=== PATIENT | female | born 1930 | race Caucasian/White ===

== ENCOUNTER 2017-09-30 21:12 | Inpatient (IN) | payer MEDICARE, MEDICAID ==
[2017-09-30 22:11] LABS: % BASOPHILS 0.6 % (0.0-2.0); % EOSINOPHILS 11.2 % (0.0-5.0); % LYMPHOCYTES 26.8 % (20.0-50.0); % MONOCYTES 14.4 % (2.0-10.0); EOSINOPHILE ABSOLUTE 0.7 Th/cmm (0.1-0.4); HEMATOCRIT 23.2 % (41.0-60); LYMPHOCYTE ABSOLUTE 1.6 Th/cmm (1.5-3.0); MEAN CELL VOLUME 82.4 fl (81-100); MEAN CORPUSCULAR HEMOGLOBIN 27.9 pg (27.0-31.0); MEAN CORPUSCULAR HGB CONC 33.9 pg (28.0-36.0); MEAN PLATELET VOLUME 7.7 fl; MONOCYTE ABSOLUTE 0.8 Th/cmm (0.3-1.0); NEUTROPHILE ABSOLUTE 2.8 Th/cmm (1.8-8.0); PLATELET COUNT 335 Th/cmm (150-400); RED BLOOD COUNT 2.81 Mil/cmm (3.80-5.20); RED CELL DISTRIBUTION WIDTH 16.3 % (11.5-20.0); WHITE BLOOD COUNT 5.9 Th/cmm (4.8-10.8)
[2017-09-30 22:25] LABS: ALBUMIN 3.4 gm/dL (3.7-5.3); ALKALINE PHOSPHATASE 71 U/L (34-104); ANION GAP 12.4 (7.0-16.0); BILIRUBIN,TOTAL 0.2 mg/dL (0.3-1.0); BUN - UREA NITROGEN 35 mg/dL (7-25); CALCIUM SERUM 9.3 mg/dL (8.6-10.3); CARBON DIOXIDE 25.6 mEq/L (21.0-31.0); CHLORIDE 100 mEq/L (98-107); CREATININE - SERUM 1.1 mg/dL (0.6-1.2); GLUCOSE 109 mg/dL (70-105); SGOT 16 U/L (13-39); SGPT/ALT 13 U/L (7-52); SODIUM SERUM 134 mEq/L (136-145); TOTAL PROTEIN,SERUM 6.8 gm/dL (6.0-8.3)
--- NOTE | 2017-09-30 23:05 | ER Physician Documentation ---
DATE OF SERVICE: 09/30/2017 HISTORY OF PRESENT ILLNESS: An 86-year-old female patient. She is DNR. She is sent by Dr. Wells to this institution because the patient's hematocrit was low and hence for diagnosis and treatment as necessary. The patient was referred to the Emergency Room evaluation. HISTORY OF PRESENT ILLNESS: The patient states that she has nothing wrong and they picked wrong patient and she is brought over here. She is going to awa the doctor, and other than that, she is not complaining of any complaints. I was told that her hematocrit was 8.1 and then rechecking the hematocrit was around 7.1 that means the patient may be either bleeding or has chronic bleeding or chronic ulcer or what will check it out, we will get serum iron, ferritin level and other things. PAST MEDICAL HISTORY: Otherwise benign and negative. The patient herself does not give any history or things, but the things that came from her shelter states that she came from the shelter and the patient has the following diagnoses. 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 PAST MEDICAL HISTORY: Other than this one, is not available to me. REVIEW OF SYSTEMS: Cannot be obtained. She is not cooperative. She does not answer. ALLERGIES: The patient is allergic to ibuprofen. There is Motrin as well as iodine, so anytime IVP is done or any other contrast media test is done, please watch out and in the front of the chart please put down she is allergic to ibuprofen and iodine dye that means anything that contains like fish or things probably iodine, she might be allergic to that. PAST MEDICAL HISTORY: Also includes hypertension, hyperlipidemia, depression, hypothyroidism, etc. PHYSICAL EXAMINATION: VITAL SIGNS: The triage nurse took the vital signs showing temperature 96.8, pulse of 58, respirations 20, blood pressure 144/57, oxygen saturation 94%. GENERAL: The patient appears to be awake, alert, oriented, not in any acute cardiorespiratory distress. She is not cooperative. She has low hemoglobin. HEENT: Her conjunctivae are pink. Sclerae white. Pupils are narrow. There is no eye infection. NECK: Supple, no meningeal signs. EXTREMITIES: No edema, no cyanosis, no petechia, no ecchymosis. Conjunctivae appears to be pale. Iris appears to be white. There is no jaundice. At 10:00 at nighttime, cannot appreciate the jaundice. No evidence of any [employer] difficulty. Overall, general exam is benign and negative except for anemia and depression, probably some psychosis, etc. CHEST: Reveals trachea to be central. Fairly good air entry in both lung without any rales, rhonchi, or bronchial breathing. ABDOMEN: Soft, benign and negative. Liver, spleen not enlarged. No free fluid in the abdominal cavity. CENTRAL NERVOUS SYSTEM: Otherwise, moves all the extremities. Do not see that the patient has any old or new stroke. HEART: Reveals normal heart sounds. PMI is located in the fifth intercostal space midclavicular line. S1, S2 are normal. third heart sound is absent. Fourth heart sound is present. ENDOCRINE: The patient does not have any diabetes or hyper or hypothyroidism, but hypothyroidism history is obtained, so we will get some free T4 level as well as a TSH level. No evidence of any [place]'s disease or pheochromocytoma, etc. GENITOURINARY: No burning, frequency, dysuria. No history of previous illnesses. BONES AND JOINTS: No gross evidence of any fracture. CANCER: No evidence of any cancer, etc. At least these are the history that she is giving. LABORATORY DATA: She has some prerenal azotemia. The BUN was 37 and 32. Afterwards with creatinine 1.06, so prerenal azotemia is present. Electrolytes appear to be normal. Albumin is 3.4, which is mild protein calorie malnutrition is noted. Alkaline phosphatase is 64. SGOT, SGPT, essentially is within normal limits. The patient came to [facility] where I am seeing her in the Emergency Room. The patient was sent by the [facility] [address] [address], phone [phone]. FINAL IMPRESSION: The patient has anemia, etiology of the anemia is uncertain, whether the patient has chronic blood loss coming. Other diagnosis includes that the patient has hypertension, mild prerenal azotemia. The patient has hypertension, hyperlipidemia and depression. She is a DNR status. Allergic to iodine and ibuprofen. She has unspecified lack of coordination, difficulty in walking. She has previous history of pressure ulcer of sacral region, stage I and she has atherosclerotic heart disease of [place] coronary artery without angina pectoris, heart failure, history unspecified dysphagia, oropharyngeal phase, patient may be having GERD. The medications the patient is on from the shelter, [facility] is that she is taking simvastatin 10 mg 1 tablet a day, buspirone 5 mg tablet, Tylenol p.r.n. as and when needed, valsartan 160 mg for blood pressure once a day. She is getting potassium chloride. She is on gabapentin 300 mg for peripheral neuropathy. Tramadol 50 mg. There is a nonsteroidal anti-inflammatory drug ordered by Dr. Anahy Osorio. The patient over there in the shelter is taken care by Dr. Tracey and Dr. Anahy Osorio and I believe Dr. Wells might be also taking care as he was the one to refer the patient. The patient is also taking fluoxetine, there is antidepressant medication 40 mg once a day, monitoring of the patient, Risperdal 0.25 mg 1 tablet at bedtime, RNA to ambulate the patient. JOB# [id number]
[2017-09-30 23:39] LABS: HEMOGLOBIN 7.9 gm/dL (12-16)
[2017-10-01 00:35] VITALS: BP 138/51
[2017-10-01] MEDS: Sodium Chloride 0.9% 1,000 ML IV SCH ×2 (02:20→20:49)
[2017-10-01 06:16] LABS: EOSINOPHILE ABSOLUTE 0.6 Th/cmm (0.1-0.4); LYMPHOCYTE ABSOLUTE 1.5 Th/cmm (1.5-3.0); MEAN PLATELET VOLUME 7.8 fl; MONOCYTE ABSOLUTE 0.6 Th/cmm (0.3-1.0)
[2017-10-01 06:31] LABS: % BASOPHILS 0.7 % (0.0-2.0); % EOSINOPHILS 13.7 % (0.0-5.0); % LYMPHOCYTES 32.5 % (20.0-50.0); % MONOCYTES 13.7 % (2.0-10.0); % NEUTROPHILS 39.4 % (40.0-80.0); HEMATOCRIT 23.2 % (41.0-60); MEAN CELL VOLUME 82.5 fl (81-100); MEAN CORPUSCULAR HEMOGLOBIN 27.8 pg (27.0-31.0); MEAN CORPUSCULAR HGB CONC 33.7 pg (28.0-36.0); NEUTROPHILE ABSOLUTE 1.9 Th/cmm (1.8-8.0); PLATELET COUNT 326 Th/cmm (150-400); RED BLOOD COUNT 2.81 Mil/cmm (3.80-5.20); RED CELL DISTRIBUTION WIDTH 16.2 % (11.5-20.0)
[2017-10-01 06:36] LABS: HEMOGLOBIN 7.8 gm/dL (12-16); WHITE BLOOD COUNT 4.6 Th/cmm (4.8-10.8)
[2017-10-01 07:05] LABS: BUN - UREA NITROGEN 32 mg/dL (7-25); CALCIUM SERUM 9.3 mg/dL (8.6-10.3); CARBON DIOXIDE 27.2 mEq/L (21.0-31.0); CHLORIDE 103 mEq/L (98-107); GLUCOSE 95 mg/dL (70-105); POTASSIUM SERUM 4.2 mEq/L (3.5-5.1); SODIUM SERUM 136 mEq/L (136-145)
[2017-10-01 07:07] LABS: ALB/GLOB RATIO 0.9 (1.0-1.8); ALBUMIN 3.2 gm/dL (3.7-5.3); BILIRUBIN,TOTAL 0.3 mg/dL (0.3-1.0); TOTAL PROTEIN,SERUM 6.6 gm/dL (6.0-8.3)
[2017-10-01 07:12] LABS: BILIRUBIN,DIRECT 0.04 mg/dL (0.0-0.2)
--- NOTE | 2017-10-01 08:10 | Diagnostic Imaging Report ---
Portable chest x-ray HISTORY: Cough, pneumonia The heart appears somewhat enlarged. Atherosclerotic calcification seen in the aorta. No acute focal bony processes. Extensive surgical changes with orthopedic hardware traverses the right humerus. IMPRESSION: 1. No acute focal pulmonary processes 2. Cardiomegaly with atherosclerotic vascular changes
[2017-10-01] MEDS ORDERED: cloNIDine 0.2 mg/24 hr Tdm TD SCH (08:45)
[2017-10-01] MEDS: Levothyroxine 0.075 Mg Tab PO SCH (10:00)
[2017-10-01] MEDS: Potassium Chloride Elixir 20 mEq /15 mL UDC PO SCH (10:54)
[2017-10-01] MEDS ORDERED: VTE Chemical Prophylaxis Screen/Admission MC PRN (15:30)
[2017-10-01] MEDS ORDERED: Magnesium Citrate 1.75 GM/300 mL Bottle PO ONE (15:58)
--- NOTE | 2017-10-02 01:15 | Consultation ---
DATE OF CONSULTATION: 10/01/2017 GASTROENTEROLOGY CONSULTATION REQUESTING PHYSICIAN: iNcole Wells M.D. REASON FOR CONSULTATION: Anemia. HISTORY OF PRESENT ILLNESS: An 86-year-old female admitted for symptomatic anemia with some fatigue and shortness of breath. Hemoglobin on admission was in the 7 range. There is no overt GI bleeding. The patient is a poor historian. She denies abdominal pain, nausea, vomiting, diarrhea, or constipation. She last had a colonoscopy per her son about 5 years ago that was unremarkable. An upper endoscopy was offered, but the patient refused. PAST MEDICAL HISTORY: As above, also notable for hypertension, hyperlipidemia, depression, and obesity. ALLERGIES: IBUPROFEN and IODINE. MEDICATIONS: Here are Tylenol, BuSpar, Catapres, Colace, Prozac, Lasix, Neurontin, hydralazine, Synthroid, Ativan, potassium, Risperdal, Zocor, Ultram, and Diovan. SOCIAL HISTORY: No known tobacco, alcohol, or drugs. FAMILY HISTORY: Noncontributory. REVIEW OF SYSTEMS: Negative. REVIEW OF SYSTEMS: A comprehensive 12-point review of system was conducted and is only positive for those signs and symptoms present in history of present illness. PHYSICAL EXAMINATION: VITAL SIGNS: Temperature 97.6, blood pressure 125/49, pulse of 60, respirations 17, and O2 sat 97%. GENERAL: The patient is well-developed, well-nourished, obese female, in no acute distress. HEENT: Sclerae are anicteric. Oropharynx is clear. CARDIOVASCULAR: Regular rate and rhythm. LUNGS: Clear to auscultation bilaterally. ABDOMEN: Soft, nontender, nondistended. Obese habitus. EXTREMITIES: No clubbing, cyanosis, or edema. RECTAL: Deferred. LABORATORY DATA AND IMAGING: WBC 4.6, hemoglobin 7.8, MCV 82, and platelet count 326. Sodium 136, creatinine 1.0. BUN of 32. Liver enzymes normal. Albumin 3.2. IMPRESSION: 1. Anemia, multifactorial, could be from GI blood loss from upper or lower GI source, could also be from anemia of chronic disease, bone marrow disorder, etc. 2. History of hypertension, hyperlipidemia, depression, and obesity. RECOMMENDATIONS: 1. Upper endoscopy and colonoscopy either tomorrow or the day after depending on bowel preparation tolerance. 2. Monitor hemoglobin, transfuse as necessary. Thank you, Dr. Nicole Wells for involving us in the care of your patient. If you have any further questions, please call us. JOB# [id number]
[2017-10-02 05:35] LABS: % BASOPHILS 0.7 % (0.0-2.0); % EOSINOPHILS 16.9 % (0.0-5.0); % LYMPHOCYTES 28.2 % (20.0-50.0); % MONOCYTES 14.2 % (2.0-10.0); EOSINOPHILE ABSOLUTE 0.8 Th/cmm (0.1-0.4); HEMATOCRIT 22.1 % (41.0-60); LYMPHOCYTE ABSOLUTE 1.3 Th/cmm (1.5-3.0); MEAN CORPUSCULAR HEMOGLOBIN 27.3 pg (27.0-31.0); MEAN CORPUSCULAR HGB CONC 32.9 pg (28.0-36.0); MEAN PLATELET VOLUME 8.1 fl; MONOCYTE ABSOLUTE 0.7 Th/cmm (0.3-1.0); NEUTROPHILE ABSOLUTE 1.8 Th/cmm (1.8-8.0); PLATELET COUNT 313 Th/cmm (150-400); RED BLOOD COUNT 2.66 Mil/cmm (3.80-5.20); RED CELL DISTRIBUTION WIDTH 16.2 % (11.5-20.0); WHITE BLOOD COUNT 4.6 Th/cmm (4.8-10.8)
[2017-10-02 05:44] LABS: INR 0.95 (0.5-1.4); PROTHROMBIN TIME (TEST) 9.9 SECONDS (9.5-11.5)
[2017-10-02 05:53] LABS: ANION GAP 9.5 (7.0-16.0); BUN - UREA NITROGEN 29 mg/dL (7-25); CHLORIDE 104 mEq/L (98-107); CREATININE - SERUM 0.8 mg/dL (0.6-1.2); GLUCOSE 95 mg/dL (70-105); POTASSIUM SERUM 4.5 mEq/L (3.5-5.1); SODIUM SERUM 138 mEq/L (136-145)
[2017-10-02 06:29] LABS: HEMOGLOBIN 7.3 gm/dL (12-16)
[2017-10-02 08:09] LABS: IRON LC 19 ug/dL (27-139); TIBC (LC) 332 (250-450); UIBC 313 ug/dL (118-369)
[2017-10-02] MEDS ORDERED: Magnesium Citrate 1.75 GM/300 mL Bottle PO ONE (09:00)
[2017-10-02] MEDS: Potassium Chloride Elixir 20 mEq /15 mL UDC PO SCH (09:10)
[2017-10-02] MEDS: Levothyroxine 0.075 Mg Tab PO SCH (09:12)
[2017-10-02] MEDS: Lactulose 10 Gm/15 mL 30mL UDC PO SCH ×4 (14:47→18:28)
--- NOTE | 2017-10-02 14:47 | Cardiology ---
10/01/[address] Wells. PROCEDURE: Echocardiogram. M-MODE ECHOCARDIOGRAM: Mitral valve, anterior leaflet of mitral valve shows normal excursion, EF velocity. Posterior leaflet of the mitral valve shows normal excursion. Left ventricular posterior wall shows increased thickness, normal excursion. Interventricular septum shows increased thickness, normal excursion. There is hypertrophy of the left ventricle. Left atrium normal. Aortic root shows normal dimension, normal excursion of aortic leaflets. CONCLUSION: Hypertrophy of the left ventricle, ejection fraction 50%. 2D ECHO: Long axis technically poor, only structure visualized in apical 4 chamber view, which showed normal sized left ventricle with hypertrophy of the left ventricle. Left atrium normal. Right ventricular cavity, right atrium normal, no pericardial effusion. CONCLUSION: Hypertrophy of the left ventricle, ejection fraction 50%. Doppler study shows prominent area consistent with poor compliance of left ventricle, mild tricuspid regurgitation. [facility]# [id number]
[2017-10-02] MEDS: Sodium Chloride 0.9% 1,000 ML IV SCH (17:43)
--- NOTE | 2017-10-02 22:15 | GI Progress Note ---
Subjective - Review of Systems Service Date: 10/02/17 Subjective: UNABLE TO FABY BOWEL PREP OVERNIGHT. EGD AND COLONOSCOPY POSTPONED. Objective - Results Result Diagrams: 10/02/17 04:30 10/02/17 04:30 Recent Labs: Laboratory Last Values WBC 4.6 Th/cmm (4.8-10.8) L 10/02/17 04:30 RBC 2.66 Mil/cmm (3.80-5.20) L 10/02/17 04:30 Hgb 7.3 gm/dL (12-16) L* 10/02/17 04:30 Hct 22.1 % (41.0-60) L 10/02/17 04:30 MCV 83.0 fl (81-100) 10/02/17 04:30 MCH 27.3 pg (27.0-31.0) 10/02/17 04:30 MCHC Differential 32.9 pg (28.0-36.0) 10/02/17 04:30 RDW 16.2 % (11.5-20.0) 10/02/17 04:30 Plt Count 313 Th/cmm (150-400) 10/02/17 04:30 MPV 8.1 fl 10/02/17 04:30 Neutrophils % 40.0 % (40.0-80.0) 10/02/17 04:30 Lymphocytes % 28.2 % (20.0-50.0) 10/02/17 04:30 Monocytes % 14.2 % (2.0-10.0) H 10/02/17 04:30 Eosinophils % 16.9 % (0.0-5.0) H 10/02/17 04:30 Basophils % 0.7 % (0.0-2.0) 10/02/17 04:30 PT 9.9 SECONDS (9.5-11.5) 10/02/17 04:30 INR 0.95 (0.5-1.4) 10/02/17 04:30 Sodium 138 mEq/L (136-145) 10/02/17 04:30 Potassium 4.5 mEq/L (3.5-5.1) 10/02/17 04:30 Chloride 104 mEq/L (98-107) 10/02/17 04:30 Carbon Dioxide 29.0 mEq/L (21.0-31.0) 10/02/17 04:30 Anion Gap 9.5 (7.0-16.0) 10/02/17 04:30 BUN 29 mg/dL (7-25) H 10/02/17 04:30 Creatinine 0.8 mg/dL (0.6-1.2) 10/02/17 04:30 Est GFR ( Amer) TNP 10/02/17 04:30 Est GFR (Non-Af Amer) TNP 10/02/17 04:30 BUN/Creatinine Ratio 36.3 10/02/17 04:30 Glucose 95 mg/dL (70-105) 10/02/17 04:30 Calcium 9.0 mg/dL (8.6-10.3) 10/02/17 04:30 Magnesium 2.5 mg/dL (1.9-2.7) 09/30/17 21:55 Iron 19 ug/dL (27-139) L 09/30/17 22:15 TIBC 332 (250-450) 09/30/17 22:15 Iron Saturation 6 (15-55) L 09/30/17 22:15 Unsaturated IBC 313 ug/dL (118-369) 09/30/17 22:15 Ferritin 12 ng/mL (15-150) L 09/30/17 22:15 Total Bilirubin 0.3 mg/dL (0.3-1.0) 10/01/17 05:20 Direct Bilirubin 0.04 mg/dL (0.0-0.2) 10/01/17 05:20 AST 13 U/L (13-39) 10/01/17 05:20 ALT 12 U/L (7-52) 10/01/17 05:20 Alkaline Phosphatase 68 U/L (34-104) 10/01/17 05:20 C-Reactive Protein < 0.2 mg/dL (0.0-0.9) 09/30/17 21:55 B-Natriuretic Peptide 98.4 pg/mL (5.0-100.0) 10/01/17 05:20 Total Protein 6.6 gm/dL (6.0-8.3) 10/01/17 05:20 Albumin 3.2 gm/dL (3.7-5.3) L 10/01/17 05:20 Globulin 3.4 gm/dL 10/01/17 05:20 Albumin/Globulin Ratio 0.9 (1.0-1.8) L 10/01/17 05:20 Stool Occult Blood NEGATIVE (NEGATIVE) 10/02/17 18:06 Blood Type O POSITIVE 09/30/17 21:55 Antibody Screen NEGATIVE 09/30/17 21:55 Crossmatch See Detail 09/30/17 21:55 - Physical Exam Vitals and I&O: Vital Signs Temp 98.2 F 10/02/17 17:00 Pulse 66 10/02/17 21:28 Resp 20 10/02/17 17:00 BP 150/77 10/02/17 21:28 Pulse Ox 99 10/02/17 17:00 Intake & Output 10/02/17 10/02/17 10/03/17 06:59 18:59 06:59 Intake Total 333.295 2025 Balance 597.483 1804 Intake: Intake, IV Amount 226.764 3720 Sodium Chloride 0.9% 1, 933.776 2683 000 ml @ 50 mls/hr IV . Q20H [facility] Rx#:[id number] Other: Stool Characteristics Formed Liquid Active Medications: Current Medications Acetaminophen (Tylenol) 325 mg PO Q6H PRN PRN Reason: PAIN Stop: 11/30/17 10:45 Last Admin: 10/01/17 19:49 Dose: 325 mg Buspirone HCl (Buspar) 5 mg PO BID [facility] PRN Reason: Protocol Stop: 11/30/17 08:59 Last Admin: 10/02/17 16:30 Dose: 5 mg Clonidine HCl (Lornmxne-Siv-4) 1 patch TD [facility] Stop: 11/30/17 08:44 Docusate Sodium (Colace) 250 mg PO QID [facility] Stop: 10/03/17 23:59 Last Admin: 10/02/17 21:28 Dose: 250 mg Fluoxetine HCl (Prozac) 40 mg PO DAILY [facility] Stop: 11/30/17 08:59 Last Admin: 10/02/17 09:12 Dose: 40 mg Furosemide (Lasix) 40 mg PO DAILY [facility] Stop: 11/30/17 08:59 Last Admin: 10/02/17 08:58 Dose: 40 mg Gabapentin (Neurontin) 300 mg PO TID [facility] Stop: 11/30/17 08:59 Last Admin: 10/02/17 21:28 Dose: 300 mg Hydralazine HCl (Apresoline) 50 mg PO TID [facility] Stop: 11/30/17 08:59 Last Admin: 10/02/17 21:28 Dose: 50 mg Sodium Chloride (Nacl 0.9%) 1,000 mls @ 50 mls/hr IV .Q20H [facility] Stop: 11/30/17 01:15 Last Admin: 10/02/17 17:43 Dose: 50 mls/hr Levothyroxine Sodium (Synthroid) 0.075 mg PO QDAC [facility] Stop: 11/30/17 08:59 Last Admin: 10/02/17 09:12 Dose: 0.075 mg Lorazepam (Ativan) 1 mg IVP Q4HR PRN; Protocol PRN Reason: Agitation Stop: 11/30/17 01:15 Last Admin: 10/02/17 05:18 Dose: 1 mg Miscellaneous (Vte Chemical Prophylaxis Screen/ Admission) 1 ea [facility] PRN PRN PRN Reason: PROTOCOL Stop: 11/30/17 15:29 Potassium Chloride (Potassium Chloride Elixir) 8 meq PO DAILY [facility] Stop: 11/30/17 08:59 Last Admin: 10/02/17 09:10 Dose: Not Given Risperidone (Risperdal) 0.25 mg PO HS [facility] Stop: 11/30/17 20:59 Last Admin: 10/02/17 21:29 Dose: 0.25 mg Simvastatin (Zocor) 10 mg PO HS [facility] PRN Reason: Protocol Stop: 11/30/17 20:59 Last Admin: 10/02/17 21:28 Dose: 10 mg Tramadol HCl (Ultram) 50 mg PO Q4HR PRN PRN Reason: Pain (Moderate) Stop: 11/30/17 08:39 Valsartan (Diovan) 160 mg PO BID [facility] Stop: 11/30/17 08:59 Last Admin: 10/02/17 16:29 Dose: 160 mg General: Alert, No acute distress Neck: Supple Cardiovascular: Regular rate Lungs: Clear to auscultation Abdomen: Bowel sounds, Soft, no Tender - Procedures Procedures: Procedures Procedure Code Date [facility] GROUP PSYTX 44654 01/24/01 OTHER GROUP THERAPY 94.44 01/24/01 Assessment/Plan - Assessment Assessment: IMPRESSION: 1. ANEMIA - R/O GI BLOOD LOSS VS. OTHER. 2. HTN. 3. HL. 4. OBESITY. RECS: 1. EGD AND COLONOSCOPY POSTPONED TILL TOMORROW. 2. CONTINUE BOWEL PREP. 3. MONITOR HGB; TRANSFUSE PRN.
--- NOTE | 2017-10-02 22:56 | Consultation ---
DATE OF CONSULTATION: 10/01/[address] Wells. HISTORY OF PRESENT ILLNESS: This is an 86-year-old female patient who was brought in because of symptomatic anemia. The patient is a poor historian. During the hospital stay, the patient was found to have uncontrolled hypertension with bradycardia and hence Cardiology consult is requested. The patient's hemoglobin is 7. PAST MEDICAL HISTORY: Anemia, hypertension, bradycardia, uncontrolled hypertension, psychosis, decubitus ulcer in the sacral area, hypothyroid, CKD stage II, peripheral neuropathy, and hyperlipidemia. FAMILY HISTORY: Unremarkable. SOCIAL HISTORY: No history of smoking or alcohol abuse. ALLERGIES: No known allergies. PHYSICAL EXAMINATION: VITAL SIGNS: Blood pressure 170/90, pulse 58, and respirations 28. HEAD: Normocephalic. No lumps or bumps. EYES: Pupils equal, reactive to light. Fundi show AV nicking, sclerae white, conjunctivae pink. NECK: Carotid 2+. Normal upstroke. JVD flat. Thyroid not palpable. Lymph nodes not palpable. CHEST: Shows increased AP diameter. No kyphosis, scoliosis. LUNGS: Bilateral bronchovesicular breath sounds. HEART: PMI fifth intercostal space with lateral to midclavicular line. S1, S2. No S3, S4, soft systolic murmur, sinus bradycardia. ABDOMEN: Soft. Mild epigastric tenderness. No rebound tenderness. Bowel sounds active. NEUROLOGIC: Peripheral neuropathy. EXTREMITIES: Peripheral pulses 2+. No pedal edema. CLINICAL IMPRESSION: Iron-deficiency anemia, symptomatic hypertension, bradycardia, uncontrolled blood pressures, psychosis, decubitus ulcer in the sacrum, hypothyroid, chronic kidney disease stage II, peripheral neuropathy, and hyperlipidemia. PLAN: Admit the patient. We will monitor the blood pressure. We will get TSH level and have a GI workup with colonoscopy and EGD. JOB# [id number]
[2017-10-03 06:46] LABS: HEMATOCRIT 23.6 % (41.0-60); MEAN CELL VOLUME 83.3 fl (81-100); MEAN CORPUSCULAR HEMOGLOBIN 27.1 pg (27.0-31.0); MEAN CORPUSCULAR HGB CONC 32.5 pg (28.0-36.0); MEAN PLATELET VOLUME 7.6 fl; PLATELET COUNT 369 Th/cmm (150-400); RED BLOOD COUNT 2.84 Mil/cmm (3.80-5.20); RED CELL DISTRIBUTION WIDTH 16.5 % (11.5-20.0); WHITE BLOOD COUNT 6.8 Th/cmm (4.8-10.8)
[2017-10-03 06:54] LABS: HEMOGLOBIN 7.7 gm/dL (12-16)
[2017-10-03 06:55] LABS: MANUAL DIFF REQUIRED? YES
[2017-10-03 07:08] LABS: ALB/GLOB RATIO 0.9 (1.0-1.8); ALBUMIN 3.3 gm/dL (3.7-5.3); ALKALINE PHOSPHATASE 73 U/L (34-104); ANION GAP 9.2 (7.0-16.0); BILIRUBIN,TOTAL 0.2 mg/dL (0.3-1.0); BUN - UREA NITROGEN 20 mg/dL (7-25); CALCIUM SERUM 9.5 mg/dL (8.6-10.3); CHLORIDE 110 mEq/L (98-107); CREATININE - SERUM 0.9 mg/dL (0.6-1.2); GLUCOSE 126 mg/dL (70-105); POTASSIUM SERUM 3.2 mEq/L (3.5-5.1); SGOT 15 U/L (13-39); SGPT/ALT 15 U/L (7-52); SODIUM SERUM 147 mEq/L (136-145); TOTAL PROTEIN,SERUM 6.8 gm/dL (6.0-8.3)
[2017-10-03 07:32] LABS: LYMPHOCYTE 8 % (20-50); NEUTROPHILS 85 % (40-80); TOTAL CELLS COUNTED 100
[2017-10-03 07:35] LABS: MONOCYTE 7 % (2-10); PLATELET ESTIMATE INCREASED PLATELETS (NORMAL)
[2017-10-03] MEDS ORDERED: KCL 20mEq/100mL Premix 20 MEQ/100 ML PIGGYBACK IV ONE (08:28)
[2017-10-03] MEDS: Levothyroxine 0.075 Mg Tab PO SCH (08:46)
[2017-10-03] MEDS: Potassium Chloride Elixir 20 mEq /15 mL UDC PO SCH (08:47)
[2017-10-03] MEDS ORDERED: fentaNYL Citrate 100 mcg/2mL Vial IVP PRN (09:02)
[2017-10-03] MEDS ORDERED: Sodium Chloride 0.9% 1,000 ML IV SCH (09:15)
[2017-10-03] MEDS ORDERED: Lidocaine 2% Gel 5 mL TP ONE (10:00)
[2017-10-03] MEDS ORDERED: Propofol 10 mg/mL 20mL Vial **SURGERY USE ONLY IV ONE (10:00)
--- NOTE | 2017-10-03 11:30 | General Progress Note ---
Subjective - Review of Systems Events since last encounter: patient awake in no distress Objective - Results Result Diagrams: 10/03/17 06:05 10/03/17 06:05 Recent Labs: Laboratory Last Values WBC 6.8 Th/cmm (4.8-10.8) D 10/03/17 06:05 RBC 2.84 Mil/cmm (3.80-5.20) L 10/03/17 06:05 Hgb 7.7 gm/dL (12-16) L* 10/03/17 06:05 Hct 23.6 % (41.0-60) L 10/03/17 06:05 MCV 83.3 fl (81-100) 10/03/17 06:05 MCH 27.1 pg (27.0-31.0) 10/03/17 06:05 MCHC Differential 32.5 pg (28.0-36.0) 10/03/17 06:05 RDW 16.5 % (11.5-20.0) 10/03/17 06:05 Plt Count 369 Th/cmm (150-400) 10/03/17 06:05 MPV 7.6 fl 10/03/17 06:05 Neutrophils % 40.0 % (40.0-80.0) 10/02/17 04:30 Lymphocytes % 28.2 % (20.0-50.0) 10/02/17 04:30 Monocytes % 14.2 % (2.0-10.0) H 10/02/17 04:30 Eosinophils % 16.9 % (0.0-5.0) H 10/02/17 04:30 Basophils % 0.7 % (0.0-2.0) 10/02/17 04:30 Neutrophils (Manual) 85 % (40-80) H 10/03/17 06:05 Lymphocytes 8 % (20-50) L 10/03/17 06:05 Monocytes 7 % (2-10) 10/03/17 06:05 Platelet Estimate INCREASED PLATELETS (NORMAL) 10/03/17 06:05 PT 9.9 SECONDS (9.5-11.5) 10/02/17 04:30 INR 0.95 (0.5-1.4) 10/02/17 04:30 Sodium 147 mEq/L (136-145) H 10/03/17 06:05 Potassium 3.2 mEq/L (3.5-5.1) L 10/03/17 06:05 Chloride 110 mEq/L (98-107) H 10/03/17 06:05 Carbon Dioxide 31.0 mEq/L (21.0-31.0) 10/03/17 06:05 Anion Gap 9.2 (7.0-16.0) 10/03/17 06:05 BUN 20 mg/dL (7-25) 10/03/17 06:05 Creatinine 0.9 mg/dL (0.6-1.2) 10/03/17 06:05 Est GFR ( Amer) TNP 10/03/17 06:05 Est GFR (Non-Af Amer) TNP 10/03/17 06:05 BUN/Creatinine Ratio 22.2 10/03/17 06:05 Glucose 126 mg/dL (70-105) H 10/03/17 06:05 POC Glucose 106 MG/DL (70 - 105) H 10/03/17 08:24 Calcium 9.5 mg/dL (8.6-10.3) 10/03/17 06:05 Magnesium 2.5 mg/dL (1.9-2.7) 09/30/17 21:55 Iron 19 ug/dL (27-139) L 09/30/17 22:15 TIBC 332 (250-450) 09/30/17 22:15 Iron Saturation 6 (15-55) L 09/30/17 22:15 Unsaturated IBC 313 ug/dL (118-369) 09/30/17 22:15 Ferritin 12 ng/mL (15-150) L 09/30/17 22:15 Total Bilirubin 0.2 mg/dL (0.3-1.0) L 10/03/17 06:05 Direct Bilirubin 0.04 mg/dL (0.0-0.2) 10/01/17 05:20 AST 15 U/L (13-39) 10/03/17 06:05 ALT 15 U/L (7-52) 10/03/17 06:05 Alkaline Phosphatase 73 U/L (34-104) 10/03/17 06:05 C-Reactive Protein < 0.2 mg/dL (0.0-0.9) 09/30/17 21:55 B-Natriuretic Peptide 98.4 pg/mL (5.0-100.0) 10/01/17 05:20 Total Protein 6.8 gm/dL (6.0-8.3) 10/03/17 06:05 Albumin 3.3 gm/dL (3.7-5.3) L 10/03/17 06:05 Globulin 3.5 gm/dL 10/03/17 06:05 Albumin/Globulin Ratio 0.9 (1.0-1.8) L 10/03/17 06:05 Stool Occult Blood NEGATIVE (NEGATIVE) 10/02/17 18:06 Blood Type O POSITIVE 09/30/17 21:55 Antibody Screen NEGATIVE 09/30/17 21:55 Crossmatch See Detail 09/30/17 21:55 - Physical Exam Vitals and I&O: Vital Signs Temp 98.2 F 10/03/17 06:43 Pulse 75 10/03/17 08:47 Resp 18 10/03/17 06:43 BP 198/96 10/03/17 08:47 Pulse Ox 97 10/03/17 06:43 Intake & Output 10/02/17 10/03/17 10/03/17 18:59 06:59 18:59 Intake Total 1000 2400 Balance 1000 2400 Weight (lbs) 65.045 kg Intake: Intake, IV Amount 1000 Sodium Chloride 0.9% 1, 1000 000 ml @ 50 mls/hr IV . Q20H [facility] Rx#:[id number] Oral 2400 Other: # Voids 2 # Bowel Movements 4 Active Medications: Current Medications Acetaminophen (Tylenol) 325 mg PO Q6H PRN PRN Reason: PAIN Stop: 11/30/17 10:45 Last Admin: 10/01/17 19:49 Dose: 325 mg Buspirone HCl (Buspar) 5 mg PO BID [facility] PRN Reason: Protocol Stop: 11/30/17 08:59 Last Admin: 10/03/17 08:46 Dose: Not Given Clonidine HCl (Mtjvwdev-Kxh-1) 1 patch TD [facility] Stop: 11/30/17 08:44 Docusate Sodium (Colace) 250 mg PO QID [facility] Stop: 10/03/17 23:59 Last Admin: 10/03/17 08:46 Dose: Not Given Fentanyl Citrate (Sublimaze) 25 mcg IVP UD PRN PRN Reason: Pain (Moderate) Stop: 10/04/17 09:01 Fluoxetine HCl (Prozac) 40 mg PO DAILY [facility] Stop: 11/30/17 08:59 Last Admin: 10/03/17 08:46 Dose: Not Given Furosemide (Lasix) 40 mg PO DAILY [facility] Stop: 11/30/17 08:59 Last Admin: 10/03/17 08:46 Dose: Not Given Gabapentin (Neurontin) 300 mg PO TID [facility] Stop: 11/30/17 08:59 Last Admin: 10/03/17 08:47 Dose: Not Given Hydralazine HCl (Apresoline) 50 mg PO TID [facility] Stop: 11/30/17 08:59 Last Admin: 10/03/17 08:47 Dose: Not Given Sodium Chloride (Nacl 0.9%) 1,000 mls @ 50 mls/hr IV .Q20H [facility] Stop: 11/30/17 01:15 Last Admin: 10/02/17 17:43 Dose: 50 mls/hr Potassium Chloride 20 meq/ (Sodium Chloride) 260 mls @ 68 mls/hr IV X1 ONE Stop: 10/03/17 12:49 Last Admin: 10/03/17 08:57 Dose: 68 mls/hr Sodium Chloride (Nacl 0.9%) 1,000 mls @ 100 mls/hr IV .Q10H [facility] Stop: 10/04/17 09:14 Levothyroxine Sodium (Synthroid) 0.075 mg PO QDAC [facility] Stop: 11/30/17 08:59 Last Admin: 10/03/17 08:46 Dose: Not Given Lorazepam (Ativan) 1 mg IVP Q4HR PRN; Protocol PRN Reason: Agitation Stop: 11/30/17 01:15 Last Admin: 10/03/17 02:18 Dose: 1 mg Miscellaneous (Vte Chemical Prophylaxis Screen/ Admission) 1 ea [facility] PRN PRN PRN Reason: PROTOCOL Stop: 11/30/17 15:29 Ondansetron HCl (Zofran) 4 mg IV UD PRN PRN Reason: Nausea / Vomiting Stop: 10/04/17 09:04 Potassium Chloride (Potassium Chloride Elixir) 8 meq PO DAILY [facility] Stop: 11/30/17 08:59 Last Admin: 10/03/17 08:47 Dose: Not Given Risperidone (Risperdal) 0.25 mg PO HS [facility] Stop: 11/30/17 20:59 Last Admin: 10/02/17 21:29 Dose: 0.25 mg Simvastatin (Zocor) 10 mg PO HS [facility] PRN Reason: Protocol Stop: 11/30/17 20:59 Last Admin: 10/02/17 21:28 Dose: 10 mg Tramadol HCl (Ultram) 50 mg PO Q4HR PRN PRN Reason: Pain (Moderate) Stop: 11/30/17 08:39 Valsartan (Diovan) 160 mg PO BID [facility] Stop: 11/30/17 08:59 Last Admin: 10/03/17 08:47 Dose: Not Given General: Alert, No acute distress Neck: Supple Cardiovascular: Regular rate Lungs: Clear to auscultation Abdomen: Bowel sounds, Soft, no Tender - Procedures Procedures: Procedures Procedure Code Date [facility] GROUP PSYTX 39782 01/24/01 OTHER GROUP THERAPY 94.44 01/24/01
--- NOTE | 2017-10-03 13:36 | Operative Report ---
DATE OF SURGERY: 10/03/2017 PROCEDURE: 1. Esophagogastroduodenoscopy with biopsy. 2. Colonoscopy with biopsy and snare cautery polypectomy at different sites. PREPROCEDURE DIAGNOSIS: Anemia. POSTPROCEDURE DIAGNOSES: 1. Upper endoscopy showing mild presbyesophagus with mild Schatzki's ring; moderate hiatal hernia with erosions; mild atrophic appearing gastritis, status post biopsy and CLOtest; small submucosal lipomatous appearing polyp and duodenum sampled for biopsy forceps. 2. Colonoscopy showing multiple colon polyps excised as described below; unable to reach the cecum due to redundant colon; diverticulosis; hemorrhoids. INDICATIONS: An 86-year-old female admitted for anemia. CONSENT: Informed consent was obtained from the patient's durable power of ip attorney prior to procedure after detailed explanation of risks, benefits, and alternatives including but not limited to infection, perforation and . SEDATION: Monitored anesthesia care per Dr. Hernandez. DESCRIPTION OF PROCEDURE AND FINDINGSS: The procedure took place as an inpatient in the GI suite of [facility]. The patient was kept in a left lateral decubitus position. Adequate sedation was achieved with above medications. Initially; upper endoscopy was performed followed by colonoscopy. An Olympus diagnostic upper endoscope was advanced through the patient's mouth and into the esophagus. Here, there was mild tortuosity of the esophagus suggestive of presbyesophagus, and age-related change. There was a subtle Schatzki's ring identified. The Z line was at 34 cm from the gums. Retroflexion of the stomach revealed a 3 cm hiatal hernia. The diaphragmatic pinch was at 37 cm from the gums. There were some scattered erosions at the diaphragmatic hiatus. No ulcers or mass lesions were identified here. Mild atrophic appearing gastritis was identified in the antrum. Biopsies were obtained, submitted for CLOtest as well as pathology. The pyloric channel and duodenum up to this portion appeared normal except for a small 1 cm submucosal appearing lipomatous polyp in the second portion. Biopsies were obtained from here. The polyp was not removed. It was only sampled. The scope was withdrawn from the patient. The patient was then repositioned and colonoscopy performed. Rectal examination revealed normal sphincter tone with no rectal masses. An Olympus colonoscope was advanced through the patient's anus and into the rectum with ease. It was advanced up to the proximal to mid ascending colon visualized by perhaps and ileocecal valve at a distance, but this was not certain. Despite multiple attempts, due to colon redundancy, the scope was unable to reach the cecum. The scope was then slowly withdrawn and underlying colonic mucosa examined in detail. Three pedunculated polyps identified in the ascending colon measuring 1-2 cm in diameter. All were excised by snare cautery polypectomy and successfully retrieved. A 6 mm hepatic flexure polyp was removed with biopsy forceps. A 1 cm descending colon polyp was removed by snare cautery polypectomy. A 2 cm sigmoid polyp was removed by snare cautery polypectomy. All polypectomy sites appeared satisfactory. There was mild left-sided diverticulosis without obvious diverticulitis. Retroflexion of rectum revealed small internal hemorrhoids. No colitis or mass lesions were identified. The patient tolerated the procedure well. No complications were anticipated. RECOMMENDATIONS: 1. Follow up biopsy results. 2. No aspirin or blood thinners for a week. 3. We will obtain barium enema to clear the right colon. 4. Repeat colonoscopy advised likely in 1-2 years' time if barium enema is negative. If there are potential lesions in the right colon on barium enema, then would consider repeat colonoscopy at a sooner time. 5. High fiber diet as tolerated. Thank you, Dr. Nicole Wells, for involving us in the care of your patient. If you have any further questions, please call us. JOB# [id number] [id number]
--- NOTE | 2017-10-03 13:48 | Diagnostic Imaging Report ---
KUB abdominal film (portable) HISTORY: Pain, incomplete colonoscopy There is a nonspecific gas pattern of nondilated large and small bowel. No free intraperitoneal air. Calcific densities project over the periphery of the right and left abdomen. These may be within the subcutaneous tissues. Severe degenerative changes noted throughout the spine. Left hip arthroplasty noted. Severe joint space narrowing and associated degenerative change noted about the right hip. IMPRESSION: 1. Nonspecific gas pattern with no acute radiographic abnormalities.
--- NOTE | 2017-10-03 13:57 | History & Physical ---
ADMIT DATE: This patient came from [facility]. HISTORY OF PRESENT ILLNESS: The patient has been falling and very unsteady gait ____ and also was complaining of dysuria. I had the labs done, which showed high BUN and hemoglobin of 7.2 and crit was 21. The patient has underlying dementia and the patient is somewhat agitated, was sent to [facility] Emergency Room. The patient was seen in the ER. The patient had little bit labs done, which again showed the patient had a low hemoglobin and some evidence of urinary infection and dehydration and failure to thrive, and unsteady gait. The patient CAT scan done showed dementia, some atrophy . No history of stroke. Otherwise, patient's examination was normal, was admitted. PHYSICAL EXAMINATION: GENERAL: The patient when I saw her, she was very agitated, refusing all the things, and patient is somewhat dehydrated, emaciated, malnourished, cachectic female. VITAL SIGNS: Blood pressure was 110/70, heart rate was 90, respirations 18. HEENT: Normocephalic. Pupils equal, reactive to light. LUNGS: Bilaterally decreased breath sounds. CARDIOVASCULAR SYSTEM: S1, S2 heard. ABDOMEN: Soft. No tenderness. EXTREMITIES: Revealed no edema. Peripheral pulses are felt. LABORATORY DATA: She had the labs reviewed. DIAGNOSES: 1. Severe anemia, rule out gastrointestinal bleeding. 2. History of possible urinary tract infection. 3. History of dementia. 4. History of unsteady gait. 5. Underlying psychosis. PLAN: The patient is being admitted and the patient will have blood transfusion if needed, GI consultation and we will put on antibiotics and have Dr. Arvin Davis also see the patient from ID point of view and we will have Dr. Guzman see the patient from neurosurgical point of view and neuro medical point of view and I will follow the patient. The patient is stable to go through the procedure for EGD if needed. JOB# [id number]
--- NOTE | 2017-10-04 15:39 | Pathology Report ---
[id number] Collection Date: 10/03/2017 Surgeon: Dr. Roxie Mitchell Specimen Description: 1. Duodenal biopsy 2. Antrum biopsy 3. Descending colon polyp 4. Sigmoid polyp 5. Hepatic flexure polyp 6. Ascending colon polyp Gross Description: Part I: Received in formalin are two dorman soft tissue fragments, each measuring 0.1 cm in greatest dimension. Totally submitted in one cassette labeled A. Gross Description: Part II: Received in formalin are two dorman soft tissue fragments, each measuring 0.1 cm in greatest dimension. Totally submitted in one cassette labeled B. Gross Description: Part III: Received in formalin are three dorman soft tissue fragments, ranging from 0.2 to 0.6 cm in greatest dimension. Totally submitted in one cassette labeled C. Gross Description: Part IV: Received in formalin is a single pedunculated polyp measuring 1.1 x 0.7 x 0.6 cm. This polyp has a well-organized structure and smooth surface. Bisected and totally submitted in one cassette labeled D. Gross Description: Part V: Received in formalin are two dorman soft tissue fragments, ranging from 0.1 to 0.2 cm in greatest dimension. Totally submitted in one cassette labeled E. Gross Description: Part : Received in formalin are multiple dorman soft tissue fragments, ranging from 0.2 to 0.5 cm in greatest dimension. Totally submitted in one cassette labeled F. Microscopic Description: Part I: The histologic sections show benign duodenal mucosa with intact intestinal villi showing no evidence for villous abnormality. Areas of mild chronic inflammation are identified consisting of slightly increased number of lymphocytes and plasma cells. Diagnosis: Part I: 1. Mild nonspecific chronic inflammation, duodenal biopsy. 2. There is no evidence for celiac disease/sprue. Microscopic Description: Part II: The histologic sections show gastric mucosa with mild chronic inflammation present consisting of slightly increased numbers of lymphocytes and plasma cells. The Giemsa stain shows no evidence for Helicobacter pylori. Diagnosis: Part II: 1. Mild chronic gastritis, antrum biopsy. 2. The Giemsa stain is negative for Helicobacter pylori. Microscopic Description: Part III: The histologic sections show polypoid fragments of colon mucosa with adenomatous glandular changes present, consisting of nuclear enlargement and stratification with tubules and villous projections appreciated, consistent with tubulovillous adenoma. Diagnosis: Part III: Benign adenomatous polyp consistent with tubulovillous adenoma (descending colon). Microscopic Description: Part IV: The histologic sections show a well-defined, pedunculated polyp with adenomatous glandular changes present, consisting of nuclear enlargement and stratification. The adenomatous glands form both tubules and villous projections with focal areas of mild to moderate dysplasia identified. These dysplastic changes do not involve the cauterized base of this polyp. 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 Microscopic Description: Part V: The histologic sections show benign colon mucosa with focal adenomatous glandular changes present, forming mostly tubules consistent with tubular adenoma. Diagnosis: Part V: Benign adenomatous polyp consistent with tubular adenoma (hepatic flexure polyp). Microscopic Description: Part : The histologic sections show multiple polypoid tissue fragments with adenomatous glandular changes present, consisting of nuclear enlargement and stratification with areas of tubular as well as villous structure, consistent with tubulovillous adenoma. There are focal areas of mild to moderate dysplasia identified. Diagnosis: Part : Multiple fragments of adenomatous polyp consistent with tubulovillous adenoma with areas of mild to moderate dysplasia identified (ascending colon). Comment: There is no evidence for malignancy. [facility]# [id number]
--- NOTE | 2017-10-04 18:23 | Discharge Summary ---
DATE OF DISCHARGE: 10/03/2017 SUMMARY: The patient was admitted on 09/30/2017. Apparently this patient is known to have history of hypertension, hyperlipidemia, hypothyroidism and also depression. The patient was psychotic and was admitted to the Emergency Room. The patient also was complaining of abdominal pain, had anemia and it was thought that the patient may have GI bleeding and ulceration. The patient had an EGD done and eventually the EGD showed gastritis. No other problem and with the final diagnosis of anemia, gastritis, history of hypothyroidism, CKD, peripheral neuropathy was made. The patient was sent to [facility] where I will follow the patient. MEDICATIONS: See the reconciliation sheet. JOB# [id number]
--- NOTE | 2017-10-05 17:34 | History & Physical ---
ADMIT DATE: 10/01/2017 HISTORY OF PRESENT ILLNESS: Apparently an 86-year-old female patient. The patient was admitted because of the low hemoglobin with severe anemia, for a GI workup. The patient's hemoglobin was 7.1. PAST MEDICAL HISTORY: History of psychosis, history of problem with gait disorder and history of sacral decubiti and history of dysphagia. The patient has history of hypertension, hyperlipidemia, depression, and hypothyroidism. PAST MEDICAL HISTORY: As noted above. PAST SURGICAL HISTORY: As noted above. PHYSICAL EXAMINATION: VITAL SIGNS: Stable. HEAD: Normal. ENT: Normal. LUNGS: Bilateral clear. CARDIOVASCULAR SYSTEM: S1, S2 heard. ABDOMEN: Soft. Bowel sounds are heard. DIAGNOSES: Acute anemia, rule out gastrointestinal bleeding, history of hypertension, history of hyperlipidemia, history of depression, history of hypothyroidism, history of psychosis was made. PLAN: The patient is being admitted. I will have a GI consult. I will follow the patient. JOB# [id number]
== END 2017-10-03 18:20 | disposition home or self-care (01) | DRG 391 ==
LOC: ER 21:12 → TELE 23:50 → MSI 10-02 16:15
PROVIDERS: ADMIT Internal Medicine; ATTEND Internal Medicine
PROC: 0DB98ZX Excision of Duodenum, Via Natural or Artificial Opening Endoscopic, Diagnostic (ICD-10-PCS; principal; 2017-10-03)
PROC: 0DB68ZX Excision of Stomach, Via Natural or Artificial Opening Endoscopic, Diagnostic (ICD-10-PCS; 2017-10-03)
PROC: 0DBK8ZZ Excision of Ascending Colon, Via Natural or Artificial Opening Endoscopic (ICD-10-PCS; 2017-10-03)
PROC: 0DBN8ZZ Excision of Sigmoid Colon, Via Natural or Artificial Opening Endoscopic (ICD-10-PCS; 2017-10-03)
PROC: 0DBM8ZZ Excision of Descending Colon, Via Natural or Artificial Opening Endoscopic (ICD-10-PCS; 2017-10-03)
DX: K29.70 Gastritis, unspecified, without bleeding (principal); E41 Nutritional marasmus; L89.159 Pressure ulcer of sacral region, unspecified stage; I13.0 Hypertensive heart and chronic kidney disease with heart failure and stage 1 through stage 4 chronic kidney disease, or unspecified chronic kidney disease; E11.22 Type 2 diabetes mellitus with diabetic chronic kidney disease; E11.42 Type 2 diabetes mellitus with diabetic polyneuropathy; I50.9 Heart failure, unspecified; E44.1 Mild protein-calorie malnutrition; K22.2 Esophageal obstruction; D64.9 Anemia, unspecified; K57.30 Diverticulosis of large intestine without perforation or abscess without bleeding; E78.5 Hyperlipidemia, unspecified; E66.9 Obesity, unspecified; Z66 Do not resuscitate; F32.9 Major depressive disorder, single episode, unspecified; I25.10 Atherosclerotic heart disease of native coronary artery without angina pectoris; D50.9 Iron deficiency anemia, unspecified; E03.9 Hypothyroidism, unspecified; R00.1 Bradycardia, unspecified; N18.2 Chronic kidney disease, stage 2 (mild); F03.90 Unspecified dementia, unspecified severity, without behavioral disturbance, psychotic disturbance, mood disturbance, and anxiety; F29 Unspecified psychosis not due to a substance or known physiological condition; K22.8 Other specified diseases of esophagus; K44.9 Diaphragmatic hernia without obstruction or gangrene; K31.7 Polyp of stomach and duodenum; K64.8 Other hemorrhoids; Z88.6 Allergy status to analgesic agent; Z68.23 Body mass index [BMI] 23.0-23.9, adult
CPT/HCPCS: 36415-UA; 71045-TC; 74000-TC; 80048-TC; 80053-TC; 80076-TC; 82270-TC; 82728-90; 82948-90; 83540-90; 83550-90; 83735-TC; 83880-TC; 85007-TC; 85025-TC; 85027-TC; 85610-TC; 86141-TC; 86850-TC; 86900-TC; 86901-TC; 86922-TC; 87086-90; 87338-TC; 88305-90; 88312-90; 93005; 96374; C9113; J2060; J2704; J3480; J7030; X3401; Z7610

== ENCOUNTER 2017-10-10 17:52 | Inpatient (IN) | payer MEDICARE, MEDICAID ==
--- NOTE | 2017-10-10 18:24 | ED Physician Chart ---
ED Chief Complaint/HPI - Patient Information Date Seen:: 10/10/17 Time Seen:: 18:05 Chief Complaint:: left-sided neck pain History of Present Illness:: Patient has pain in the left side of her neck and left supraclavicular area of unspecified length of time. There is apparently no trauma. Patient was admitted here on 09/30/2017 for hemoglobin of about 7. Allergies:: Allergies Allergy/AdvReac Type Severity Reaction Status Date / Time ibuprofen Allergy Verified 09/30/17 21:50 iodine Allergy Verified 09/30/17 21:50 Historian:: Patient Review:: Nurse's Note Reviewed, Transfer documents Reviewed ED Review of Systems - Review of Systems General/Constitutional: No fever, No chills Skin: No skin lesions Head: No headache Eyes: No loss of vision ENT: No earache Neck: Neck pain Cardio Vascular: No chest pain, No palpitations Pulmonary: No SOB GI: No nausea, No vomiting, No diarrhea Musculoskeletal: No bone or joint pain, No back pain, No muscle pain Endocrine: No polyuria, No polydipsia Psychiatric: Depression Hematopoietic: No bruising Allergic/Immuno: No urticaria Neurological: No syncope, No focal symptoms ED Past Medical History - Past Medical History Past Medical History: HTN, Dyslipidemia, Other (hyperlipidemia; depression; obesity) Family History: None Social History: Non Smoker Surgical History: None Psychiatricy History: Depression Medication: Reviewed Family Medical History - Family Member Mother History Unknown: Yes Ethnicity: Non- ED Physical Exam - Physical Examination Other Gen/Cons comments:: Patient is chronically ill-appearing; she is confused; she does not know the correct year. Head: Atraumatic Eyes: Lids, conjuctiva normal, PERRL Other Skin comments:: Pale ENMT: External ears, nose nl Other ENMT comments:: Edentulous Neck: No nuchal rigidity Respiratory: Nl effort/Exclusion, Clear to Auscultation, No Wheeze/Rhonchi/Rales Cardio Vascular: RRR, NL S1 S2 Other Cardio Vascular comments:: 1.5 out of 4 systolic murmur GI: No tenderness/rebounding/guarding, No organomegaly, No hernia, Normal BS's : No CVA tenderness Extremities: Normal digits & nails Neuro/Psych: No focal deficits ED Labs/Radiology/EKG Results - Lab Results Results: Laboratory Results - last 24 hr 10/10/17 19:09 WBC 6.3 RBC 2.67 L Hgb 7.2 L* Hct 22.0 L MCV 82.6 MCH 26.9 L MCHC Differential 32.5 RDW 15.6 Plt Count 410 H MPV 7.6 Neutrophils % 60.2 Lymphocytes % 18.2 L Monocytes % 11.8 H Eosinophils % 8.6 H Basophils % 1.2 Laboratory Results - last 24 hr 10/10/17 10/10/17 19:09 19:09 WBC 6.3 RBC 2.67 L Hgb 7.2 L* Hct 22.0 L MCV 82.6 MCH 26.9 L MCHC Differential 32.5 RDW 15.6 Plt Count 410 H MPV 7.6 Neutrophils % 60.2 Lymphocytes % 18.2 L Monocytes % 11.8 H Eosinophils % 8.6 H Basophils % 1.2 Sodium 131 L D Potassium 4.3 Chloride 101 Carbon Dioxide 26.4 Anion Gap 7.9 BUN 33 H Creatinine 1.2 Est GFR ( Amer) TNP Est GFR (Non-Af Amer) TNP BUN/Creatinine Ratio 27.5 Glucose 102 Calcium 9.5 Comments:: Chest x-ray showed metallic foreign body over the first rib; chest x-ray was otherwise negative ED Assessment - Assessment General Assessment: I spoke to Dr. Stanley and patient be admitted to [facility]. Patient to be transfused 2 units of packed cells for her anemia. I also notified Dr. Witt of a possible foreign body seen on the x-ray over the first rib. The patient was complaining of pain at left base of neck and I palpated there where the metallic foreign body appeared to be and the patient was very tender at that spot. ED Septic Shock - . Is Septic Shock (SBP<90, OR Lactate>4 mmol\L) present?: No ED Reassessment (Disposition) - Reassessment Reassessment Condition:: Unchanged - Diagnosis Diagnosis:: Anemia; metallic foreign body at base of neck; hyponatremia; elevated BUN - Patient Disposition Admitted to:: Med/Surg Condition at Disposition:: Stable, Unchanged ED Discharge Plan - Patient Disposition Instructions: Psychosis
[2017-10-10 19:14] LABS: % BASOPHILS 1.2 % (0.0-2.0); % EOSINOPHILS 8.6 % (0.0-5.0); % LYMPHOCYTES 18.2 % (20.0-50.0); % MONOCYTES 11.8 % (2.0-10.0); % NEUTROPHILS 60.2 % (40.0-80.0); BASOPHILE ABSOLUTE 0.1 Th/cumm (0-0.2); EOSINOPHILE ABSOLUTE 0.5 Th/cmm (0.1-0.4); LYMPHOCYTE ABSOLUTE 1.1 Th/cmm (1.5-3.0); MEAN CELL VOLUME 82.6 fl (81-100); MEAN CORPUSCULAR HEMOGLOBIN 26.9 pg (27.0-31.0); MEAN CORPUSCULAR HGB CONC 32.5 pg (28.0-36.0); MEAN PLATELET VOLUME 7.6 fl; MONOCYTE ABSOLUTE 0.7 Th/cmm (0.3-1.0); NEUTROPHILE ABSOLUTE 3.9 Th/cmm (1.8-8.0); PLATELET COUNT 410 Th/cmm (150-400); RED BLOOD COUNT 2.67 Mil/cmm (3.80-5.20); RED CELL DISTRIBUTION WIDTH 15.6 % (11.5-20.0); WHITE BLOOD COUNT 6.3 Th/cmm (4.8-10.8)
[2017-10-10 19:19] LABS: HEMOGLOBIN 7.2 gm/dL (12-16)
[2017-10-10 19:30] LABS: ANION GAP 7.9 (7.0-16.0); BUN - UREA NITROGEN 33 mg/dL (7-25); CALCIUM SERUM 9.5 mg/dL (8.6-10.3); CARBON DIOXIDE 26.4 mEq/L (21.0-31.0); CHLORIDE 101 mEq/L (98-107); CREATININE - SERUM 1.2 mg/dL (0.6-1.2); GLUCOSE 102 mg/dL (70-105); POTASSIUM SERUM 4.3 mEq/L (3.5-5.1); SODIUM SERUM 131 mEq/L (136-145)
[2017-10-11 05:43] LABS: EOSINOPHILE ABSOLUTE 0.7 Th/cmm (0.1-0.4); HEMATOCRIT 23.3 % (41.0-60); HEMOGLOBIN 7.6 gm/dL (12-16); LYMPHOCYTE ABSOLUTE 1.3 Th/cmm (1.5-3.0); MEAN CELL VOLUME 83.3 fl (81-100); MEAN CORPUSCULAR HEMOGLOBIN 27.4 pg (27.0-31.0); MEAN CORPUSCULAR HGB CONC 32.8 pg (28.0-36.0); MONOCYTE ABSOLUTE 0.8 Th/cmm (0.3-1.0); NEUTROPHILE ABSOLUTE 2.6 Th/cmm (1.8-8.0); PLATELET COUNT 369 Th/cmm (150-400); RED BLOOD COUNT 2.79 Mil/cmm (3.80-5.20); RED CELL DISTRIBUTION WIDTH 15.3 % (11.5-20.0); WHITE BLOOD COUNT 5.4 Th/cmm (4.8-10.8)
[2017-10-11 05:48] LABS: % BASOPHILS 0.9 % (0.0-2.0); % EOSINOPHILS 13.7 % (0.0-5.0); % LYMPHOCYTES 23.3 % (20.0-50.0); % NEUTROPHILS 47.1 % (40.0-80.0)
[2017-10-11 05:54] LABS: ALB/GLOB RATIO 1.1 (1.0-1.8); ALBUMIN 3.2 gm/dL (3.7-5.3); ALKALINE PHOSPHATASE 58 U/L (34-104); ANION GAP 6.9 (7.0-16.0); BILIRUBIN,TOTAL 0.4 mg/dL (0.3-1.0); BUN - UREA NITROGEN 30 mg/dL (7-25); CALCIUM SERUM 9.2 mg/dL (8.6-10.3); CARBON DIOXIDE 27.3 mEq/L (21.0-31.0); CHLORIDE 105 mEq/L (98-107); CREATININE - SERUM 1.1 mg/dL (0.6-1.2); GLUCOSE 98 mg/dL (70-105); POTASSIUM SERUM 4.2 mEq/L (3.5-5.1); SGOT 11 U/L (13-39); SGPT/ALT 9 U/L (7-52); SODIUM SERUM 135 mEq/L (136-145); TOTAL PROTEIN,SERUM 6.1 gm/dL (6.0-8.3)
[2017-10-11] MEDS: Levothyroxine 0.075 Mg Tab PO SCH (06:33)
--- NOTE | 2017-10-11 07:37 | Diagnostic Imaging Report ---
Portable chest x-ray HISTORY: Cough Compared to prior exam of September 30, 2017, no focal pulmonary processes are seen. The heart size appears generous. Extensive surgical changes noted about the right humerus. A metallic density noted in the left supraclavicular region that was not seen on the prior study. This may be on the skin surface and should be correlated with physical examination. IMPRESSION: 1. No acute focal pulmonary processes 2. Metallic density projecting over the left lower neck area. This is not seen on the prior exam of September 30, 2017 and may be on the skin surface. The findings should be correlated with physical examination.
[2017-10-11] MEDS ORDERED: BUSPIRONE HCL 7.5 MG PO SCH (09:00)
[2017-10-11] MEDS ORDERED: Non-Formulary Item 1 EA (Fluoxetine Hcl [Prozac] 40 MG) PO SCH (09:00)
[2017-10-11] MEDS ORDERED: VTE Chemical Prophylaxis Screen/Admission MC PRN (15:51)
--- NOTE | 2017-10-11 16:33 | General Progress Note ---
Objective - Results Result Diagrams: 10/11/17 05:30 10/11/17 05:30 Recent Labs: Laboratory Last Values WBC 5.4 Th/cmm (4.8-10.8) 10/11/17 05:30 RBC 2.79 Mil/cmm (3.80-5.20) L 10/11/17 05:30 Hgb 7.6 gm/dL (12-16) L* 10/11/17 05:30 Hct 23.3 % (41.0-60) L 10/11/17 05:30 MCV 83.3 fl (81-100) 10/11/17 05:30 MCH 27.4 pg (27.0-31.0) 10/11/17 05:30 MCHC Differential 32.8 pg (28.0-36.0) 10/11/17 05:30 RDW 15.3 % (11.5-20.0) 10/11/17 05:30 Plt Count 369 Th/cmm (150-400) 10/11/17 05:30 MPV 8.0 fl 10/11/17 05:30 Neutrophils % 47.1 % (40.0-80.0) 10/11/17 05:30 Lymphocytes % 23.3 % (20.0-50.0) 10/11/17 05:30 Monocytes % 15.0 % (2.0-10.0) H 10/11/17 05:30 Eosinophils % 13.7 % (0.0-5.0) H 10/11/17 05:30 Basophils % 0.9 % (0.0-2.0) 10/11/17 05:30 Sodium 135 mEq/L (136-145) L 10/11/17 05:30 Potassium 4.2 mEq/L (3.5-5.1) 10/11/17 05:30 Chloride 105 mEq/L (98-107) 10/11/17 05:30 Carbon Dioxide 27.3 mEq/L (21.0-31.0) 10/11/17 05:30 Anion Gap 6.9 (7.0-16.0) L 10/11/17 05:30 BUN 30 mg/dL (7-25) H 10/11/17 05:30 Creatinine 1.1 mg/dL (0.6-1.2) 10/11/17 05:30 Est GFR ( Amer) TNP 10/11/17 05:30 Est GFR (Non-Af Amer) TNP 10/11/17 05:30 BUN/Creatinine Ratio 27.3 10/11/17 05:30 Glucose 98 mg/dL (70-105) 10/11/17 05:30 Calcium 9.2 mg/dL (8.6-10.3) 10/11/17 05:30 Total Bilirubin 0.4 mg/dL (0.3-1.0) 10/11/17 05:30 AST 11 U/L (13-39) L 10/11/17 05:30 ALT 9 U/L (7-52) 10/11/17 05:30 Alkaline Phosphatase 58 U/L (34-104) 10/11/17 05:30 Total Protein 6.1 gm/dL (6.0-8.3) 10/11/17 05:30 Albumin 3.2 gm/dL (3.7-5.3) L 10/11/17 05:30 Globulin 2.9 gm/dL 10/11/17 05:30 Albumin/Globulin Ratio 1.1 (1.0-1.8) 10/11/17 05:30 TSH 4.96 uIU/ml (0.34-5.60) 10/11/17 05:30 Blood Type O POSITIVE 10/10/17 22:15 Antibody Screen NEGATIVE 10/10/17 22:15 Crossmatch See Detail 10/10/17 22:15 - Physical Exam Vitals and I&O: Vital Signs Temp 97.4 F 10/11/17 00:00 Pulse 60 10/11/17 13:29 Resp 18 10/11/17 00:00 BP 140/56 10/11/17 13:29 Pulse Ox 94 10/11/17 00:00 Intake & Output 10/10/17 10/11/17 10/11/17 18:59 06:59 18:59 Weight (lbs) 61.235 kg Other: # Voids 1 # Bowel Movements 0 Active Medications: Current Medications Buspirone HCl (Buspar) 7.5 mg PO BID [facility] PRN Reason: Protocol Stop: 12/10/17 08:59 Last Admin: 10/11/17 10:09 Dose: 7.5 mg Docusate Sodium (Colace) 250 mg PO DAILY [facility] Stop: 12/10/17 08:59 Last Admin: 10/11/17 10:10 Dose: 250 mg Fluoxetine HCl (Prozac) 40 mg PO DAILY [facility] PRN Reason: Protocol Stop: 12/10/17 08:59 Last Admin: 10/11/17 10:14 Dose: 40 mg Folic Acid (Folate) 1 mg PO DAILY [facility] Stop: 12/10/17 08:59 Last Admin: 10/11/17 10:10 Dose: 1 mg Gabapentin (Neurontin) 300 mg PO TID [facility] Stop: 12/10/17 08:59 Last Admin: 10/11/17 13:29 Dose: 300 mg Hydralazine HCl (Apresoline) 50 mg PO TID [facility] Stop: 12/10/17 08:59 Last Admin: 10/11/17 13:29 Dose: 50 mg Dextrose/Sodium Chloride (D5-0.45ns) 1,000 mls @ 50 mls/hr IV .Q20H [facility] Stop: 12/10/17 13:29 Levothyroxine Sodium (Synthroid) 0.075 mg PO QDAC [facility] Stop: 12/10/17 07:29 Last Admin: 10/11/17 06:33 Dose: 0.075 mg Lorazepam (Ativan) 1 mg IVP Q6HR PRN; Protocol PRN Reason: Agitation Stop: 12/09/17 21:37 Last Admin: 10/10/17 21:49 Dose: 1 mg Miscellaneous (Vte Chemical Prophylaxis Screen/ Admission) 1 ea [facility] PRN PRN PRN Reason: PROTOCOL Stop: 12/10/17 15:50 Risperidone (Risperdal) 0.25 mg PO HS [facility] PRN Reason: Protocol Stop: 12/10/17 20:59 Valsartan (Diovan) 160 mg PO BID [facility] Stop: 12/10/17 08:59 Last Admin: 10/11/17 10:12 Dose: 160 mg - Procedures Procedures: Procedures Procedure Code Date EXCISION OF ASCENDING COLON, ENDO [id number] 09/30/17 EXCISION OF DESCENDING COLON, ENDO [id number] 09/30/17 EXCISION OF DUODENUM, ENDO, DIAGN [id number] 09/30/17 EXCISION OF SIGMOID COLON, ENDO [id number] 09/30/17 EXCISION OF STOMACH, ENDO, DIAGN [id number] 09/30/17 [facility] GROUP PSYTX 66134 01/24/01 OTHER GROUP THERAPY 94.44 01/24/01 Assessment/Plan - Problem List Patient Problems: All Active Problems INCREASED AGITATION AND AGGESSION (Acute)
--- NOTE | 2017-10-11 17:30 | Consultation ---
DATE OF CONSULTATION: 10/11/2017 HISTORY OF PRESENT ILLNESS: An 86-year-old female complaining of left-sided pain in the neck, left supraclavicular area. AO to name. She does not where she is. She believes the year is 1999 and she does not know the day of the week or the date. She is yelling and she is pretty unruly, not really allowing staff to care for her and not a very good historian. PAST PSYCHIATRIC HISTORY: Unclear. It is unclear if she has a dementia diagnosis. There are concerns given her age and her presentation. FAMILY HISTORY: Unknown. Not a good historian. SOCIAL HISTORY: The patient states she was born in [place]. She states she is . She states she has 4 children and 4 grandchildren living at a assisted in the [facility]. MEDICATIONS: Were reviewed. She is taking low dose Risperdal as well as Prozac as well as BuSpar. MENTAL STATUS EXAMINATION: Stated age, loud voice, nonsensical statements, difficult to get a word in, and pressured speech. Mood ____. Affect is flat. Thought processes were disoriented. Confusion is noted. Poor insight. PROVISIONAL DIAGNOSES: 1. Major depression, unspecified. 2. Anxiety, unspecified. 3. Concerns for delirium. 4. Also concerns for dementia. MEDICAL: Please see full H and P. RECOMMENDATIONS AND PLAN: The patient may benefit from Geropsych Unit placement given her behaviors and agitation and unruly behaviors. We will continue to monitor and follow up. Recommend increasing ____. [facility]# [id number]
[2017-10-11] MEDS: D5-0.45NS 1,000 ML IV SCH (20:02)
[2017-10-11] MEDS ORDERED: RISPERIDONE 0.25 MG PO SCH (21:00)
[2017-10-12] MEDS: Levothyroxine 0.075 Mg Tab PO SCH (06:40)
--- NOTE | 2017-10-12 09:06 | Consultation ---
DATE OF CONSULTATION: 10/12/2017 INPATIENT GASTROINTESTINAL CONSULTATION REFERRING PHYSICIAN: Dr. Wells. REASON FOR CONSULTATION: Anemia. HISTORY OF PRESENT ILLNESS: This is an 86-year-old female complaining of left-sided neck pain, came to the hospital, was found to be anemic, therefore they asked for GI consult. When discussing the matter with the patient, she describes indigestion in the upper part of her abdomen. She denies having any nausea or vomiting, diarrhea, constipation, melena or hematochezia. PAST MEDICAL HISTORY: Hypertension, hyperlipidemia, depression, obesity. PAST SURGICAL HISTORY: None to add recently. FAMILY HISTORY: Noncontributory. SOCIAL HISTORY: No tobacco, alcohol, or IV drug usage. ALLERGIES: IBUPROFEN AND IODINE. CURRENT MEDICATIONS: BuSpar, Colace, Prozac, folic acid, Neurontin, , Synthroid, Ativan, Risperdal, Diovan. REVIEW OF SYSTEMS: Ten point review of system was performed and pertinent positive was the neck pain and indigestion. All systems were otherwise negative. PHYSICAL EXAMINATION: VITAL SIGNS: Temperature is 98.6, breathing 18, pulse of 68, blood pressure 159/73, satting 98%. GENERAL: In no apparent distress. EYES: Anicteric. Normal conjunctivae. HEENT: Normocephalic, atraumatic. Moist mucous membranes. NECK: Soft, supple. CHEST: Clear. No effort. CARDIOVASCULAR: Regular rate and rhythm. ABDOMEN: Soft, nondistended, nontender, normal bowel sounds. SKIN: Warm, dry. EXTREMITIES: Reveal no cyanosis. PSYCHOLOGICAL: Awake. LABS: Show white count 5.4, hemoglobin 7.6, MCV of 83, platelets of 369. BUN is 30, creatinine 1.1. LFTs within normal limits. IMPRESSION: This is an 86-year-old female with normocytic anemia, has an elevated BUN to creatinine ratio, which could indicate an upper gastrointestinal source of bleeding; however, clinically patient is having no signs of overt gastrointestinal bleeding. She does have some upper abdominal indigestion. She may have underlying gastritis, peptic ulcer disease, neoplasm, etc. Endoscopy and colonoscopy were offered to the patient for further workup of her anemia; however, she refused. She was made aware that failure to have proper workup could result in a missed diagnosis such as cancer, missed cure and treatment opportunity resulting in early or unforeseeable disability. She was also offered alternative such as imaging studies and she also refused. PLAN: 1. Provide patient Protonix. 2. The patient refused EGD, colonoscopy and alternative imaging studies. 3. Follow H and H and transfuse as needed. Thank you for allowing me to participate. Please call me if any questions. JOB# [id number]
[2017-10-12 09:07] LABS: URINE MICROSCOPIC INDICATED? YES; URINE SOURCE CLEAN C
[2017-10-12 09:36] LABS: URINE BILIRUBIN NEGATIVE (NEGATIVE); URINE BLOOD NEGATIVE (NEGATIVE); URINE GLUCOSE (UA) NEGATIVE (NEGATIVE); URINE KETONE NEGATIVE (NEGATIVE); URINE LEUKOCYTE ESTERASE LARGE (NEGATIVE); URINE NITRATE POSITIVE (NEGATIVE); URINE PH 7.5 (4.6 - 8.0); URINE PROTEIN TRACE mg/dL (NEGATIVE); URINE UROBILINOGEN 0.2 E.U./dL (0.2 - 1.0)
[2017-10-12 09:49] LABS: URINE CLARITY CLOUDY (CLEAR); URINE COLOR LIGHT YELLOW
[2017-10-12 09:54] LABS: URINE RBC 0-2 /hpf (0-5)
[2017-10-12 09:56] LABS: URINE BACTERIA MANY /hpf (NONE SEEN); URINE EPITHELIAL CELLS MODERATE /lpf (FEW); URINE WBC >100 /hpf (0-5)
[2017-10-12] MEDS: Pantoprazole 40 mg EC Tab PO SCH (11:05)
--- NOTE | 2017-10-12 12:37 | General Progress Note ---
Subjective - Review of Systems Events since last encounter: patient is being treated for anemia in no distress Objective - Results Result Diagrams: 10/11/17 05:30 10/11/17 05:30 Recent Labs: Laboratory Last Values WBC 5.4 Th/cmm (4.8-10.8) 10/11/17 05:30 RBC 2.79 Mil/cmm (3.80-5.20) L 10/11/17 05:30 Hgb 7.6 gm/dL (12-16) L* 10/11/17 05:30 Hct 23.3 % (41.0-60) L 10/11/17 05:30 MCV 83.3 fl (81-100) 10/11/17 05:30 MCH 27.4 pg (27.0-31.0) 10/11/17 05:30 MCHC Differential 32.8 pg (28.0-36.0) 10/11/17 05:30 RDW 15.3 % (11.5-20.0) 10/11/17 05:30 Plt Count 369 Th/cmm (150-400) 10/11/17 05:30 MPV 8.0 fl 10/11/17 05:30 Neutrophils % 47.1 % (40.0-80.0) 10/11/17 05:30 Lymphocytes % 23.3 % (20.0-50.0) 10/11/17 05:30 Monocytes % 15.0 % (2.0-10.0) H 10/11/17 05:30 Eosinophils % 13.7 % (0.0-5.0) H 10/11/17 05:30 Basophils % 0.9 % (0.0-2.0) 10/11/17 05:30 Sodium 135 mEq/L (136-145) L 10/11/17 05:30 Potassium 4.2 mEq/L (3.5-5.1) 10/11/17 05:30 Chloride 105 mEq/L (98-107) 10/11/17 05:30 Carbon Dioxide 27.3 mEq/L (21.0-31.0) 10/11/17 05:30 Anion Gap 6.9 (7.0-16.0) L 10/11/17 05:30 BUN 30 mg/dL (7-25) H 10/11/17 05:30 Creatinine 1.1 mg/dL (0.6-1.2) 10/11/17 05:30 Est GFR ( Amer) TNP 10/11/17 05:30 Est GFR (Non-Af Amer) TNP 10/11/17 05:30 BUN/Creatinine Ratio 27.3 10/11/17 05:30 Glucose 98 mg/dL (70-105) 10/11/17 05:30 Calcium 9.2 mg/dL (8.6-10.3) 10/11/17 05:30 Total Bilirubin 0.4 mg/dL (0.3-1.0) 10/11/17 05:30 AST 11 U/L (13-39) L 10/11/17 05:30 ALT 9 U/L (7-52) 10/11/17 05:30 Alkaline Phosphatase 58 U/L (34-104) 10/11/17 05:30 Total Protein 6.1 gm/dL (6.0-8.3) 10/11/17 05:30 Albumin 3.2 gm/dL (3.7-5.3) L 10/11/17 05:30 Globulin 2.9 gm/dL 10/11/17 05:30 Albumin/Globulin Ratio 1.1 (1.0-1.8) 10/11/17 05:30 TSH 4.96 uIU/ml (0.34-5.60) 10/11/17 05:30 Urine Source CLEAN C 10/12/17 07:30 Urine Color LIGHT YELLOW 10/12/17 07:30 Urine Clarity CLOUDY (CLEAR) H 10/12/17 07:30 Urine pH 7.5 (4.6 - 8.0) 10/12/17 07:30 Ur Specific [place] 1.010 (1.005-1.030) 10/12/17 07:30 Urine Protein TRACE mg/dL (NEGATIVE) 10/12/17 07:30 Urine Glucose (UA) NEGATIVE mg/dL (NEGATIVE) 10/12/17 07:30 Urine Ketones NEGATIVE mg/dL (NEGATIVE) 10/12/17 07:30 Urine Blood NEGATIVE (NEGATIVE) 10/12/17 07:30 Urine Nitrate POSITIVE (NEGATIVE) H 10/12/17 07:30 Urine Bilirubin NEGATIVE (NEGATIVE) 10/12/17 07:30 Urine Urobilinogen 0.2 E.U./dL (0.2 - 1.0) 10/12/17 07:30 Ur Leukocyte Esterase LARGE (NEGATIVE) H 10/12/17 07:30 Urine RBC 0-2 /hpf (0-5) 10/12/17 07:30 Urine WBC >100 /hpf (0-5) H 10/12/17 07:30 Ur Epithelial Cells MODERATE /lpf (FEW) 10/12/17 07:30 Urine Bacteria MANY /hpf (NONE SEEN) H 10/12/17 07:30 Blood Type O POSITIVE 10/10/17 22:15 Antibody Screen NEGATIVE 10/10/17 22:15 Crossmatch See Detail 10/10/17 22:15 - Physical Exam Vitals and I&O: Vital Signs Temp 98.3 F 10/12/17 04:00 Pulse 60 10/12/17 04:00 Resp 18 10/12/17 07:56 BP 148/59 10/12/17 04:00 Pulse Ox 98 10/11/17 20:00 Intake & Output 10/11/17 10/12/17 10/12/17 18:59 06:59 18:59 Intake Total 200 500 Output Total 0 Balance 200 500 Weight (lbs) 61.235 kg 58.967 kg Intake: Oral 500 Blood Product 200 Output: Stool 0 Other: # Voids 3 3 # Bowel Movements 0 Active Medications: Current Medications Buspirone HCl (Buspar) 7.5 mg PO BID [facility] PRN Reason: Protocol Stop: 12/10/17 08:59 Last Admin: 10/12/17 11:05 Dose: Not Given Docusate Sodium (Colace) 250 mg PO DAILY [facility] Stop: 12/10/17 08:59 Last Admin: 10/12/17 11:05 Dose: Not Given Fluoxetine HCl (Prozac) 40 mg PO DAILY [facility] PRN Reason: Protocol Stop: 12/10/17 08:59 Last Admin: 10/12/17 11:05 Dose: Not Given Folic Acid (Folate) 1 mg PO DAILY [facility] Stop: 12/10/17 08:59 Last Admin: 10/12/17 11:05 Dose: Not Given Gabapentin (Neurontin) 300 mg PO TID [facility] Stop: 12/10/17 08:59 Last Admin: 10/12/17 11:05 Dose: Not Given Hydralazine HCl (Apresoline) 50 mg PO TID [facility] Stop: 12/10/17 08:59 Last Admin: 10/12/17 11:05 Dose: Not Given Dextrose/Sodium Chloride (D5-0.45ns) 1,000 mls @ 50 mls/hr IV .Q20H [facility] Stop: 12/10/17 13:29 Last Admin: 10/11/17 20:02 Dose: 50 mls/hr Levothyroxine Sodium (Synthroid) 0.075 mg PO QDAC [facility] Stop: 12/10/17 07:29 Last Admin: 10/12/17 06:40 Dose: 0.075 mg Lorazepam (Ativan) 1 mg IVP Q6HR PRN; Protocol PRN Reason: Agitation Stop: 12/09/17 21:37 Last Admin: 10/10/17 21:49 Dose: 1 mg Miscellaneous (Vte Chemical Prophylaxis Screen/ Admission) 1 ea MC PRN PRN PRN Reason: PROTOCOL Stop: 12/10/17 15:50 Pantoprazole Sodium (Protonix) 40 mg PO DAILY [facility] Stop: 12/11/17 08:59 Last Admin: 10/12/17 11:05 Dose: Not Given Risperidone (Risperdal) 0.25 mg PO HS [facility] PRN Reason: Protocol Stop: 12/10/17 20:59 Last Admin: 10/11/17 20:34 Dose: 0.25 mg Valsartan (Diovan) 160 mg PO BID [facility] Stop: 12/10/17 08:59 Last Admin: 10/12/17 11:06 Dose: Not Given - Procedures Procedures: Procedures Procedure Code Date EXCISION OF ASCENDING COLON, ENDO [id number] 09/30/17 EXCISION OF DESCENDING COLON, ENDO [id number] 09/30/17 EXCISION OF DUODENUM, ENDO, DIAGN 2XL44VO 09/30/17 EXCISION OF SIGMOID COLON, ENDO 6RKQ1KD 09/30/17 EXCISION OF STOMACH, ENDO, DIAGN 0ES80SQ 09/30/17 [facility] GROUP PSYTX 17268 01/24/01 OTHER GROUP THERAPY 94.44 01/24/01 Assessment/Plan - Problem List Patient Problems: All Active Problems INCREASED AGITATION AND AGGESSION (Acute)
[2017-10-12] MEDS: D5-0.45NS 1,000 ML IV SCH (14:41)
[2017-10-12] MEDS ORDERED: cefTRIAXone 1 GM in Sodium Chloride 0.9% 50 ML IV SCH (17:00)
--- NOTE | 2017-10-12 17:38 | Progress Notes ---
DATE: 10/12/[address] Hoover. Case was discussed with staff of the patient, reviewed records. An 86-year-old female who was admitted on 10/10/2017, oriented to her name only. She does not know where she is. She believes this is 1999, does not know the day of the week, not clear if she has dementia, diagnosed with an unspecified depression and anxiety and maybe delirium. I recommended the patient to go to [facility] when medically cleared. The patient continues to be confused and unable to make safe plan for self-care. So, the patient need to go to [facility] when medically cleared. Thank you very much for allowing me to participate in the care of this most interesting lady. JOB# [id number]
[2017-10-13 06:41] LABS: ANION GAP 7.5 (7.0-16.0); BUN - UREA NITROGEN 24 mg/dL (7-25); CALCIUM SERUM 9.6 mg/dL (8.6-10.3); CARBON DIOXIDE 26.3 mEq/L (21.0-31.0); CHLORIDE 106 mEq/L (98-107); CREATININE - SERUM 0.9 mg/dL (0.6-1.2); GLUCOSE 100 mg/dL (70-105); POTASSIUM SERUM 3.8 mEq/L (3.5-5.1); SODIUM SERUM 136 mEq/L (136-145)
[2017-10-13 06:50] LABS: EOSINOPHILE ABSOLUTE 0.6 Th/cmm (0.1-0.4); HEMOGLOBIN 9.8 gm/dL (12-16); LYMPHOCYTE ABSOLUTE 0.9 Th/cmm (1.5-3.0); MANUAL DIFF REQUIRED? YES; MEAN CELL VOLUME 83.2 fl (81-100); MEAN CORPUSCULAR HEMOGLOBIN 27.8 pg (27.0-31.0); MEAN CORPUSCULAR HGB CONC 33.4 pg (28.0-36.0); MEAN PLATELET VOLUME 8.5 fl; MONOCYTE ABSOLUTE 0.9 Th/cmm (0.3-1.0); NEUTROPHILE ABSOLUTE 3.1 Th/cmm (1.8-8.0); PLATELET COUNT 385 Th/cmm (150-400); RED BLOOD COUNT 3.51 Mil/cmm (3.80-5.20); RED CELL DISTRIBUTION WIDTH 15.1 % (11.5-20.0); WHITE BLOOD COUNT 5.5 Th/cmm (4.8-10.8)
[2017-10-13] MEDS: Levothyroxine 0.075 Mg Tab PO SCH (07:06)
[2017-10-13 07:09] LABS: HEMATOCRIT 29.2 % (41.0-60)
[2017-10-13 07:47] LABS: ALBUMIN 3.4 gm/dL (3.7-5.3); ALKALINE PHOSPHATASE 56 U/L (34-104); ANION GAP 8.5 (7.0-16.0); BILIRUBIN,TOTAL 0.3 mg/dL (0.3-1.0); BUN - UREA NITROGEN 24 mg/dL (7-25); CALCIUM SERUM 9.7 mg/dL (8.6-10.3); CARBON DIOXIDE 25.3 mEq/L (21.0-31.0); CHLORIDE 107 mEq/L (98-107); CREATININE - SERUM 0.9 mg/dL (0.6-1.2); GLUCOSE 101 mg/dL (70-105); POTASSIUM SERUM 3.8 mEq/L (3.5-5.1); SGOT 12 U/L (13-39); SGPT/ALT 8 U/L (7-52); SODIUM SERUM 137 mEq/L (136-145); TOTAL PROTEIN,SERUM 6.8 gm/dL (6.0-8.3)
--- NOTE | 2017-10-13 08:32 | GI Progress Note ---
Subjective - Review of Systems Subjective: FEELS BETTER DENIES GI BLEEDING OR ABD PAIN Objective - Results Result Diagrams: 10/13/17 05:25 10/13/17 05:25 Recent Labs: Laboratory Last Values WBC 5.5 Th/cmm (4.8-10.8) 10/13/17 05:25 RBC 3.51 Mil/cmm (3.80-5.20) L 10/13/17 05:25 Hgb 9.8 gm/dL (12-16) L 10/13/17 05:25 Hct 29.2 % (41.0-60) L D 10/13/17 05:25 MCV 83.2 fl (81-100) 10/13/17 05:25 MCH 27.8 pg (27.0-31.0) 10/13/17 05:25 MCHC Differential 33.4 pg (28.0-36.0) 10/13/17 05:25 RDW 15.1 % (11.5-20.0) 10/13/17 05:25 Plt Count 385 Th/cmm (150-400) 10/13/17 05:25 MPV 8.5 fl 10/13/17 05:25 Neutrophils % 47.1 % (40.0-80.0) 10/11/17 05:30 Lymphocytes % 23.3 % (20.0-50.0) 10/11/17 05:30 Monocytes % 15.0 % (2.0-10.0) H 10/11/17 05:30 Eosinophils % 13.7 % (0.0-5.0) H 10/11/17 05:30 Basophils % 0.9 % (0.0-2.0) 10/11/17 05:30 Sodium 136 mEq/L (136-145) 10/13/17 05:25 Potassium 3.8 mEq/L (3.5-5.1) 10/13/17 05:25 Chloride 106 mEq/L (98-107) 10/13/17 05:25 Carbon Dioxide 26.3 mEq/L (21.0-31.0) 10/13/17 05:25 Anion Gap 7.5 (7.0-16.0) 10/13/17 05:25 BUN 24 mg/dL (7-25) 10/13/17 05:25 Creatinine 0.9 mg/dL (0.6-1.2) 10/13/17 05:25 Est GFR ( Amer) TNP 10/13/17 05:25 Est GFR (Non-Af Amer) TNP 10/13/17 05:25 BUN/Creatinine Ratio 26.7 10/13/17 05:25 Glucose 100 mg/dL (70-105) 10/13/17 05:25 Calcium 9.6 mg/dL (8.6-10.3) 10/13/17 05:25 Total Bilirubin 0.3 mg/dL (0.3-1.0) 10/13/17 05:25 AST 12 U/L (13-39) L 10/13/17 05:25 ALT 8 U/L (7-52) 10/13/17 05:25 Alkaline Phosphatase 56 U/L (34-104) 10/13/17 05:25 Total Protein 6.8 gm/dL (6.0-8.3) 10/13/17 05:25 Albumin 3.4 gm/dL (3.7-5.3) L 10/13/17 05:25 Globulin 3.4 gm/dL 10/13/17 05:25 Albumin/Globulin Ratio 1.0 (1.0-1.8) 10/13/17 05:25 TSH 4.96 uIU/ml (0.34-5.60) 10/11/17 05:30 Urine Source CLEAN C 10/12/17 07:30 Urine Color LIGHT YELLOW 10/12/17 07:30 Urine Clarity CLOUDY (CLEAR) H 10/12/17 07:30 Urine pH 7.5 (4.6 - 8.0) 10/12/17 07:30 Ur Specific [place] 1.010 (1.005-1.030) 10/12/17 07:30 Urine Protein TRACE mg/dL (NEGATIVE) 10/12/17 07:30 Urine Glucose (UA) NEGATIVE mg/dL (NEGATIVE) 10/12/17 07:30 Urine Ketones NEGATIVE mg/dL (NEGATIVE) 10/12/17 07:30 Urine Blood NEGATIVE (NEGATIVE) 10/12/17 07:30 Urine Nitrate POSITIVE (NEGATIVE) H 10/12/17 07:30 Urine Bilirubin NEGATIVE (NEGATIVE) 10/12/17 07:30 Urine Urobilinogen 0.2 E.U./dL (0.2 - 1.0) 10/12/17 07:30 Ur Leukocyte Esterase LARGE (NEGATIVE) H 10/12/17 07:30 Urine RBC 0-2 /hpf (0-5) 10/12/17 07:30 Urine WBC >100 /hpf (0-5) H 10/12/17 07:30 Ur Epithelial Cells MODERATE /lpf (FEW) 10/12/17 07:30 Urine Bacteria MANY /hpf (NONE SEEN) H 10/12/17 07:30 Blood Type O POSITIVE 10/10/17 22:15 Antibody Screen NEGATIVE 10/10/17 22:15 Crossmatch See Detail 10/10/17 22:15 - Physical Exam Vitals and I&O: Vital Signs Temp 97.8 F 10/13/17 04:00 Pulse 69 10/13/17 04:00 Resp 18 10/13/17 04:00 BP 165/74 10/13/17 04:00 Pulse Ox 98 10/13/17 04:00 Intake & Output 10/12/17 10/13/17 10/13/17 18:59 06:59 18:59 Intake Total 932.5 400 Output Total 0 Balance 932.5 400 Weight (lbs) 59.829 kg Intake: Intake, IV Amount 932.5 D5-0.45NS 1,000 ml @ 50 932.5 mls/hr IV .Q20H [facility] Rx#: [id number] Oral 400 Output: Stool 0 Other: # Voids 4 # Bowel Movements 0 Active Medications: Current Medications Buspirone HCl (Buspar) 7.5 mg PO BID [facility] PRN Reason: Protocol Stop: 12/10/17 08:59 Last Admin: 10/12/17 18:27 Dose: 7.5 mg Docusate Sodium (Colace) 250 mg PO DAILY [facility] Stop: 12/10/17 08:59 Last Admin: 10/12/17 11:05 Dose: Not Given Fluoxetine HCl (Prozac) 40 mg PO DAILY [facility] PRN Reason: Protocol Stop: 12/10/17 08:59 Last Admin: 10/12/17 11:05 Dose: Not Given Folic Acid (Folate) 1 mg PO DAILY [facility] Stop: 12/10/17 08:59 Last Admin: 10/12/17 11:05 Dose: Not Given Gabapentin (Neurontin) 300 mg PO TID [facility] Stop: 12/10/17 08:59 Last Admin: 10/12/17 20:45 Dose: 300 mg Hydralazine HCl (Apresoline) 50 mg PO TID [facility] Stop: 12/10/17 08:59 Last Admin: 10/13/17 00:30 Dose: 50 mg Dextrose/Sodium Chloride (D5-0.45ns) 1,000 mls @ 50 mls/hr IV .Q20H [facility] Stop: 12/10/17 13:29 Last Admin: 10/12/17 14:41 Dose: 50 mls/hr Ceftriaxone Sodium 1 gm/ (Sodium Chloride) 50 mls @ 100 mls/hr IV Q24H [facility] Stop: 12/11/17 16:59 Last Admin: 10/12/17 18:26 Dose: 100 mls/hr Levothyroxine Sodium (Synthroid) 0.075 mg PO QDAC [facility] Stop: 12/10/17 07:29 Last Admin: 10/13/17 07:06 Dose: 0.075 mg Lorazepam (Ativan) 1 mg IVP Q6HR PRN; Protocol PRN Reason: Agitation Stop: 12/09/17 21:37 Last Admin: 10/12/17 20:44 Dose: 1 mg Miscellaneous (Vte Chemical Prophylaxis Screen/ Admission) 1 ea MC PRN PRN PRN Reason: PROTOCOL Stop: 12/10/17 15:50 Pantoprazole Sodium (Protonix) 40 mg PO DAILY [facility] Stop: 12/11/17 08:59 Last Admin: 10/12/17 11:05 Dose: Not Given Risperidone (Risperdal) 0.25 mg PO HS [facility] PRN Reason: Protocol Stop: 12/10/17 20:59 Last Admin: 10/12/17 20:44 Dose: 0.25 mg Valsartan (Diovan) 160 mg PO BID [facility] Stop: 12/10/17 08:59 Last Admin: 10/12/17 18:29 Dose: 160 mg - Procedures Procedures: Procedures Procedure Code Date EXCISION OF ASCENDING COLON, ENDO [id number] 09/30/17 EXCISION OF DESCENDING COLON, ENDO [id number] 09/30/17 EXCISION OF DUODENUM, ENDO, DIAGN [id number] 09/30/17 EXCISION OF SIGMOID COLON, ENDO 2NOT3OH 09/30/17 EXCISION OF STOMACH, ENDO, DIAGN [id number] 09/30/17 [facility] GROUP PSYTX 18771 01/24/01 OTHER GROUP THERAPY 94.44 01/24/01 Assessment/Plan - Problem List Patient Problems: All Active Problems INCREASED AGITATION AND AGGESSION (Acute) - Assessment Assessment: 86 YO FEMALE WITH ANEMIA STILL REFUSING EGD/COLO AND GI WORK UP FOR ANEMIA DESPITE ME EXPLAINING AND ASKING HER AGAIN TODAY SHE UNDERSTANDS THE RAMIFICATIONS OF NOT HAVING WORK UP DONE 1.CONT PROTONIX 2.FOLLOW H/H 3.CONSIDER GI WORK UP IF PT CHANGES HER MIND 4.WILL SIGN OFF; CALL IF QUESTIONS
[2017-10-13] MEDS: Pantoprazole 40 mg EC Tab PO SCH (09:19)
[2017-10-13 09:50] LABS: BASOPHIL 1 % (0-3); EOSINOPHIL 5 % (0-5); LYMPHOCYTE 12 % (20-50); MONOCYTE 13 % (2-10); NEUTROPHILS 69 % (40-80); TOTAL CELLS COUNTED 100
[2017-10-13 09:51] LABS: PLATELET ESTIMATE ADEQUATE (NORMAL)
== END 2017-10-13 10:56 | DRG 604 ==
LOC: ER 17:52 → MSI 19:35
PROVIDERS: ADMIT Internal Medicine; ATTEND Internal Medicine
PROC: 30233N1 Transfusion of Nonautologous Red Blood Cells into Peripheral Vein, Percutaneous Approach (ICD-10-PCS; principal; 2017-10-10)
DX: S10.85XA Superficial foreign body of other specified part of neck, initial encounter (principal); G93.41 Metabolic encephalopathy; E87.1 Hypo-osmolality and hyponatremia; D64.9 Anemia, unspecified; E66.9 Obesity, unspecified; E78.5 Hyperlipidemia, unspecified; I10 Essential (primary) hypertension; Z53.29 Procedure and treatment not carried out because of patient's decision for other reasons; F32.9 Major depressive disorder, single episode, unspecified; F41.9 Anxiety disorder, unspecified; Z88.6 Allergy status to analgesic agent; Z68.23 Body mass index [BMI] 23.0-23.9, adult
CPT/HCPCS: 36415-UA; 71045-TC; 80048-TC; 80053-TC; 81001-TC; 84443-TC; 85007-TC; 85025-TC; 85027-TC; 86850-TC; 86900-TC; 86901-TC; 86922-TC; 87086-90; 93005; J0696; J1200; J2060; J7030; P9016; Z7610

== ENCOUNTER 2017-10-13 11:17 | Inpatient (IN) | payer MEDICARE, MEDICAID ==
[2017-10-13 12:56] VITALS: BP 131/60
--- NOTE | 2017-10-13 14:04 | General Progress Note ---
Subjective - Review of Systems Events since last encounter: confused in no distress Objective - Physical Exam Vitals and I&O: Vital Signs Temp 98.0 F 10/13/17 12:27 Pulse 59 10/13/17 13:29 Resp 18 10/13/17 12:27 BP 131/62 10/13/17 13:29 Pulse Ox 97 10/13/17 12:27 Intake & Output 10/12/17 10/13/17 10/13/17 18:59 06:59 18:59 Weight (lbs) 59.829 kg Active Medications: Current Medications Acetaminophen (Tylenol) 325 mg PO Q6HR PRN PRN Reason: TEMP >100 Stop: 12/12/17 12:14 Buspirone HCl (Buspar) 7.5 mg PO BID [facility] PRN Reason: Protocol Stop: 12/12/17 16:59 Docusate Sodium (Colace) 250 mg PO DAILY [facility] Stop: 12/13/17 08:59 Fluoxetine HCl (Prozac) 40 mg PO DAILY [facility] PRN Reason: Protocol Stop: 12/13/17 08:59 Folic Acid (Folate) 1 mg PO DAILY [facility] Stop: 12/13/17 08:59 Furosemide (Lasix) 40 mg PO DAILY [facility] Stop: 12/13/17 08:59 Gabapentin (Neurontin) 300 mg PO TID [facility] Stop: 12/12/17 13:59 Last Admin: 10/13/17 13:29 Dose: 300 mg Hydralazine HCl (Apresoline) 50 mg PO TID [facility] Stop: 12/12/17 13:59 Last Admin: 10/13/17 13:29 Dose: 50 mg Levofloxacin (Levaquin) 500 mg PO DAILY [facility] Stop: 10/18/17 08:59 Levothyroxine Sodium (Synthroid) 0.075 mg PO QDAC [facility] Stop: 12/13/17 07:29 Lorazepam (Ativan) 0.5 mg PO Q4HR PRN; Protocol PRN Reason: Anxiety Stop: 11/12/17 12:16 Pantoprazole Sodium (Protonix) 40 mg PO DAILY [facility] Stop: 12/13/17 08:59 Potassium Chloride (Klor-Con) 10 meq PO DAILY [facility] Stop: 12/13/17 08:59 Risperidone (Risperdal) 0.25 mg PO HS [facility] PRN Reason: Protocol Stop: 12/12/17 20:59 Tramadol HCl (Ultram) 50 mg PO Q4HR PRN PRN Reason: Pain (Moderate) Stop: 12/12/17 12:14 Valsartan (Diovan) 160 mg PO BID [facility] Stop: 12/12/17 16:59 Zolpidem Tartrate (Ambien) 5 mg PO HS PRN PRN Reason: Insomnia Stop: 12/12/17 12:16 - Procedures Procedures: Procedures Procedure Code Date EXCISION OF ASCENDING COLON, ENDO 4SWM3HI 09/30/17 EXCISION OF DESCENDING COLON, ENDO 4AKH1DA 09/30/17 EXCISION OF DUODENUM, ENDO, DIAGN 1GK91CT 09/30/17 EXCISION OF SIGMOID COLON, ENDO 5BTV7EX 09/30/17 EXCISION OF STOMACH, ENDO, DIAGN [id number] 09/30/17 [facility] GROUP PSYTX [id number] 01/24/01 OTHER GROUP THERAPY 94.44 01/24/01
--- NOTE | 2017-10-13 14:15 | History & Physical ---
ADMIT DATE: 10/13/2017 IDENTIFYING INFORMATION: The patient is an 86-year-old female. HISTORY OF PRESENT ILLNESS: The patient was transferred from the medical floor. The patient is demented, confused, unable to participate in a meaningful conversation, unable to remember the date, where she is, why she is here, who has been irritable, confused, was transferred here. The patient was seen by Dr. Hoover while she was on the medical floor. Recommended transferring her to [facility] when medically cleared. The patient was originally admitted to the medical floor because she has psychosis. She has problem with her gait with a history of sacral decubitus and dysphagia with history of hypertension, hyperlipidemia, depression, and hypothyroidism. PAST PSYCHIATRIC HISTORY: Dementia. The patient unable to give more information. MEDICAL HISTORY: As mentioned before by Dr. Wells. ALLERGIES: THE PATIENT IS ALLERGIC TO IBUPROFEN AND IODINE. MEDICATIONS: The patient's medication was continued. She is on Risperdal 0.5 mg at bedtime as well as Prozac 40 mg daily. FAMILY AND SOCIAL HISTORY: Unobtainable. MENTAL STATUS EXAMINATION: The patient is appropriately dressed, not very well groomed. She was alert, unable to tell the date, where she is, why she is here, rambling speech, unpredictable, and very poor historian. Unable to make safe plan for self-care and her long and short term are poor. She denies any hallucination or paranoia; however, she is a poor historian. Her insight and judgment is impaired. IMPRESSION: AXIS I: Psychosis, not otherwise specified, dementia. INITIAL TREATMENT PLAN: Continue her medication. We will adjust medication as needed. Do group therapy, milieu therapy, and individual therapy. Dr. Hoover will follow up with the patient as of tomorrow. [facility]# [id number]
--- NOTE | 2017-10-13 19:05 | History & Physical ---
ADMIT DATE: 10/13/2017 HISTORY OF PRESENT ILLNESS: This patient from [facility], who essentially was admitted ER because of the patient's agitation, found to have severe anemia and GI bleeding. The patient was given blood transfusion. The patient was stabilized. The patient also was known to have history of sacral decubiti, history of hypertension, history of hyperlipidemia, hypothyroidism, and depression. PAST PSYCHIATRIC HISTORY: History of dementia and history of psychosis. MEDICATIONS: See the reconciliation sheet. PHYSICAL EXAMINATION: GENERAL: Alert, oriented, and elderly female. VITAL SIGNS: As noted in chart. HEAD: Normal. ENT: Normal. NECK: Supple, nontender. LUNGS: Clear. CARDIOVASCULAR SYSTEM: S1 and S2 heard. ABDOMEN: Soft. Bowel sounds are heard. CENTRAL NERVOUS SYSTEM: Grossly normal except for agitation and confusion. DIAGNOSES: Psychosis, agitation, ____ history of anemia status post blood transfusion, history of peptic ulcer disease, history of hypertension, history of hyperlipidemia, hypothyroidism, history of depression, and history of dementia. I will follow her medically and Dr. Hoover will follow the patient psychiatric [place]. JOB# [id number]
--- NOTE | 2017-10-13 22:43 | Progress Notes ---
DATE: 10/13/2017 Case was discussed with staff of patient, reviewed records. The patient continues to be demented, confused, irritable, easily agitated. She continues to have poor insight. Continues to redirection, unpredictable, impulsive, needing redirection. The patient will be transferred to [facility] and Dr. Hoover will be taking care for her. Thank you very much for allowing me to participate in the care of this most interesting lady. JOB# [id number]
[2017-10-14] MEDS: Levothyroxine 0.075 Mg Tab PO SCH (06:34)
[2017-10-14] MEDS ORDERED: POTASSIUM CHLORIDE 8 MEQ PO SCH (09:00)
--- NOTE | 2017-10-14 09:44 | General Progress Note ---
Subjective - Review of Systems Events since last encounter: gi bleed s/p blood transfusion in no distress Objective - Physical Exam Vitals and I&O: Vital Signs Temp 97.8 F 10/14/17 05:23 Pulse 58 10/14/17 05:23 Resp 20 10/14/17 05:23 BP 154/68 10/14/17 05:23 Pulse Ox 95 10/14/17 05:23 Active Medications: Current Medications Acetaminophen (Tylenol) 325 mg PO Q6HR PRN PRN Reason: TEMP >100 Stop: 12/12/17 12:14 Buspirone HCl (Buspar) 7.5 mg PO BID [facility] PRN Reason: Protocol Stop: 12/12/17 16:59 Last Admin: 10/13/17 16:30 Dose: 7.5 mg Docusate Sodium (Colace) 250 mg PO DAILY [facility] Stop: 12/13/17 08:59 Fluoxetine HCl (Prozac) 40 mg PO DAILY [facility] PRN Reason: Protocol Stop: 12/13/17 08:59 Folic Acid (Folate) 1 mg PO DAILY [facility] Stop: 12/13/17 08:59 Furosemide (Lasix) 40 mg PO DAILY [facility] Stop: 12/13/17 08:59 Gabapentin (Neurontin) 300 mg PO TID [facility] Stop: 12/12/17 13:59 Last Admin: 10/13/17 21:42 Dose: 300 mg Hydralazine HCl (Apresoline) 50 mg PO TID [facility] Stop: 12/12/17 13:59 Last Admin: 10/13/17 21:42 Dose: 50 mg Levofloxacin (Levaquin) 500 mg PO DAILY [facility] Stop: 10/18/17 08:59 Levothyroxine Sodium (Synthroid) 0.075 mg PO QDAC [facility] Stop: 12/13/17 07:29 Last Admin: 10/14/17 06:34 Dose: 0.075 mg Lorazepam (Ativan) 0.5 mg PO Q4HR PRN; Protocol PRN Reason: Anxiety Stop: 11/12/17 12:16 Last Admin: 10/13/17 16:30 Dose: 0.5 mg Pantoprazole Sodium (Protonix) 40 mg PO DAILY [facility] Stop: 12/13/17 08:59 Potassium Chloride (Klor-Con) 10 meq PO DAILY [facility] Stop: 05/04/18 08:59 Risperidone (Risperdal) 0.25 mg PO HS [facility] PRN Reason: Protocol Stop: 12/12/17 20:59 Last Admin: 10/13/17 21:42 Dose: 0.25 mg Tramadol HCl (Ultram) 50 mg PO Q4HR PRN PRN Reason: Pain (Moderate) Stop: 12/12/17 12:14 Valsartan (Diovan) 160 mg PO BID [facility] Stop: 12/12/17 16:59 Last Admin: 10/13/17 16:30 Dose: 160 mg Zolpidem Tartrate (Ambien) 5 mg PO HS PRN PRN Reason: Insomnia Stop: 12/12/17 12:16 - Procedures Procedures: Procedures Procedure Code Date EXCISION OF ASCENDING COLON, ENDO [id number] 09/30/17 EXCISION OF DESCENDING COLON, ENDO [id number] 09/30/17 EXCISION OF DUODENUM, ENDO, DIAGN [id number] 09/30/17 EXCISION OF SIGMOID COLON, ENDO [id number] 09/30/17 EXCISION OF STOMACH, ENDO, DIAGN [id number] 09/30/17 [facility] GROUP PSYTX [id number] 01/24/01 OTHER GROUP THERAPY 94.44 01/24/01
[2017-10-14] MEDS: Potassium Chloride 10 mEq ER Tab PO SCH (10:05)
[2017-10-14] MEDS: Pantoprazole 40 mg EC Tab PO SCH (10:10)
--- NOTE | 2017-10-14 18:25 | Progress Notes ---
DATE: 10/14/2017 SUBJECTIVE: The patient transferred from the medical floor demented, confused, unable to participate in a meaningful conversation and did not know where she is, what was going on. On [id number], the patient remains confused, disoriented, stating "I am in my housing," does know the year, the month, the day of the week. There were concerns about safety, poor redirection, none of the she noted. PSYCHIATRIC HISTORY: Dementia. MEDICATIONS: Risperdal and Prozac. MENTAL STATUS EXAMINATION: Stated age, fair eye contact. Speech within normal limits. Highly disoriented, confused, somewhat restless. MEDICATIONS: Reviewed including dosages and frequencies. ASSESSMENT: The patient remains symptomatic, confused, isolative, not safe for a lower level of care. PLAN: We will continue to monitor given her ongoing symptoms. At this time, she is not safe for discharge. She remains unpredictable, highly impulsive. JOB# [id number]
[2017-10-15] MEDS: Levothyroxine 0.075 Mg Tab PO SCH (06:46)
[2017-10-15] MEDS: Potassium Chloride 10 mEq ER Tab PO SCH (09:38)
[2017-10-15] MEDS: Pantoprazole 40 mg EC Tab PO SCH (09:38)
--- NOTE | 2017-10-15 18:02 | Progress Notes ---
DATE: 10/15/2017 The patient remains confused, believes she is at home, believes she is better, very demanding, irritable, somewhat rude on exam, does not know the year, the month, telling me to stop asking her questions, "I do not want to answer any questions that requires me to think." The patient remains occlusive, somewhat isolative, not amenable to examination. ASSESSMENT: The patient remains symptomatic, confused, isolative, irritable, not answering most questions, remains unpredictable. PLAN: We will continue to monitor given her ongoing symptoms, there are ongoing safety concerns. I will continue to titrate and adjust medications as tolerated. JOB# [id number]
--- NOTE | 2017-10-15 21:08 | Internal Medicine Prog Note ---
Internal Medicine Subjective - Subjective Service Date: 10/15/17 Patient seen and examined:: with staff Patient is:: awake, verbal Per staff patient has:: tolerating meds Internal Medicine Objective - Physical Exam Vitals and I&O: Vital Signs Temp 99.0 F 10/15/17 19:34 Pulse 60 10/15/17 19:34 Resp 19 10/15/17 19:34 BP 144/72 10/15/17 19:34 Pulse Ox 97 10/15/17 19:34 Intake & Output 10/15/17 10/15/17 10/16/17 06:59 18:59 06:59 Intake Total 120 600 120 Balance 120 600 120 Intake: Oral 120 600 120 Other: # Voids 3 2 2 # Bowel Movements 1 0 Active Medications: Current Medications Acetaminophen (Tylenol) 325 mg PO Q6HR PRN PRN Reason: TEMP >100 Stop: 12/12/17 12:14 Buspirone HCl (Buspar) 7.5 mg PO BID [facility] PRN Reason: Protocol Stop: 12/12/17 16:59 Last Admin: 10/15/17 17:03 Dose: 7.5 mg Docusate Sodium (Colace) 250 mg PO DAILY [facility] Stop: 12/13/17 08:59 Last Admin: 10/15/17 09:37 Dose: 250 mg Fluoxetine HCl (Prozac) 40 mg PO DAILY [facility] PRN Reason: Protocol Stop: 12/13/17 08:59 Last Admin: 10/15/17 09:35 Dose: 40 mg Folic Acid (Folate) 1 mg PO DAILY [facility] Stop: 12/13/17 08:59 Last Admin: 10/15/17 09:37 Dose: 1 mg Furosemide (Lasix) 40 mg PO DAILY [facility] Stop: 12/13/17 08:59 Last Admin: 10/15/17 09:37 Dose: 40 mg Gabapentin (Neurontin) 300 mg PO TID [facility] Stop: 12/12/17 13:59 Last Admin: 10/15/17 14:53 Dose: 300 mg Hydralazine HCl (Apresoline) 50 mg PO TID [facility] Stop: 12/12/17 13:59 Last Admin: 10/15/17 14:49 Dose: Not Given Levofloxacin (Levaquin) 500 mg PO DAILY [facility] Stop: 10/18/17 08:59 Last Admin: 10/15/17 09:38 Dose: 500 mg Levothyroxine Sodium (Synthroid) 0.075 mg PO QDAC [facility] Stop: 12/13/17 07:29 Last Admin: 10/15/17 06:46 Dose: 0.075 mg Lorazepam (Ativan) 0.5 mg PO Q4HR PRN; Protocol PRN Reason: Anxiety Stop: 11/12/17 12:16 Last Admin: 10/13/17 16:30 Dose: 0.5 mg Pantoprazole Sodium (Protonix) 40 mg PO DAILY [facility] Stop: 12/13/17 08:59 Last Admin: 10/15/17 09:38 Dose: 40 mg Potassium Chloride (Klor-Con) 10 meq PO DAILY [facility] Stop: 12/13/17 08:59 Last Admin: 10/15/17 09:38 Dose: 10 meq Risperidone (Risperdal) 0.25 mg PO HS [facility] PRN Reason: Protocol Stop: 12/12/17 20:59 Last Admin: 10/14/17 21:28 Dose: 0.25 mg Tramadol HCl (Ultram) 50 mg PO Q4HR PRN PRN Reason: Pain (Moderate) Stop: 12/12/17 12:14 Valsartan (Diovan) 160 mg PO BID [facility] Stop: 12/12/17 16:59 Last Admin: 10/15/17 17:03 Dose: 160 mg Zolpidem Tartrate (Ambien) 5 mg PO HS PRN PRN Reason: Insomnia Stop: 12/12/17 12:16 General: alert HEENT: NC/AT, PERRLA Neck: Supple Lungs: CTAB Cardiovascular: RRR, Normal S1, Normal S2, without murmur Abdomen: soft, non-tender Neurological: alert - Procedures Procedures: Procedures Procedure Code Date EXCISION OF ASCENDING COLON, ENDO [id number] 09/30/17 EXCISION OF DESCENDING COLON, ENDO [id number] 09/30/17 EXCISION OF DUODENUM, ENDO, DIAGN [id number] 09/30/17 EXCISION OF SIGMOID COLON, ENDO [id number] 09/30/17 EXCISION OF STOMACH, ENDO, DIAGN [id number] 09/30/17 [facility] PSYTX 75223 01/24/01 OTHER GROUP THERAPY 94.44 01/24/01 TRANSFUSE NONAUT RED BLOOD CELLS IN PERIPH VEIN, PERC 02929P4 10/10/17 Internal Medicine Assmt/Plan - Assessment Assessment: psychosis agitation anemia pud htn hyperlipidemia hypothyroidism depression dementia - Plan Plan: fall precautions continue current plan of care
[2017-10-16] MEDS: Levothyroxine 0.075 Mg Tab PO SCH (06:43)
[2017-10-16] MEDS: Potassium Chloride 10 mEq ER Tab PO SCH (08:30)
[2017-10-16] MEDS: Pantoprazole 40 mg EC Tab PO SCH (08:31)
--- NOTE | 2017-10-16 09:19 | General Progress Note ---
Subjective - Review of Systems Events since last encounter: awake alert tolerating meds Objective - Physical Exam Vitals and I&O: Vital Signs Temp 98.9 F 10/16/17 05:20 Pulse 64 10/16/17 08:32 Resp 19 10/16/17 05:20 BP 144/61 10/16/17 08:32 Pulse Ox 94 10/16/17 05:20 Intake & Output 10/15/17 10/16/17 10/16/17 18:59 06:59 18:59 Intake Total 600 240 Balance 600 240 Intake: Oral 600 240 Other: # Voids 2 1 # Bowel Movements 1 Active Medications: Current Medications Acetaminophen (Tylenol) 325 mg PO Q6HR PRN PRN Reason: TEMP >100 Stop: 12/12/17 12:14 Buspirone HCl (Buspar) 7.5 mg PO BID [facility] PRN Reason: Protocol Stop: 12/12/17 16:59 Last Admin: 10/16/17 08:28 Dose: 7.5 mg Docusate Sodium (Colace) 250 mg PO DAILY [facility] Stop: 12/13/17 08:59 Last Admin: 10/16/17 08:34 Dose: 250 mg Fluoxetine HCl (Prozac) 40 mg PO DAILY [facility] PRN Reason: Protocol Stop: 12/13/17 08:59 Last Admin: 10/16/17 08:29 Dose: 40 mg Folic Acid (Folate) 1 mg PO DAILY [facility] Stop: 12/13/17 08:59 Last Admin: 10/16/17 08:34 Dose: 1 mg Furosemide (Lasix) 40 mg PO DAILY [facility] Stop: 12/13/17 08:59 Last Admin: 10/16/17 08:31 Dose: 40 mg Gabapentin (Neurontin) 300 mg PO TID [facility] Stop: 12/12/17 13:59 Last Admin: 10/16/17 08:35 Dose: 300 mg Hydralazine HCl (Apresoline) 50 mg PO TID [facility] Stop: 12/12/17 13:59 Last Admin: 10/16/17 08:32 Dose: 50 mg Levofloxacin (Levaquin) 500 mg PO DAILY [facility] Stop: 10/18/17 08:59 Last Admin: 10/16/17 08:34 Dose: 500 mg Levothyroxine Sodium (Synthroid) 0.075 mg PO QDAC [facility] Stop: 12/13/17 07:29 Last Admin: 10/16/17 06:43 Dose: 0.075 mg Lorazepam (Ativan) 0.5 mg PO Q4HR PRN; Protocol PRN Reason: Anxiety Stop: 11/12/17 12:16 Last Admin: 10/13/17 16:30 Dose: 0.5 mg Pantoprazole Sodium (Protonix) 40 mg PO DAILY [facility] Stop: 12/13/17 08:59 Last Admin: 10/16/17 08:31 Dose: 40 mg Potassium Chloride (Klor-Con) 10 meq PO DAILY [facility] Stop: 12/13/17 08:59 Last Admin: 10/16/17 08:30 Dose: 10 meq Risperidone (Risperdal) 0.25 mg PO HS [facility] PRN Reason: Protocol Stop: 12/12/17 20:59 Last Admin: 10/15/17 21:23 Dose: 0.25 mg Tramadol HCl (Ultram) 50 mg PO Q4HR PRN PRN Reason: Pain (Moderate) Stop: 12/12/17 12:14 Valsartan (Diovan) 160 mg PO BID [facility] Stop: 12/12/17 16:59 Last Admin: 10/16/17 08:29 Dose: 160 mg Zolpidem Tartrate (Ambien) 5 mg PO HS PRN PRN Reason: Insomnia Stop: 12/12/17 12:16 Last Admin: 10/15/17 21:22 Dose: 5 mg - Procedures Procedures: Procedures Procedure Code Date EXCISION OF ASCENDING COLON, ENDO [id number] 09/30/17 EXCISION OF DESCENDING COLON, ENDO [id number] 09/30/17 EXCISION OF DUODENUM, ENDO, DIAGN [id number] 09/30/17 EXCISION OF SIGMOID COLON, ENDO [id number] 09/30/17 EXCISION OF STOMACH, ENDO, DIAGN [id number] 09/30/17 [facility] PSYTX 13411 01/24/01 OTHER GROUP THERAPY 94.44 01/24/01 TRANSFUSE NONAUT RED BLOOD CELLS IN PERIPH VEIN, PERC [id number] 10/10/17
--- NOTE | 2017-10-16 17:40 | Progress Notes ---
DATE: 10/16/2017 The patient remains confused but somewhat calmer. States she is in the hospital, confused as to why she is here, states that she is here because her throat was paralyzed. The patient is somewhat less irritable today, more amenable to interview. She has been compliant, remained somewhat reclusive, somewhat irritable but more amenable to speaking with me. Tolerant to medications. Medications were reviewed. ASSESSMENT: The patient remains symptomatic, irritable, but somewhat calmer. PLAN: We will continue to monitor. Given her ongoing symptoms, she is not safe for discharge. Continue medications at current dose. JOB# [id number]
[2017-10-17] MEDS: Levothyroxine 0.075 Mg Tab PO SCH (06:46)
[2017-10-17] MEDS: Pantoprazole 40 mg EC Tab PO SCH (09:38)
[2017-10-17] MEDS: Potassium Chloride 10 mEq ER Tab PO SCH (09:39)
--- NOTE | 2017-10-17 11:34 | General Progress Note ---
Subjective - Review of Systems Events since last encounter: still irritable as per staff no signs of pain Objective - Results Recent Labs: Laboratory Last Values POC Glucose 123 MG/DL (70 - 105) H 10/17/17 05:41 - Physical Exam Vitals and I&O: Vital Signs Temp 98.2 F 10/17/17 06:05 Pulse 59 10/17/17 09:44 Resp 18 10/17/17 06:05 BP 138/97 10/17/17 09:44 Pulse Ox 97 10/17/17 06:05 Intake & Output 10/16/17 10/17/17 10/17/17 18:59 06:59 18:59 Intake Total 600 120 Balance 600 120 Intake: Oral 600 120 Other: # Voids 3 # Bowel Movements 1 Active Medications: Current Medications Acetaminophen (Tylenol) 325 mg PO Q6HR PRN PRN Reason: TEMP >100 Stop: 12/12/17 12:14 Buspirone HCl (Buspar) 7.5 mg PO BID [facility] PRN Reason: Protocol Stop: 12/12/17 16:59 Last Admin: 10/17/17 09:39 Dose: 7.5 mg Docusate Sodium (Colace) 250 mg PO DAILY [facility] Stop: 12/13/17 08:59 Last Admin: 10/17/17 09:35 Dose: 250 mg Fluoxetine HCl (Prozac) 40 mg PO DAILY [facility] PRN Reason: Protocol Stop: 12/13/17 08:59 Last Admin: 10/17/17 09:35 Dose: 40 mg Folic Acid (Folate) 1 mg PO DAILY [facility] Stop: 12/13/17 08:59 Last Admin: 10/17/17 09:38 Dose: 1 mg Furosemide (Lasix) 40 mg PO DAILY [facility] Stop: 12/13/17 08:59 Last Admin: 10/17/17 09:41 Dose: Not Given Gabapentin (Neurontin) 300 mg PO TID [facility] Stop: 12/12/17 13:59 Last Admin: 10/17/17 09:39 Dose: 300 mg Hydralazine HCl (Apresoline) 50 mg PO TID [facility] Stop: 12/12/17 13:59 Last Admin: 10/17/17 09:40 Dose: 50 mg Levofloxacin (Levaquin) 500 mg PO DAILY [facility] Stop: 10/18/17 08:59 Last Admin: 10/17/17 09:38 Dose: 500 mg Levothyroxine Sodium (Synthroid) 0.075 mg PO QDAC [facility] Stop: 12/13/17 07:29 Last Admin: 10/17/17 06:46 Dose: 0.075 mg Lorazepam (Ativan) 0.5 mg PO Q4HR PRN; Protocol PRN Reason: Anxiety Stop: 11/12/17 12:16 Last Admin: 10/13/17 16:30 Dose: 0.5 mg Pantoprazole Sodium (Protonix) 40 mg PO DAILY [facility] Stop: 12/13/17 08:59 Last Admin: 10/17/17 09:38 Dose: 40 mg Potassium Chloride (Klor-Con) 10 meq PO DAILY [facility] Stop: 12/13/17 08:59 Last Admin: 10/17/17 09:39 Dose: 10 meq Risperidone (Risperdal) 0.25 mg PO HS [facility] PRN Reason: Protocol Stop: 12/12/17 20:59 Last Admin: 10/16/17 21:05 Dose: 0.25 mg Tramadol HCl (Ultram) 50 mg PO Q4HR PRN PRN Reason: Pain (Moderate) Stop: 12/12/17 12:14 Valsartan (Diovan) 160 mg PO BID [facility] Stop: 12/12/17 16:59 Last Admin: 10/17/17 09:44 Dose: Not Given Zolpidem Tartrate (Ambien) 5 mg PO HS PRN PRN Reason: Insomnia Stop: 12/12/17 12:16 Last Admin: 10/16/17 21:05 Dose: 5 mg - Procedures Procedures: Procedures Procedure Code Date EXCISION OF ASCENDING COLON, ENDO [id number] 09/30/17 EXCISION OF DESCENDING COLON, ENDO [id number] 09/30/17 EXCISION OF DUODENUM, ENDO, DIAGN [id number] 09/30/17 EXCISION OF SIGMOID COLON, ENDO [id number] 09/30/17 EXCISION OF STOMACH, ENDO, DIAGN [id number] 09/30/17 [facility] PSYTX 73762 01/24/01 OTHER GROUP THERAPY 94.44 01/24/01 TRANSFUSE NONAUT RED BLOOD CELLS IN PERIPH VEIN, PERC [id number] 10/10/17
--- NOTE | 2017-10-17 16:21 | Progress Notes ---
DATE: 10/17/2017 SUBJECTIVE: The patient remains still confused, states she feels "fine," still disoriented. States she wants to go home and be with her kids, I asked how old her kids are, she states "they are teenagers." The patient is currently 86 years old. The patient remains irritable, but she is somewhat more engaged, more sociable, somewhat calmer. It seems her medication regimen is helping tamper down her symptoms and control any agitation. MEDICATIONS: Reviewed. ASSESSMENT: The patient seems to be improving, mood improving, less agitated, but still confused. PLAN: We will continue to monitor. Given ongoing symptoms, she is not safe for discharge with improvement noted. [facility]# [id number]
[2017-10-18] MEDS: Levothyroxine 0.075 Mg Tab PO SCH (06:36)
[2017-10-18] MEDS: Potassium Chloride 10 mEq ER Tab PO SCH (09:45)
[2017-10-18] MEDS: Pantoprazole 40 mg EC Tab PO SCH (10:00)
--- NOTE | 2017-10-18 17:45 | Internal Medicine Prog Note ---
Internal Medicine Subjective - Subjective Service Date: 10/18/17 Patient is:: awake, verbal Per staff patient has:: tolerating meds Internal Medicine Objective - Results Recent Labs: Laboratory Last Values POC Glucose 123 MG/DL (70 - 105) H 10/17/17 05:41 - Physical Exam Vitals and I&O: Vital Signs Temp 98.5 F 10/18/17 16:22 Pulse 71 10/18/17 16:22 Resp 19 10/18/17 16:22 BP 146/77 10/18/17 16:22 Pulse Ox 97 10/18/17 16:22 Intake & Output 10/17/17 10/18/17 10/18/17 18:59 06:59 18:59 Intake Total 960 450 Balance 960 450 Intake: Oral 960 450 Other: # Voids 3 3 # Bowel Movements 0 0 Active Medications: Current Medications Acetaminophen (Tylenol) 325 mg PO Q6HR PRN PRN Reason: TEMP >100 Stop: 12/12/17 12:14 Last Admin: 10/18/17 15:54 Dose: 325 mg Buspirone HCl (Buspar) 7.5 mg PO BID [facility] PRN Reason: Protocol Stop: 12/12/17 16:59 Last Admin: 10/18/17 09:57 Dose: 7.5 mg Docusate Sodium (Colace) 250 mg PO DAILY [facility] Stop: 12/13/17 08:59 Last Admin: 10/18/17 09:58 Dose: 250 mg Fluoxetine HCl (Prozac) 40 mg PO DAILY [facility] PRN Reason: Protocol Stop: 12/13/17 08:59 Last Admin: 10/18/17 09:58 Dose: 40 mg Folic Acid (Folate) 1 mg PO DAILY [facility] Stop: 12/13/17 08:59 Last Admin: 10/18/17 09:59 Dose: 1 mg Furosemide (Lasix) 40 mg PO DAILY [facility] Stop: 12/13/17 08:59 Last Admin: 10/18/17 09:42 Dose: Not Given Gabapentin (Neurontin) 300 mg PO TID [facility] Stop: 12/12/17 13:59 Last Admin: 10/18/17 14:22 Dose: 300 mg Hydralazine HCl (Apresoline) 50 mg PO TID [facility] Stop: 12/12/17 13:59 Last Admin: 10/18/17 14:22 Dose: 50 mg Levothyroxine Sodium (Synthroid) 0.075 mg PO QDAC [facility] Stop: 12/13/17 07:29 Last Admin: 10/18/17 06:36 Dose: 0.075 mg Lorazepam (Ativan) 0.5 mg PO Q4HR PRN; Protocol PRN Reason: Anxiety Stop: 11/12/17 12:16 Last Admin: 10/13/17 16:30 Dose: 0.5 mg Pantoprazole Sodium (Protonix) 40 mg PO DAILY [facility] Stop: 12/13/17 08:59 Last Admin: 10/18/17 10:00 Dose: 40 mg Potassium Chloride (Klor-Con) 10 meq PO DAILY [facility] Stop: 12/13/17 08:59 Last Admin: 10/18/17 09:45 Dose: Not Given Risperidone (Risperdal) 0.25 mg PO HS [facility] PRN Reason: Protocol Stop: 12/12/17 20:59 Last Admin: 10/17/17 21:35 Dose: 0.25 mg Tramadol HCl (Ultram) 50 mg PO Q4HR PRN PRN Reason: Pain (Moderate) Stop: 12/12/17 12:14 Valsartan (Diovan) 160 mg PO BID [facility] Stop: 12/12/17 16:59 Last Admin: 10/18/17 09:39 Dose: Not Given Zolpidem Tartrate (Ambien) 5 mg PO HS PRN PRN Reason: Insomnia Stop: 12/12/17 12:16 Last Admin: 10/17/17 21:35 Dose: 5 mg General: alert HEENT: NC/AT, PERRLA Neck: Supple Lungs: CTAB Cardiovascular: RRR, Normal S1, Normal S2, without murmur Abdomen: soft, non-tender Neurological: alert - Procedures Procedures: Procedures Procedure Code Date EXCISION OF ASCENDING COLON, ENDO [id number] 09/30/17 EXCISION OF DESCENDING COLON, ENDO [id number] 09/30/17 EXCISION OF DUODENUM, ENDO, DIAGN [id number] 09/30/17 EXCISION OF SIGMOID COLON, ENDO [id number] 09/30/17 EXCISION OF STOMACH, ENDO, DIAGN [id number] 09/30/17 [facility] PSYTX 16254 01/24/01 OTHER GROUP THERAPY 94.44 01/24/01 TRANSFUSE NONAUT RED BLOOD CELLS IN PERIPH VEIN, PERC [id number] 10/10/17 Internal Medicine Assmt/Plan - Assessment Assessment: psychosis agitation anemia pud htn hyperlipidemia hypothyroidism depression dementia - Plan Plan: fall precautions continue current plan of care Nutritional Asmnt/Malnutr-PDOC - Dietary Evaluation Malnutrition Findings (Please click <Entered> for more info): Nutritional Asmnt/Malnutrition Start: 10/18/17 15: 02 Text: Status: Complete Freq: Document 10/18/17 15:02 DEB (Rec: 10/18/17 15:13 LCHEN [id number]) Nutritional Asmnt/Malnutrition Patient General Information Nutritional Screening Moderate Risk Diagnosis delirium, dementia, unspecified anxiety Pertinent Medical Hx/Surgical Hx demtnia, sacral decubitus and dysphagia, HTN, hyperlidedeia, depression, hypothyroidism Subjective Information Pt seen lying in bed at time of visit, not in good mood. Pt refused to talk about food, saying"talking about food make me feel worse". Spoke to RN, RN reported pt was easily agitated, Per EMR, PO intake 100%. Pertinent Medications colace, lasix, folate, synthroid, protonix, kcal Pertinent Labs 10/17 POC 123 Nutritional Hx/Data Height 5 ft 3 in Height (Calculated Centimeters) 160.0 Current Weight (lbs) 131 lb Weight (Calculated Kilograms) 59.4 Weight (Calculated Grams) 41449.6 [place] Body Weight 115 Body Mass Index (BMI) 23.2 Weight Status Approriate GI Symptoms GI Symptoms None Last BM 3/7 Difficult in: None Food Allergies Yes: iodine Skin Integrity/Comment: redness to sacralcoccyx, bruise to left arm Current %PO Good (75-100%) Estimated Nutritional Goals BEE in Kcals: Using Current wt Calories/Kcals/Kg 25-30 Kcals Calculated 0033-7289 Protein: Using Current wt Protein g/k Protein Calculated 60 Fluid: ml 1500-1800ml (1ml/kcal) Nutritional Problem No current Nutrition Prob Problem N/A Malnutrition Alert Protein-Calorie Malnutrition N/A Is there a minimum of two criteria No selected? Query Text:Check all the applicable criteria. A minimum of two criteria are recommended for diagnosis of either severe or non-severe malnutrition. Intervention/Recommendation Comments 1. Continue with pureed diet as ordered. 2. Monitor PO intake, wt, labs and skin integrity 3. F/U as low risk in 7 days, 10/25 Expected Outcomes/Goals Expected Outcomes/Goals 1. PO intake to meet at least 75% of nutritional needs. 2. Wt stability, skin to remain intact, labs to approach WNL.
--- NOTE | 2017-10-18 19:46 | Progress Notes ---
DATE: 10/18/2017 SUBJECTIVE: The patient seems to be improving. She notes she feels "good" on exam; however, she remains with psychotic symptoms. She is pretty irritable on exam. She told me that I was just seeing her about 30 minutes ago and that we had a long conversation. This never happened. She seems to be still having some hallucinations, no agitation, no escalation of behaviors. Her signs and symptoms are fairly consistent with dementia diagnosis. Her memory is quite poor. She is quite disoriented. She remains isolative and reclusive. MEDICATIONS: Noted. ASSESSMENT: The patient seems to be improving, still with ongoing psychotic symptoms, but less agitated and less impulsive, less unpredictable. PLAN: We will continue to monitor. Continue low dose Risperdal. The patient seems to be tolerating treatment. We will coordinate care with social work regarding safe discharge plan and good psychiatric followup. JOB# [id number]
[2017-10-19] MEDS: Levothyroxine 0.075 Mg Tab PO SCH (06:44)
[2017-10-19] MEDS: Pantoprazole 40 mg EC Tab PO SCH (08:31)
[2017-10-19] MEDS: Potassium Chloride 10 mEq ER Tab PO SCH (08:31)
--- NOTE | 2017-10-19 16:07 | Progress Notes ---
DATE: 10/19/2017 SUBJECTIVE: The patient was seen in her room, lying in the bed. The patient denies any pain or discomfort. Denies any suicidal or homicidal ideation, otherwise the patient is in no acute distress. OBJECTIVE: VITAL SIGNS: Temperature 98.8, heart rate 64, blood pressure 147/66, respirations of 19, and 97% on room air. HEENT: Head is atraumatic, normocephalic. Eyes: Bilateral conjunctivae are clear. Bilateral pupils are equally round and reactive. NECK: Supple. No JVD. CARDIOVASCULAR: S1 and S2, without murmur. PULMONARY: Clear to auscultation. GASTROINTESTINAL: Soft and nontender without guarding. Positive bowel sounds. MUSCULOSKELETAL: No clubbing. No cyanosis noted. ASSESSMENT: 1. Dementia. 2. Anemia. 3. Hypertension. 4. Hypothyroidism. 5. Depression. 6. Hyperlipidemia. 7. Peptic ulcer disease. 8. Hypertension. PLAN: We will keep the patient inpatient Psychiatric Unit. We will follow up with the psychiatrist to monitor the patient's condition and behavior. Treatment plans were discussed with the patient's nurse. Treatment plans were discussed with Dr. Wells. JOB# [id number]
--- NOTE | 2017-10-20 04:00 | Progress Notes ---
DATE: Dr. Snyder covering for Dr. Gonzalez. SUBJECTIVE: Chart reviewed and the patient interviewed. Also discussed the patient's condition with the staff and reviewed the records and labs. The patient is still actively psychotic and she is still in irritable mood. The patient also is still forgetful and is still not able to remember recent events. She also still seems to be preoccupied and responding to stimuli. Otherwise, the patient is cooperative with her treatment and compliant with taking her psychotropic medications. She also tends to isolate herself and stays by herself most of the time. ASSESSMENT: The patient is still unpredictable and needs close monitoring. TREATMENT PLAN: We will continue Prozac 40 mg everyday. Also, continue gabapentin in a dose of 300 mg 3 times a day. The patient also continued to take Risperdal 0.25 mg at bedtime with no side effect and we will continue same dose and we will continue to work on her irritability and agitation and continue to follow up. JOB# [id number]
[2017-10-20] MEDS: Levothyroxine 0.075 Mg Tab PO SCH (07:01)
[2017-10-20] MEDS: Potassium Chloride 10 mEq ER Tab PO SCH (09:14)
[2017-10-20] MEDS: Pantoprazole 40 mg EC Tab PO SCH (09:16)
--- NOTE | 2017-10-20 10:09 | General Progress Note ---
Subjective - Review of Systems Events since last encounter: patient confused unpredictable Objective - Results Recent Labs: Laboratory Last Values POC Glucose 123 MG/DL (70 - 105) H 10/17/17 05:41 - Physical Exam Vitals and I&O: Vital Signs Temp 97.1 F 10/19/17 20:00 Pulse 64 10/19/17 20:59 Resp 19 10/19/17 20:00 BP 130/54 10/19/17 20:59 Pulse Ox 98 10/19/17 20:00 Intake & Output 10/19/17 10/20/17 10/20/17 17:59 06:59 18:59 Intake Total Balance Intake: Oral Other: # Voids # Bowel Movements Stool Characteristics Active Medications: Current Medications Acetaminophen (Tylenol) 325 mg PO Q6HR PRN PRN Reason: TEMP >100 Stop: 12/12/17 12:14 Last Admin: 10/19/17 13:28 Dose: 325 mg Buspirone HCl (Buspar) 7.5 mg PO BID [facility] PRN Reason: Protocol Stop: 12/12/17 16:59 Last Admin: 10/20/17 09:13 Dose: 7.5 mg Docusate Sodium (Colace) 250 mg PO DAILY [facility] Stop: 12/13/17 08:59 Last Admin: 10/20/17 09:14 Dose: Not Given Fluoxetine HCl (Prozac) 40 mg PO DAILY [facility] PRN Reason: Protocol Stop: 12/13/17 08:59 Last Admin: 10/20/17 09:14 Dose: 40 mg Folic Acid (Folate) 1 mg PO DAILY [facility] Stop: 12/13/17 08:59 Last Admin: 10/20/17 09:15 Dose: 1 mg Furosemide (Lasix) 40 mg PO DAILY [facility] Stop: 12/13/17 08:59 Last Admin: 10/20/17 09:16 Dose: Not Given Gabapentin (Neurontin) 300 mg PO TID [facility] Stop: 12/12/17 13:59 Last Admin: 10/20/17 09:16 Dose: 300 mg Hydralazine HCl (Apresoline) 50 mg PO TID [facility] Stop: 12/12/17 13:59 Last Admin: 10/20/17 09:17 Dose: Not Given Levothyroxine Sodium (Synthroid) 0.075 mg PO QDAC [facility] Stop: 12/13/17 07:29 Last Admin: 10/20/17 07:01 Dose: 0.075 mg Lorazepam (Ativan) 0.5 mg PO Q4HR PRN; Protocol PRN Reason: Anxiety Stop: 11/12/17 12:16 Last Admin: 10/13/17 16:30 Dose: 0.5 mg Pantoprazole Sodium (Protonix) 40 mg PO DAILY [facility] Stop: 12/13/17 08:59 Last Admin: 10/20/17 09:16 Dose: 40 mg Potassium Chloride (Klor-Con) 10 meq PO DAILY [facility] Stop: 12/13/17 08:59 Last Admin: 10/20/17 09:14 Dose: 10 meq Risperidone (Risperdal) 0.25 mg PO HS [facility] PRN Reason: Protocol Stop: 12/12/17 20:59 Last Admin: 10/19/17 20:58 Dose: 0.25 mg Tramadol HCl (Ultram) 50 mg PO Q4HR PRN PRN Reason: Pain (Moderate) Stop: 12/12/17 12:14 Valsartan (Diovan) 160 mg PO BID [facility] Stop: 12/12/17 16:59 Last Admin: 10/20/17 09:15 Dose: Not Given Zolpidem Tartrate (Ambien) 5 mg PO HS PRN PRN Reason: Insomnia Stop: 12/12/17 12:16 Last Admin: 10/17/17 21:35 Dose: 5 mg - Procedures Procedures: Procedures Procedure Code Date EXCISION OF ASCENDING COLON, ENDO [id number] 09/30/17 EXCISION OF DESCENDING COLON, ENDO [id number] 09/30/17 EXCISION OF DUODENUM, ENDO, DIAGN [id number] 09/30/17 EXCISION OF SIGMOID COLON, ENDO [id number] 09/30/17 EXCISION OF STOMACH, ENDO, DIAGN [id number] 09/30/17 INTAC GROUP PSYTX 76003 01/24/01 OTHER GROUP THERAPY 94.44 01/24/01 TRANSFUSE NONAUT RED BLOOD CELLS IN PERIPH VEIN, PERC 84329N1 10/10/17 Nutritional Asmnt/Malnutr-PDOC - Dietary Evaluation Malnutrition Findings (Please click <Entered> for more info): Nutritional Asmnt/Malnutrition Start: 10/18/17 15: 02 Text: Status: Complete Freq: Document 10/18/17 15:02 LCHENG (Rec: 10/18/17 15:13 [facility] [email or web address]) Nutritional Asmnt/Malnutrition Patient General Information Nutritional Screening Moderate Risk Diagnosis delirium, dementia, unspecified anxiety Pertinent Medical Hx/Surgical Hx demtnia, sacral decubitus and dysphagia, HTN, hyperlidedeia, depression, hypothyroidism Subjective Information Pt seen lying in bed at time of visit, not in good mood. Pt refused to talk about food, saying"talking about food make me feel worse". Spoke to RN, RN reported pt was easily agitated, Per EMR, PO intake 100%. Pertinent Medications colace, lasix, folate, synthroid, protonix, kcal Pertinent Labs 10/17 POC 123 Nutritional Hx/Data Height 1.6 m Height (Calculated Centimeters) 160.0 Current Weight (lbs) 59.421 kg Weight (Calculated Kilograms) 59.4 Weight (Calculated Grams) 29202.6 [place] Body Weight 115 Body Mass Index (BMI) 23.2 Weight Status Approriate GI Symptoms GI Symptoms None Last BM 10/16 Difficult in: None Food Allergies Yes: iodine Skin Integrity/Comment: redness to sacralcoccyx, bruise to left arm Current %PO Good (75-100%) Estimated Nutritional Goals BEE in Kcals: Using Current wt Calories/Kcals/Kg 25-30 Kcals Calculated 1835-7728 Protein: Using Current wt Protein g/k Protein Calculated 60 Fluid: ml 1500-1800ml (1ml/kcal) Nutritional Problem No current Nutrition Prob Problem N/A Malnutrition Alert Protein-Calorie Malnutrition N/A Is there a minimum of two criteria No selected? Query Text:Check all the applicable criteria. A minimum of two criteria are recommended for diagnosis of either severe or non-severe malnutrition. Intervention/Recommendation Comments 1. Continue with pureed diet as ordered. 2. Monitor PO intake, wt, labs and skin integrity 3. F/U as low risk in 7 days, 10/25 Expected Outcomes/Goals Expected Outcomes/Goals 1. PO intake to meet at least 75% of nutritional needs. 2. Wt stability, skin to remain intact, labs to approach WNL.
--- NOTE | 2017-10-20 18:22 | Progress Notes ---
DATE: 10/20/2017 Chart reviewed and the patient interviewed. Also discussed the patient's condition with the staff and reviewed records and labs. The patient is still in angry and in irritable mood and she is still easily agitated. The patient also needs lots of redirections. She also is still forgetful. Also, during interview, the patient seems to be talking to herself and actively responding to stimuli and is preoccupied. Otherwise, the patient is compliant with taking her medications with no side effects of medications. She tends to stay by herself and does not want to leave her room. ASSESSMENT: The patient is still unpredictable and she is still psychotic. TREATMENT PLAN: We will continue monitoring her behavior and her condition closely. Also, continue gabapentin in a dose of 300 mg 3 times a day as well as Prozac 40 mg everyday. Also, the patient has no side effects of Risperdal 0.5 mg at bedtime and we will continue same dose and to continue to follow up closely. [facility]# [id number]
[2017-10-21] MEDS: Levothyroxine 0.075 Mg Tab PO SCH (06:34)
--- NOTE | 2017-10-21 09:29 | General Progress Note ---
Subjective - Review of Systems Events since last encounter: patient remains psychotic confused Objective - Results Recent Labs: Laboratory Last Values POC Glucose 123 MG/DL (70 - 105) H 10/17/17 05:41 - Physical Exam Vitals and I&O: Vital Signs Temp 98.3 F 10/20/17 20:42 Pulse 88 10/20/17 21:49 Resp 18 10/20/17 20:42 BP 154/73 10/20/17 21:49 Pulse Ox 92 10/20/17 20:42 Intake & Output 10/20/17 10/21/17 10/21/17 18:59 06:59 18:59 Intake Total 1120 Balance 1120 Intake: Oral 1120 Other: # Voids 3 Stool Characteristics Soft Soft Active Medications: Current Medications Acetaminophen (Tylenol) 325 mg PO Q6HR PRN PRN Reason: TEMP >100 Stop: 12/12/17 12:14 Last Admin: 10/19/17 13:28 Dose: 325 mg Buspirone HCl (Buspar) 7.5 mg PO BID [facility] PRN Reason: Protocol Stop: 12/12/17 16:59 Last Admin: 10/20/17 16:54 Dose: 7.5 mg Docusate Sodium (Colace) 250 mg PO DAILY [facility] Stop: 12/13/17 08:59 Last Admin: 10/20/17 10:00 Dose: 250 mg Fluoxetine HCl (Prozac) 40 mg PO DAILY [facility] PRN Reason: Protocol Stop: 12/13/17 08:59 Last Admin: 10/20/17 09:14 Dose: 40 mg Folic Acid (Folate) 1 mg PO DAILY [facility] Stop: 12/13/17 08:59 Last Admin: 10/20/17 09:15 Dose: 1 mg Furosemide (Lasix) 40 mg PO DAILY [facility] Stop: 12/13/17 08:59 Last Admin: 10/20/17 09:16 Dose: Not Given Gabapentin (Neurontin) 300 mg PO TID [facility] Stop: 12/12/17 13:59 Last Admin: 10/20/17 21:11 Dose: 300 mg Hydralazine HCl (Apresoline) 50 mg PO TID [facility] Stop: 12/12/17 13:59 Last Admin: 10/20/17 21:49 Dose: 50 mg Levothyroxine Sodium (Synthroid) 0.075 mg PO QDAC [facility] Stop: 12/13/17 07:29 Last Admin: 10/21/17 06:34 Dose: 0.075 mg Lorazepam (Ativan) 0.5 mg PO Q4HR PRN; Protocol PRN Reason: Anxiety Stop: 11/12/17 12:16 Last Admin: 10/13/17 16:30 Dose: 0.5 mg Pantoprazole Sodium (Protonix) 40 mg PO DAILY [facility] Stop: 12/13/17 08:59 Last Admin: 10/20/17 09:16 Dose: 40 mg Potassium Chloride (Klor-Con) 10 meq PO DAILY [facility] Stop: 12/13/17 08:59 Last Admin: 10/20/17 09:14 Dose: 10 meq Risperidone (Risperdal) 0.25 mg PO HS [facility] PRN Reason: Protocol Stop: 12/12/17 20:59 Last Admin: 10/20/17 21:05 Dose: 0.25 mg Valsartan (Diovan) 160 mg PO BID [facility] Stop: 12/12/17 16:59 Last Admin: 10/20/17 16:54 Dose: 160 mg Zolpidem Tartrate (Ambien) 5 mg PO HS PRN PRN Reason: Insomnia Stop: 12/12/17 12:16 Last Admin: 10/17/17 21:35 Dose: 5 mg - Procedures Procedures: Procedures Procedure Code Date EXCISION OF ASCENDING COLON, ENDO [id number] 09/30/17 EXCISION OF DESCENDING COLON, ENDO [id number] 09/30/17 EXCISION OF DUODENUM, ENDO, DIAGN [id number] 09/30/17 EXCISION OF SIGMOID COLON, ENDO [id number] 09/30/17 EXCISION OF STOMACH, ENDO, DIAGN [id number] 09/30/17 INTAC GROUP PSYTX 32392 01/24/01 OTHER GROUP THERAPY 94.44 01/24/01 TRANSFUSE NONAUT RED BLOOD CELLS IN PERIPH VEIN, PERC 90583X2 10/10/17 Nutritional Asmnt/Malnutr-PDOC - Dietary Evaluation Malnutrition Findings (Please click <Entered> for more info): Nutritional Asmnt/Malnutrition Start: 10/18/17 15: 02 Text: Status: Complete Freq: Document 10/18/17 15:02 CLAUDETTE (Rec: 10/18/17 15:13 [facility] [email or web address]) Nutritional Asmnt/Malnutrition Patient General Information Nutritional Screening Moderate Risk Diagnosis delirium, dementia, unspecified anxiety Pertinent Medical Hx/Surgical Hx demtnia, sacral decubitus and dysphagia, HTN, hyperlidedeia, depression, hypothyroidism Subjective Information Pt seen lying in bed at time of visit, not in good mood. Pt refused to talk about food, saying"talking about food make me feel worse". Spoke to RN, RN reported pt was easily agitated, Per EMR, PO intake 100%. Pertinent Medications colace, lasix, folate, synthroid, protonix, kcal Pertinent Labs 10/17 POC 123 Nutritional Hx/Data Height 1.6 m Height (Calculated Centimeters) 160.0 Current Weight (lbs) 59.421 kg Weight (Calculated Kilograms) 59.4 Weight (Calculated Grams) 61024.6 [place] Body Weight 115 Body Mass Index (BMI) 23.2 Weight Status Approriate GI Symptoms GI Symptoms None Last BM 10/16 Difficult in: None Food Allergies Yes: iodine Skin Integrity/Comment: redness to sacralcoccyx, bruise to left arm Current %PO Good (75-100%) Estimated Nutritional Goals BEE in Kcals: Using Current wt Calories/Kcals/Kg 25-30 Kcals Calculated 9530-0494 Protein: Using Current wt Protein g/k Protein Calculated 60 Fluid: ml 1500-1800ml (1ml/kcal) Nutritional Problem No current Nutrition Prob Problem N/A Malnutrition Alert Protein-Calorie Malnutrition N/A Is there a minimum of two criteria No selected? Query Text:Check all the applicable criteria. A minimum of two criteria are recommended for diagnosis of either severe or non-severe malnutrition. Intervention/Recommendation Comments 1. Continue with pureed diet as ordered. 2. Monitor PO intake, wt, labs and skin integrity 3. F/U as low risk in 7 days, 10/25 Expected Outcomes/Goals Expected Outcomes/Goals 1. PO intake to meet at least 75% of nutritional needs. 2. Wt stability, skin to remain intact, labs to approach WNL.
[2017-10-21] MEDS: Potassium Chloride 10 mEq ER Tab PO SCH (10:00)
[2017-10-21] MEDS: Pantoprazole 40 mg EC Tab PO SCH (10:00)
--- NOTE | 2017-10-21 19:08 | Progress Notes ---
DATE: 10/21/2017 SUBJECTIVE: The patient is currently in the hospital. Still noted to be angry, irritable, easily agitated. Dr. Snyder saw the patient on the weekend, noted she remained preoccupied, responding to internal stimuli. The patient noted to be reclusive. The patient attesting to fair sleep, still remains somewhat disoriented, rude but no agitation, no escalation of behaviors. MEDICATIONS: Noted. ASSESSMENT: The patient seems to be calmer, more cooperative, still somewhat rude and isolated, but not combative. PLAN: We will continue to monitor. We will err on the side of caution and monitor for further 24 hours to make sure she is devoid of any combative or agitated symptoms. [facility]# [id number]
[2017-10-22] MEDS: Levothyroxine 0.075 Mg Tab PO SCH (06:35)
[2017-10-22] MEDS: Potassium Chloride 10 mEq ER Tab PO SCH ×2 (09:11)
[2017-10-22] MEDS: Pantoprazole 40 mg EC Tab PO SCH ×2 (09:11→09:13)
--- NOTE | 2017-10-22 16:19 | Internal Medicine Prog Note ---
Internal Medicine Subjective - Subjective Service Date: 10/22/17 Patient is:: awake, verbal Per staff patient has:: tolerating meds Internal Medicine Objective - Results Recent Labs: Laboratory Last Values POC Glucose 123 MG/DL (70 - 105) H 10/17/17 05:41 - Physical Exam Vitals and I&O: Vital Signs Temp 97.6 F 10/22/17 15:11 Pulse 71 10/22/17 15:11 Resp 20 10/22/17 15:11 BP 135/76 10/22/17 15:11 Pulse Ox 95 10/22/17 15:11 Intake & Output 10/21/17 10/22/17 10/22/17 18:59 06:59 18:59 Intake Total 950 240 Balance 950 240 Intake: Oral 950 240 Other: # Voids 4 1 # Bowel Movements 1 Stool Characteristics Soft Soft Active Medications: Current Medications Acetaminophen (Tylenol) 325 mg PO Q6HR PRN PRN Reason: TEMP >100 Stop: 12/12/17 12:14 Last Admin: 10/21/17 10:50 Dose: 325 mg Buspirone HCl (Buspar) 7.5 mg PO BID [facility] PRN Reason: Protocol Stop: 12/12/17 16:59 Last Admin: 10/22/17 09:11 Dose: Not Given Docusate Sodium (Colace) 250 mg PO DAILY [facility] Stop: 12/13/17 08:59 Last Admin: 10/22/17 09:11 Dose: Not Given Fluoxetine HCl (Prozac) 40 mg PO DAILY [facility] PRN Reason: Protocol Stop: 12/13/17 08:59 Last Admin: 10/22/17 09:11 Dose: Not Given Folic Acid (Folate) 1 mg PO DAILY [facility] Stop: 12/13/17 08:59 Last Admin: 10/22/17 09:11 Dose: Not Given Furosemide (Lasix) 40 mg PO DAILY [facility] Stop: 12/13/17 08:59 Last Admin: 10/22/17 09:11 Dose: Not Given Gabapentin (Neurontin) 300 mg PO TID [facility] Stop: 12/12/17 13:59 Last Admin: 10/22/17 14:15 Dose: 300 mg Hydralazine HCl (Apresoline) 50 mg PO TID [facility] Stop: 12/12/17 13:59 Last Admin: 03/13/18 14:15 Dose: 50 mg Levothyroxine Sodium (Synthroid) 0.075 mg PO QDAC [facility] Stop: 12/13/17 07:29 Last Admin: 10/22/17 06:35 Dose: 0.075 mg Lorazepam (Ativan) 0.5 mg PO Q4HR PRN; Protocol PRN Reason: Anxiety Stop: 11/12/17 12:16 Last Admin: 10/13/17 16:30 Dose: 0.5 mg Pantoprazole Sodium (Protonix) 40 mg PO DAILY [facility] Stop: 12/13/17 08:59 Last Admin: 10/22/17 09:11 Dose: Not Given Potassium Chloride (Klor-Con) 10 meq PO DAILY [facility] Stop: 12/13/17 08:59 Last Admin: 10/22/17 09:11 Dose: Not Given Risperidone (Risperdal) 0.25 mg PO HS [facility] PRN Reason: Protocol Stop: 12/12/17 20:59 Last Admin: 10/21/17 21:06 Dose: 0.25 mg Valsartan (Diovan) 160 mg PO BID [facility] Stop: 12/12/17 16:59 Last Admin: 10/22/17 09:11 Dose: Not Given Zolpidem Tartrate (Ambien) 5 mg PO HS PRN PRN Reason: Insomnia Stop: 12/12/17 12:16 Last Admin: 10/21/17 21:05 Dose: 5 mg General: alert HEENT: NC/AT, PERRLA Neck: Supple Lungs: CTAB Cardiovascular: RRR, Normal S1, Normal S2, without murmur Abdomen: soft, non-tender Neurological: alert - Procedures Procedures: Procedures Procedure Code Date EXCISION OF ASCENDING COLON, ENDO [id number] 09/30/17 EXCISION OF DESCENDING COLON, ENDO [id number] 09/30/17 EXCISION OF DUODENUM, ENDO, DIAGN [id number] 09/30/17 EXCISION OF SIGMOID COLON, ENDO [id number] 09/30/17 EXCISION OF STOMACH, ENDO, DIAGN [id number] 09/30/17 INTAC GROUP PSYTX 89206 01/24/01 OTHER GROUP THERAPY 94.44 01/24/01 TRANSFUSE NONAUT RED BLOOD CELLS IN PERIPH VEIN, PERC 69355Z6 10/10/17 Internal Medicine Assmt/Plan - Assessment Assessment: psychosis agitation anemia pud htn hyperlipidemia hypothyroidism depression dementia - Plan Plan: fall precautions continue current plan of care Nutritional Asmnt/Malnutr-PDOC - Dietary Evaluation Malnutrition Findings (Please click <Entered> for more info): Nutritional Asmnt/Malnutrition Start: 10/18/17 15: 02 Text: Status: Complete Freq: Document 10/18/17 15:02 LCDEBG (Rec: 10/18/17 15:13 LCH[facility] [email or web address]) Nutritional Asmnt/Malnutrition Patient General Information Nutritional Screening Moderate Risk Diagnosis delirium, dementia, unspecified anxiety Pertinent Medical Hx/Surgical Hx demtnia, sacral decubitus and dysphagia, HTN, hyperlidedeia, depression, hypothyroidism Subjective Information Pt seen lying in bed at time of visit, not in good mood. Pt refused to talk about food, saying"talking about food make me feel worse". Spoke to RN, RN reported pt was easily agitated, Per EMR, PO intake 100%. Pertinent Medications colace, lasix, folate, synthroid, protonix, kcal Pertinent Labs 10/17 POC 123 Nutritional Hx/Data Height 5 ft 3 in Height (Calculated Centimeters) 160.0 Current Weight (lbs) 131 lb Weight (Calculated Kilograms) 59.4 Weight (Calculated Grams) 71068.6 [place] Body Weight 115 Body Mass Index (BMI) 23.2 Weight Status Approriate GI Symptoms GI Symptoms None Last BM 10/16 Difficult in: None Food Allergies Yes: iodine Skin Integrity/Comment: redness to sacralcoccyx, bruise to left arm Current %PO Good (75-100%) Estimated Nutritional Goals BEE in Kcals: Using Current wt Calories/Kcals/Kg 25-30 Kcals Calculated 3275-8302 Protein: Using Current wt Protein g/k Protein Calculated 60 Fluid: ml 1500-1800ml (1ml/kcal) Nutritional Problem No current Nutrition Prob Problem N/A Malnutrition Alert Protein-Calorie Malnutrition N/A Is there a minimum of two criteria No selected? Query Text:Check all the applicable criteria. A minimum of two criteria are recommended for diagnosis of either severe or non-severe malnutrition. Intervention/Recommendation Comments 1. Continue with pureed diet as ordered. 2. Monitor PO intake, wt, labs and skin integrity 3. F/U as low risk in 7 days, 10/25 Expected Outcomes/Goals Expected Outcomes/Goals 1. PO intake to meet at least 75% of nutritional needs. 2. Wt stability, skin to remain intact, labs to approach WNL.
--- NOTE | 2017-10-22 17:18 | Progress Notes ---
DATE: 10/22/2017 SUBJECTIVE: The patient in the hospital, noted to be angry, irritable, but somewhat calmer, stating she does not feel good. When I asked her why, she states "I just don't". The patient adjusting to fair sleep, still somewhat reclusive and isolated, still remains rude and irritable with this clinician, but no combative behaviors. She believes she can go home. She believes she can live on her own, although she is quite limited in regards to her medical problems and disabilities, so there are concerns about her ability to care for herself. MEDICATIONS: Noted. ASSESSMENT: The patient is calmer, more cooperative, but concerns for grave disability. PLAN: We will continue to monitor. We are still trying to make sure there is a safe discharge plan in place. [facility]# [id number]
[2017-10-23] MEDS: Levothyroxine 0.075 Mg Tab PO SCH (06:38)
[2017-10-23] MEDS: Potassium Chloride 10 mEq ER Tab PO SCH (09:27)
[2017-10-23] MEDS: Pantoprazole 40 mg EC Tab PO SCH (09:27)
--- NOTE | 2017-10-23 16:56 | Internal Medicine Prog Note ---
Internal Medicine Subjective - Subjective Patient is:: awake, verbal Per staff patient has:: tolerating meds Internal Medicine Objective - Results Recent Labs: Laboratory Last Values POC Glucose 123 MG/DL (70 - 105) H 10/17/17 05:41 - Physical Exam Vitals and I&O: Vital Signs Temp 97.6 F 10/23/17 15:28 Pulse 65 10/23/17 16:46 Resp 16 10/23/17 15:28 BP 143/68 10/23/17 16:46 Pulse Ox 96 10/23/17 15:28 Intake & Output 10/22/17 10/23/17 10/23/17 18:59 06:59 18:59 Intake Total 1200 480 Balance 1200 480 Intake: Oral 1200 480 Other: # Voids 3 1 Active Medications: Current Medications Acetaminophen (Tylenol) 325 mg PO Q6HR PRN PRN Reason: TEMP >100 Stop: 12/12/17 12:14 Last Admin: 10/23/17 16:33 Dose: 325 mg Buspirone HCl (Buspar) 7.5 mg PO BID [facility] PRN Reason: Protocol Stop: 12/12/17 16:59 Last Admin: 10/23/17 16:36 Dose: 7.5 mg Docusate Sodium (Colace) 250 mg PO DAILY [facility] Stop: 12/13/17 08:59 Last Admin: 10/23/17 09:28 Dose: 250 mg Fluoxetine HCl (Prozac) 40 mg PO DAILY [facility] PRN Reason: Protocol Stop: 12/13/17 08:59 Last Admin: 10/23/17 09:28 Dose: 40 mg Folic Acid (Folate) 1 mg PO DAILY [facility] Stop: 12/13/17 08:59 Last Admin: 10/23/17 09:27 Dose: 1 mg Furosemide (Lasix) 40 mg PO DAILY [facility] Stop: 12/13/17 08:59 Last Admin: 10/23/17 09:27 Dose: 40 mg Gabapentin (Neurontin) 300 mg PO TID [facility] Stop: 12/12/17 13:59 Last Admin: 10/23/17 14:01 Dose: 300 mg Hydralazine HCl (Apresoline) 50 mg PO TID [facility] Stop: 12/12/17 13:59 Last Admin: 10/23/17 14:00 Dose: Not Given Levothyroxine Sodium (Synthroid) 0.075 mg PO QDAC [facility] Stop: 12/13/17 07:29 Last Admin: 10/23/17 06:38 Dose: 0.075 mg Lorazepam (Ativan) 0.5 mg PO Q4HR PRN; Protocol PRN Reason: Anxiety Stop: 11/12/17 12:16 Last Admin: 10/13/17 16:30 Dose: 0.5 mg Pantoprazole Sodium (Protonix) 40 mg PO DAILY [facility] Stop: 12/13/17 08:59 Last Admin: 10/23/17 09:27 Dose: 40 mg Potassium Chloride (Klor-Con) 10 meq PO DAILY [facility] Stop: 12/13/17 08:59 Last Admin: 10/23/17 09:27 Dose: 10 meq Risperidone (Risperdal) 0.25 mg PO HS [facility] PRN Reason: Protocol Stop: 12/12/17 20:59 Last Admin: 10/22/17 21:03 Dose: 0.25 mg Valsartan (Diovan) 160 mg PO BID [facility] Stop: 12/12/17 16:59 Last Admin: 10/23/17 16:46 Dose: 160 mg Zolpidem Tartrate (Ambien) 5 mg PO HS PRN PRN Reason: Insomnia Stop: 12/12/17 12:16 Last Admin: 10/21/17 21:05 Dose: 5 mg General: alert HEENT: NC/AT, PERRLA Neck: Supple Lungs: CTAB Cardiovascular: RRR, Normal S1, Normal S2, without murmur Abdomen: soft, non-tender Neurological: alert - Procedures Procedures: Procedures Procedure Code Date EXCISION OF ASCENDING COLON, ENDO [id number] 09/30/17 EXCISION OF DESCENDING COLON, ENDO [id number] 09/30/17 EXCISION OF DUODENUM, ENDO, DIAGN [id number] 09/30/17 EXCISION OF SIGMOID COLON, ENDO [id number] 09/30/17 EXCISION OF STOMACH, ENDO, DIAGN [id number] 09/30/17 INTAC GROUP PSYTX 11666 01/24/01 OTHER GROUP THERAPY 94.44 01/24/01 TRANSFUSE NONAUT RED BLOOD CELLS IN PERIPH VEIN, PERC 14720B8 10/10/17 Nutritional Asmnt/Malnutr-PDOC - Dietary Evaluation Malnutrition Findings (Please click <Entered> for more info): Nutritional Asmnt/Malnutrition Start: 10/18/17 15: 02 Text: Status: Complete Freq: Document 10/18/17 15:02 JAMESONG (Rec: 10/18/17 15:13 CLAUDETTE [email or web address]) Nutritional Asmnt/Malnutrition Patient General Information Nutritional Screening Moderate Risk Diagnosis delirium, dementia, unspecified anxiety Pertinent Medical Hx/Surgical Hx demtnia, sacral decubitus and dysphagia, HTN, hyperlidedeia, depression, hypothyroidism Subjective Information Pt seen lying in bed at time of visit, not in good mood. Pt refused to talk about food, saying"talking about food make me feel worse". Spoke to RN, RN reported pt was easily agitated, Per EMR, PO intake 100%. Pertinent Medications colace, lasix, folate, synthroid, protonix, kcal Pertinent Labs 10/17 POC 123 Nutritional Hx/Data Height 1.6 m Height (Calculated Centimeters) 160.0 Current Weight (lbs) 59.421 kg Weight (Calculated Kilograms) 59.4 Weight (Calculated Grams) 82668.6 [place] Body Weight 115 Body Mass Index (BMI) 23.2 Weight Status Approriate GI Symptoms GI Symptoms None Last BM 10/16 Difficult in: None Food Allergies Yes: iodine Skin Integrity/Comment: redness to sacralcoccyx, bruise to left arm Current %PO Good (75-100%) Estimated Nutritional Goals BEE in Kcals: Using Current wt Calories/Kcals/Kg 25-30 Kcals Calculated 7154-1098 Protein: Using Current wt Protein g/k Protein Calculated 60 Fluid: ml 1500-1800ml (1ml/kcal) Nutritional Problem No current Nutrition Prob Problem N/A Malnutrition Alert Protein-Calorie Malnutrition N/A Is there a minimum of two criteria No selected? Query Text:Check all the applicable criteria. A minimum of two criteria are recommended for diagnosis of either severe or non-severe malnutrition. Intervention/Recommendation Comments 1. Continue with pureed diet as ordered. 2. Monitor PO intake, wt, labs and skin integrity 3. F/U as low risk in 7 days, 10/25 Expected Outcomes/Goals Expected Outcomes/Goals 1. PO intake to meet at least 75% of nutritional needs. 2. Wt stability, skin to remain intact, labs to approach WNL.
--- NOTE | 2017-10-23 22:01 | Progress Notes ---
DATE: 10/23/2017 SUBJECTIVE: The patient in the hospital, irritable, isolative, does not want to say much to me, but she is calm, friendly, and more cooperative, likely approaching her baseline. Still believes she can live on her own. There are concerns about her realistic care for self. Sleeping fairly well, eating fairly well. On exam, no agitation. MEDICATIONS: Noted. ASSESSMENT: The patient is calmer, more cooperative, concerns for grave disability. PLAN: We will continue to monitor. We are seeking a safe discharge plan. [facility]# [id number]
[2017-10-24] MEDS: Levothyroxine 0.075 Mg Tab PO SCH (06:35)
--- NOTE | 2017-10-24 08:48 | General Progress Note ---
Subjective - Review of Systems Events since last encounter: patient awake in no acute distress Objective - Results Recent Labs: Laboratory Last Values POC Glucose 123 MG/DL (70 - 105) H 10/17/17 05:41 - Physical Exam Vitals and I&O: Vital Signs Temp 97.2 F 10/24/17 06:38 Pulse 67 10/24/17 06:38 Resp 18 10/24/17 06:38 BP 140/78 10/24/17 06:38 Pulse Ox 96 10/24/17 06:38 Intake & Output 10/23/17 10/24/17 10/24/17 18:59 06:59 18:59 Intake Total 1200 120 Balance 1200 120 Intake: Oral 1200 120 Other: # Voids 3 3 # Bowel Movements 1 Active Medications: Current Medications Acetaminophen (Tylenol) 325 mg PO Q6HR PRN PRN Reason: TEMP >100 Stop: 12/12/17 12:14 Last Admin: 10/23/17 16:33 Dose: 325 mg Buspirone HCl (Buspar) 7.5 mg PO BID [facility] PRN Reason: Protocol Stop: 12/12/17 16:59 Last Admin: 10/23/17 16:36 Dose: 7.5 mg Docusate Sodium (Colace) 250 mg PO DAILY [facility] Stop: 12/13/17 08:59 Last Admin: 10/23/17 09:28 Dose: 250 mg Fluoxetine HCl (Prozac) 40 mg PO DAILY [facility] PRN Reason: Protocol Stop: 12/13/17 08:59 Last Admin: 10/23/17 09:28 Dose: 40 mg Folic Acid (Folate) 1 mg PO DAILY [facility] Stop: 12/13/17 08:59 Last Admin: 10/23/17 09:27 Dose: 1 mg Furosemide (Lasix) 40 mg PO DAILY [facility] Stop: 12/13/17 08:59 Last Admin: 10/23/17 09:27 Dose: 40 mg Gabapentin (Neurontin) 300 mg PO TID [facility] Stop: 12/12/17 13:59 Last Admin: 10/23/17 21:51 Dose: 300 mg Hydralazine HCl (Apresoline) 50 mg PO TID [facility] Stop: 12/12/17 13:59 Last Admin: 10/23/17 21:51 Dose: 50 mg Levothyroxine Sodium (Synthroid) 0.075 mg PO QDAC [facility] Stop: 12/13/17 07:29 Last Admin: 10/24/17 06:35 Dose: 0.075 mg Lorazepam (Ativan) 0.5 mg PO Q4HR PRN; Protocol PRN Reason: Anxiety Stop: 11/12/17 12:16 Last Admin: 10/13/17 16:30 Dose: 0.5 mg Pantoprazole Sodium (Protonix) 40 mg PO DAILY [facility] Stop: 12/13/17 08:59 Last Admin: 10/23/17 09:27 Dose: 40 mg Potassium Chloride (Klor-Con) 10 meq PO DAILY [facility] Stop: 12/13/17 08:59 Last Admin: 10/23/17 09:27 Dose: 10 meq Risperidone (Risperdal) 0.25 mg PO HS [facility] PRN Reason: Protocol Stop: 12/12/17 20:59 Last Admin: 10/23/17 21:52 Dose: 0.25 mg Valsartan (Diovan) 160 mg PO BID [facility] Stop: 12/12/17 16:59 Last Admin: 10/23/17 16:46 Dose: 160 mg Zolpidem Tartrate (Ambien) 5 mg PO HS PRN PRN Reason: Insomnia Stop: 12/12/17 12:16 Last Admin: 10/21/17 21:05 Dose: 5 mg - Procedures Procedures: Procedures Procedure Code Date EXCISION OF ASCENDING COLON, ENDO [id number] 09/30/17 EXCISION OF DESCENDING COLON, ENDO [id number] 09/30/17 EXCISION OF DUODENUM, ENDO, DIAGN [id number] 09/30/17 EXCISION OF SIGMOID COLON, ENDO [id number] 09/30/17 EXCISION OF STOMACH, ENDO, DIAGN [id number] 09/30/17 INTAC GROUP PSYTX 19971 01/24/01 OTHER GROUP THERAPY 94.44 01/24/01 TRANSFUSE NONAUT RED BLOOD CELLS IN PERIPH VEIN, PERC 80975R3 10/10/17 Nutritional Asmnt/Malnutr-PDOC - Dietary Evaluation Malnutrition Findings (Please click <Entered> for more info): Nutritional Asmnt/Malnutrition Start: 10/18/17 15: 02 Text: Status: Complete Freq: Document 10/18/17 15:02 LCHENG (Rec: 10/18/17 15:13 LCHENG [email or web address]) Nutritional Asmnt/Malnutrition Patient General Information Nutritional Screening Moderate Risk Diagnosis delirium, dementia, unspecified anxiety Pertinent Medical Hx/Surgical Hx demtnia, sacral decubitus and dysphagia, HTN, hyperlidedeia, depression, hypothyroidism Subjective Information Pt seen lying in bed at time of visit, not in good mood. Pt refused to talk about food, saying"talking about food make me feel worse". Spoke to RN, RN reported pt was easily agitated, Per EMR, PO intake 100%. Pertinent Medications colace, lasix, folate, synthroid, protonix, kcal Pertinent Labs 10/17 POC 123 Nutritional Hx/Data Height 1.6 m Height (Calculated Centimeters) 160.0 Current Weight (lbs) 59.421 kg Weight (Calculated Kilograms) 59.4 Weight (Calculated Grams) 87271.6 [place] Body Weight 115 Body Mass Index (BMI) 23.2 Weight Status Approriate GI Symptoms GI Symptoms None Last BM 10/16 Difficult in: None Food Allergies Yes: iodine Skin Integrity/Comment: redness to sacralcoccyx, bruise to left arm Current %PO Good (75-100%) Estimated Nutritional Goals BEE in Kcals: Using Current wt Calories/Kcals/Kg 25-30 Kcals Calculated 9548-4531 Protein: Using Current wt Protein g/k Protein Calculated 60 Fluid: ml 1500-1800ml (1ml/kcal) Nutritional Problem No current Nutrition Prob Problem N/A Malnutrition Alert Protein-Calorie Malnutrition N/A Is there a minimum of two criteria No selected? Query Text:Check all the applicable criteria. A minimum of two criteria are recommended for diagnosis of either severe or non-severe malnutrition. Intervention/Recommendation Comments 1. Continue with pureed diet as ordered. 2. Monitor PO intake, wt, labs and skin integrity 3. F/U as low risk in 7 days, 10/25 Expected Outcomes/Goals Expected Outcomes/Goals 1. PO intake to meet at least 75% of nutritional needs. 2. Wt stability, skin to remain intact, labs to approach WNL.
[2017-10-24] MEDS: Potassium Chloride 10 mEq ER Tab PO SCH (09:48)
[2017-10-24] MEDS: Pantoprazole 40 mg EC Tab PO SCH (09:49)
--- NOTE | 2017-10-24 13:47 | Internal Medicine Prog Note ---
Internal Medicine Subjective - Subjective Service Date: 10/24/17 Patient is:: awake, verbal Per staff patient has:: tolerating meds Internal Medicine Objective - Results Recent Labs: Laboratory Last Values POC Glucose 123 MG/DL (70 - 105) H 10/17/17 05:41 - Physical Exam Vitals and I&O: Vital Signs Temp 97.2 F 10/24/17 06:38 Pulse 65 10/24/17 10:48 Resp 18 10/24/17 06:38 BP 131/72 10/24/17 10:48 Pulse Ox 96 10/24/17 06:38 Intake & Output 10/23/17 10/24/17 10/24/17 18:59 06:59 18:59 Intake Total 1200 120 Balance 1200 120 Intake: Oral 1200 120 Other: # Voids 3 3 # Bowel Movements 1 Active Medications: Current Medications Acetaminophen (Tylenol) 325 mg PO Q6HR PRN PRN Reason: TEMP >100 Stop: 12/12/17 12:14 Last Admin: 10/23/17 16:33 Dose: 325 mg Buspirone HCl (Buspar) 7.5 mg PO BID [facility] PRN Reason: Protocol Stop: 12/12/17 16:59 Last Admin: 10/24/17 09:49 Dose: 7.5 mg Docusate Sodium (Colace) 250 mg PO DAILY [facility] Stop: 12/13/17 08:59 Last Admin: 10/24/17 09:49 Dose: 250 mg Fluoxetine HCl (Prozac) 40 mg PO DAILY [facility] PRN Reason: Protocol Stop: 12/13/17 08:59 Last Admin: 10/24/17 09:48 Dose: 40 mg Folic Acid (Folate) 1 mg PO DAILY [facility] Stop: 12/13/17 08:59 Last Admin: 10/24/17 09:49 Dose: 1 mg Furosemide (Lasix) 40 mg PO DAILY [facility] Stop: 12/13/17 08:59 Last Admin: 10/24/17 09:49 Dose: 40 mg Gabapentin (Neurontin) 300 mg PO TID [facility] Stop: 12/12/17 13:59 Last Admin: 10/24/17 09:49 Dose: 300 mg Hydralazine HCl (Apresoline) 50 mg PO TID [facility] Stop: 12/12/17 13:59 Last Admin: 10/24/17 09:48 Dose: 50 mg Levothyroxine Sodium (Synthroid) 0.075 mg PO QDAC [facility] Stop: 12/13/17 07:29 Last Admin: 10/24/17 06:35 Dose: 0.075 mg Lorazepam (Ativan) 0.5 mg PO Q4HR PRN; Protocol PRN Reason: Anxiety Stop: 11/12/17 12:16 Last Admin: 10/13/17 16:30 Dose: 0.5 mg Pantoprazole Sodium (Protonix) 40 mg PO DAILY [facility] Stop: 12/13/17 08:59 Last Admin: 10/24/17 09:49 Dose: 40 mg Potassium Chloride (Klor-Con) 10 meq PO DAILY [facility] Stop: 12/13/17 08:59 Last Admin: 10/24/17 09:48 Dose: 10 meq Risperidone (Risperdal) 0.25 mg PO HS [facility] PRN Reason: Protocol Stop: 12/12/17 20:59 Last Admin: 10/23/17 21:52 Dose: 0.25 mg Valsartan (Diovan) 160 mg PO BID [facility] Stop: 12/12/17 16:59 Last Admin: 10/24/17 09:48 Dose: 160 mg Zolpidem Tartrate (Ambien) 5 mg PO HS PRN PRN Reason: Insomnia Stop: 12/12/17 12:16 Last Admin: 10/21/17 21:05 Dose: 5 mg General: alert HEENT: NC/AT, PERRLA Neck: Supple Lungs: CTAB Cardiovascular: RRR, Normal S1, Normal S2, without murmur Abdomen: soft, non-tender Neurological: alert - Procedures Procedures: Procedures Procedure Code Date EXCISION OF ASCENDING COLON, ENDO 1QSE4MA 09/30/17 EXCISION OF DESCENDING COLON, ENDO [id number] 09/30/17 EXCISION OF DUODENUM, ENDO, DIAGN [id number] 09/30/17 EXCISION OF SIGMOID COLON, ENDO [id number] 09/30/17 EXCISION OF STOMACH, ENDO, DIAGN [id number] 09/30/17 [facility] GROUP PSYTX 88062 01/24/01 OTHER GROUP THERAPY 94.44 01/24/01 TRANSFUSE NONAUT RED BLOOD CELLS IN PERIPH VEIN, PERC 68221L7 10/10/17 Internal Medicine Assmt/Plan - Assessment Assessment: psychosis agitation anemia pud htn hyperlipidemia hypothyroidism depression dementia - Plan Plan: fall precautions continue current plan of care Nutritional Asmnt/Malnutr-PDOC - Dietary Evaluation Malnutrition Findings (Please click <Entered> for more info): Nutritional Asmnt/Malnutrition Start: 10/18/17 15: 02 Text: Status: Complete Freq: Document 10/18/17 15:02 JAMESONG (Rec: 10/18/17 15:13 LCDEBG [email or web address]) Nutritional Asmnt/Malnutrition Patient General Information Nutritional Screening Moderate Risk Diagnosis delirium, dementia, unspecified anxiety Pertinent Medical Hx/Surgical Hx demtnia, sacral decubitus and dysphagia, HTN, hyperlidedeia, depression, hypothyroidism Subjective Information Pt seen lying in bed at time of visit, not in good mood. Pt refused to talk about food, saying"talking about food make me feel worse". Spoke to RN, RN reported pt was easily agitated, Per EMR, PO intake 100%. Pertinent Medications colace, lasix, folate, synthroid, protonix, kcal Pertinent Labs 10/17 POC 123 Nutritional Hx/Data Height 5 ft 3 in Height (Calculated Centimeters) 160.0 Current Weight (lbs) 131 lb Weight (Calculated Kilograms) 59.4 Weight (Calculated Grams) 35835.6 [place] Body Weight 115 Body Mass Index (BMI) 23.2 Weight Status Approriate GI Symptoms GI Symptoms None Last BM 10/16 Difficult in: None Food Allergies Yes: iodine Skin Integrity/Comment: redness to sacralcoccyx, bruise to left arm Current %PO Good (75-100%) Estimated Nutritional Goals BEE in Kcals: Using Current wt Calories/Kcals/Kg 25-30 Kcals Calculated 6157-1777 Protein: Using Current wt Protein g/k Protein Calculated 60 Fluid: ml 1500-1800ml (1ml/kcal) Nutritional Problem No current Nutrition Prob Problem N/A Malnutrition Alert Protein-Calorie Malnutrition N/A Is there a minimum of two criteria No selected? Query Text:Check all the applicable criteria. A minimum of two criteria are recommended for diagnosis of either severe or non-severe malnutrition. Intervention/Recommendation Comments 1. Continue with pureed diet as ordered. 2. Monitor PO intake, wt, labs and skin integrity 3. F/U as low risk in 7 days, 10/25 Expected Outcomes/Goals Expected Outcomes/Goals 1. PO intake to meet at least 75% of nutritional needs. 2. Wt stability, skin to remain intact, labs to approach WNL.
--- NOTE | 2017-10-24 17:45 | Progress Notes ---
DATE: 10/24/2017 The patient remains demanding, yelling, wants to get out of bed, stating if no one helps her get out of the bed right now, she is going to fall. I did inform nursing staff, someone did come to help her. The patient is sleeping well, eating well. She still remains pretty confused, highly impulsive and unpredictable. We are also trying to help with placement. She is unable to care for her basic needs. Currently, considered gravely disabled. ASSESSMENT: The patient remains overall calmer, but remains highly impulsive and unpredictable. Ongoing safety concerns. Highly impulsive. PLAN: We will continue to monitor. There are ongoing and continued safety concerns. We will continue to try to orient the patient. [facility]# [id number]
[2017-10-25] MEDS: Levothyroxine 0.075 Mg Tab PO SCH (06:39)
[2017-10-25] MEDS: Potassium Chloride 10 mEq ER Tab PO SCH (10:00)
[2017-10-25] MEDS: Pantoprazole 40 mg EC Tab PO SCH (10:00)
--- NOTE | 2017-10-25 23:32 | Progress Notes ---
DATE: 10/25/2017 SUBJECTIVE: The patient still remains somewhat demanding, yelling, upset. She is improving. Her symptoms seem to be tampering down. She is more redirectable, still remain somewhat isolative, still becomes unruly at times, needs lot of redirection; for example, one to two days ago she was trying to go to bed without any help. Medications were noted. ASSESSMENT: The patient overall calmer, still somewhat impulsive. We are also trying to help her with placement. Currently, there is no safe discharge plan in place. [facility]# [id number]
[2017-10-26] MEDS: Levothyroxine 0.075 Mg Tab PO SCH (06:46)
--- NOTE | 2017-10-26 06:58 | Progress Notes ---
DATE: 10/26/2017 SUBJECTIVE: The patient remains demanding, yelling, refusing to speak with me "get out, turn off the lights." She is more redirectable, still isolative, still unruly at times requiring redirection, but overall and generally calmer. Medications were noted. ASSESSMENT: The patient calmer, still remains somewhat impulsive, requiring some redirection and supervision. We will continue to monitor. Psychotic symptoms dissipating. Mood symptoms somewhat better controlled. Tolerant to Risperdal. [facility]# [id number]
[2017-10-26] MEDS: Pantoprazole 40 mg EC Tab PO SCH (10:00)
[2017-10-26] MEDS: Potassium Chloride 10 mEq ER Tab PO SCH (10:00)
--- NOTE | 2017-10-26 11:33 | Progress Notes ---
DATE: 10/26/2017 SUBJECTIVE: The patient was seen in her room, having breakfast. The patient denies any pain or discomfort. The patient is a poor historian due to medical condition otherwise the patient appears to be in no acute distress. OBJECTIVE: VITAL SIGNS: Temperature 98.3, heart rate 64, blood pressure 140/63, respirations 20, 97% on room air. HEENT: Head is atraumatic and normocephalic. Eyes: Bilateral conjunctivae are clear. Bilateral pupils are equally round and reactive. NECK: Supple. No JVD. CARDIOVASCULAR: S1 and S2, without murmur. PULMONARY: Clear to auscultation. GASTROINTESTINAL: Soft and nontender without guarding. Positive bowel sounds. MUSCULOSKELETAL: No clubbing, no cyanosis. ASSESSMENT: 1. Dementia. 2. Depression. 3. Anemia. 4. Hypertension. 5. Hypothyroidism. [facility] EN[facility] HERE [facility]# [id number]
[2017-10-27] MEDS: Levothyroxine 0.075 Mg Tab PO SCH (06:43)
--- NOTE | 2017-10-27 08:38 | Progress Notes ---
DATE: 10/27/2017 The patient is currently improving, noted to be still confused, stating "how do you know my name," however I have seen this patient daily. The patient is sleeping well, eating well. Staff noting she has been more compliant with treatment, cooperative with treatment, no agitation, no escalation of behaviors. ASSESSMENT: The patient calmer, still requiring some redirection and supervision, still sometimes impulsive but seemingly better. PLAN: We will continue to monitor and follow up. Continue to titrate and adjust medications. [facility]# [id number]
--- NOTE | 2017-10-27 09:06 | General Progress Note ---
Subjective - Review of Systems Events since last encounter: patient awake with no signs of pain confused at times Objective - Results Recent Labs: Laboratory Last Values POC Glucose 123 MG/DL (70 - 105) H 10/17/17 05:41 - Physical Exam Vitals and I&O: Vital Signs Temp 97.7 F 10/26/17 15:26 Pulse 76 10/26/17 20:39 Resp 18 10/26/17 15:26 BP 130/65 10/26/17 20:39 Pulse Ox 97 10/26/17 15:26 Intake & Output 10/26/17 10/27/17 10/27/17 18:59 06:59 18:59 Intake Total 1200 Balance 1200 Intake: Oral 1200 Other: # Voids 3 Active Medications: Current Medications Acetaminophen (Tylenol) 325 mg PO Q6HR PRN PRN Reason: TEMP >100 Stop: 12/12/17 12:14 Last Admin: 10/25/17 06:40 Dose: 325 mg Buspirone HCl (Buspar) 7.5 mg PO BID [facility] PRN Reason: Protocol Stop: 12/12/17 16:59 Last Admin: 10/26/17 16:36 Dose: 7.5 mg Docusate Sodium (Colace) 250 mg PO DAILY [facility] Stop: 12/13/17 08:59 Last Admin: 10/26/17 10:00 Dose: 250 mg Fluoxetine HCl (Prozac) 40 mg PO DAILY [facility] PRN Reason: Protocol Stop: 12/13/17 08:59 Last Admin: 10/26/17 10:00 Dose: 40 mg Folic Acid (Folate) 1 mg PO DAILY [facility] Stop: 12/13/17 08:59 Last Admin: 10/26/17 10:00 Dose: 1 mg Furosemide (Lasix) 40 mg PO DAILY [facility] Stop: 12/13/17 08:59 Last Admin: 10/26/17 10:00 Dose: Not Given Gabapentin (Neurontin) 300 mg PO TID [facility] Stop: 12/12/17 13:59 Last Admin: 10/26/17 20:40 Dose: 300 mg Hydralazine HCl (Apresoline) 50 mg PO TID [facility] Stop: 12/12/17 13:59 Last Admin: 10/26/17 20:39 Dose: 50 mg Levothyroxine Sodium (Synthroid) 0.075 mg PO QDAC [facility] Stop: 12/13/17 07:29 Last Admin: 10/27/17 06:43 Dose: 0.075 mg Lorazepam (Ativan) 0.5 mg PO Q4HR PRN; Protocol PRN Reason: Anxiety Stop: 11/12/17 12:16 Last Admin: 10/26/17 19:49 Dose: 0.5 mg Pantoprazole Sodium (Protonix) 40 mg PO DAILY [facility] Stop: 12/13/17 08:59 Last Admin: 10/26/17 10:00 Dose: 40 mg Potassium Chloride (Klor-Con) 10 meq PO DAILY [facility] Stop: 12/13/17 08:59 Last Admin: 10/26/17 10:00 Dose: 10 meq Risperidone (Risperdal) 0.25 mg PO HS [facility] PRN Reason: Protocol Stop: 12/12/17 20:59 Last Admin: 10/26/17 20:40 Dose: 0.25 mg Valsartan (Diovan) 160 mg PO BID [facility] Stop: 12/12/17 16:59 Last Admin: 10/26/17 16:36 Dose: 160 mg Zolpidem Tartrate (Ambien) 5 mg PO HS PRN PRN Reason: Insomnia Stop: 12/12/17 12:16 Last Admin: 10/26/17 20:40 Dose: 5 mg - Procedures Procedures: Procedures Procedure Code Date EXCISION OF ASCENDING COLON, ENDO [id number] 09/30/17 EXCISION OF DESCENDING COLON, ENDO [id number] 09/30/17 EXCISION OF DUODENUM, ENDO, DIAGN [id number] 09/30/17 EXCISION OF SIGMOID COLON, ENDO [id number] 09/30/17 EXCISION OF STOMACH, ENDO, DIAGN [id number] 09/30/17 [facility] GROUP PSYTX 81317 01/24/01 OTHER GROUP THERAPY 94.44 01/24/01 TRANSFUSE NONAUT RED BLOOD CELLS IN PERIPH VEIN, PERC 62831I4 10/10/17 Nutritional Asmnt/Malnutr-PDOC - Dietary Evaluation Malnutrition Findings (Please click <Entered> for more info): Nutritional Asmnt/Malnutrition Start: 10/18/17 15: 02 Text: Status: Complete Freq: Document 10/18/17 15:02 CLAUDETTE (Rec: 10/18/17 15:13 CLAUDETTE [email or web address]) Nutritional Asmnt/Malnutrition Patient General Information Nutritional Screening Moderate Risk Diagnosis delirium, dementia, unspecified anxiety Pertinent Medical Hx/Surgical Hx demtnia, sacral decubitus and dysphagia, HTN, hyperlidedeia, depression, hypothyroidism Subjective Information Pt seen lying in bed at time of visit, not in good mood. Pt refused to talk about food, saying"talking about food make me feel worse". Spoke to RN, RN reported pt was easily agitated, Per EMR, PO intake 100%. Pertinent Medications colace, lasix, folate, synthroid, protonix, kcal Pertinent Labs 10/17 POC 123 Nutritional Hx/Data Height 1.6 m Height (Calculated Centimeters) 160.0 Current Weight (lbs) 59.421 kg Weight (Calculated Kilograms) 59.4 Weight (Calculated Grams) 68329.6 [place] Body Weight 115 Body Mass Index (BMI) 23.2 Weight Status Approriate GI Symptoms GI Symptoms None Last BM 10/16 Difficult in: None Food Allergies Yes: iodine Skin Integrity/Comment: redness to sacralcoccyx, bruise to left arm Current %PO Good (75-100%) Estimated Nutritional Goals BEE in Kcals: Using Current wt Calories/Kcals/Kg 25-30 Kcals Calculated 4108-0159 Protein: Using Current wt Protein g/k Protein Calculated 60 Fluid: ml 1500-1800ml (1ml/kcal) Nutritional Problem No current Nutrition Prob Problem N/A Malnutrition Alert Protein-Calorie Malnutrition N/A Is there a minimum of two criteria No selected? Query Text:Check all the applicable criteria. A minimum of two criteria are recommended for diagnosis of either severe or non-severe malnutrition. Intervention/Recommendation Comments 1. Continue with pureed diet as ordered. 2. Monitor PO intake, wt, labs and skin integrity 3. F/U as low risk in 7 days, 10/25 Expected Outcomes/Goals Expected Outcomes/Goals 1. PO intake to meet at least 75% of nutritional needs. 2. Wt stability, skin to remain intact, labs to approach WNL.
[2017-10-27] MEDS: Potassium Chloride 10 mEq ER Tab PO SCH (10:00)
[2017-10-27] MEDS: Pantoprazole 40 mg EC Tab PO SCH (10:00)
[2017-10-28] MEDS: Levothyroxine 0.075 Mg Tab PO SCH (06:44)
[2017-10-28] MEDS: Potassium Chloride 10 mEq ER Tab PO SCH (10:35)
[2017-10-28] MEDS: Pantoprazole 40 mg EC Tab PO SCH (10:35)
--- NOTE | 2017-10-28 11:22 | General Progress Note ---
Subjective - Review of Systems Events since last encounter: confused with no change Objective - Results Recent Labs: Laboratory Last Values POC Glucose 123 MG/DL (70 - 105) H 10/17/17 05:41 - Physical Exam Vitals and I&O: Vital Signs Temp 98.1 F 10/28/17 05:56 Pulse 63 10/28/17 10:37 Resp 19 10/28/17 05:56 BP 161/76 10/28/17 10:38 Pulse Ox 96 10/28/17 05:56 Intake & Output 10/27/17 10/28/17 10/28/17 18:59 06:59 18:59 Intake Total 1150 120 Balance 1150 120 Intake: Oral 1150 120 Other: # Voids 3 1 # Bowel Movements 1 Active Medications: Current Medications Acetaminophen (Tylenol) 325 mg PO Q6HR PRN PRN Reason: TEMP >100 Stop: 12/12/17 12:14 Last Admin: 10/25/17 06:40 Dose: 325 mg Buspirone HCl (Buspar) 7.5 mg PO BID [facility] PRN Reason: Protocol Stop: 12/12/17 16:59 Last Admin: 10/28/17 10:39 Dose: 7.5 mg Docusate Sodium (Colace) 250 mg PO DAILY [facility] Stop: 12/13/17 08:59 Last Admin: 10/28/17 10:35 Dose: 250 mg Fluoxetine HCl (Prozac) 40 mg PO DAILY [facility] PRN Reason: Protocol Stop: 12/13/17 08:59 Last Admin: 10/28/17 10:35 Dose: 40 mg Folic Acid (Folate) 1 mg PO DAILY [facility] Stop: 12/13/17 08:59 Last Admin: 10/28/17 10:35 Dose: 1 mg Furosemide (Lasix) 40 mg PO DAILY [facility] Stop: 12/13/17 08:59 Last Admin: 10/28/17 10:38 Dose: 40 mg Gabapentin (Neurontin) 300 mg PO TID [facility] Stop: 12/12/17 13:59 Last Admin: 10/28/17 10:35 Dose: 300 mg Hydralazine HCl (Apresoline) 50 mg PO TID [facility] Stop: 12/12/17 13:59 Last Admin: 10/28/17 10:37 Dose: 50 mg Levothyroxine Sodium (Synthroid) 0.075 mg PO QDAC [facility] Stop: 12/13/17 07:29 Last Admin: 10/28/17 06:44 Dose: 0.075 mg Lorazepam (Ativan) 0.5 mg PO Q4HR PRN; Protocol PRN Reason: Anxiety Stop: 11/26/17 15:03 Pantoprazole Sodium (Protonix) 40 mg PO DAILY [facility] Stop: 12/13/17 08:59 Last Admin: 10/28/17 10:35 Dose: 40 mg Potassium Chloride (Klor-Con) 10 meq PO DAILY [facility] Stop: 12/13/17 08:59 Last Admin: 10/28/17 10:35 Dose: 10 meq Risperidone (Risperdal) 0.25 mg PO HS [facility] PRN Reason: Protocol Stop: 12/12/17 20:59 Last Admin: 10/27/17 20:54 Dose: 0.25 mg Valsartan (Diovan) 160 mg PO BID [facility] Stop: 12/12/17 16:59 Last Admin: 10/28/17 10:35 Dose: 160 mg Zolpidem Tartrate (Ambien) 5 mg PO HS PRN PRN Reason: Insomnia Stop: 12/12/17 12:16 Last Admin: 10/27/17 20:54 Dose: 5 mg - Procedures Procedures: Procedures Procedure Code Date EXCISION OF ASCENDING COLON, ENDO [id number] 09/30/17 EXCISION OF DESCENDING COLON, ENDO [id number] 09/30/17 EXCISION OF DUODENUM, ENDO, DIAGN 7HG16WF 09/30/17 EXCISION OF SIGMOID COLON, ENDO [id number] 09/30/17 EXCISION OF STOMACH, ENDO, DIAGN 9CM77OH 09/30/17 [facility] GROUP PSYTX 28321 01/24/01 OTHER GROUP THERAPY 94.44 01/24/01 TRANSFUSE NONAUT RED BLOOD CELLS IN PERIPH VEIN, PERC 71744G6 10/10/17 Nutritional Asmnt/Malnutr-PDOC - Dietary Evaluation Malnutrition Findings (Please click <Entered> for more info): Nutritional Asmnt/Malnutrition Start: 10/18/17 15: 02 Text: Status: Complete Freq: Document 10/18/17 15:02 JAMESON (Rec: 10/18/17 15:13 DEB [id number]) Nutritional Asmnt/Malnutrition Patient General Information Nutritional Screening Moderate Risk Diagnosis delirium, dementia, unspecified anxiety Pertinent Medical Hx/Surgical Hx demtnia, sacral decubitus and dysphagia, HTN, hyperlidedeia, depression, hypothyroidism Subjective Information Pt seen lying in bed at time of visit, not in good mood. Pt refused to talk about food, saying"talking about food make me feel worse". Spoke to RN, RN reported pt was easily agitated, Per EMR, PO intake 100%. Pertinent Medications colace, lasix, folate, synthroid, protonix, kcal Pertinent Labs 10/17 POC 123 Nutritional Hx/Data Height 1.6 m Height (Calculated Centimeters) 160.0 Current Weight (lbs) 59.421 kg Weight (Calculated Kilograms) 59.4 Weight (Calculated Grams) 59176.6 [place] Body Weight 115 Body Mass Index (BMI) 23.2 Weight Status Approriate GI Symptoms GI Symptoms None Last BM 10/16 Difficult in: None Food Allergies Yes: iodine Skin Integrity/Comment: redness to sacralcoccyx, bruise to left arm Current %PO Good (75-100%) Estimated Nutritional Goals BEE in Kcals: Using Current wt Calories/Kcals/Kg 25-30 Kcals Calculated 1781-8995 Protein: Using Current wt Protein g/k Protein Calculated 60 Fluid: ml 1500-1800ml (1ml/kcal) Nutritional Problem No current Nutrition Prob Problem N/A Malnutrition Alert Protein-Calorie Malnutrition N/A Is there a minimum of two criteria No selected? Query Text:Check all the applicable criteria. A minimum of two criteria are recommended for diagnosis of either severe or non-severe malnutrition. Intervention/Recommendation Comments 1. Continue with pureed diet as ordered. 2. Monitor PO intake, wt, labs and skin integrity 3. F/U as low risk in 7 days, 10/25 Expected Outcomes/Goals Expected Outcomes/Goals 1. PO intake to meet at least 75% of nutritional needs. 2. Wt stability, skin to remain intact, labs to approach WNL.
--- NOTE | 2017-10-28 23:28 | Progress Notes ---
DATE: 10/28/[address] Hoover. Case was discussed with staff of the patient, reviewed records. This is a well known case to me. I seen her before Covering for Dr. Hoover. The patient is confused, demented, continues to be unable to make safe plan for self-care. Continues to have poor insight, unable to carry on a conversation or make safe plan for self-care. She is sleeping well, eating well. No side effects of the medication, no sedation, no nausea. She is on Risperdal 0.25 mg at bedtime and Prozac 40 mg daily. Continues to be demented, confused, unable to make safe plan for self-care and compliant with the medication. She is on buspirone 7.5 mg twice a day as well as Prozac 40 mg daily and we will continue outpatient group therapy, milieu therapy, and adjust medications as needed. JOB# [id number]
[2017-10-29] MEDS: Levothyroxine 0.075 Mg Tab PO SCH (06:36)
[2017-10-29] MEDS: Potassium Chloride 10 mEq ER Tab PO SCH (09:56)
[2017-10-29] MEDS: Pantoprazole 40 mg EC Tab PO SCH (09:56)
--- NOTE | 2017-10-29 16:17 | Internal Medicine Prog Note ---
Internal Medicine Subjective - Subjective Service Date: 10/29/17 Patient is:: awake, verbal Per staff patient has:: tolerating meds Internal Medicine Objective - Results Recent Labs: Laboratory Last Values POC Glucose 123 MG/DL (70 - 105) H 10/17/17 05:41 Blood Type O POSITIVE 10/10/17 14:24 Antibody Screen NEGATIVE 10/10/17 14:24 Crossmatch See Detail 10/10/17 14:24 - Physical Exam Vitals and I&O: Vital Signs Temp 97.6 F 10/29/17 15:15 Pulse 61 10/29/17 15:15 Resp 18 10/29/17 15:15 BP 112/74 10/29/17 15:15 Pulse Ox 99 10/29/17 15:15 Intake & Output 10/28/17 10/29/17 10/29/17 18:59 06:59 18:59 Intake Total 1100 120 Balance 1100 120 Intake: Oral 1100 120 Other: # Voids 3 3 # Bowel Movements 1 1 Active Medications: Current Medications Acetaminophen (Tylenol) 325 mg PO Q6HR PRN PRN Reason: TEMP >100 Stop: 12/12/17 12:14 Last Admin: 10/29/17 00:00 Dose: 325 mg Buspirone HCl (Buspar) 7.5 mg PO BID [facility] PRN Reason: Protocol Stop: 12/12/17 16:59 Last Admin: 10/29/17 09:55 Dose: 7.5 mg Docusate Sodium (Colace) 250 mg PO DAILY [facility] Stop: 12/13/17 08:59 Last Admin: 10/29/17 09:56 Dose: 250 mg Fluoxetine HCl (Prozac) 40 mg PO DAILY [facility] PRN Reason: Protocol Stop: 12/13/17 08:59 Last Admin: 10/29/17 09:56 Dose: 40 mg Folic Acid (Folate) 1 mg PO DAILY [facility] Stop: 12/13/17 08:59 Last Admin: 10/29/17 09:56 Dose: 1 mg Furosemide (Lasix) 40 mg PO DAILY [facility] Stop: 12/13/17 08:59 Last Admin: 10/29/17 09:56 Dose: 40 mg Gabapentin (Neurontin) 300 mg PO TID [facility] Stop: 12/12/17 13:59 Last Admin: 10/29/17 09:56 Dose: 300 mg Hydralazine HCl (Apresoline) 50 mg PO TID [facility] Stop: 12/12/17 13:59 Last Admin: 10/29/17 09:56 Dose: 50 mg Levothyroxine Sodium (Synthroid) 0.075 mg PO QDAC [facility] Stop: 12/13/17 07:29 Last Admin: 10/29/17 06:36 Dose: 0.075 mg Lorazepam (Ativan) 0.5 mg PO Q4HR PRN; Protocol PRN Reason: Anxiety Stop: 11/26/17 15:03 Last Admin: 10/28/17 20:40 Dose: 0.5 mg Pantoprazole Sodium (Protonix) 40 mg PO DAILY [facility] Stop: 12/13/17 08:59 Last Admin: 10/29/17 09:56 Dose: 40 mg Potassium Chloride (Klor-Con) 10 meq PO DAILY [facility] Stop: 12/13/17 08:59 Last Admin: 10/29/17 09:56 Dose: 10 meq Risperidone (Risperdal) 0.25 mg PO HS [facility] PRN Reason: Protocol Stop: 12/12/17 20:59 Last Admin: 10/28/17 20:40 Dose: 0.25 mg Valsartan (Diovan) 160 mg PO BID [facility] Stop: 12/12/17 16:59 Last Admin: 10/29/17 09:55 Dose: 160 mg Zolpidem Tartrate (Ambien) 5 mg PO HS PRN PRN Reason: Insomnia Stop: 12/12/17 12:16 Last Admin: 10/28/17 20:40 Dose: 5 mg General: alert HEENT: NC/AT, PERRLA Neck: Supple Lungs: CTAB Cardiovascular: RRR, Normal S1, Normal S2, without murmur Abdomen: soft, non-tender Neurological: alert - Procedures Procedures: Procedures Procedure Code Date EXCISION OF ASCENDING COLON, ENDO 4LYV5RD 09/30/17 EXCISION OF DESCENDING COLON, ENDO [id number] 09/30/17 EXCISION OF DUODENUM, ENDO, DIAGN 7KA75UI 09/30/17 EXCISION OF SIGMOID COLON, ENDO 0HLJ4NC 09/30/17 EXCISION OF STOMACH, ENDO, DIAGN [id number] 09/30/17 [facility] GROUP PSYTX 07697 01/24/01 OTHER GROUP THERAPY 94.44 01/24/01 TRANSFUSE NONAUT RED BLOOD CELLS IN PERIPH VEIN, PERC 89203D8 10/10/17 Internal Medicine Assmt/Plan - Assessment Assessment: psychosis agitation anemia pud htn hyperlipidemia hypothyroidism depression dementia - Plan Plan: fall precautions continue current plan of care Nutritional Asmnt/Malnutr-PDOC - Dietary Evaluation Malnutrition Findings (Please click <Entered> for more info): Nutritional Asmnt/Malnutrition Start: 10/18/17 15: 02 Text: Status: Complete Freq: Document 10/18/17 15:02 DEB (Rec: 10/18/17 15:13 LCHEN [id number]) Nutritional Asmnt/Malnutrition Patient General Information Nutritional Screening Moderate Risk Diagnosis delirium, dementia, unspecified anxiety Pertinent Medical Hx/Surgical Hx demtnia, sacral decubitus and dysphagia, HTN, hyperlidedeia, depression, hypothyroidism Subjective Information Pt seen lying in bed at time of visit, not in good mood. Pt refused to talk about food, saying"talking about food make me feel worse". Spoke to RN, RN reported pt was easily agitated, Per EMR, PO intake 100%. Pertinent Medications colace, lasix, folate, synthroid, protonix, kcal Pertinent Labs 10/17 POC 123 Nutritional Hx/Data Height 5 ft 3 in Height (Calculated Centimeters) 160.0 Current Weight (lbs) 131 lb Weight (Calculated Kilograms) 59.4 Weight (Calculated Grams) 39587.6 [place] Body Weight 115 Body Mass Index (BMI) 23.2 Weight Status Approriate GI Symptoms GI Symptoms None Last BM 3/7 Difficult in: None Food Allergies Yes: iodine Skin Integrity/Comment: redness to sacralcoccyx, bruise to left arm Current %PO Good (75-100%) Estimated Nutritional Goals BEE in Kcals: Using Current wt Calories/Kcals/Kg 25-30 Kcals Calculated 4759-6199 Protein: Using Current wt Protein g/k Protein Calculated 60 Fluid: ml 1500-1800ml (1ml/kcal) Nutritional Problem No current Nutrition Prob Problem N/A Malnutrition Alert Protein-Calorie Malnutrition N/A Is there a minimum of two criteria No selected? Query Text:Check all the applicable criteria. A minimum of two criteria are recommended for diagnosis of either severe or non-severe malnutrition. Intervention/Recommendation Comments 1. Continue with pureed diet as ordered. 2. Monitor PO intake, wt, labs and skin integrity 3. F/U as low risk in 7 days, 10/25 Expected Outcomes/Goals Expected Outcomes/Goals 1. PO intake to meet at least 75% of nutritional needs. 2. Wt stability, skin to remain intact, labs to approach WNL.
--- NOTE | 2017-10-29 21:53 | Progress Notes ---
DATE: 10/29/2017 Case was discussed with staff of the patient and reviewed records. The patient continues to be unpredictable, impulsive, demented, confused, and unable to make safe plan for self-care, looking disheveled, and easily agitated. She is compliant with the medications with no side effects, no sedation, and no nausea. We will continue to work with the patient in group therapy, milieu therapy, and adjust the medications as needed. JOB# [id number]
[2017-10-30] MEDS: Levothyroxine 0.075 Mg Tab PO SCH (06:31)
--- NOTE | 2017-10-30 09:28 | General Progress Note ---
Subjective - Review of Systems Events since last encounter: patient awake in no distress no signs of pain Objective - Results Recent Labs: Laboratory Last Values POC Glucose 123 MG/DL (70 - 105) H 10/17/17 05:41 Blood Type O POSITIVE 10/10/17 14:24 Antibody Screen NEGATIVE 10/10/17 14:24 Crossmatch See Detail 10/10/17 14:24 - Physical Exam Vitals and I&O: Vital Signs Temp 97.8 F 10/30/17 06:28 Pulse 62 10/30/17 06:28 Resp 18 10/30/17 06:28 BP 140/66 10/30/17 06:28 Pulse Ox 97 10/30/17 06:28 Intake & Output 10/29/17 10/30/17 10/30/17 18:59 06:59 18:59 Intake Total 1200 680 Balance 1200 680 Intake: Oral 1200 680 Other: # Voids 3 3 Active Medications: Current Medications Acetaminophen (Tylenol) 325 mg PO Q6HR PRN PRN Reason: TEMP >100 Stop: 12/12/17 12:14 Last Admin: 10/29/17 00:00 Dose: 325 mg Buspirone HCl (Buspar) 7.5 mg PO BID [facility] PRN Reason: Protocol Stop: 12/12/17 16:59 Last Admin: 10/29/17 18:02 Dose: 7.5 mg Docusate Sodium (Colace) 250 mg PO DAILY [facility] Stop: 12/13/17 08:59 Last Admin: 10/29/17 09:56 Dose: 250 mg Fluoxetine HCl (Prozac) 40 mg PO DAILY [facility] PRN Reason: Protocol Stop: 12/13/17 08:59 Last Admin: 10/29/17 09:56 Dose: 40 mg Folic Acid (Folate) 1 mg PO DAILY [facility] Stop: 12/13/17 08:59 Last Admin: 10/29/17 09:56 Dose: 1 mg Furosemide (Lasix) 40 mg PO DAILY [facility] Stop: 12/13/17 08:59 Last Admin: 10/29/17 09:56 Dose: 40 mg Gabapentin (Neurontin) 300 mg PO TID [facility] Stop: 12/12/17 13:59 Last Admin: 10/29/17 21:38 Dose: 300 mg Hydralazine HCl (Apresoline) 50 mg PO TID [facility] Stop: 12/12/17 13:59 Last Admin: 10/29/17 21:40 Dose: 50 mg Levothyroxine Sodium (Synthroid) 0.075 mg PO QDAC [facility] Stop: 12/13/17 07:29 Last Admin: 10/30/17 06:31 Dose: 0.075 mg Lorazepam (Ativan) 0.5 mg PO Q4HR PRN; Protocol PRN Reason: Anxiety Stop: 11/26/17 15:03 Last Admin: 10/28/17 20:40 Dose: 0.5 mg Pantoprazole Sodium (Protonix) 40 mg PO DAILY [facility] Stop: 12/13/17 08:59 Last Admin: 10/29/17 09:56 Dose: 40 mg Potassium Chloride (Klor-Con) 10 meq PO DAILY [facility] Stop: 12/13/17 08:59 Last Admin: 10/29/17 09:56 Dose: 10 meq Risperidone (Risperdal) 0.25 mg PO HS [facility] PRN Reason: Protocol Stop: 12/12/17 20:59 Last Admin: 10/29/17 21:39 Dose: 0.25 mg Valsartan (Diovan) 160 mg PO BID [facility] Stop: 12/12/17 16:59 Last Admin: 10/29/17 18:03 Dose: Not Given Zolpidem Tartrate (Ambien) 5 mg PO HS PRN PRN Reason: Insomnia Stop: 12/12/17 12:16 Last Admin: 10/28/17 20:40 Dose: 5 mg - Procedures Procedures: Procedures Procedure Code Date EXCISION OF ASCENDING COLON, ENDO 3SYD2DU 09/30/17 EXCISION OF DESCENDING COLON, ENDO [id number] 09/30/17 EXCISION OF DUODENUM, ENDO, DIAGN [id number] 09/30/17 EXCISION OF SIGMOID COLON, ENDO 1IDP1BR 09/30/17 EXCISION OF STOMACH, ENDO, DIAGN [id number] 09/30/17 [facility] GROUP PSYTX 86601 01/24/01 OTHER GROUP THERAPY 94.44 01/24/01 TRANSFUSE NONAUT RED BLOOD CELLS IN PERIPH VEIN, PERC 48616T6 10/10/17 Nutritional Asmnt/Malnutr-PDOC - Dietary Evaluation Malnutrition Findings (Please click <Entered> for more info): Nutritional Asmnt/Malnutrition Start: 10/18/17 15: 02 Text: Status: Complete Freq: Document 10/18/17 15:02 LCHENG (Rec: 10/18/17 15:13 LCHENG [id number]) Nutritional Asmnt/Malnutrition Patient General Information Nutritional Screening Moderate Risk Diagnosis delirium, dementia, unspecified anxiety Pertinent Medical Hx/Surgical Hx demtnia, sacral decubitus and dysphagia, HTN, hyperlidedeia, depression, hypothyroidism Subjective Information Pt seen lying in bed at time of visit, not in good mood. Pt refused to talk about food, saying"talking about food make me feel worse". Spoke to RN, RN reported pt was easily agitated, Per EMR, PO intake 100%. Pertinent Medications colace, lasix, folate, synthroid, protonix, kcal Pertinent Labs 10/17 POC 123 Nutritional Hx/Data Height 1.6 m Height (Calculated Centimeters) 160.0 Current Weight (lbs) 59.421 kg Weight (Calculated Kilograms) 59.4 Weight (Calculated Grams) 94854.6 [place] Body Weight 115 Body Mass Index (BMI) 23.2 Weight Status Approriate GI Symptoms GI Symptoms None Last BM 10/16 Difficult in: None Food Allergies Yes: iodine Skin Integrity/Comment: redness to sacralcoccyx, bruise to left arm Current %PO Good (75-100%) Estimated Nutritional Goals BEE in Kcals: Using Current wt Calories/Kcals/Kg 25-30 Kcals Calculated 9622-2819 Protein: Using Current wt Protein g/k Protein Calculated 60 Fluid: ml 1500-1800ml (1ml/kcal) Nutritional Problem No current Nutrition Prob Problem N/A Malnutrition Alert Protein-Calorie Malnutrition N/A Is there a minimum of two criteria No selected? Query Text:Check all the applicable criteria. A minimum of two criteria are recommended for diagnosis of either severe or non-severe malnutrition. Intervention/Recommendation Comments 1. Continue with pureed diet as ordered. 2. Monitor PO intake, wt, labs and skin integrity 3. F/U as low risk in 7 days, 10/25 Expected Outcomes/Goals Expected Outcomes/Goals 1. PO intake to meet at least 75% of nutritional needs. 2. Wt stability, skin to remain intact, labs to approach WNL.
[2017-10-30] MEDS: Pantoprazole 40 mg EC Tab PO SCH (09:47)
[2017-10-30] MEDS: Potassium Chloride 10 mEq ER Tab PO SCH (09:51)
--- NOTE | 2017-10-31 00:54 | Progress Notes ---
DATE: 10/30/[address] Hoover. Case was discussed with staff of the patient and reviewed treatment plans and goals. The patient was doing well, sleeping well, and eating well. Still confused, easily agitated, demented, unable to participate in meaningful conversation or make safe plan for self-care, compliant with the medication with no side effects, no sedation or nausea and we will continue the patient in group therapy and therapy, adjust medications as needed. JOB# [id number]
[2017-10-31] MEDS: Levothyroxine 0.075 Mg Tab PO SCH (06:43)
--- NOTE | 2017-10-31 08:41 | General Progress Note ---
Subjective - Review of Systems Events since last encounter: confused demented otherwise in no distress Objective - Results Recent Labs: Laboratory Last Values POC Glucose 123 MG/DL (70 - 105) H 10/17/17 05:41 Blood Type O POSITIVE 10/10/17 14:24 Antibody Screen NEGATIVE 10/10/17 14:24 Crossmatch See Detail 10/10/17 14:24 - Physical Exam Vitals and I&O: Vital Signs Temp 98.6 F 10/31/17 06:38 Pulse 69 10/31/17 06:38 Resp 18 10/31/17 06:38 BP 136/69 10/31/17 06:38 Pulse Ox 98 10/31/17 06:38 Intake & Output 10/30/17 10/31/17 10/31/17 18:59 06:59 18:59 Intake Total 560 1320 Balance 560 1320 Intake: Oral 560 1320 Other: # Voids 3 3 # Bowel Movements 1 Active Medications: Current Medications Acetaminophen (Tylenol) 325 mg PO Q6HR PRN PRN Reason: TEMP >100 Stop: 12/12/17 12:14 Last Admin: 10/30/17 13:27 Dose: 325 mg Buspirone HCl (Buspar) 7.5 mg PO BID [facility] PRN Reason: Protocol Stop: 12/12/17 16:59 Last Admin: 10/30/17 17:46 Dose: 7.5 mg Docusate Sodium (Colace) 250 mg PO DAILY [facility] Stop: 12/13/17 08:59 Last Admin: 10/30/17 09:46 Dose: 250 mg Fluoxetine HCl (Prozac) 40 mg PO DAILY [facility] PRN Reason: Protocol Stop: 12/13/17 08:59 Last Admin: 10/30/17 09:46 Dose: 40 mg Folic Acid (Folate) 1 mg PO DAILY [facility] Stop: 12/13/17 08:59 Last Admin: 10/30/17 09:47 Dose: 1 mg Furosemide (Lasix) 40 mg PO DAILY [facility] Stop: 12/13/17 08:59 Last Admin: 10/30/17 09:49 Dose: 40 mg Gabapentin (Neurontin) 300 mg PO TID [facility] Stop: 12/12/17 13:59 Last Admin: 10/30/17 21:16 Dose: 300 mg Hydralazine HCl (Apresoline) 50 mg PO TID [facility] Stop: 12/12/17 13:59 Last Admin: 10/30/17 21:14 Dose: 50 mg Levothyroxine Sodium (Synthroid) 0.075 mg PO QDAC [facility] Stop: 12/13/17 07:29 Last Admin: 10/31/17 06:43 Dose: 0.075 mg Lorazepam (Ativan) 0.5 mg PO Q4HR PRN; Protocol PRN Reason: Anxiety Stop: 11/26/17 15:03 Last Admin: 10/28/17 20:40 Dose: 0.5 mg Pantoprazole Sodium (Protonix) 40 mg PO DAILY [facility] Stop: 12/13/17 08:59 Last Admin: 10/30/17 09:47 Dose: 40 mg Potassium Chloride (Klor-Con) 10 meq PO DAILY [facility] Stop: 12/13/17 08:59 Last Admin: 10/30/17 09:51 Dose: 10 meq Risperidone (Risperdal) 0.25 mg PO HS [facility] PRN Reason: Protocol Stop: 12/12/17 20:59 Last Admin: 10/30/17 21:16 Dose: 0.25 mg Valsartan (Diovan) 160 mg PO BID [facility] Stop: 12/12/17 16:59 Last Admin: 10/30/17 17:45 Dose: 160 mg Zolpidem Tartrate (Ambien) 5 mg PO HS PRN PRN Reason: Insomnia Stop: 12/12/17 12:16 Last Admin: 10/28/17 20:40 Dose: 5 mg - Procedures Procedures: Procedures Procedure Code Date EXCISION OF ASCENDING COLON, ENDO [id number] 09/30/17 EXCISION OF DESCENDING COLON, ENDO [id number] 09/30/17 EXCISION OF DUODENUM, ENDO, DIAGN 0QS70UE 09/30/17 EXCISION OF SIGMOID COLON, ENDO [id number] 09/30/17 EXCISION OF STOMACH, ENDO, DIAGN [id number] 09/30/17 [facility] GROUP PSYTX 33065 01/24/01 OTHER GROUP THERAPY 94.44 01/24/01 TRANSFUSE NONAUT RED BLOOD CELLS IN PERIPH VEIN, PERC 12416M8 10/10/17 Nutritional Asmnt/Malnutr-PDOC - Dietary Evaluation Malnutrition Findings (Please click <Entered> for more info): Nutritional Asmnt/Malnutrition Start: 10/18/17 15: 02 Text: Status: Complete Freq: Document 10/18/17 15:02 LCHENG (Rec: 10/18/17 15:13 LCDEBG [id number]) Nutritional Asmnt/Malnutrition Patient General Information Nutritional Screening Moderate Risk Diagnosis delirium, dementia, unspecified anxiety Pertinent Medical Hx/Surgical Hx demtnia, sacral decubitus and dysphagia, HTN, hyperlidedeia, depression, hypothyroidism Subjective Information Pt seen lying in bed at time of visit, not in good mood. Pt refused to talk about food, saying"talking about food make me feel worse". Spoke to RN, RN reported pt was easily agitated, Per EMR, PO intake 100%. Pertinent Medications colace, lasix, folate, synthroid, protonix, kcal Pertinent Labs 10/17 POC 123 Nutritional Hx/Data Height 1.6 m Height (Calculated Centimeters) 160.0 Current Weight (lbs) 59.421 kg Weight (Calculated Kilograms) 59.4 Weight (Calculated Grams) 25407.6 [place] Body Weight 115 Body Mass Index (BMI) 23.2 Weight Status Approriate GI Symptoms GI Symptoms None Last BM 10/16 Difficult in: None Food Allergies Yes: iodine Skin Integrity/Comment: redness to sacralcoccyx, bruise to left arm Current %PO Good (75-100%) Estimated Nutritional Goals BEE in Kcals: Using Current wt Calories/Kcals/Kg 25-30 Kcals Calculated 4283-4836 Protein: Using Current wt Protein g/k Protein Calculated 60 Fluid: ml 1500-1800ml (1ml/kcal) Nutritional Problem No current Nutrition Prob Problem N/A Malnutrition Alert Protein-Calorie Malnutrition N/A Is there a minimum of two criteria No selected? Query Text:Check all the applicable criteria. A minimum of two criteria are recommended for diagnosis of either severe or non-severe malnutrition. Intervention/Recommendation Comments 1. Continue with pureed diet as ordered. 2. Monitor PO intake, wt, labs and skin integrity 3. F/U as low risk in 7 days, 10/25 Expected Outcomes/Goals Expected Outcomes/Goals 1. PO intake to meet at least 75% of nutritional needs. 2. Wt stability, skin to remain intact, labs to approach WNL.
[2017-10-31] MEDS: Potassium Chloride 10 mEq ER Tab PO SCH (10:00)
[2017-10-31] MEDS: Pantoprazole 40 mg EC Tab PO SCH (10:00)
--- NOTE | 2017-10-31 18:27 | Discharge Summary ---
DATE OF DISCHARGE: 10/31/2017 JUSTIFICATION FOR HOSPITALIZATION: Confused, agitated, behavioral disturbances. HISTORY OF PRESENT ILLNESS: An 86-year-old female, confused, demented, unable to participate in meaningful conversation. The patient seemed to have psychosis, agitation, irritability, aggression, could not be cared for at a lower level of care. PAST PSYCHIATRIC HISTORY: Dementia. ALLERGIES: Noted. MEDICATIONS: Noted. SOCIAL HISTORY: Unable to care for self, needing higher level of supervision. MENTAL STATUS EXAMINATION: Please see full psych eval for details. PROVISIONAL DIAGNOSIS: Dementia with behavioral disturbances and psychosis, unspecified. PAST MEDICAL HISTORY: Please see full H and P. HOSPITAL COURSE: After initial assessment, the patient was started on medications to address her psychosis and behavioral disturbances and memory decline including low dose Risperdal. Over the course of the hospitalization, she improved, mood improved, affect improved. Also noted to have a mood disorder and anxiety. Medications were titrated and adjusted. Toward the latter end of her hospitalization, she was seemingly calmer, more cooperative. She remained somewhat isolative, but placement was confirmed. Dr. Perez noting improvement. CONDITION UPON DISCHARGE: Improved, allowing ADLs. Fair eye contact. Mood "okay." Affect flat. Thought processes were confused. No SI, no HI, no intent, no plan. No overt psychosis. Insight and judgment somewhat better, calmer, a lot better impulse control, taking her medications. PROVISIONAL DIAGNOSES: Dementia with behaviors, psychosis, unspecified; mood, unspecified; anxiety, unspecified. MEDICAL: Please see full H and P. PROGNOSIS: The patient follows up with outpatient mental health services and remains compliant with treatment. Prognosis will improve, otherwise guarded. [facility]# [id number]
== END 2017-10-31 15:40 | DRG 885 ==
LOC: GERO2 11:17 → GERO 10-14 16:39
PROVIDERS: ADMIT Psychiatry & Neurology Psychiatry; ATTEND Psychiatry & Neurology Psychiatry
PROC: 30233N1 Transfusion of Nonautologous Red Blood Cells into Peripheral Vein, Percutaneous Approach (ICD-10-PCS; principal; 2017-10-13)
DX: F29 Unspecified psychosis not due to a substance or known physiological condition (principal); F03.91 Unspecified dementia, unspecified severity, with behavioral disturbance; D64.9 Anemia, unspecified; K27.9 Peptic ulcer, site unspecified, unspecified as acute or chronic, without hemorrhage or perforation; I10 Essential (primary) hypertension; E78.5 Hyperlipidemia, unspecified; E03.9 Hypothyroidism, unspecified; F32.9 Major depressive disorder, single episode, unspecified; F41.9 Anxiety disorder, unspecified
CPT/HCPCS: 36415-UA; 82948-90; 86850-TC; 86900-TC; 86901-TC; 86922-TC; P9016; Z7610

== ENCOUNTER 2017-11-09 18:10 | Inpatient (IN) | payer MEDICARE, MEDICAID ==
--- NOTE | 2017-11-09 19:01 | ED Physician Chart ---
ED Chief Complaint/HPI - Patient Information History of Present Illness:: THE PATIENT WAS SENT FROM [facility]. SHE DISORIENTED AND CONFUSED. Allergies:: Allergies Allergy/AdvReac Type Severity Reaction Status Date / Time ibuprofen Allergy Verified 09/30/17 21:50 iodine Allergy Verified 09/30/17 21:50 Vitals:: Vital Signs - 8 hr 11/09/17 18:25 Temp 98.8 F HR 57 RR 18 BP 142/32 O2 Sat % 97 <Vega Pacheco - Last Filed: 11/09/17 19:10> - Patient Information Date Seen:: 11/09/17 Time Seen:: 18:59 Chief Complaint:: PSYCH DISORDER History of Present Illness:: THIS IS AN 86 YO FEMALE PSYCH PATIENT SENT HERE FOR EVALUATION AND TREATMENT. DR. WELLS STATED THAT THE STAFF SAID SHE HAD CHEST PAIN WHILE AT THE [facility]. THE REQUESTED THAT SHE BE HOSPITALIZED TO GIVE HER A HEART EVALUATION. Allergies:: Allergies Allergy/AdvReac Type Severity Reaction Status Date / Time ibuprofen Allergy Verified 09/30/17 21:50 iodine Allergy Verified 09/30/17 21:50 Vitals:: Vital Signs - 8 hr 11/09/17 18:25 Temp 98.8 F HR 57 RR 18 BP 142/32 O2 Sat % 97 Historian:: Medical Records Review:: Nurse's Note Reviewed, Transfer documents Reviewed <Rafael Hatch - Last Filed: 11/09/17 20:49> ED Review of Systems - Review of Systems General/Constitutional: No fever, No chills, No weight loss, No weakness, No diaphoresis, No edema, No loss of appetite, Other (THIS PATIENT IS UNABLE TO GIVE A REVIEW OF SYSTEMS.) Skin: No skin lesions, No rash, No bruising Head: No headache, No light-headedness Eyes: No loss of vision, No pain, No diplopia ENT: No earache, No nasal drainage, No sore throat, No tinnitus Neck: No neck pain, No swelling, No thyromegaly, No stiffness, No mass noted Cardio Vascular: No chest pain, No palpitations, No PND, No orthopnea, No edema Pulmonary: No SOB, No cough, No sputum, No wheezing GI: No nausea, No vomiting, No diarrhea, No pain, No melena, No hematochezia, No constipation, No hematemesis G/U: No dysuria, No frequency, No hematuria Musculoskeletal: No bone or joint pain, No back pain, No muscle pain Endocrine: No polyuria, No polydipsia Psychiatric: No prior psych history, No depression, No anxiety, No suicidal ideation Hematopoietic: No bruising, No lymphadenopathy Allergic/Immuno: No urticaria, No angioedema Neurological: No syncope, No focal symptoms, No weakness, No paresthesia, No headache, No seizure, No dizziness, No confusion, No vertigo <Vega Pacheco - Last Filed: 11/09/17 19:10> ED Past Medical History - Past Medical History Obtainable: Yes (is) Past Medical History: HTN, PUD/GERD, Thyroid disorder, Dementia Family History: None Social History: Non Smoker, No Alcohol, No Drug Use, Care Facility (final) Surgical History: None Psychiatricy History: Depression, Dementia Medication: Reviewed <Vega Pacheco - Last Filed: 11/09/17 19:10> Family Medical History - Family Member Mother History Unknown: Yes Ethnicity: Non- Living Status: <Rafael Hatch - Last Filed: 11/09/17 20:49> ED Physical Exam - Physical Examination General/Constitutional: Awake, Well-developed, well-nourished, Alert, No distress, GCS 15, Non-toxic appearing, Ambulatory Other Gen/Cons comments:: CONFUSED AND UNCOOPERATIVE Head: Atraumatic Eyes: Lids, conjuctiva normal, PERRL, EOMI Skin: Nl inspection, No rash, No skin lesions, No ecchymosis, Well hydrated, No lymphadenopathy ENMT: External ears, nose nl, Nasal exam nl, Lips, teeth, gums nl Neck: Nontender, Full ROM w/o pain, No JVD, No nuchal rigidity, No bruit, No mass, No stridor Respiratory: Nl effort/Exclusion, Clear to Auscultation, No Wheeze/Rhonchi/Rales Cardio Vascular: RRR, No murmur, gallop, rubs, NL S1 S2 GI: No tenderness/rebounding/guarding, No organomegaly, No hernia, Normal BS's, Nondistended, No mass/bruits, No McBurney tenderness : No CVA tenderness Extremities: No tenderness or effusion, Full ROM, normal strength in all extremities, No edema, Normal digits & nails Neuro/Psych: Alert/oriented, DTR's symmetric, Normal sensory exam, Normal motor strength, Judgement/insight normal (POOR INSIGHT AND JUDGEMENT), Mood normal, Normal gait, No focal deficits Misc: Normal back, No paraspinal tenderness <Vega Pacheco - Last Filed: 11/09/17 19:10> ED Labs/Radiology/EKG Results - Lab Results Results: Abnormal Lab Results 11/09/17 11/09/17 11/09/17 18:52 18:52 18:52 WBC 5.2 RBC 3.10 L Hgb 8.6 L Hct 26.1 L MCV 84.1 MCH 27.7 MCHC Differential 32.9 RDW 18.8 Plt Count 275 MPV 7.6 Neutrophils % 54.5 Lymphocytes % 22.8 Monocytes % 11.2 H Eosinophils % 10.7 H Basophils % 0.8 PT 10.0 INR 0.96 Sodium 134 L Potassium 4.9 Chloride 104 Carbon Dioxide 25.4 Anion Gap 9.5 BUN 34 H Creatinine 1.1 Est GFR ( Amer) TNP Est GFR (Non-Af Amer) TNP BUN/Creatinine Ratio 30.9 Glucose 101 Calcium 9.7 Total Bilirubin 0.3 AST 16 ALT 13 Alkaline Phosphatase 66 Troponin I Total Protein 6.8 Albumin 3.6 L Globulin 3.2 Albumin/Globulin Ratio 1.1 TSH 11/09/17 11/09/17 18:52 18:52 WBC RBC Hgb Hct MCV MCH MCHC Differential RDW Plt Count MPV Neutrophils % Lymphocytes % Monocytes % Eosinophils % Basophils % PT INR Sodium Potassium Chloride Carbon Dioxide Anion Gap BUN Creatinine Est GFR ( Amer) Est GFR (Non-Af Amer) BUN/Creatinine Ratio Glucose Calcium Total Bilirubin AST ALT Alkaline Phosphatase Troponin I 0.01 Total Protein Albumin Globulin Albumin/Globulin Ratio TSH 1.00 - Radiology Results Results: CHEST X-RAY = NAD - EKG Interpretations EKG Time:: 19:38 Rate & Rhythm: 53 AND SINUS [place]: RIGHT AXIS <Rafael Hatch - Last Filed: 11/09/17 20:49> ED Assessment - Assessment General Assessment: PSYCHOSIS <Vega Pacheco - Last Filed: 11/09/17 19:10> - Assessment General Assessment: SHE IS PSYCHOTIC AND ANEMIC CHEST PAIN <Rafael Hatch - Last Filed: 11/09/17 20:49> ED Septic Shock - . Is Septic Shock (SBP<90, OR Lactate>4 mmol\L) present?: No - <6hrs of presentation: Vital Signs: Vital Signs - 8 hr 11/09/17 18:25 Temp 98.8 F HR 57 RR 18 BP 142/32 O2 Sat % 97 <Vega Pacheco - Last Filed: 11/09/17 19:10> - <6hrs of presentation: Vital Signs: Vital Signs - 8 hr 11/09/17 18:25 Temp 98.8 F HR 57 RR 18 BP 142/32 O2 Sat % 97 <Rafael Hatch - Last Filed: 11/09/17 20:49> ED Reassessment (Disposition) - Reassessment Reassessment Condition:: Unchanged <Vega Pacheco - Last Filed: 11/09/17 19:10> - Diagnosis Diagnosis:: CHEST PAIN PSYCHOSIS - Patient Disposition Discharge/Transfer:: Acute Care w/in this hosp Admitted to:: Telemetry Admitting Medical Physician:: Norma Wells Condition at Disposition:: Unchanged <Rafael Hatch - Last Filed: 11/09/17 20:49> ED Discharge Plan <Vega Pacheco - Last Filed: 11/09/17 19:10> <Rafael Hatch - Last Filed: 11/09/17 20:49> - Patient Disposition Admit/Discharge/Transfer: Acute Care w/in this hosp Condition at Disposition: Unchanged
[2017-11-09 19:06] LABS: % BASOPHILS 0.8 % (0.0-2.0); % EOSINOPHILS 10.7 % (0.0-5.0); % LYMPHOCYTES 22.8 % (20.0-50.0); % MONOCYTES 11.2 % (2.0-10.0); % NEUTROPHILS 54.5 % (40.0-80.0); EOSINOPHILE ABSOLUTE 0.6 Th/cmm (0.1-0.4); HEMATOCRIT 26.1 % (41.0-60); HEMOGLOBIN 8.6 gm/dL (12-16); LYMPHOCYTE ABSOLUTE 1.2 Th/cmm (1.5-3.0); MEAN CELL VOLUME 84.1 fl (81-100); MEAN CORPUSCULAR HEMOGLOBIN 27.7 pg (27.0-31.0); MEAN CORPUSCULAR HGB CONC 32.9 pg (28.0-36.0); MEAN PLATELET VOLUME 7.6 fl; MONOCYTE ABSOLUTE 0.6 Th/cmm (0.3-1.0); NEUTROPHILE ABSOLUTE 2.8 Th/cmm (1.8-8.0); PLATELET COUNT 275 Th/cmm (150-400); RED CELL DISTRIBUTION WIDTH 18.8 % (11.5-20.0); WHITE BLOOD COUNT 5.2 Th/cmm (4.8-10.8)
[2017-11-09 19:14] LABS: INR 0.96 (0.5-1.4)
[2017-11-09 19:19] LABS: ALB/GLOB RATIO 1.1 (1.0-1.8); ALBUMIN 3.6 gm/dL (3.7-5.3); ALKALINE PHOSPHATASE 66 U/L (34-104); ANION GAP 9.5 (7.0-16.0); BILIRUBIN,TOTAL 0.3 mg/dL (0.3-1.0); BUN - UREA NITROGEN 34 mg/dL (7-25); CALCIUM SERUM 9.7 mg/dL (8.6-10.3); CARBON DIOXIDE 25.4 mEq/L (21.0-31.0); CHLORIDE 104 mEq/L (98-107); CREATININE - SERUM 1.1 mg/dL (0.6-1.2); GLUCOSE 101 mg/dL (70-105); POTASSIUM SERUM 4.9 mEq/L (3.5-5.1); SGOT 16 U/L (13-39); SGPT/ALT 13 U/L (7-52); SODIUM SERUM 134 mEq/L (136-145); TOTAL PROTEIN,SERUM 6.8 gm/dL (6.0-8.3)
[2017-11-09 20:42] LABS: URINE MICROSCOPIC INDICATED? YES; URINE SOURCE CLEAN C
[2017-11-09 20:50] LABS: URINE BILIRUBIN NEGATIVE (NEGATIVE); URINE BLOOD NEGATIVE (NEGATIVE); URINE GLUCOSE (UA) NEGATIVE (NEGATIVE); URINE KETONE NEGATIVE (NEGATIVE); URINE LEUKOCYTE ESTERASE NEGATIVE (NEGATIVE); URINE NITRATE NEGATIVE (NEGATIVE); URINE PROTEIN TRACE mg/dL (NEGATIVE); URINE UROBILINOGEN 0.2 E.U./dL (0.2 - 1.0)
[2017-11-09 20:58] LABS: URINE CLARITY CLEAR (CLEAR); URINE COLOR YELLOW
[2017-11-09 20:59] LABS: URINE BACTERIA NONE SEEN /hpf (NONE SEEN); URINE EPITHELIAL CELLS NONE SEEN /lpf (FEW); URINE RBC NONE SEEN /hpf (0-5); URINE WBC NONE SEEN /hpf (0-5)
[2017-11-10] MEDS ORDERED: Pneumococcal Vaccine 0.5 mL Vial IM ONE (05:33)
[2017-11-10 07:31] LABS: HEMATOCRIT 26.9 % (41.0-60); HEMOGLOBIN 8.9 gm/dL (12-16); MEAN CELL VOLUME 86.5 fl (81-100); MEAN CORPUSCULAR HEMOGLOBIN 28.5 pg (27.0-31.0); MEAN PLATELET VOLUME 7.8 fl; PLATELET COUNT 246 Th/cmm (150-400); RED BLOOD COUNT 3.11 Mil/cmm (3.80-5.20); RED CELL DISTRIBUTION WIDTH 18.3 % (11.5-20.0)
[2017-11-10 07:40] LABS: WHITE BLOOD COUNT 3.2 Th/cmm (4.8-10.8)
[2017-11-10 07:41] LABS: MANUAL DIFF REQUIRED? YES
[2017-11-10 07:50] LABS: BUN - UREA NITROGEN 28 mg/dL (7-25); CALCIUM SERUM 9.5 mg/dL (8.6-10.3); CARBON DIOXIDE 26.5 mEq/L (21.0-31.0); CHLORIDE 106 mEq/L (98-107); CHOLESTEROL 176 mg/dL (<200); GLUCOSE 95 mg/dL (70-105); HDL -HIGH DENSITY LIPOPROTEIN 28 mg/dL (23-92); POTASSIUM SERUM 4.5 mEq/L (3.5-5.1); SODIUM SERUM 136 mEq/L (136-145); TRIGLYCERIDES 136 mg/dL (<150)
[2017-11-10 07:57] LABS: EOSINOPHIL 15 % (0-5); LYMPHOCYTE 30 % (20-50); MONOCYTE 9 % (2-10); NEUTROPHILS 46 % (40-80); PLATELET ESTIMATE ADEQUATE (NORMAL); TOTAL CELLS COUNTED 100
[2017-11-10] MEDS ORDERED: Non-Formulary Item 1 EA (Potassium Chloride [Klor-Con 10] 1 TAB) PO SCH (09:00)
[2017-11-10] MEDS: Pantoprazole 40 mg EC Tab PO SCH (10:34)
--- NOTE | 2017-11-10 10:39 | Diagnostic Imaging Report ---
Exam: Portable chest x-ray HISTORY: Chest pain. Findings: Portable upright examination of the chest at 1956 hours reviewed compared to prior study 10/10/2017 demonstrates COPD changes. No acute pulmonic right side noted. The costophrenic angles are clear. Again noted the postoperative changes of the right humerus. IMPRESSION: COPD changes no acute disease.
--- NOTE | 2017-11-10 17:48 | History & Physical ---
ADMIT DATE: 11/09/2017 HISTORY OF PRESENT ILLNESS: I know her very well from before. This patient is an elderly female patient, known to have history of underlying psychosis. Apparently, I got a call from half-way. The patient was complaining of shortness of breath, chest discomfort, and left arm pain. The patient came to the Emergency Room for evaluation, also patient was very agitated according to the half-way, the patient was seen and evaluated in the Emergency Room and the patient was found to have a normal workup, but complaining of chest discomfort. PAST MEDICAL HISTORY: Hypertension, thyroid disorder, history of dementia, and history of depression. PHYSICAL EXAMINATION: GENERAL: The patient on examination is well-developed, well-nourished, female. VITAL SIGNS: As noted in chart. HEAD: Normal. ENT: Normal. LUNGS: Bilaterally clear. CARDIOVASCULAR SYSTEM: S1, S2 heard. ABDOMEN: Soft. Bowel sounds are heard. LABORATORY DATA: Hemoglobin was 8.6, hematocrit was 26, and initial set of enzymes are normal. EKG showed normal sinus rhythm, right axis deviation. DIAGNOSES: 1. Abnormal EKG. 2. Rule out acute coronary syndrome. 3. Agitation. 4. Severe anemia. 5. History of recent GI bleeding, history of recent blood transfusion, history of psychosis, and history of thyroid disorder ____. PLAN: The patient is being admitted and I will have psychiatrist see the patient, I will arrange for cardiology see the patient, and also GI see the patient. I will follow the patient. JOB# [id number]
--- NOTE | 2017-11-10 18:05 | Consultation ---
DATE OF CONSULTATION: 11/10/2017 HISTORY OF PRESENT ILLNESS: An 86-year-old female sent for evaluation and treatment. Chest pain. The patient is confused, disoriented, refused to answer questions, "It is too early for this right now doctor." She knows her name in the hospital, but other than that she is confused. Staff noting she remains unruly. She is refusing treatment at times, stating "get out" turn on the lights and "shut up." PAST PSYCHIATRIC HISTORY: Dementia, depression. MEDICATIONS: Noted. SOCIAL HISTORY: Born in [place]. She states she is not , has 4 children. MEDICATIONS: Noted. MENTAL STATUS EXAMINATION: Stated age. Fair eye contact. Speech within normal limits. Mood "okay." Affect flat. Thought processes were confused. No SI or HI. No overt psychotic symptoms, just confusion, disorientation, poor impulse control. PROVISIONAL DIAGNOSIS: Dementia with behavioral disturbances; anxiety, unspecified; mood, unspecified. MEDICAL: Please see full H and P. ASSESSMENT: The patient requiring continued hospitalization given her visual disturbances. Psychiatry will continue to monitor and follow up. We will start Ativan p.r.n. for now. JOB# [id number]
[2017-11-10] MEDS ORDERED: Morphine Sulfate 4 mg/mL 1mL Syr IVP PRN ×2 (20:18→20:20)
--- NOTE | 2017-11-10 22:26 | Consultation ---
DATE OF CONSULTATION: 11/10/[address] Wells. HISTORY OF PRESENT ILLNESS: This is an 86-year-old female patient who was at [facility]. The patient started complaining of chest pain. Following this, the patient was transferred to the Emergency Room. According to the patient, the patient is confused. The chest pain has been persistent for a week, increased with deep breathing and movement, mostly in the right second intercostal space and third intercostal space. PAST MEDICAL HISTORY: The patient has a history of anemia with GI bleed, psychosis, osteoporosis, dementia, peripheral neuropathy, hypertension, and hypothyroidism. FAMILY HISTORY: Unremarkable. SOCIAL HISTORY: No history of smoking or alcohol abuse. ALLERGIES: No known allergies. PHYSICAL EXAMINATION: VITAL SIGNS: Blood pressure 128/80, pulse 70, and respirations 20. HEAD: Normocephalic. No lumps or bumps. EYES: Pupils equal, reactive to light. Fundi show AV nicking, sclerae white, conjunctivae pink. NECK: Carotid 2+. Normal upstroke. JVD flat. Thyroid not palpable. Lymph nodes not palpable. CHEST: Shows increased AP diameter. No kyphosis, scoliosis. LUNGS: Bilateral bronchovesicular breath sounds. HEART: PMI fifth intercostal space with lateral to midclavicular line. S1, S2. No S3, S4, soft systolic murmur. ABDOMEN: Soft. Liver, spleen not palpable. No organomegaly. Bowel sounds active. NEUROLOGIC: Unremarkable. EXTREMITIES: Peripheral pulses 2+. No pedal edema. CLINICAL IMPRESSION: The patient has costochondritis of the right second and third intercostal space, atypical chest pain, psychosis, iron-deficiency anemia secondary to previous gastrointestinal bleed, osteoporosis, dementia, peripheral neuropathy, hypertension, and hypothyroidism. PLAN: Admit the patient. We will get troponin level, EKG. The patient recently had echocardiogram, which showed hypertrophy of the left ventricle, normal ejection fraction with trace tricuspid regurgitation. JOB# [id number]
[2017-11-11] MEDS: Levothyroxine 0.075 Mg Tab PO SCH (07:05)
[2017-11-11] MEDS: Pantoprazole 40 mg EC Tab PO SCH (09:07)
[2017-11-11] MEDS: Potassium Chloride 10 mEq ER Tab PO SCH (10:53)
--- NOTE | 2017-11-11 11:40 | General Progress Note ---
Subjective - Review of Systems Service Date: 11/11/17 Subjective: pt denies pain agitated at times declines treatment at times Objective - Results Result Diagrams: 11/10/17 07:00 11/10/17 06:15 Recent Labs: Laboratory Last Values WBC 3.2 Th/cmm (4.8-10.8) L D 11/10/17 07:00 RBC 3.11 Mil/cmm (3.80-5.20) L 11/10/17 07:00 Hgb 8.9 gm/dL (12-16) L 11/10/17 07:00 Hct 26.9 % (41.0-60) L 11/10/17 07:00 MCV 86.5 fl (81-100) 11/10/17 07:00 MCH 28.5 pg (27.0-31.0) 11/10/17 07:00 MCHC Differential 33.0 pg (28.0-36.0) 11/10/17 07:00 RDW 18.3 % (11.5-20.0) 11/10/17 07:00 Plt Count 246 Th/cmm (150-400) 11/10/17 07:00 MPV 7.8 fl 11/10/17 07:00 Neutrophils % 54.5 % (40.0-80.0) 11/09/17 18:52 Lymphocytes % 22.8 % (20.0-50.0) 11/09/17 18:52 Monocytes % 11.2 % (2.0-10.0) H 11/09/17 18:52 Eosinophils % 10.7 % (0.0-5.0) H 11/09/17 18:52 Basophils % 0.8 % (0.0-2.0) 11/09/17 18:52 Neutrophils (Manual) 46 % (40-80) 11/10/17 07:00 Lymphocytes 30 % (20-50) 11/10/17 07:00 Monocytes 9 % (2-10) 11/10/17 07:00 Eosinophils 15 % (0-5) H 11/10/17 07:00 Platelet Estimate ADEQUATE (NORMAL) 11/10/17 07:00 PT 10.0 SECONDS (9.5-11.5) 11/09/17 18:52 INR 0.96 (0.5-1.4) 11/09/17 18:52 Sodium 136 mEq/L (136-145) 11/10/17 06:15 Potassium 4.5 mEq/L (3.5-5.1) 11/10/17 06:15 Chloride 106 mEq/L (98-107) 11/10/17 06:15 Carbon Dioxide 26.5 mEq/L (21.0-31.0) 11/10/17 06:15 Anion Gap 8.0 (7.0-16.0) 11/10/17 06:15 BUN 28 mg/dL (7-25) H 11/10/17 06:15 Creatinine 1.0 mg/dL (0.6-1.2) 11/10/17 06:15 Est GFR ( Amer) TNP 11/10/17 06:15 Est GFR (Non-Af Amer) TNP 11/10/17 06:15 BUN/Creatinine Ratio 28.0 11/10/17 06:15 Glucose 95 mg/dL (70-105) 11/10/17 06:15 Calcium 9.5 mg/dL (8.6-10.3) 11/10/17 06:15 Total Bilirubin 0.3 mg/dL (0.3-1.0) 11/09/17 18:52 AST 16 U/L (13-39) 11/09/17 18:52 ALT 13 U/L (7-52) 11/09/17 18:52 Alkaline Phosphatase 66 U/L (34-104) 11/09/17 18:52 Creatine Kinase 26 U/L (30-223) L 11/10/17 20:00 Troponin I 0.01 ng/mL (0.01-0.05) 11/10/17 20:00 Total Protein 6.8 gm/dL (6.0-8.3) 11/09/17 18:52 Albumin 3.6 gm/dL (3.7-5.3) L 11/09/17 18:52 Globulin 3.2 gm/dL 11/09/17 18:52 Albumin/Globulin Ratio 1.1 (1.0-1.8) 11/09/17 18:52 Triglycerides 136 mg/dL (<150) 11/10/17 06:15 Cholesterol 176 mg/dL (<200) 11/10/17 06:15 LDL Cholesterol Direct 118 mg/dL (75-193) 11/10/17 06:15 HDL Cholesterol 28 mg/dL (23-92) 11/10/17 06:15 TSH 1.56 uIU/ml (0.34-5.60) 11/10/17 06:15 Urine Source CLEAN C 11/09/17 19:50 Urine Color YELLOW 11/09/17 19:50 Urine Clarity CLEAR (CLEAR) 11/09/17 19:50 Urine pH 7.0 (4.6 - 8.0) 11/09/17 19:50 Ur Specific [place] <= 1.005 (1.005-1.030) 11/09/17 19:50 Urine Protein TRACE mg/dL (NEGATIVE) 11/09/17 19:50 Urine Glucose (UA) NEGATIVE mg/dL (NEGATIVE) 11/09/17 19:50 Urine Ketones NEGATIVE mg/dL (NEGATIVE) 11/09/17 19:50 Urine Blood NEGATIVE (NEGATIVE) 11/09/17 19:50 Urine Nitrate NEGATIVE (NEGATIVE) 11/09/17 19:50 Urine Bilirubin NEGATIVE (NEGATIVE) 11/09/17 19:50 Urine Urobilinogen 0.2 E.U./dL (0.2 - 1.0) 11/09/17 19:50 Ur Leukocyte Esterase NEGATIVE (NEGATIVE) 11/09/17 19:50 Urine RBC NONE SEEN /hpf (0-5) 11/09/17 19:50 Urine WBC NONE SEEN /hpf (0-5) 11/09/17 19:50 Ur Epithelial Cells NONE SEEN /lpf (FEW) 11/09/17 19:50 Urine Bacteria NONE SEEN /hpf (NONE SEEN) 11/09/17 19:50 - Physical Exam Vitals and I&O: Vital Signs Temp 98.5 F 11/10/17 16:00 Pulse 52 11/11/17 09:07 Resp 20 11/11/17 07:05 BP 162/48 11/11/17 09:07 Pulse Ox 97 11/11/17 07:05 Intake & Output 11/10/17 11/11/17 11/11/17 18:59 06:59 18:59 Intake Total 600 0 Balance 600 0 Weight (lbs) 72.575 kg 68.13 kg Intake: Oral 600 0 Other: # Voids 3 # Bowel Movements 0 0 Weight Source Bedscale Bedscale Active Medications: Current Medications Acetaminophen (Tylenol) 650 mg PO Q4H PRN PRN Reason: Pain (Mild) Stop: 01/09/18 23:07 Last Admin: 11/11/17 10:52 Dose: 650 mg Acetaminophen (Tylenol) 650 mg PO Q4H PRN PRN Reason: Fever > 101 Stop: 01/09/18 23:10 Buspirone HCl (Buspar) 7.5 mg PO BID [facility] PRN Reason: Protocol Stop: 01/09/18 08:59 Last Admin: 11/11/17 09:08 Dose: 7.5 mg Docusate Sodium (Colace) 250 mg PO DAILY [facility] Stop: 01/09/18 08:59 Last Admin: 11/11/17 09:06 Dose: 250 mg Fluoxetine HCl (Prozac) 40 mg PO DAILY [facility] PRN Reason: Protocol Stop: 01/09/18 08:59 Last Admin: 11/11/17 09:16 Dose: 40 mg Folic Acid (Folate) 1 mg PO DAILY [facility] Stop: 01/09/18 08:59 Last Admin: 11/11/17 09:07 Dose: 1 mg Gabapentin (Neurontin) 300 mg PO TID [facility] Stop: 01/09/18 08:59 Last Admin: 11/11/17 09:05 Dose: 300 mg Hydralazine HCl (Apresoline) 25 mg PO TID [facility] Stop: 01/09/18 08:59 Last Admin: 11/11/17 09:07 Dose: 25 mg Levothyroxine Sodium (Synthroid) 0.075 mg PO QDAC [facility] Stop: 01/10/18 07:29 Last Admin: 11/11/17 07:05 Dose: 0.075 mg Lorazepam (Ativan) 0.5 mg PO Q6HR PRN; Protocol PRN Reason: Agitation Stop: 01/09/18 07:22 Lorazepam (Ativan) 0.5 mg PO Q4HR PRN; Protocol PRN Reason: Anxiety Stop: 01/09/18 08:12 Morphine Sulfate (Morphine) 1 mg IVP Q4HR PRN PRN Reason: Pain (Mild) Stop: 01/09/18 20:17 Morphine Sulfate (Morphine) 2 mg IVP Q4HR PRN PRN Reason: Pain (Severe) Stop: 01/09/18 20:19 Pantoprazole Sodium (Protonix) 40 mg PO DAILY [facility] Stop: 01/09/18 08:59 Last Admin: 11/11/17 09:07 Dose: 40 mg Potassium Chloride (Klor-Con) 10 meq PO DAILY [facility] Stop: 01/10/18 08:59 Last Admin: 11/11/17 10:53 Dose: Not Given Risperidone (Risperdal) 0.25 mg PO HS [facility] PRN Reason: Protocol Stop: 01/09/18 20:59 Last Admin: 11/10/17 22:19 Dose: 0.25 mg Valsartan (Diovan) 160 mg PO BID [facility] Stop: 01/09/18 08:59 Last Admin: 11/10/17 16:51 Dose: 160 mg Valsartan (Diovan) 320 mg PO BID [facility] Stop: 01/10/18 16:59 Zolpidem Tartrate (Ambien) 5 mg PO HS PRN PRN Reason: Insomnia Stop: 01/09/18 08:12 - Procedures Procedures: Procedures Procedure Code Date EXCISION OF ASCENDING COLON, ENDO [id number] 09/30/17 EXCISION OF DESCENDING COLON, ENDO [id number] 09/30/17 EXCISION OF DUODENUM, ENDO, DIAGN [id number] 09/30/17 EXCISION OF SIGMOID COLON, ENDO [id number] 09/30/17 EXCISION OF STOMACH, ENDO, DIAGN [id number] 09/30/17 INT[facility] GROUP PSYTX 86313 01/24/01 OTHER GROUP THERAPY 94.44 01/24/01 TRANSFUSE NONAUT RED BLOOD CELLS IN PERIPH VEIN, PERC 61817A7 10/13/17 Assessment/Plan - Problem List Patient Problems: All Active Problems INCREASED IRRITABILITY AND ANXIOUS (Acute)
--- NOTE | 2017-11-11 17:11 | Cardiology ---
11/10/[address] Wells. PROCEDURE: Echocardiogram. M-MODE ECHOCARDIOGRAM: Mitral valve, anterior leaflet of mitral valve shows normal excursion, EF velocity. Posterior leaflet of the mitral valve shows normal excursion. Left ventricular posterior wall shows increased thickness, normal excursion. Interventricular septum shows increased thickness, normal excursion, hypertrophy of the left ventricle, ejection fraction 50%. Left atrium normal. Aortic root shows normal dimension, normal excursion of aortic leaflets. CONCLUSION: Hypertrophy of the left ventricle, ejection fraction 50%. 2D ECHO: Long axis view showed normal sized left ventricle with hypertrophy of the left ventricle. Left atrium normal. Aortic root shows normal dimension, normal excursion of aortic leaflets. Short axis view of mitral valve normal. Short axis view of aortic valve normal. Apical four chamber view showed normal sized left ventricle with hypertrophy of the left ventricle. Left atrium normal. Right ventricular cavity, right atrium normal, no pericardial effusion. CONCLUSION: Hypertrophy of the left ventricle, ejection fraction 50%. Doppler study showed trace tricuspid regurgitation. [facility]# [id number]
--- NOTE | 2017-11-11 23:41 | Consultation ---
DATE OF CONSULTATION: 11/11/2017 REASON FOR CONSULTATION: Anemia. HISTORY OF PRESENT ILLNESS: This consult was obtained through the request of Dr. Wells for this 86-year-old with history of hypertension, thyroid disease, dementia, and depression; admitted to the hospital for shortness of breath. While she was here, she was found to be anemic. GI consult was called in for further evaluation. The patient was here in September, she had a colonoscopy, but they could not reach the cecum with removal of multiple polyps and she had also endoscopy, which showed gastritis. The patient denies any abdominal pain. No nausea, vomiting, diarrhea, constipation. No unintentional weight loss. PAST MEDICAL HISTORY: Hypertension, thyroid disease, and dementia. PAST SURGICAL HISTORY: She said she had ulcers and surgery for ulcer. SOCIAL HISTORY: Nonsmoker, nonalcoholic, non-IV drug abuser. She has smoked many, many years ago for a short period of time. FAMILY HISTORY: Noncontributory. ALLERGIES: IBUPROFEN and IODINE. MEDICATIONS: Tylenol, BuSpar, Colace, Prozac, folate, Neurontin, Apresoline, Synthroid, Ativan, morphine, Protonix, Klor-Con, Risperdal, Diovan, and Ambien. REVIEW OF SYSTEMS: As stated above. PHYSICAL EXAMINATION: GENERAL: The patient is awake, oriented to self and place, in no acute distress. VITAL SIGNS: Blood pressure is 201/77, heart rate 60, respiratory rate 18, and temperature is 97.2. HEAD AND NECK: Pupils reactive to light and accommodation. Extraocular muscles could not be tested. Oral cavity, no lesion. NECK: Supple. CHEST: Good air entry. LUNGS: Clear to auscultation. CARDIOVASCULAR: Regular rate and rhythm. No murmur or gallop. ABDOMEN: Soft, positive bowel sounds. Abdomen is not distended. EXTREMITIES: Lower extremities, no edema. CENTRAL NERVOUS SYSTEM: Grossly nonfocal. LABORATORY DATA: Hemoglobin is 8.6. IMPRESSION: An 86-year-old with anemia. I suspect anemia, most probably multifactorial, most probably an element of chronic disease. The patient had labs done in September, which showed iron deficiency anemia. She had EGD and colon, we will repeat those labs. We will do a barium enema. We will check stool for occult blood. If anything is positive, we will consider repeating EGD and colon, but she is refusing that and everything is good, might consider capsule endoscopy as an outpatient or if there are other etiologies for anemia such as Crohn disease will be, then there will not be a need for further workup. Other medical problems such as hypertension, hypothyroidism, dementia, etc., as per Dr. Wells. Thank you Dr. Wells for allowing me to participate in the care of the patient. If you have any further questions, please let me know. JOB# [id number]
[2017-11-12] MEDS: Levothyroxine 0.075 Mg Tab PO SCH (07:37)
[2017-11-12] MEDS: Pantoprazole 40 mg EC Tab PO SCH (09:28)
[2017-11-12] MEDS: Potassium Chloride 10 mEq ER Tab PO SCH (09:30)
== END 2017-11-12 20:50 | DRG 205 ==
LOC: ER 18:10 → TELE 20:35 → MSI 11-10 21:45
PROVIDERS: ADMIT Internal Medicine; ATTEND Internal Medicine
PROC: 3E0234Z Introduction of Serum, Toxoid and Vaccine into Muscle, Percutaneous Approach (ICD-10-PCS; principal; 2017-11-10)
DX: M94.0 Chondrocostal junction syndrome [Tietze] (principal); G92 Toxic encephalopathy; F03.91 Unspecified dementia, unspecified severity, with behavioral disturbance; F29 Unspecified psychosis not due to a substance or known physiological condition; D50.9 Iron deficiency anemia, unspecified; M81.0 Age-related osteoporosis without current pathological fracture; G62.9 Polyneuropathy, unspecified; E03.9 Hypothyroidism, unspecified; I07.1 Rheumatic tricuspid insufficiency; Z53.29 Procedure and treatment not carried out because of patient's decision for other reasons; K21.9 Gastro-esophageal reflux disease without esophagitis; R45.4 Irritability and anger; I11.9 Hypertensive heart disease without heart failure; D64.9 Anemia, unspecified; F41.9 Anxiety disorder, unspecified; F32.9 Major depressive disorder, single episode, unspecified; Z88.6 Allergy status to analgesic agent; Z91.041 Radiographic dye allergy status; Z23 Encounter for immunization; Z87.891 Personal history of nicotine dependence
CPT/HCPCS: 36415-UA; 71045-TC; 80048-TC; 80053-TC; 80061-TC; 81001-TC; 82550-TC; 84443-TC; 84484-TC; 85007-TC; 85025-TC; 85027-TC; 85610-TC; 93005; 94760; J2060; Z7610

== ENCOUNTER 2018-04-23 23:35 | Inpatient (IN) | payer MEDICARE, MEDICAID ==
[2018-04-23] MEDS ORDERED: cefTRIAXone 1 GM in Sodium Chloride 0.9% 50 ML IV ONE (23:51)
--- NOTE | 2018-04-23 23:51 | ED Physician Chart ---
ED Chief Complaint/HPI - Patient Information Date Seen:: 04/23/18 Time Seen:: 23:40 Chief Complaint:: Left Arm Swelling History of Present Illness:: onset x 2 days of left arm swelling and erythema; no report of trauma, H/As, S/T , neck pain, C/P, SOB, Abd. Pain, A/N/V/D/C, fever, chills, or urinary s/s; pt' s last tetanus shot: < 5 years; UTD Allergies:: Allergies Allergy/AdvReac Type Severity Reaction Status Date / Time ibuprofen Allergy Verified 09/30/17 21:50 iodine Allergy Verified 09/30/17 21:50 Historian:: Patient, EMS Review:: Nurse's Note Reviewed, Old Chart Reviewed, EMS run form Reviewed ED Review of Systems - Review of Systems General/Constitutional: Fever, No chills, No weight loss, Weakness, No diaphoresis, No edema, No loss of appetite Skin: Skin lesions, Rash, No bruising Head: No headache, No light-headedness Eyes: No loss of vision, No pain, No diplopia ENT: No earache, No nasal drainage, No sore throat, No tinnitus Neck: No neck pain, No swelling, No thyromegaly, No stiffness, No mass noted Cardio Vascular: No chest pain, No palpitations, No PND, No orthopnea, No edema Pulmonary: No SOB, No cough, No sputum, No wheezing GI: No nausea, No vomiting, No diarrhea, No pain, No melena, No hematochezia, No constipation, No hematemesis G/U: No dysuria, No frequency, No hematuria, No nacturia Cloud Developer: No vaginal discharge, No abnormal vaginal bleed, No contraction Musculoskeletal: No bone or joint pain, No back pain, No muscle pain Endocrine: No polyuria, No polydipsia Psychiatric: Prior psych history, No depression, Anxiety, No suicidal ideation, No homicidal ideation, No auditory hallucination, No visual hallucination Hematopoietic: No bruising, No lymphadenopathy Allergic/Immuno: No urticaria, No angioedema Neurological: No syncope, No focal symptoms, Weakness, No paresthesia, No headache, No seizure, No dizziness, Confusion, No vertigo ED Past Medical History - Past Medical History Obtainable: Yes Past Medical History: HTN, Dyslipidemia, Arthritis, Dementia Family History: HTN Social History: Non Smoker, No Alcohol, No Drug Use, , Care Facility Surgical History: None Psychiatricy History: Dementia Medication: Reviewed Family Medical History - Family Member Mother History Unknown: Yes Ethnicity: Non- Living Status: ED Physical Exam - Physical Examination General/Constitutional: Awake, Well-developed, well-nourished, Alert, No distress, GCS 15, Non-toxic appearing, Ambulatory Head: Atraumatic Eyes: Lids, conjuctiva normal, PERRL, EOMI Skin: Nl inspection, No rash, No skin lesions, No ecchymosis, Well hydrated, No lymphadenopathy Other Skin comments:: + Left Arm Cellulitis; good NV functions ENMT: External ears, nose nl, TM canals nl, Nasal exam nl, Lips, teeth, gums nl , Oropharynx nl, Tonsils nl Neck: Nontender, Full ROM w/o pain, No JVD, No nuchal rigidity, No bruit, No mass, No stridor Respiratory: Nl effort/Exclusion, Clear to Auscultation, No Wheeze/Rhonchi/Rales Cardio Vascular: RRR, No murmur, gallop, rubs, NL S1 S2, Carotid/Femoral/Distal pulses equal bilaterally GI: No tenderness/rebounding/guarding, No organomegaly, No hernia, Normal BS's, Nondistended, No mass/bruits, No McBurney tenderness Other GI comments:: no pulsatile masses : No CVA tenderness Extremities: No tenderness or effusion, Full ROM, normal strength in all extremities, No edema, Normal digits & nails Neuro/Psych: Alert/oriented, DTR's symmetric, Normal sensory exam, Normal motor strength, Judgement/insight normal, Mood normal, Normal gait, No focal deficits Misc: Normal back, No paraspinal tenderness ED Labs/Radiology/EKG Results - Lab Results Comments:: Reviewed - Radiology Results Comments:: NAD - EKG Interpretations Rate & Rhythm: NSR Comments:: non-specific st-t changes ED Septic Shock - . Is Septic Shock (SBP<90, OR Lactate>4 mmol\L) present?: No ED Reassessment (Disposition) - Reassessment Reassessment Condition:: Improved - Diagnosis Diagnosis:: Left Arm Cellulitis; Dehydration; Edema; Anemia - Aftercare/Follow up Instructions Aftercare/Follow-Up Instructions:: Counseled pt regarding lab results/diagnosis & need follow up, Counseled pt & family regarding lab results/diagnosis & need follow up - Patient Disposition Discharge/Transfer:: Acute Care w/in this hosp Accepting Physician:: Dr. Wells Time Called:: 99 Time Responded:: 01:00 Admitted to:: Telemetry Spoke to:: Dr. Wells Admitting Medical Physician:: Dr. Wells Condition at Disposition:: Stable, Improved
[2018-04-24 00:53] LABS: MONOCYTE ABSOLUTE 0.6 Th/cmm (0.3-1.0)
[2018-04-24 00:55] LABS: % LYMPHOCYTES 22.7 % (20.0-50.0); % MONOCYTES 7.7 % (2.0-10.0); % NEUTROPHILS 59.6 % (40.0-80.0); EOSINOPHILE ABSOLUTE 0.8 Th/cmm (0.1-0.4); HEMATOCRIT 27.4 % (41.0-60); HEMOGLOBIN 8.9 gm/dL (12-16); LYMPHOCYTE ABSOLUTE 1.9 Th/cmm (1.5-3.0); MEAN CORPUSCULAR HEMOGLOBIN 28.5 pg (27.0-31.0); MEAN CORPUSCULAR HGB CONC 32.4 pg (28.0-36.0); MEAN PLATELET VOLUME 7.9 fl; NEUTROPHILE ABSOLUTE 5.1 Th/cmm (1.8-8.0); PLATELET COUNT 353 Th/cmm (150-400); RED BLOOD COUNT 3.11 Mil/cmm (3.80-5.20); RED CELL DISTRIBUTION WIDTH 13.2 % (11.5-20.0); WHITE BLOOD COUNT 8.4 Th/cmm (4.8-10.8)
[2018-04-24 01:03] LABS: TROP I 0.02 ng/mL (0.01-0.05)
[2018-04-24 01:12] LABS: INR 0.92 (0.5-1.4); PROTHROMBIN TIME (TEST) 9.6 SECONDS (9.5-11.5)
[2018-04-24 01:30] LABS: ALB/GLOB RATIO 1.1 (1.0-1.8); ALBUMIN 3.2 gm/dL (3.7-5.3); ALKALINE PHOSPHATASE 71 U/L (34-104); BILIRUBIN,TOTAL 0.2 mg/dL (0.3-1.0); BUN - UREA NITROGEN 29 mg/dL (7-25); CALCIUM SERUM 9.7 mg/dL (8.6-10.3); CARBON DIOXIDE 26.4 mEq/L (21.0-31.0); CHLORIDE 105 mEq/L (98-107); CREATININE - SERUM 0.9 mg/dL (0.6-1.2); CREATININE KINASE 16 U/L (30-223); GLUCOSE 106 mg/dL (70-105); POTASSIUM SERUM 4.4 mEq/L (3.5-5.1); SGOT 13 U/L (13-39); SGPT/ALT 5 U/L (7-52); SODIUM SERUM 138 mEq/L (136-145); TOTAL PROTEIN,SERUM 6.2 gm/dL (6.0-8.3)
[2018-04-24 04:53] VITALS: BP 149/58
--- NOTE | 2018-04-24 07:58 | Diagnostic Imaging Report ---
Left forearm (2 views) HISTORY: Pain, swelling No acute bony abnormalities. No fractures. Soft tissue swelling along with a heterogeneous appearance. The findings should be correlated clinically. IMPRESSION: 1. No acute focal bony abnormalities 2. Soft tissue swelling with a heterogeneous appearance. Changes should be correlated clinically.
--- NOTE | 2018-04-24 07:59 | Diagnostic Imaging Report ---
Portable chest x-ray HISTORY: Pain There is a poor inspiration. The heart appears to be somewhat enlarged. Atherosclerotic calcification seen in the aorta. Extensive surgical changes noted about the right shoulder with virtual complete obliteration of the margins of the proximal right humerus. IMPRESSION: 1. No acute focal pulmonary processes 2. Cardiomegaly without discrete vascular changes 3. Extensive surgical changes about the right shoulder with obliteration of the proximal right humerus.
[2018-04-24] MEDS: Hydrocodone/APAP 10 mg/325 mg Tab PO SCH ×3 (10:16→21:07)
[2018-04-24] MEDS: Pantoprazole 40 mg EC Tab PO SCH ×2 (10:16→13:24)
[2018-04-24] MEDS: Potassium Chloride 10 mEq ER Tab PO SCH ×2 (10:17→13:25)
[2018-04-24] MEDS: cefTRIAXone 1 GM in Sodium Chloride 0.9% 50 ML IV SCH (21:06)
--- NOTE | 2018-04-24 21:11 | Consultation ---
DATE OF CONSULTATION: 04/24/2018 IDENTIFYING INFORMATION: The patient is an 87-year-old female. HISTORY OF PRESENT ILLNESS: The patient has a history of depression, anxiety. The patient was a poor historian. She was unable to tell me the date, where she is, why she is here. She was admitted because of infection in her left arm. The patient reports that she has been depressed. She has been having difficulty with sleep. Appetite is okay. She denies any auditory or visual hallucination or paranoia. Denies any intent to harm herself or anybody. She has been on Prozac, Risperdal, BuSpar. She denies any current use of drugs or alcohol. PAST PSYCHIATRIC HISTORY: The patient admits due to history of depression. She has been treated before. She denies prior suicide attempt. MEDICAL HISTORY: Deferred to the medical doctor. FAMILY HISTORY AND SOCIAL HISTORY: The patient reports that she is . She has 4 children, 2 boys and 2 girls, unable to tell me their age. Worked as a nurse in the [employer]. She reports she lives with her children. Denies family psychotic disorder. MENTAL STATUS EXAMINATION: She is unable to tell me her age, but she was able to tell me her date of , being 1930. Though she did tell me the name of the current plant operations vice president, does not know the date, where she is, why she is here. Her long-term memory is good for her date of , but not her age. Recent memory is poor, does not know why exactly she is here. She denies any auditory or visual hallucination. She admits to feeling depressed with decreased sleep. Appetite is okay. No auditory or visual hallucination or paranoia. Her insight about her illness is fair. She knows she has a problem. Judgment is a question because she is demented. 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 MEDICAL DIAGNOSES: As per medical doctor. PLAN: I would recommend to continue her medication. I am not sure the patient was taking medication, so I don't think I need to adjust it now. We will follow up the patient and adjust medication as needed. Thank you very much for allowing me to participate in the care of this most interesting lady. JOB# [id number]
--- NOTE | 2018-04-24 21:55 | History & Physical ---
ADMIT DATE: 04/24/2018 HISTORY OF PRESENT ILLNESS: The patient came because of the pain and swelling of the left arm erythema and the patient does not recall any trauma. The patient known to have a psych problem. The patient is at [facility] had been following the patient. The patient had no fever, no chills, no weight loss, no other problem. The patient is a poor historian. PAST MEDICAL HISTORY: History of hypertension, hyperlipidemia, arthritis and dementia. PHYSICAL EXAMINATION: GENERAL: The patient on examination well-nourished female. VITAL SIGNS: Noted and charted. HEAD: Normal. ENT: Normal. NECK: Supple and nontender. LUNGS: Clear. CARDIOVASCULAR SYSTEM: S1 and S2 heard. EXTREMITIES: Left upper extremity swelling ____ tenderness and slight erythema was noted. DIAGNOSTIC DATA: EKG showed nonspecific ST-T changes. DIAGNOSES: Cellulitis, left arm swelling, dehydration, rule out fracture, history of edema, history of anemia, history of hyperlipidemia, history of atherosclerotic heart disease, history of arthritis and history of psychosis. PLAN: The patient is being admitted and I will go ahead and give IV antibiotics. We will do blood tests and I will follow the patient. I will also have Arvin Davis as well as a psychiatrist see the patient. I will follow the patient. JOB# [id number]
[2018-04-25 05:35] LABS: HEMATOCRIT 21.3 % (41.0-60); MEAN CORPUSCULAR HEMOGLOBIN 29.1 pg (27.0-31.0); MEAN PLATELET VOLUME 7.4 fl; PLATELET COUNT 348 Th/cmm (150-400); RED BLOOD COUNT 2.42 Mil/cmm (3.80-5.20); RED CELL DISTRIBUTION WIDTH 13.1 % (11.5-20.0); WHITE BLOOD COUNT 5.1 Th/cmm (4.8-10.8)
[2018-04-25 05:52] LABS: ANION GAP 9.6 (7.0-16.0); BUN - UREA NITROGEN 34 mg/dL (7-25); CALCIUM SERUM 9.3 mg/dL (8.6-10.3); CARBON DIOXIDE 27.6 mEq/L (21.0-31.0); CHLORIDE 107 mEq/L (98-107); GLUCOSE 100 mg/dL (70-105); POTASSIUM SERUM 4.2 mEq/L (3.5-5.1); SODIUM SERUM 140 mEq/L (136-145)
[2018-04-25] MEDS: Levothyroxine 0.075 Mg Tab PO SCH (06:38)
[2018-04-25 07:31] LABS: BAND NEUTROPHILE 2 % (0-10); BASOPHIL 0 % (0-3); EOSINOPHIL 15 % (0-5); LYMPHOCYTE 29 % (20-50); MONOCYTE 9 % (2-10); NEUTROPHILS 45 % (40-80)
[2018-04-25 07:32] LABS: HYPOCHROMIA 1+
--- NOTE | 2018-04-25 09:03 | Consultation ---
Consult Note - Consult Note Service Date: 04/25/18 Referring Physician: Norma Wells Consult Note: PHYSICIAN Consultation Note: Date of Admission: 04/24/18 Purpose of Consultation: Left forearm cellulitis. Chief Complaint: Patient RUPALI METZ was admitted to location Medical/ Surgical Unit I with CELLULITIS AND SWELLING OF LEFT FOREARM. History of Present Illness: 87-year-old femalw developed swelling and erythema of the left arm over last 3 days, so was brought to the ER for further evaluation and management. On initial evaluation, her temperature was 97.2 F and WBC count was 8,200. Antibiotic lafleur, Rocephin was started. ID consult was called for antibiotic management. There is no report of trauma, H/As, S/T, neck pain, C/P, SOB, Abd. Pain, A/N/V/D/C, fever, chills, or urinary s/s; pt's last tetanus shot: < 5 years; UTD Past Medical History: Allergies Allergy/AdvReac Type Severity Reaction Status Date / Time ibuprofen Allergy Verified 09/30/17 21:50 iodine Allergy Verified 09/30/17 21:50 Vital Signs Temp 97.9 F 04/25/18 04:00 Pulse 56 04/25/18 04:00 Resp 17 04/25/18 04:00 BP 136/46 04/25/18 04:00 Pulse Ox 97 04/25/18 04:00 Intake & Output 04/24/18 04/25/18 04/25/18 18:59 06:59 18:59 Intake Total 750 50 Balance 750 50 Weight (lbs) 59.421 kg 60.237 kg Intake: Intake, IV Amount 50 cefTRIAXone 1 gm In 50 Sodium Chloride 0.9% 50 ml @ 100 mls/hr IV Q24HR [facility] Rx#:[id number] Oral 750 Other: # Voids 3 2 # Bowel Movements 1 Weight Source Bedscale Bedscale Laboratory Results - last 24 hr 04/25/18 04/25/18 05:00 05:00 WBC 5.1 RBC 2.42 L Hgb 7.0 L* Hct 21.3 L MCV 88.0 MCH 29.1 MCHC Differential 33.0 RDW 13.1 Plt Count 348 MPV 7.4 Add Manual Diff YES Band Neutrophils % 2 Neutrophils (Manual) 45 Lymphocytes 29 Monocytes 9 Eosinophils 15 H Basophils 0 Hypochromia 1+ Sodium 140 Potassium 4.2 Chloride 107 Carbon Dioxide 27.6 Anion Gap 9.6 BUN 34 H Creatinine 1.0 Est GFR ( Amer) TNP Est GFR (Non-Af Amer) TNP BUN/Creatinine Ratio 34.0 Glucose 100 Calcium 9.3 Home Medication Medication Instructions Recorded Type Docusate Sodium [Colace] 250 mg PO DAILY sgl 10/13/17 Rx FLUoxetine HCL [Prozac*] 40 mg PO DAILY cap 10/13/17 Rx Folic Acid [Folate*] 1 mg PO DAILY tab 10/13/17 Rx Gabapentin [Neurontin*] 300 mg PO TID cap 10/13/17 Rx Levothyroxine [Synthroid] 0.075 mg PO QDAC tab 10/13/17 Rx Pantoprazole [Protonix] 40 mg PO DAILY ect 10/13/17 Rx Valsartan [Diovan] 160 mg PO BID tab 10/13/17 Rx busPIRone [Buspar] 7.5 mg PO BID tab 10/13/17 Rx cloNIDine HCl [Catapres] 0.2 mg PO DAILY tab 10/13/17 Rx Lorazepam [Ativan] 0.5 mg PO Q4HR PRN tab 10/31/17 Rx Zolpidem Tartrate [Ambien] 5 mg PO HS PRN tab 10/31/17 Rx Hydralazine [Apresoline*] 25 mg PO TID 11/09/17 History Potassium Chloride [Klor-Con 10] 1 tab PO DAILY 11/09/17 History Acetaminophen [Tylenol] 650 mg PO Q4H PRN 04/23/18 History Hydrocodone/APAP 10 mg/325 mg 1 tab PO TID 04/23/18 History [Jackson 10 mg/325 mg] risperiDONE [RisperDAL] 0.5 mg PO BID 04/23/18 History Current Medications Generic Name Dose Route Start Last Admin Trade Name Freq PRN Reason Stop Dose Admin Acetaminophen 650 mg 04/24/18 08:02 Tylenol PO 06/23/18 08:01 Q4H PRN Pain or Fever >101 Acetaminophen/Hydrocodone Bitart 1 tab 04/24/18 09:00 04/24/18 21:07 Jackson 10 Mg/325 Mg PO 06/23/18 08:59 1 tab TID ADELINE Administration Buspirone HCl 7.5 mg 04/24/18 09:00 04/24/18 18:42 Buspar PO 06/23/18 08:59 7.5 mg BID ADELINE Administration Protocol Docusate Sodium 250 mg 04/24/18 09:00 04/24/18 13:25 Colace PO 06/23/18 08:59 250 mg DAILY ADELINE Administration Fluoxetine HCl 40 mg 04/24/18 09:00 04/24/18 13:24 Prozac PO 06/23/18 08:59 40 mg DAILY ADELINE Administration Protocol Folic Acid 1 mg 04/24/18 09:00 04/24/18 13:24 Folate PO 06/23/18 08:59 1 mg DAILY ADELINE Administration Gabapentin 300 mg 04/24/18 09:00 04/24/18 21:07 Neurontin PO 06/23/18 08:59 300 mg TID ADELINE Administration Hydralazine HCl 25 mg 04/24/18 09:00 04/24/18 21:13 Apresoline PO 06/23/18 08:59 25 mg TID ADELINE Administration Ceftriaxone Sodium 1 gm/ 50 mls @ 100 mls/hr 04/24/18 21:00 04/24/18 21:36 Sodium Chloride IV 06/23/18 20:59 Infused Q24HR ADELINE Infusion Levothyroxine Sodium 0.075 mg 04/25/18 07:30 04/25/18 06:38 Synthroid PO 06/24/18 07:29 0.075 mg QDAC ADELINE Administration Lorazepam 0.5 mg 04/24/18 08:02 Ativan PO 06/23/18 08:01 Q4HR PRN Anxiety Protocol Pantoprazole Sodium 40 mg 04/24/18 09:00 04/24/18 13:24 Protonix PO 06/23/18 08:59 40 mg DAILY ADELINE Administration Potassium Chloride 10 meq 04/24/18 09:00 04/24/18 13:25 Klor-Con PO 06/23/18 08:59 10 meq DAILY ADELINE Administration Risperidone 0.5 mg 04/24/18 09:00 04/24/18 18:43 Risperdal PO 06/23/18 08:59 0.5 mg BID ADELINE Administration Protocol Valsartan 160 mg 04/24/18 09:00 04/24/18 18:48 Diovan PO 06/23/18 08:59 Not Given BID ADELINE Zolpidem Tartrate 5 mg 04/24/18 08:02 Ambien PO 06/23/18 08:01 HS PRN Insomnia Review of Systems: A 12 point ROS was reviewed with the pertinent positive and negatives noted in the HPI. General/Constitutional: No Fever, No chills, No weight loss, Weakness, No diaphoresis, No edema, No loss of appetite Skin: Skin lesions, Rash, No bruising Head: No headache, No light-headedness Eyes: No loss of vision, No pain, No diplopia ENT: No earache, No nasal drainage, No sore throat, No tinnitus Neck: No neck pain, No swelling, No thyromegaly, No stiffness, No mass noted Cardio Vascular: No chest pain, No palpitations, No PND, No orthopnea, No edema Pulmonary: No SOB, No cough, No sputum, No wheezing GI: No nausea, No vomiting, No diarrhea, No pain, No melena, No hematochezia, No constipation, No hematemesis G/U: No dysuria, No frequency, No hematuria, No nacturia Planer Chain Offbearer: No vaginal discharge, No abnormal vaginal bleed, No contraction Musculoskeletal: No bone or joint pain, No back pain, No muscle pain Endocrine: No polyuria, No polydipsia Psychiatric: Prior psych history, No depression, Anxiety, No suicidal ideation, No homicidal ideation, No auditory hallucination, No visual hallucination Hematopoietic: No bruising, No lymphadenopathy Allergic/Immuno: No urticaria, No angioedema Neurological: No syncope, No focal symptoms, Weakness, No paresthesia, No headache, No seizure, No dizziness, Confusion, No vertigo. Social History Smoking Status Never smoker Family Medical History Non-contributory. Physical Exam: General: Comfortable, not in any distress. HEENT: HEAD: NC NT. Oral Cavity: moist, pink tongue. EYES: No pallor. No icterus. Pupil PERRLA. EOMI. Neck: Supple, no JVD, no carotid bruit. Cardio: S1 and S2 WNL. No murmur. Respiratory: CTAP Abdominal: Soft NT ND BS present. Genital/Urinary: Extremities: NCCE Left upper extremity: Upper one 3rd of left forearm is swollen and erythematous distal to the elbow posterioirlyCellulitis; good NV functions. Neurological: AAOX 3 Skin: Nl inspection, No rash, No skin lesions, No ecchymosis, Well hydrated, No lymphadenopathy. Assessment: 1. Left forearm cellulitis. 2. HTN. 3. Dyslipidemia. 4. Arthritis. 5. Dementia Plan: Continue rocephin. Thank you, Dr Wells for involving me in taking care of this patient. Signed, Arvin Davis M.D. 04/25/[id number]
[2018-04-25] MEDS: Hydrocodone/APAP 10 mg/325 mg Tab PO SCH ×3 (10:24→21:28)
[2018-04-25] MEDS: Potassium Chloride 10 mEq ER Tab PO SCH (10:24)
[2018-04-25] MEDS: Pantoprazole 40 mg EC Tab PO SCH (10:24)
--- NOTE | 2018-04-25 13:17 | Diagnostic Imaging Report ---
Left upper extent a Doppler arterial ultrasound exam HISTORY: Pain, swelling Sonographic sector images were obtained through the arterial system of the left arm. Associated Doppler data was obtained. There is patency of the left subclavian, axillary, brachial, radial, and ulnar arteries. The exam demonstrates mild to moderate multifocal atherosclerotic plaque throughout the arterial system. No significant narrowing or stenosis. IMPRESSION: 1. Mild to moderate multifocal atherosclerotic changes. No kori occlusion..
--- NOTE | 2018-04-25 13:41 | Diagnostic Imaging Report ---
CT scan abdomen and pelvis without intravenous contrast HISTORY: Pain Total DLP equals 517 CTDI equals 10.5 Axial sections were obtained from the xiphoid process down to the pubic symphysis. The exam of the liver demonstrates an approximate 1.5 similar hypodense focus within the posterior segment of the right lobe. Density measurements are consistent with an incidental cyst. No other definite focal lesions. Spleen appears normal. Poor delineation of the gastric wall due to motion artifact. There is a small hiatal hernia. Suboptimal delineation of the pancreatic head. Questionable prominence of the common bile duct. An ultrasound exam would provide additional assessment. The exam of the right kidney demonstrates multiple cysts. Several subcentimeter hyperdense foci are noted within the kidney that may represent hemorrhagic cysts. No hydronephrosis. Multiple cysts noted along the cortex the left kidney. Again several subcentimeter hyperdense foci that may be associated with hemorrhagic cysts are seen. There is severe diffuse atherosclerotic vascular calcification throughout the abdominal aorta and major branches. Narrowing of the aortic lumen at the level of the renal vasculature. Extensive calcification extends to the iliac artery area. Exam of the pelvis is compromised due to artifact associated with the left hip arthroplasty. There is a markedly distended stool-filled rectum. Findings consistent with changes of fecal impaction. Severe degenerative changes noted throughout the spine along with compression involving the bodies of L1 and L2. Calcifications noted within the subcutaneous tissues of the gluteal regions. Findings may be related to old trauma or prior injections. IMPRESSION: 1. Limited exam due to patient motion artifact 2. Findings consistent with hepatic cysts 3. Poor delineation of the margins of the pancreatic head. Questionable prominence of the common bile duct. An ultrasound exam would provide further assessment if needed. 4. Multiple bilateral renal cysts including several hyperdense lesions bilaterally that may represent hemorrhagic cysts. 5. Severe diffuse calcified atherosclerotic changes throughout the aorta. Findings appear to be associated with rather marked narrowing of the aorta at the level of the renal vasculature. 6. Markedly distended stool-filled rectum consistent with a fecal impaction 7. Severe degenerative changes throughout the spine along with compression involving the bodies of L1-L2.
--- NOTE | 2018-04-25 14:05 | Diagnostic Imaging Report ---
Left upper extremity Doppler venous ultrasound exam HISTORY: Pain, swelling Sonographic sector images were obtained to the venous system of the left arm. Associated Doppler data was obtained. The exam demonstrates patency of the left internal jugular, subclavian, axillary, brachial, basilic, cephalic veins. No thrombus. Normal compressibility and augmentation responses. IMPRESSION: 1. Negative exam for thrombophlebitis
--- NOTE | 2018-04-25 14:34 | Consultation ---
DATE OF CONSULTATION: 04/25/2018 INPATIENT GASTROINTESTINAL CONSULTATION REFERRING PHYSICIAN: Dr. Wells. REASON FOR CONSULTATION: Anemia. HISTORY OF PRESENT ILLNESS: This is an 87-year-old female who came to the hospital with left arm cellulitis. The patient was found to be anemic and therefore they asked us to see the patient. The patient denies having any nausea, vomiting, diarrhea, constipation, melena, hematochezia, hematemesis, or coffee-ground emesis. She states that she has some mild upper abdominal discomfort, somewhat of a limited historian. PAST MEDICAL HISTORY: Hypertension, hyperlipidemia, arthritis, dementia. PAST SURGICAL HISTORY: Abdominal surgery, but cannot be more specific. ALLERGIES: IBUPROFEN AND IODINE. CURRENT MEDICATIONS: Tylenol, Nocona, BuSpar, ceftriaxone, Colace, Prozac, folic acid, Neurontin, Apresoline, Synthroid, Ativan, Protonix, risperdal, Diovan, Ambien. REVIEW OF SYSTEMS: Notable for the left arm cellulitis. Other systems were otherwise negative. PHYSICAL EXAMINATION: VITAL SIGNS: Temperature 97.9, breathing 17, pulse of 56, blood pressure 136/46, satting 97%. GENERAL: In no apparent distress. EYES: Anicteric. Normal conjunctivae. HEENT: Normocephalic, atraumatic. Moist mucous membranes. NECK: Soft, supple. CHEST: Clear. No effort. CARDIOVASCULAR: Regular rate and rhythm. ABDOMEN: Soft, nondistended, mildly tender upper abdomen. No rebound. No guarding. SKIN: Warm and dry. EXTREMITIES: Reveal no cyanosis. PSYCHOLOGIC: Alert and oriented x 3. LABORATORY DATA: Showed T-bili 0.2, AST 13, ALT 5, alkaline phosphatase 71. Creatinine 0.9. INR 0.92. White count 5.1, hemoglobin 7, MCV of 88, platelets of 348. IMPRESSION: An 87-year-old female with a normocytic anemia, cause could be multifactorial. No overt GI bleeding at this time. Consideration could be from GI blood loss. Stool OB should be checked. If stool OB is positive for any additional findings suggesting upper gastrointestinal bleed. Endoscopic evaluation will be needed given her advanced age and comorbidities, conservative approach would also be reasonable starting with imaging studies. PLAN: 1. CT abdomen and pelvis. 2. Follow H and H and transfuse as needed. 3. Continue Protonix. 4. Check CT abdomen and pelvis and a lipase level. Thank you for allowing me to participate. Please call me if any questions. JOB# [id number]
--- NOTE | 2018-04-25 21:25 | Progress Notes ---
DATE: 04/25/2018 Case was discussed with staff of the patient, reviewed records. The patient continues to be confused, unable to tell me her age, where she is, why she is here. Continues to be unable to make safe plan for self-care. Continues to have poor insight. She has been compliant with the medication with no side effects. She denies any current intent to harm himself or anybody. However, if she started getting agitated, she could always go to [facility]. Thank you very much for allowing me to participate in the care of this most interesting lady. JOB# [id number]
[2018-04-25] MEDS: cefTRIAXone 1 GM in Sodium Chloride 0.9% 50 ML IV SCH (21:29)
[2018-04-26 06:37] LABS: HEMATOCRIT 33.2 % (41.0-60); HEMOGLOBIN 11.1 gm/dL (12-16); MEAN CORPUSCULAR HEMOGLOBIN 29.4 pg (27.0-31.0); MEAN CORPUSCULAR HGB CONC 33.4 pg (28.0-36.0); MEAN PLATELET VOLUME 7.2 fl; PLATELET COUNT 323 Th/cmm (150-400); RED BLOOD COUNT 3.77 Mil/cmm (3.80-5.20); WHITE BLOOD COUNT 7.8 Th/cmm (4.8-10.8)
[2018-04-26 06:53] LABS: ALB/GLOB RATIO 0.9 (1.0-1.8); ALBUMIN 3.1 gm/dL (3.7-5.3); ALKALINE PHOSPHATASE 65 U/L (34-104); ANION GAP 10.6 (7.0-16.0); BILIRUBIN,TOTAL 0.5 mg/dL (0.3-1.0); BUN - UREA NITROGEN 27 mg/dL (7-25); CALCIUM SERUM 9.7 mg/dL (8.6-10.3); CARBON DIOXIDE 25.2 mEq/L (21.0-31.0); CHLORIDE 106 mEq/L (98-107); CREATININE - SERUM 0.7 mg/dL (0.6-1.2); GLUCOSE 101 mg/dL (70-105); POTASSIUM SERUM 3.8 mEq/L (3.5-5.1); SGOT 18 U/L (13-39); SGPT/ALT 8 U/L (7-52); SODIUM SERUM 138 mEq/L (136-145); TOTAL PROTEIN,SERUM 6.7 gm/dL (6.0-8.3)
[2018-04-26] MEDS: Levothyroxine 0.075 Mg Tab PO SCH (07:02)
[2018-04-26 07:58] LABS: BAND NEUTROPHILE 1 % (0-10); EOSINOPHIL 12 % (0-5); LYMPHOCYTE 7 % (20-50); MONOCYTE 7 % (2-10); NEUTROPHILS 73 % (40-80)
[2018-04-26 07:59] LABS: PLATELET ESTIMATE ADEQUATE (NORMAL)
[2018-04-26] MEDS: Hydrocodone/APAP 10 mg/325 mg Tab PO SCH ×3 (10:38→21:09)
[2018-04-26] MEDS: Pantoprazole 40 mg EC Tab PO SCH (10:39)
[2018-04-26] MEDS: Potassium Chloride 10 mEq ER Tab PO SCH (10:50)
[2018-04-26] MEDS: Lactulose 10 Gm/15 mL 30mL UDC PO SCH (18:10)
--- NOTE | 2018-04-26 18:49 | Infectious Disease Prog Note ---
Infectious Disease Subjective - Review of Systems Service Date: 04/26/18 Subjective: There is no new change, no fever. Infectious Disease Objective - Results Result Diagrams: 04/26/18 05:55 04/26/18 05:55 Recent Labs: Laboratory Last Values WBC 7.8 Th/cmm (4.8-10.8) 04/26/18 05:55 RBC 3.77 Mil/cmm (3.80-5.20) L 04/26/18 05:55 Hgb 11.1 gm/dL (12-16) L 04/26/18 05:55 Hct 33.2 % (41.0-60) L 04/26/18 05:55 MCV 88.0 fl (81-100) 04/26/18 05:55 MCH 29.4 pg (27.0-31.0) 04/26/18 05:55 MCHC Differential 33.4 pg (28.0-36.0) 04/26/18 05:55 RDW 13.0 % (11.5-20.0) 04/26/18 05:55 Plt Count 323 Th/cmm (150-400) 04/26/18 05:55 MPV 7.2 fl 04/26/18 05:55 Add Manual Diff YES 04/26/18 05:55 Neutrophils % 59.6 % (40.0-80.0) 04/23/18 00:30 Band Neutrophils % 1 % (0-10) 04/26/18 05:55 Lymphocytes % 22.7 % (20.0-50.0) 04/23/18 00:30 Monocytes % 7.7 % (2.0-10.0) 04/23/18 00:30 Eosinophils % 10.0 % (0.0-5.0) H 04/23/18 00:30 Basophils % 0.0 % (0.0-2.0) 04/23/18 00:30 Neutrophils (Manual) 73 % (40-80) 04/26/18 05:55 Lymphocytes 7 % (20-50) L 04/26/18 05:55 Monocytes 7 % (2-10) 04/26/18 05:55 Eosinophils 12 % (0-5) H 04/26/18 05:55 Basophils 0 % (0-3) 04/25/18 05:00 Hypochromia 1+ 04/25/18 05:00 Platelet Estimate ADEQUATE (NORMAL) 04/26/18 05:55 PT 9.6 SECONDS (9.5-11.5) 04/23/18 00:30 INR 0.92 (0.5-1.4) 04/23/18 00:30 PTT (Actin FS) 20.7 SECONDS (26.0-38.0) L 04/23/18 00:30 Sodium 138 mEq/L (136-145) 04/26/18 05:55 Potassium 3.8 mEq/L (3.5-5.1) 04/26/18 05:55 Chloride 106 mEq/L (98-107) 04/26/18 05:55 Carbon Dioxide 25.2 mEq/L (21.0-31.0) 04/26/18 05:55 Anion Gap 10.6 (7.0-16.0) 04/26/18 05:55 BUN 27 mg/dL (7-25) H 04/26/18 05:55 Creatinine 0.7 mg/dL (0.6-1.2) 04/26/18 05:55 Est GFR ( Amer) TNP 04/26/18 05:55 Est GFR (Non-Af Amer) TNP 04/26/18 05:55 BUN/Creatinine Ratio 38.6 04/26/18 05:55 Glucose 101 mg/dL (70-105) 04/26/18 05:55 Whole Bld Lactic Acid 1.51 mmol/L (0.60-1.99) 04/25/18 09:24 Calcium 9.7 mg/dL (8.6-10.3) 04/26/18 05:55 Total Bilirubin 0.5 mg/dL (0.3-1.0) 04/26/18 05:55 AST 18 U/L (13-39) 04/26/18 05:55 ALT 8 U/L (7-52) 04/26/18 05:55 Alkaline Phosphatase 65 U/L (34-104) 04/26/18 05:55 Creatine Kinase 16 U/L (30-223) L 04/23/18 00:30 Troponin I 0.02 ng/mL (0.01-0.05) 04/23/18 00:30 Total Protein 6.7 gm/dL (6.0-8.3) 04/26/18 05:55 Albumin 3.1 gm/dL (3.7-5.3) L 04/26/18 05:55 Globulin 3.6 gm/dL 04/26/18 05:55 Albumin/Globulin Ratio 0.9 (1.0-1.8) L 04/26/18 05:55 Lipase 19 U/L (11-82) 04/25/18 05:00 Blood Type O POSITIVE 04/25/18 08:30 Antibody Screen NEGATIVE 04/25/18 08:30 Crossmatch See Detail 04/25/18 08:30 - Physical Exam Vitals and I&O: Vital Signs Temp 98.8 F 04/26/18 16:16 Pulse 57 04/26/18 18:10 Resp 18 04/26/18 16:16 BP 96/49 04/26/18 18:10 Pulse Ox 100 04/26/18 16:16 Intake & Output 04/25/18 04/26/18 04/26/18 18:59 06:59 18:59 Intake Total 100 Balance 100 Weight (lbs) 59.874 kg 59.874 kg Intake: Oral 100 Other: Stool Characteristics Soft Weight Source Bedscale Bedscale Active Medications: Current Medications Acetaminophen (Tylenol) 650 mg PO Q4H PRN PRN Reason: Pain or Fever >101 Stop: 06/23/18 08:01 Acetaminophen/Hydrocodone Bitart ([place] 10 Mg/325 Mg) 1 tab PO TID [facility] Stop: 06/23/18 08:59 Last Admin: 04/26/18 15:44 Dose: 1 tab Buspirone HCl (Buspar) 7.5 mg PO BID [facility]; Protocol Stop: 06/23/18 08:59 Last Admin: 04/26/18 18:11 Dose: 7.5 mg Docusate Sodium (Colace) 250 mg PO DAILY [facility] Stop: 06/23/18 08:59 Last Admin: 04/26/18 10:37 Dose: 250 mg Fluoxetine HCl (Prozac) 40 mg PO DAILY [facility]; Protocol Stop: 06/23/18 08:59 Last Admin: 04/26/18 10:38 Dose: 40 mg Folic Acid (Folate) 1 mg PO DAILY [facility] Stop: 06/23/18 08:59 Last Admin: 04/26/18 10:38 Dose: 1 mg Gabapentin (Neurontin) 300 mg PO TID [facility] Stop: 06/23/18 08:59 Last Admin: 04/26/18 15:44 Dose: 300 mg Hydralazine HCl (Apresoline) 25 mg PO TID [facility] Stop: 06/23/18 08:59 Last Admin: 04/26/18 15:45 Dose: Not Given Hydralazine HCl (Apresoline 20 Mg/Ml) 10 mg IV Q4H PRN PRN Reason: BP>150/100 Stop: 06/24/18 22:00 Last Admin: 04/26/18 02:36 Dose: 10 mg Ceftriaxone Sodium 1 gm/ (Sodium Chloride) 50 mls @ 100 mls/hr IV Q24HR [facility] Stop: 06/23/18 20:59 Last Admin: 04/25/18 21:29 Dose: 100 mls/hr Lactulose (Cephulac) 15 gm PO BID [facility] Stop: 06/25/18 16:59 Last Admin: 04/26/18 18:10 Dose: 15 gm Levothyroxine Sodium (Synthroid) 0.075 mg PO QDAC [facility] Stop: 06/24/18 07:29 Last Admin: 04/26/18 07:02 Dose: 0.075 mg Lorazepam (Ativan) 0.5 mg PO Q4HR PRN; Protocol PRN Reason: Anxiety Stop: 06/23/18 08:01 Pantoprazole Sodium (Protonix) 40 mg PO DAILY [facility] Stop: 06/23/18 08:59 Last Admin: 04/26/18 10:39 Dose: 40 mg Potassium Chloride (Klor-Con) 10 meq PO DAILY [facility] Stop: 06/23/18 08:59 Last Admin: 04/26/18 10:50 Dose: 10 meq Risperidone (Risperdal) 0.5 mg PO BID [facility]; Protocol Stop: 06/23/18 08:59 Last Admin: 04/26/18 18:10 Dose: 0.5 mg Valsartan (Diovan) 160 mg PO BID [facility] Stop: 06/23/18 08:59 Last Admin: 04/26/18 18:10 Dose: Not Given Zolpidem Tartrate (Ambien) 5 mg PO HS PRN PRN Reason: Insomnia Stop: 06/23/18 08:01 General: no acute distress, well developed, well nourished HEENT: atraumatic, normocephalic, PERRLA Neck: supple, no thyromegaly Cardiovascular: S1S2, regular Lungs: clear to auscultation bilaterally, clear to percussion Abdomen: soft, no tender, no distended Extremities: no cyanosis, no clubbing, no edema Neurological: awake, alert, oriented Skin: intact - Procedures Procedures: Procedures Procedure Code Date EXCISION OF ASCENDING COLON, ENDO [id number] 09/30/17 EXCISION OF DESCENDING COLON, ENDO [id number] 09/30/17 EXCISION OF DUODENUM, ENDO, DIAGN [id number] 09/30/17 EXCISION OF SIGMOID COLON, ENDO [id number] 09/30/17 EXCISION OF STOMACH, ENDO, DIAGN [id number] 09/30/17 INTAC GROUP PSYTX 98849 01/24/01 INTRODUCTION OF SERUM/TOX/VACCINE INTO MUSCLE, PERC APPROACH [id number] 11/09/17 OTHER GROUP THERAPY 94.44 01/24/01 TRANSFUSE NONAUT RED BLOOD CELLS IN PERIPH VEIN, PERC 63385F6 10/13/17 Infectious Disease Assmt/Plan - Assessment Assessment: 1. Left forearm cellulitis. 2. HTN. 3. Dyslipidemia. 4. Arthritis. 5. Dementia - Plan Plan: Continue rocephin.
--- NOTE | 2018-04-26 19:27 | Progress Notes ---
DATE: 04/26/2018 SUBJECTIVE: The patient was seen in her room. The patient is awake, but poor historian due to medical condition, otherwise the patient appears to be in no acute distress. OBJECTIVE: VITAL SIGNS: Temperature 97.8, blood pressure 187/76, heart rate of 56, respiration of 20 and 98% on room air. HEENT: Head is atraumatic and normocephalic. Eyes: Bilateral conjunctivae are clear. Bilateral pupils are equally round and reactive. NECK: Supple. No JVD. CARDIOVASCULAR: S1 and S2, without murmur. PULMONARY: Clear to auscultation. GASTROINTESTINAL: Soft and nontender without guarding. Positive bowel sounds. MUSCULOSKELETAL: No clubbing. No cyanosis noted. ASSESSMENT: 1. Left forearm cellulitis. 2. Dementia. 3. Osteoarthritis. 4. Hyperlipidemia. 5. Hypertension. PLAN: We will continue current treatment. We will follow up with the ID doctor and the psychiatrist for infection monitoring and for behavioral monitoring. Treatment plans were discussed with the patient's nurse. Treatment plans were discussed with Dr. Wells. JOB# [id number]
[2018-04-26] MEDS: cefTRIAXone 1 GM in Sodium Chloride 0.9% 50 ML IV SCH (21:09)
[2018-04-27 06:35] LABS: EOSINOPHILE ABSOLUTE 0.8 Th/cmm (0.1-0.4); HEMATOCRIT 30.7 % (41.0-60); HEMOGLOBIN 10.3 gm/dL (12-16); LYMPHOCYTE ABSOLUTE 0.9 Th/cmm (1.5-3.0); MEAN CELL VOLUME 87.6 fl (81-100); MEAN CORPUSCULAR HEMOGLOBIN 29.5 pg (27.0-31.0); MEAN CORPUSCULAR HGB CONC 33.7 pg (28.0-36.0); MEAN PLATELET VOLUME 7.3 fl; MONOCYTE ABSOLUTE 0.7 Th/cmm (0.3-1.0); PLATELET COUNT 264 Th/cmm (150-400); RED CELL DISTRIBUTION WIDTH 13.3 % (11.5-20.0); WHITE BLOOD COUNT 4.4 Th/cmm (4.8-10.8)
[2018-04-27] MEDS: Levothyroxine 0.075 Mg Tab PO SCH (06:38)
[2018-04-27 07:28] LABS: BAND NEUTROPHILE 1 % (0-10); EOSINOPHIL 8 % (0-5); LYMPHOCYTE 22 % (20-50); MONOCYTE 15 % (2-10); NEUTROPHILS 44 % (40-80); PLATELET ESTIMATE ADEQUATE (NORMAL)
[2018-04-27] MEDS: Hydrocodone/APAP 10 mg/325 mg Tab PO SCH ×3 (10:58→22:25)
[2018-04-27] MEDS: Pantoprazole 40 mg EC Tab PO SCH (10:59)
[2018-04-27] MEDS: Lactulose 10 Gm/15 mL 30mL UDC PO SCH ×2 (10:59→18:10)
[2018-04-27] MEDS: Potassium Chloride 10 mEq ER Tab PO SCH (11:00)
--- NOTE | 2018-04-27 12:30 | General Progress Note ---
Subjective - Review of Systems Events since last encounter: left arm cellulitis on antibiotics tolerating well Objective - Results Result Diagrams: 04/27/18 05:50 04/26/18 05:55 Recent Labs: Laboratory Last Values WBC 4.4 Th/cmm (4.8-10.8) L D 04/27/18 05:50 RBC 3.50 Mil/cmm (3.80-5.20) L 04/27/18 05:50 Hgb 10.3 gm/dL (12-16) L 04/27/18 05:50 Hct 30.7 % (41.0-60) L 04/27/18 05:50 MCV 87.6 fl (81-100) 04/27/18 05:50 MCH 29.5 pg (27.0-31.0) 04/27/18 05:50 MCHC Differential 33.7 pg (28.0-36.0) 04/27/18 05:50 RDW 13.3 % (11.5-20.0) 04/27/18 05:50 Plt Count 264 Th/cmm (150-400) 04/27/18 05:50 MPV 7.3 fl 04/27/18 05:50 Add Manual Diff YES 04/27/18 05:50 Neutrophils % 59.6 % (40.0-80.0) 04/23/18 00:30 Band Neutrophils % 1 % (0-10) 04/27/18 05:50 Lymphocytes % 22.7 % (20.0-50.0) 04/23/18 00:30 Monocytes % 7.7 % (2.0-10.0) 04/23/18 00:30 Eosinophils % 10.0 % (0.0-5.0) H 04/23/18 00:30 Basophils % 0.0 % (0.0-2.0) 04/23/18 00:30 Neutrophils (Manual) 44 % (40-80) 04/27/18 05:50 Lymphocytes 22 % (20-50) 04/27/18 05:50 Monocytes 15 % (2-10) H 04/27/18 05:50 Eosinophils 8 % (0-5) H 04/27/18 05:50 Basophils 0 % (0-3) 04/25/18 05:00 Hypochromia 1+ 04/25/18 05:00 Platelet Estimate ADEQUATE (NORMAL) 04/27/18 05:50 PT 9.6 SECONDS (9.5-11.5) 04/23/18 00:30 INR 0.92 (0.5-1.4) 04/23/18 00:30 PTT (Actin FS) 20.7 SECONDS (26.0-38.0) L 04/23/18 00:30 Sodium 138 mEq/L (136-145) 04/26/18 05:55 Potassium 3.8 mEq/L (3.5-5.1) 04/26/18 05:55 Chloride 106 mEq/L (98-107) 04/26/18 05:55 Carbon Dioxide 25.2 mEq/L (21.0-31.0) 04/26/18 05:55 Anion Gap 10.6 (7.0-16.0) 04/26/18 05:55 BUN 27 mg/dL (7-25) H 04/26/18 05:55 Creatinine 0.7 mg/dL (0.6-1.2) 04/26/18 05:55 Est GFR ( Amer) TNP 04/26/18 05:55 Est GFR (Non-Af Amer) TNP 04/26/18 05:55 BUN/Creatinine Ratio 38.6 04/26/18 05:55 Glucose 101 mg/dL (70-105) 04/26/18 05:55 Whole Bld Lactic Acid 1.51 mmol/L (0.60-1.99) 04/25/18 09:24 Calcium 9.7 mg/dL (8.6-10.3) 04/26/18 05:55 Total Bilirubin 0.5 mg/dL (0.3-1.0) 04/26/18 05:55 AST 18 U/L (13-39) 04/26/18 05:55 ALT 8 U/L (7-52) 04/26/18 05:55 Alkaline Phosphatase 65 U/L (34-104) 04/26/18 05:55 Creatine Kinase 16 U/L (30-223) L 04/23/18 00:30 Troponin I 0.02 ng/mL (0.01-0.05) 04/23/18 00:30 Total Protein 6.7 gm/dL (6.0-8.3) 04/26/18 05:55 Albumin 3.1 gm/dL (3.7-5.3) L 04/26/18 05:55 Globulin 3.6 gm/dL 04/26/18 05:55 Albumin/Globulin Ratio 0.9 (1.0-1.8) L 04/26/18 05:55 Lipase 19 U/L (11-82) 04/25/18 05:00 Blood Type O POSITIVE 04/25/18 08:30 Antibody Screen NEGATIVE 04/25/18 08:30 Crossmatch See Detail 04/25/18 08:30 - Physical Exam Vitals and I&O: Vital Signs Temp 98.0 F 04/27/18 08:07 Pulse 62 04/27/18 11:00 Resp 18 04/27/18 08:07 BP 162/67 04/27/18 11:00 Pulse Ox 95 04/27/18 08:07 Intake & Output 04/26/18 04/27/18 04/27/18 18:59 06:59 18:59 Intake Total 950 600 Balance 950 600 Weight (lbs) 59.874 kg 59.874 kg Intake: Oral 950 600 Other: # Voids 4 4 Weight Source Bedscale Bedscale Active Medications: Current Medications Acetaminophen (Tylenol) 650 mg PO Q4H PRN PRN Reason: Pain or Fever >101 Stop: 06/23/18 08:01 Acetaminophen/Hydrocodone Bitart ([place] 10 Mg/325 Mg) 1 tab PO TID [facility] Stop: 06/23/18 08:59 Last Admin: 04/27/18 10:58 Dose: 1 tab Bisacodyl (Dulcolax 5 Mg Ec Tab) 20 mg PO X1 ONE Stop: 04/27/18 14:01 Buspirone HCl (Buspar) 7.5 mg PO BID [facility]; Protocol Stop: 06/23/18 08:59 Last Admin: 04/27/18 10:55 Dose: 7.5 mg Docusate Sodium (Colace) 250 mg PO DAILY [facility] Stop: 06/23/18 08:59 Last Admin: 04/27/18 10:57 Dose: 250 mg Fluoxetine HCl (Prozac) 40 mg PO DAILY [facility]; Protocol Stop: 06/23/18 08:59 Last Admin: 04/27/18 10:57 Dose: 40 mg Folic Acid (Folate) 1 mg PO DAILY [facility] Stop: 06/23/18 08:59 Last Admin: 04/27/18 10:57 Dose: 1 mg Gabapentin (Neurontin) 300 mg PO TID [facility] Stop: 06/23/18 08:59 Last Admin: 04/27/18 10:57 Dose: 300 mg Hydralazine HCl (Apresoline) 25 mg PO TID [facility] Stop: 06/23/18 08:59 Last Admin: 04/27/18 10:59 Dose: 25 mg Hydralazine HCl (Apresoline 20 Mg/Ml) 10 mg IV Q4H PRN PRN Reason: BP>150/100 Stop: 06/24/18 22:00 Last Admin: 04/26/18 02:36 Dose: 10 mg Ceftriaxone Sodium 1 gm/ (Sodium Chloride) 50 mls @ 100 mls/hr IV Q24HR [facility] Stop: 06/23/18 20:59 Last Admin: 04/26/18 21:09 Dose: 100 mls/hr Lactulose (Cephulac) 15 gm PO BID [facility] Stop: 06/25/18 16:59 Last Admin: 04/27/18 10:59 Dose: 15 gm Levothyroxine Sodium (Synthroid) 0.075 mg PO QDAC [facility] Stop: 06/24/18 07:29 Last Admin: 04/27/18 06:38 Dose: 0.075 mg Lorazepam (Ativan) 0.5 mg PO Q4HR PRN; Protocol PRN Reason: Anxiety Stop: 06/23/18 08:01 Mineral Oil (Mineral Oil 30 Ml) 30 ml PO X1 ONE Stop: 04/27/18 13:01 Pantoprazole Sodium (Protonix) 40 mg PO DAILY [facility] Stop: 06/23/18 08:59 Last Admin: 04/27/18 10:59 Dose: 40 mg Potassium Chloride (Klor-Con) 10 meq PO DAILY [facility] Stop: 06/23/18 08:59 Last Admin: 04/27/18 11:00 Dose: 10 meq Risperidone (Risperdal) 0.5 mg PO BID [facility]; Protocol Stop: 06/23/18 08:59 Last Admin: 04/27/18 11:00 Dose: 0.5 mg Valsartan (Diovan) 160 mg PO BID [facility] Stop: 06/23/18 08:59 Last Admin: 04/27/18 11:00 Dose: 160 mg Zolpidem Tartrate (Ambien) 5 mg PO HS PRN PRN Reason: Insomnia Stop: 06/23/18 08:01 - Procedures Procedures: Procedures Procedure Code Date EXCISION OF ASCENDING COLON, ENDO [id number] 09/30/17 EXCISION OF DESCENDING COLON, ENDO [id number] 09/30/17 EXCISION OF DUODENUM, ENDO, DIAGN [id number] 09/30/17 EXCISION OF SIGMOID COLON, ENDO [id number] 09/30/17 EXCISION OF STOMACH, ENDO, DIAGN [id number] 09/30/17 INTAC GROUP PSYTX [id number] 01/24/01 INTRODUCTION OF SERUM/TOX/VACCINE INTO MUSCLE, PERC APPROACH [id number] 11/09/17 OTHER GROUP THERAPY 94.44 01/24/01 TRANSFUSE NONAUT RED BLOOD CELLS IN PERIPH VEIN, PERC [id number] 10/13/17
--- NOTE | 2018-04-27 19:34 | Infectious Disease Prog Note ---
Infectious Disease Subjective - Review of Systems Service Date: 04/27/18 Subjective: There is no new change, no fever. Infectious Disease Objective - Results Result Diagrams: 04/27/18 05:50 04/26/18 05:55 Recent Labs: Laboratory Last Values WBC 4.4 Th/cmm (4.8-10.8) L D 04/27/18 05:50 RBC 3.50 Mil/cmm (3.80-5.20) L 04/27/18 05:50 Hgb 10.3 gm/dL (12-16) L 04/27/18 05:50 Hct 30.7 % (41.0-60) L 04/27/18 05:50 MCV 87.6 fl (81-100) 04/27/18 05:50 MCH 29.5 pg (27.0-31.0) 04/27/18 05:50 MCHC Differential 33.7 pg (28.0-36.0) 04/27/18 05:50 RDW 13.3 % (11.5-20.0) 04/27/18 05:50 Plt Count 264 Th/cmm (150-400) 04/27/18 05:50 MPV 7.3 fl 04/27/18 05:50 Add Manual Diff YES 04/27/18 05:50 Neutrophils % 59.6 % (40.0-80.0) 04/23/18 00:30 Band Neutrophils % 1 % (0-10) 04/27/18 05:50 Lymphocytes % 22.7 % (20.0-50.0) 04/23/18 00:30 Monocytes % 7.7 % (2.0-10.0) 04/23/18 00:30 Eosinophils % 10.0 % (0.0-5.0) H 04/23/18 00:30 Basophils % 0.0 % (0.0-2.0) 04/23/18 00:30 Neutrophils (Manual) 44 % (40-80) 04/27/18 05:50 Lymphocytes 22 % (20-50) 04/27/18 05:50 Monocytes 15 % (2-10) H 04/27/18 05:50 Eosinophils 8 % (0-5) H 04/27/18 05:50 Basophils 0 % (0-3) 04/25/18 05:00 Hypochromia 1+ 04/25/18 05:00 Platelet Estimate ADEQUATE (NORMAL) 04/27/18 05:50 PT 9.6 SECONDS (9.5-11.5) 04/23/18 00:30 INR 0.92 (0.5-1.4) 04/23/18 00:30 PTT (Actin FS) 20.7 SECONDS (26.0-38.0) L 04/23/18 00:30 Sodium 138 mEq/L (136-145) 04/26/18 05:55 Potassium 3.8 mEq/L (3.5-5.1) 04/26/18 05:55 Chloride 106 mEq/L (98-107) 04/26/18 05:55 Carbon Dioxide 25.2 mEq/L (21.0-31.0) 04/26/18 05:55 Anion Gap 10.6 (7.0-16.0) 04/26/18 05:55 BUN 27 mg/dL (7-25) H 04/26/18 05:55 Creatinine 0.7 mg/dL (0.6-1.2) 04/26/18 05:55 Est GFR ( Amer) TNP 04/26/18 05:55 Est GFR (Non-Af Amer) TNP 04/26/18 05:55 BUN/Creatinine Ratio 38.6 04/26/18 05:55 Glucose 101 mg/dL (70-105) 04/26/18 05:55 Whole Bld Lactic Acid 1.51 mmol/L (0.60-1.99) 04/25/18 09:24 Calcium 9.7 mg/dL (8.6-10.3) 04/26/18 05:55 Total Bilirubin 0.5 mg/dL (0.3-1.0) 04/26/18 05:55 AST 18 U/L (13-39) 04/26/18 05:55 ALT 8 U/L (7-52) 04/26/18 05:55 Alkaline Phosphatase 65 U/L (34-104) 04/26/18 05:55 Creatine Kinase 16 U/L (30-223) L 04/23/18 00:30 Troponin I 0.02 ng/mL (0.01-0.05) 04/23/18 00:30 Total Protein 6.7 gm/dL (6.0-8.3) 04/26/18 05:55 Albumin 3.1 gm/dL (3.7-5.3) L 04/26/18 05:55 Globulin 3.6 gm/dL 04/26/18 05:55 Albumin/Globulin Ratio 0.9 (1.0-1.8) L 04/26/18 05:55 Lipase 19 U/L (11-82) 04/25/18 05:00 Blood Type O POSITIVE 04/25/18 08:30 Antibody Screen NEGATIVE 04/25/18 08:30 Crossmatch See Detail 04/25/18 08:30 - Physical Exam Vitals and I&O: Vital Signs Temp 98.2 F 04/27/18 16:00 Pulse 72 04/27/18 16:00 Resp 17 04/27/18 16:00 BP 150/60 04/27/18 16:00 Pulse Ox 97 04/27/18 16:00 Intake & Output 04/27/18 04/27/18 04/28/18 06:59 18:59 06:59 Intake Total 600 850 Balance 600 850 Weight (lbs) 59.874 kg 59.874 kg Intake: Oral 600 850 Other: # Voids 4 3 Weight Source Bedscale Bedscale Active Medications: Current Medications Acetaminophen (Tylenol) 650 mg PO Q4H PRN PRN Reason: Pain or Fever >101 Stop: 06/23/18 08:01 Acetaminophen/Hydrocodone Bitart ([place] 10 Mg/325 Mg) 1 tab PO TID [facility] Stop: 06/23/18 08:59 Last Admin: 04/27/18 14:14 Dose: 1 tab Buspirone HCl (Buspar) 7.5 mg PO BID [facility]; Protocol Stop: 06/23/18 08:59 Last Admin: 04/27/18 18:10 Dose: Not Given Docusate Sodium (Colace) 250 mg PO DAILY [facility] Stop: 06/23/18 08:59 Last Admin: 04/27/18 10:57 Dose: 250 mg Fluoxetine HCl (Prozac) 40 mg PO DAILY [facility]; Protocol Stop: 06/23/18 08:59 Last Admin: 04/27/18 10:57 Dose: 40 mg Folic Acid (Folate) 1 mg PO DAILY [facility] Stop: 06/23/18 08:59 Last Admin: 04/27/18 10:57 Dose: 1 mg Gabapentin (Neurontin) 300 mg PO TID [facility] Stop: 06/23/18 08:59 Last Admin: 04/27/18 15:47 Dose: 300 mg Hydralazine HCl (Apresoline) 25 mg PO TID [facility] Stop: 06/23/18 08:59 Last Admin: 04/27/18 14:25 Dose: Not Given Hydralazine HCl (Apresoline 20 Mg/Ml) 10 mg IV Q4H PRN PRN Reason: BP>150/100 Stop: 06/24/18 22:00 Last Admin: 04/26/18 02:36 Dose: 10 mg Ceftriaxone Sodium 1 gm/ (Sodium Chloride) 50 mls @ 100 mls/hr IV Q24HR [facility] Stop: 06/23/18 20:59 Last Admin: 04/26/18 21:09 Dose: 100 mls/hr Lactulose (Cephulac) 15 gm PO BID [facility] Stop: 06/25/18 16:59 Last Admin: 04/27/18 18:10 Dose: Not Given Levothyroxine Sodium (Synthroid) 0.075 mg PO QDAC [facility] Stop: 06/24/18 07:29 Last Admin: 04/27/18 06:38 Dose: 0.075 mg Lorazepam (Ativan) 0.5 mg PO Q4HR PRN; Protocol PRN Reason: Anxiety Stop: 06/23/18 08:01 Pantoprazole Sodium (Protonix) 40 mg PO DAILY [facility] Stop: 06/23/18 08:59 Last Admin: 04/27/18 10:59 Dose: 40 mg Potassium Chloride (Klor-Con) 10 meq PO DAILY [facility] Stop: 06/23/18 08:59 Last Admin: 04/27/18 11:00 Dose: 10 meq Risperidone (Risperdal) 0.5 mg PO BID [facility]; Protocol Stop: 06/23/18 08:59 Last Admin: 04/27/18 18:10 Dose: Not Given Valsartan (Diovan) 160 mg PO BID [facility] Stop: 06/23/18 08:59 Last Admin: 04/27/18 18:10 Dose: Not Given Zolpidem Tartrate (Ambien) 5 mg PO HS PRN PRN Reason: Insomnia Stop: 06/23/18 08:01 General: no acute distress, well developed, well nourished HEENT: atraumatic, normocephalic, PERRLA, EOMI Neck: supple, no thyromegaly Cardiovascular: S1S2, regular Lungs: clear to auscultation bilaterally, clear to percussion Abdomen: soft, bowel sounds, no tender, no distended Extremities: no cyanosis, no clubbing, no edema Neurological: awake, alert, oriented Skin: intact - Procedures Procedures: Procedures Procedure Code Date EXCISION OF ASCENDING COLON, ENDO [id number] 09/30/17 EXCISION OF DESCENDING COLON, ENDO [id number] 09/30/17 EXCISION OF DUODENUM, ENDO, DIAGN [id number] 09/30/17 EXCISION OF SIGMOID COLON, ENDO [id number] 09/30/17 EXCISION OF STOMACH, ENDO, DIAGN [id number] 09/30/17 INTAC GROUP PSYTX 32603 01/24/01 INTRODUCTION OF SERUM/TOX/VACCINE INTO MUSCLE, PERC APPROACH [id number] 11/09/17 OTHER GROUP THERAPY 94.44 01/24/01 TRANSFUSE NONAUT RED BLOOD CELLS IN PERIPH VEIN, PERC [id number] 10/13/17 Infectious Disease Assmt/Plan - Assessment Assessment: 1. Left forearm cellulitis. 2. HTN. 3. Dyslipidemia. 4. Arthritis. 5. Dementia - Plan Plan: Continue rocephin.
[2018-04-27] MEDS: cefTRIAXone 1 GM in Sodium Chloride 0.9% 50 ML IV SCH (23:09)
[2018-04-28] MEDS: Levothyroxine 0.075 Mg Tab PO SCH (06:38)
[2018-04-28] MEDS: Potassium Chloride 10 mEq ER Tab PO SCH (10:13)
[2018-04-28] MEDS: Lactulose 10 Gm/15 mL 30mL UDC PO SCH (10:15)
[2018-04-28] MEDS: Pantoprazole 40 mg EC Tab PO SCH (10:31)
[2018-04-28] MEDS: Hydrocodone/APAP 10 mg/325 mg Tab PO SCH (10:32)
--- NOTE | 2018-04-28 13:32 | Infectious Disease Prog Note ---
Infectious Disease Subjective - Review of Systems Service Date: 04/28/18 Subjective: There is no new change, no fever. Infectious Disease Objective - Results Result Diagrams: 04/27/18 05:50 04/26/18 05:55 Recent Labs: Laboratory Last Values WBC 4.4 Th/cmm (4.8-10.8) L D 04/27/18 05:50 RBC 3.50 Mil/cmm (3.80-5.20) L 04/27/18 05:50 Hgb 10.3 gm/dL (12-16) L 04/27/18 05:50 Hct 30.7 % (41.0-60) L 04/27/18 05:50 MCV 87.6 fl (81-100) 04/27/18 05:50 MCH 29.5 pg (27.0-31.0) 04/27/18 05:50 MCHC Differential 33.7 pg (28.0-36.0) 04/27/18 05:50 RDW 13.3 % (11.5-20.0) 04/27/18 05:50 Plt Count 264 Th/cmm (150-400) 04/27/18 05:50 MPV 7.3 fl 04/27/18 05:50 Add Manual Diff YES 04/27/18 05:50 Neutrophils % 59.6 % (40.0-80.0) 04/23/18 00:30 Band Neutrophils % 1 % (0-10) 04/27/18 05:50 Lymphocytes % 22.7 % (20.0-50.0) 04/23/18 00:30 Monocytes % 7.7 % (2.0-10.0) 04/23/18 00:30 Eosinophils % 10.0 % (0.0-5.0) H 04/23/18 00:30 Basophils % 0.0 % (0.0-2.0) 04/23/18 00:30 Neutrophils (Manual) 44 % (40-80) 04/27/18 05:50 Lymphocytes 22 % (20-50) 04/27/18 05:50 Monocytes 15 % (2-10) H 04/27/18 05:50 Eosinophils 8 % (0-5) H 04/27/18 05:50 Basophils 0 % (0-3) 04/25/18 05:00 Hypochromia 1+ 04/25/18 05:00 Platelet Estimate ADEQUATE (NORMAL) 04/27/18 05:50 PT 9.6 SECONDS (9.5-11.5) 04/23/18 00:30 INR 0.92 (0.5-1.4) 04/23/18 00:30 PTT (Actin FS) 20.7 SECONDS (26.0-38.0) L 04/23/18 00:30 Sodium 138 mEq/L (136-145) 04/26/18 05:55 Potassium 3.8 mEq/L (3.5-5.1) 04/26/18 05:55 Chloride 106 mEq/L (98-107) 04/26/18 05:55 Carbon Dioxide 25.2 mEq/L (21.0-31.0) 04/26/18 05:55 Anion Gap 10.6 (7.0-16.0) 04/26/18 05:55 BUN 27 mg/dL (7-25) H 04/26/18 05:55 Creatinine 0.7 mg/dL (0.6-1.2) 04/26/18 05:55 Est GFR ( Amer) TNP 04/26/18 05:55 Est GFR (Non-Af Amer) TNP 04/26/18 05:55 BUN/Creatinine Ratio 38.6 04/26/18 05:55 Glucose 101 mg/dL (70-105) 04/26/18 05:55 Whole Bld Lactic Acid 1.51 mmol/L (0.60-1.99) 04/25/18 09:24 Calcium 9.7 mg/dL (8.6-10.3) 04/26/18 05:55 Total Bilirubin 0.5 mg/dL (0.3-1.0) 04/26/18 05:55 AST 18 U/L (13-39) 04/26/18 05:55 ALT 8 U/L (7-52) 04/26/18 05:55 Alkaline Phosphatase 65 U/L (34-104) 04/26/18 05:55 Creatine Kinase 16 U/L (30-223) L 04/23/18 00:30 Troponin I 0.02 ng/mL (0.01-0.05) 04/23/18 00:30 Total Protein 6.7 gm/dL (6.0-8.3) 04/26/18 05:55 Albumin 3.1 gm/dL (3.7-5.3) L 04/26/18 05:55 Globulin 3.6 gm/dL 04/26/18 05:55 Albumin/Globulin Ratio 0.9 (1.0-1.8) L 04/26/18 05:55 Lipase 19 U/L (11-82) 04/25/18 05:00 Blood Type O POSITIVE 04/25/18 08:30 Antibody Screen NEGATIVE 04/25/18 08:30 Crossmatch See Detail 04/25/18 08:30 - Physical Exam Vitals and I&O: Vital Signs Temp 98.7 F 04/28/18 04:00 Pulse 75 04/28/18 10:13 Resp 17 04/28/18 04:00 BP 135/66 04/28/18 10:13 Pulse Ox 97 04/28/18 04:00 Intake & Output 04/27/18 04/28/18 04/28/18 18:59 06:59 18:59 Intake Total 850 60 Output Total 1 Balance 850 59 Weight (lbs) 59.874 kg 59.874 kg Intake: Oral 850 60 Output: Urine 1 Other: # Voids 3 1 Weight Source Bedscale Patient stated Active Medications: Current Medications Acetaminophen (Tylenol) 650 mg PO Q4H PRN PRN Reason: Pain or Fever >101 Stop: 06/23/18 08:01 Acetaminophen/Hydrocodone Bitart ([place] 10 Mg/325 Mg) 1 tab PO TID [facility] Stop: 06/23/18 08:59 Last Admin: 04/28/18 10:32 Dose: Not Given Buspirone HCl (Buspar) 7.5 mg PO BID [facility]; Protocol Stop: 06/23/18 08:59 Last Admin: 04/28/18 10:14 Dose: 7.5 mg Docusate Sodium (Colace) 250 mg PO DAILY [facility] Stop: 06/23/18 08:59 Last Admin: 04/28/18 10:14 Dose: 250 mg Fluoxetine HCl (Prozac) 40 mg PO DAILY [facility]; Protocol Stop: 06/23/18 08:59 Last Admin: 04/28/18 10:12 Dose: 40 mg Folic Acid (Folate) 1 mg PO DAILY [facility] Stop: 06/23/18 08:59 Last Admin: 04/28/18 10:16 Dose: 1 mg Gabapentin (Neurontin) 300 mg PO TID [facility] Stop: 06/23/18 08:59 Last Admin: 04/28/18 10:13 Dose: 300 mg Hydralazine HCl (Apresoline) 25 mg PO TID [facility] Stop: 06/23/18 08:59 Last Admin: 04/28/18 10:12 Dose: 25 mg Hydralazine HCl (Apresoline 20 Mg/Ml) 10 mg IV Q4H PRN PRN Reason: BP>150/100 Stop: 06/24/18 22:00 Last Admin: 04/26/18 02:36 Dose: 10 mg Ceftriaxone Sodium 1 gm/ (Sodium Chloride) 50 mls @ 100 mls/hr IV Q24HR [facility] Stop: 06/23/18 20:59 Last Admin: 04/27/18 23:09 Dose: 100 mls/hr Lactulose (Cephulac) 15 gm PO BID [facility] Stop: 06/25/18 16:59 Last Admin: 04/28/18 10:15 Dose: 15 gm Levothyroxine Sodium (Synthroid) 0.075 mg PO QDAC [facility] Stop: 06/24/18 07:29 Last Admin: 04/28/18 06:38 Dose: 0.075 mg Lorazepam (Ativan) 0.5 mg PO Q4HR PRN; Protocol PRN Reason: Anxiety Stop: 06/23/18 08:01 Pantoprazole Sodium (Protonix) 40 mg PO DAILY [facility] Stop: 06/23/18 08:59 Last Admin: 04/28/18 10:31 Dose: 40 mg Potassium Chloride (Klor-Con) 10 meq PO DAILY [facility] Stop: 06/23/18 08:59 Last Admin: 04/28/18 10:13 Dose: 10 meq Risperidone (Risperdal) 0.5 mg PO BID [facility]; Protocol Stop: 06/23/18 08:59 Last Admin: 04/28/18 10:14 Dose: 0.5 mg Valsartan (Diovan) 160 mg PO BID [facility] Stop: 06/23/18 08:59 Last Admin: 04/28/18 10:13 Dose: 160 mg Zolpidem Tartrate (Ambien) 5 mg PO HS PRN PRN Reason: Insomnia Stop: 06/23/18 08:01 General: no acute distress, well developed, well nourished HEENT: atraumatic, normocephalic, PERRLA Neck: supple, no thyromegaly Cardiovascular: S1S2, regular Lungs: clear to auscultation bilaterally, clear to percussion Abdomen: soft, no tender, no distended Extremities: no cyanosis, no clubbing, no edema Neurological: awake, alert, oriented Skin: intact - Procedures Procedures: Procedures Procedure Code Date EXCISION OF ASCENDING COLON, ENDO [id number] 09/30/17 EXCISION OF DESCENDING COLON, ENDO [id number] 09/30/17 EXCISION OF DUODENUM, ENDO, DIAGN [id number] 09/30/17 EXCISION OF SIGMOID COLON, ENDO [id number] 09/30/17 EXCISION OF STOMACH, ENDO, DIAGN [id number] 09/30/17 INTAC GROUP PSYTX 26771 01/24/01 INTRODUCTION OF SERUM/TOX/VACCINE INTO MUSCLE, [facility] APPROACH [id number] 11/09/17 OTHER GROUP THERAPY 94.44 01/24/01 TRANSFUSE NONAUT RED BLOOD CELLS IN PERIPH VEIN, PERC [id number] 10/13/17 Infectious Disease Assmt/Plan - Assessment Assessment: 1. Left forearm cellulitis. 2. HTN. 3. Dyslipidemia. 4. Arthritis. 5. Dementia - Plan Plan: Continue rocephin.
--- NOTE | 2018-04-28 16:07 | General Progress Note ---
Subjective - Review of Systems Events since last encounter: no fever no events Objective - Results Result Diagrams: 04/27/18 05:50 04/26/18 05:55 Recent Labs: Laboratory Last Values WBC 4.4 Th/cmm (4.8-10.8) L D 04/27/18 05:50 RBC 3.50 Mil/cmm (3.80-5.20) L 04/27/18 05:50 Hgb 10.3 gm/dL (12-16) L 04/27/18 05:50 Hct 30.7 % (41.0-60) L 04/27/18 05:50 MCV 87.6 fl (81-100) 04/27/18 05:50 MCH 29.5 pg (27.0-31.0) 04/27/18 05:50 MCHC Differential 33.7 pg (28.0-36.0) 04/27/18 05:50 RDW 13.3 % (11.5-20.0) 04/27/18 05:50 Plt Count 264 Th/cmm (150-400) 04/27/18 05:50 MPV 7.3 fl 04/27/18 05:50 Add Manual Diff YES 04/27/18 05:50 Neutrophils % 59.6 % (40.0-80.0) 04/23/18 00:30 Band Neutrophils % 1 % (0-10) 04/27/18 05:50 Lymphocytes % 22.7 % (20.0-50.0) 04/23/18 00:30 Monocytes % 7.7 % (2.0-10.0) 04/23/18 00:30 Eosinophils % 10.0 % (0.0-5.0) H 04/23/18 00:30 Basophils % 0.0 % (0.0-2.0) 04/23/18 00:30 Neutrophils (Manual) 44 % (40-80) 04/27/18 05:50 Lymphocytes 22 % (20-50) 04/27/18 05:50 Monocytes 15 % (2-10) H 04/27/18 05:50 Eosinophils 8 % (0-5) H 04/27/18 05:50 Basophils 0 % (0-3) 04/25/18 05:00 Hypochromia 1+ 04/25/18 05:00 Platelet Estimate ADEQUATE (NORMAL) 04/27/18 05:50 PT 9.6 SECONDS (9.5-11.5) 04/23/18 00:30 INR 0.92 (0.5-1.4) 04/23/18 00:30 PTT (Actin FS) 20.7 SECONDS (26.0-38.0) L 04/23/18 00:30 Sodium 138 mEq/L (136-145) 04/26/18 05:55 Potassium 3.8 mEq/L (3.5-5.1) 04/26/18 05:55 Chloride 106 mEq/L (98-107) 04/26/18 05:55 Carbon Dioxide 25.2 mEq/L (21.0-31.0) 04/26/18 05:55 Anion Gap 10.6 (7.0-16.0) 04/26/18 05:55 BUN 27 mg/dL (7-25) H 04/26/18 05:55 Creatinine 0.7 mg/dL (0.6-1.2) 04/26/18 05:55 Est GFR ( Amer) TNP 04/26/18 05:55 Est GFR (Non-Af Amer) TNP 04/26/18 05:55 BUN/Creatinine Ratio 38.6 04/26/18 05:55 Glucose 101 mg/dL (70-105) 04/26/18 05:55 Whole Bld Lactic Acid 1.51 mmol/L (0.60-1.99) 04/25/18 09:24 Calcium 9.7 mg/dL (8.6-10.3) 04/26/18 05:55 Total Bilirubin 0.5 mg/dL (0.3-1.0) 04/26/18 05:55 AST 18 U/L (13-39) 04/26/18 05:55 ALT 8 U/L (7-52) 04/26/18 05:55 Alkaline Phosphatase 65 U/L (34-104) 04/26/18 05:55 Creatine Kinase 16 U/L (30-223) L 04/23/18 00:30 Troponin I 0.02 ng/mL (0.01-0.05) 04/23/18 00:30 Total Protein 6.7 gm/dL (6.0-8.3) 04/26/18 05:55 Albumin 3.1 gm/dL (3.7-5.3) L 04/26/18 05:55 Globulin 3.6 gm/dL 04/26/18 05:55 Albumin/Globulin Ratio 0.9 (1.0-1.8) L 04/26/18 05:55 Lipase 19 U/L (11-82) 04/25/18 05:00 Blood Type O POSITIVE 04/25/18 08:30 Antibody Screen NEGATIVE 04/25/18 08:30 Crossmatch See Detail 04/25/18 08:30 - Physical Exam Vitals and I&O: Vital Signs Temp 98.5 F 04/28/18 15:38 Pulse 63 04/28/18 15:38 Resp 18 04/28/18 15:38 BP 130/69 04/28/18 15:38 Pulse Ox 98 04/28/18 15:38 Intake & Output 04/27/18 04/28/18 04/28/18 18:59 06:59 18:59 Intake Total 850 60 Output Total 1 Balance 850 59 Weight (lbs) 59.874 kg 59.874 kg Intake: Oral 850 60 Output: Urine 1 Other: # Voids 3 1 Stool Characteristics Soft Weight Source Bedscale Patient stated Active Medications: Current Medications Acetaminophen (Tylenol) 650 mg PO Q4H PRN PRN Reason: Pain or Fever >101 Stop: 06/23/18 08:01 Acetaminophen/Hydrocodone Bitart ([place] 10 Mg/325 Mg) 1 tab PO TID [facility] Stop: 06/23/18 08:59 Last Admin: 04/28/18 10:32 Dose: Not Given Buspirone HCl (Buspar) 7.5 mg PO BID [facility]; Protocol Stop: 06/23/18 08:59 Last Admin: 04/28/18 10:14 Dose: 7.5 mg Docusate Sodium (Colace) 250 mg PO DAILY [facility] Stop: 06/23/18 08:59 Last Admin: 04/28/18 10:14 Dose: 250 mg Fluoxetine HCl (Prozac) 40 mg PO DAILY [facility]; Protocol Stop: 06/23/18 08:59 Last Admin: 04/28/18 10:12 Dose: 40 mg Folic Acid (Folate) 1 mg PO DAILY [facility] Stop: 06/23/18 08:59 Last Admin: 04/28/18 10:16 Dose: 1 mg Gabapentin (Neurontin) 300 mg PO TID [facility] Stop: 06/23/18 08:59 Last Admin: 04/28/18 10:13 Dose: 300 mg Hydralazine HCl (Apresoline) 25 mg PO TID [facility] Stop: 06/23/18 08:59 Last Admin: 04/28/18 10:12 Dose: 25 mg Hydralazine HCl (Apresoline 20 Mg/Ml) 10 mg IV Q4H PRN PRN Reason: BP>150/100 Stop: 06/24/18 22:00 Last Admin: 04/26/18 02:36 Dose: 10 mg Ceftriaxone Sodium 1 gm/ (Sodium Chloride) 50 mls @ 100 mls/hr IV Q24HR [facility] Stop: 06/23/18 20:59 Last Admin: 04/27/18 23:09 Dose: 100 mls/hr Lactulose (Cephulac) 15 gm PO BID [facility] Stop: 06/25/18 16:59 Last Admin: 04/28/18 10:15 Dose: 15 gm Levothyroxine Sodium (Synthroid) 0.075 mg PO QDAC [facility] Stop: 06/24/18 07:29 Last Admin: 04/28/18 06:38 Dose: 0.075 mg Lorazepam (Ativan) 0.5 mg PO Q4HR PRN; Protocol PRN Reason: Anxiety Stop: 06/23/18 08:01 Pantoprazole Sodium (Protonix) 40 mg PO DAILY [facility] Stop: 06/23/18 08:59 Last Admin: 04/28/18 10:31 Dose: 40 mg Potassium Chloride (Klor-Con) 10 meq PO DAILY [facility] Stop: 06/23/18 08:59 Last Admin: 04/28/18 10:13 Dose: 10 meq Risperidone (Risperdal) 0.5 mg PO BID [facility]; Protocol Stop: 06/23/18 08:59 Last Admin: 04/28/18 10:14 Dose: 0.5 mg Valsartan (Diovan) 160 mg PO BID [facility] Stop: 06/23/18 08:59 Last Admin: 04/28/18 10:13 Dose: 160 mg Zolpidem Tartrate (Ambien) 5 mg PO HS PRN PRN Reason: Insomnia Stop: 06/23/18 08:01 - Procedures Procedures: Procedures Procedure Code Date EXCISION OF ASCENDING COLON, ENDO [id number] 09/30/17 EXCISION OF DESCENDING COLON, ENDO [id number] 09/30/17 EXCISION OF DUODENUM, ENDO, DIAGN [id number] 09/30/17 EXCISION OF SIGMOID COLON, ENDO [id number] 09/30/17 EXCISION OF STOMACH, ENDO, DIAGN [id number] 09/30/17 [facility]AC GROUP PSYTX [id number] 01/24/01 INTRODUCTION OF SERUM/TOX/VACCINE INTO MUSCLE, [facility] APPROACH [id number] 11/09/17 OTHER GROUP THERAPY 94.44 01/24/01 TRANSFUSE NONAUT RED BLOOD CELLS IN PERIPH VEIN, PERC [id number] 10/13/17
--- NOTE | 2018-04-28 21:00 | Progress Notes ---
DATE: 04/28/2018 SUBJECTIVE: Case was discussed with staff of the patient. The patient continues to be demented and confused. She continues to have poor insight. She continues to be unable to make safe plan for self-care. She is not sure why she is here. I am not sure of her age. She is unpredictable and impulsive. She is compliant with the medication with no side effects and if she acts out may need to go to [facility]. Thank you very much for allowing me to participate in the care of this most interesting lady. JOB# [id number]
--- NOTE | 2018-05-05 18:44 | Discharge Summary ---
DATE OF DISCHARGE: 04/28/2018 HOSPITAL COURSE: The patient was admitted on 04/24/2018 at [facility] and discharged on 04/28 back to [facility]. The patient is well known to me. The patient is known to have history of underlying dementia, underlying psychosis. Apparently had cellulitis of the left upper extremities and the patient was admitted for that and was given IV antibiotics. The patient had psych consult and also ID consult. The patient improved. FINAL DIAGNOSES: Cellulitis of left arm improving, history of anemia, hyperlipidemia, history of potential recurrent disease, history of arthritis, history of psychosis, history of dementia. The patient was in stable condition. She was sent back to assisted with IV antibiotic therapy for next 5 days and I will be following the patient there. patient discharge was stable. JOB# [id number]
== END 2018-04-28 16:45 | DRG 602 ==
LOC: ER 23:35 → MSI 04-24 03:15
PROVIDERS: ADMIT Internal Medicine; ATTEND Internal Medicine
PROC: 30233N1 Transfusion of Nonautologous Red Blood Cells into Peripheral Vein, Percutaneous Approach (ICD-10-PCS; principal; 2018-04-25)
DX: L03.114 Cellulitis of left upper limb (principal); R53.2 Functional quadriplegia; F33.9 Major depressive disorder, recurrent, unspecified; E86.0 Dehydration; I25.10 Atherosclerotic heart disease of native coronary artery without angina pectoris; E78.5 Hyperlipidemia, unspecified; D64.9 Anemia, unspecified; M19.90 Unspecified osteoarthritis, unspecified site; F29 Unspecified psychosis not due to a substance or known physiological condition; F03.90 Unspecified dementia, unspecified severity, without behavioral disturbance, psychotic disturbance, mood disturbance, and anxiety; I10 Essential (primary) hypertension; F41.9 Anxiety disorder, unspecified; Z79.899 Other long term (current) drug therapy; Z88.6 Allergy status to analgesic agent; Z82.49 Family history of ischemic heart disease and other diseases of the circulatory system
CPT/HCPCS: 36415-UA; 71045-TC; 73090-TC-LT; 80048-TC; 80053-TC; 82550-TC; 83605; 83690-TC; 84484-TC; 85007-TC; 85025-TC; 85610-TC; 85730-TC; 86850-TC; 86900-TC; 86901-TC; 86922-TC; 93005; 93931-LT-TC; 97971-TC-LT; J0360; J0696; P9016; Z7610

== ENCOUNTER 2018-07-09 15:51 | Inpatient (IN) | payer MEDICARE, MEDICAID ==
--- NOTE | 2018-07-09 16:09 | ED Physician Chart ---
ED Chief Complaint/HPI - Patient Information Date Seen:: 07/09/18 Time Seen:: 16:00 Chief Complaint:: AMS History of Present Illness:: onset x one day of AMS and ALOC with abnormal lab tests today; no report of trauma, H/As, S/T, neck pain, cough, C/P, SOB, Abd. Pain, A/N/V/D/C, fever, chills, or urinary s/s Allergies:: Allergies Allergy/AdvReac Type Severity Reaction Status Date / Time ibuprofen Allergy Verified 09/30/17 21:50 iodine Allergy Verified 09/30/17 21:50 Vitals:: Vital Signs - 8 hr 07/09/18 15:56 Temp 96.7 F HR 65 RR 16 BP 126/51 O2 Sat % 100 Historian:: Patient, EMS Review:: Nurse's Note Reviewed, Old Chart Reviewed, EMS run form Reviewed ED Review of Systems - Review of Systems General/Constitutional: No fever, No chills, No weight loss, Weakness, No diaphoresis, No edema, No loss of appetite Skin: No skin lesions, No rash, No bruising Head: No headache, No light-headedness Eyes: No loss of vision, No pain, No diplopia ENT: No earache, No nasal drainage, No sore throat, No tinnitus Neck: No neck pain, No swelling, No thyromegaly, No stiffness, No mass noted Cardio Vascular: No chest pain, No palpitations, No PND, No orthopnea, No edema Pulmonary: No SOB, No cough, No sputum, No wheezing GI: No nausea, No vomiting, No diarrhea, No pain, No melena, No hematochezia, No constipation, No hematemesis G/U: No dysuria, No frequency, No hematuria, No nacturia Hardware Engineer: No vaginal discharge, No abnormal vaginal bleed, No contraction Musculoskeletal: No bone or joint pain, No back pain, No muscle pain Endocrine: No polyuria, No polydipsia Psychiatric: No prior psych history, No depression, No anxiety, No suicidal ideation, No homicidal ideation, No auditory hallucination, No visual hallucination Hematopoietic: No bruising, No lymphadenopathy Allergic/Immuno: No urticaria, No angioedema Neurological: No syncope, No focal symptoms, Weakness, No paresthesia, No headache, No seizure, No dizziness, Confusion, No vertigo ED Past Medical History - Past Medical History Obtainable: Yes Past Medical History: HTN, CAD, CHF, Dementia Family History: HTN Social History: Non Smoker, No Alcohol, No Drug Use, Single, Care Facility Surgical History: None Psychiatricy History: Bipolar Medication: Reviewed Family Medical History - Family Member Mother History Unknown: Yes Ethnicity: Non- Living Status: ED Physical Exam - Physical Examination General/Constitutional: Awake, Well-developed, well-nourished, Alert, No distress, GCS 15, Non-toxic appearing, Ambulatory Head: Atraumatic Eyes: Lids, conjuctiva normal, PERRL, EOMI Skin: Nl inspection, No rash, No skin lesions, No ecchymosis, Well hydrated, No lymphadenopathy ENMT: External ears, nose nl, TM canals nl, Nasal exam nl, Lips, teeth, gums nl , Oropharynx nl, Tonsils nl Neck: Nontender, Full ROM w/o pain, No JVD, No nuchal rigidity, No bruit, No mass, No stridor Respiratory: Nl effort/Exclusion, Clear to Auscultation, No Wheeze/Rhonchi/Rales Cardio Vascular: RRR, No murmur, gallop, rubs, NL S1 S2, Carotid/Femoral/Distal pulses equal bilaterally GI: No tenderness/rebounding/guarding, No organomegaly, No hernia, Normal BS's, Nondistended, No mass/bruits, No McBurney tenderness, Rectum exam nl : No CVA tenderness Extremities: No tenderness or effusion, Full ROM, normal strength in all extremities, No edema, Normal digits & nails Neuro/Psych: Alert/oriented, DTR's symmetric, Normal sensory exam, Normal motor strength, Judgement/insight normal, Mood normal, Normal gait, No focal deficits Misc: Normal back, No paraspinal tenderness ED Labs/Radiology/EKG Results - Lab Results Comments:: Reviewed - Radiology Results Comments:: NAD - EKG Interpretations EKG Time:: 16:15 Rate & Rhythm: 68; NSR Comments:: non-specific st-t changes ED Septic Shock - . Is Septic Shock (SBP<90, OR Lactate>4 mmol\L) present?: No - <6hrs of presentation: Vital Signs: Vital Signs - 8 hr 07/09/18 15:56 Temp 96.7 F HR 65 RR 16 BP 126/51 O2 Sat % 100 ED Reassessment (Disposition) - Reassessment Reassessment Condition:: Improved - Diagnosis Diagnosis:: Dx: Anemia; Dehydration; Hypoalbuminemia; Malnutrition; ALOC; AMS; Abnormal Labs ; Leukopenia - Aftercare/Follow up Instructions Aftercare/Follow-Up Instructions:: Counseled pt regarding lab results/diagnosis & need follow up, Counseled pt & family regarding lab results/diagnosis & need follow up - Patient Disposition Discharge/Transfer:: Acute Care w/in this hosp Accepting Physician:: Dr. Reggie Davis Time Called:: [id number] Time Responded:: 17:45 Admitted to:: Med/Surg Spoke to:: Dr. Reggie Davis Admitting Medical Physician:: Dr. Reggie Davis Condition at Disposition:: Stable, Improved
[2018-07-09 16:43] LABS: % BASOPHILS 1.3 % (0.0-2.0); % EOSINOPHILS 12.5 % (0.0-5.0); % LYMPHOCYTES 23.1 % (20.0-50.0); % MONOCYTES 10.2 % (2.0-10.0); % NEUTROPHILS 52.9 % (40.0-80.0); BASOPHILE ABSOLUTE 0.1 Th/cumm (0-0.2); EOSINOPHILE ABSOLUTE 0.5 Th/cmm (0.1-0.4); HEMATOCRIT 29.9 % (41.0-60); MEAN CELL VOLUME 89.4 fl (81-100); MEAN CORPUSCULAR HEMOGLOBIN 29.8 pg (27.0-31.0); MEAN CORPUSCULAR HGB CONC 33.3 pg (28.0-36.0); MONOCYTE ABSOLUTE 0.4 Th/cmm (0.3-1.0); NEUTROPHILE ABSOLUTE 2.3 Th/cmm (1.8-8.0); PLATELET COUNT 366 Th/cmm (150-400); RED BLOOD COUNT 3.34 Mil/cmm (3.80-5.20); RED CELL DISTRIBUTION WIDTH 14.8 % (11.5-20.0); WHITE BLOOD COUNT 4.3 Th/cmm (4.8-10.8)
[2018-07-09 16:50] LABS: ALBUMIN 3.3 gm/dL (3.7-5.3); ALKALINE PHOSPHATASE 74 U/L (34-104); ANION GAP 11.1 (7.0-16.0); BILIRUBIN,TOTAL 0.2 mg/dL (0.3-1.0); BUN - UREA NITROGEN 34 mg/dL (7-25); CALCIUM SERUM 9.8 mg/dL (8.6-10.3); CARBON DIOXIDE 26.1 mEq/L (21.0-31.0); CHLORIDE 105 mEq/L (98-107); CREATININE - SERUM 0.8 mg/dL (0.6-1.2); CREATININE KINASE 26 U/L (30-223); GLUCOSE 134 mg/dL (70-105); POTASSIUM SERUM 4.2 mEq/L (3.5-5.1); SGOT 17 U/L (13-39); SGPT/ALT 13 U/L (7-52); SODIUM SERUM 138 mEq/L (136-145); TOTAL PROTEIN,SERUM 6.5 gm/dL (6.0-8.3)
[2018-07-09 16:53] LABS: TROP I 0.01 ng/mL (0.01-0.05)
[2018-07-09 16:57] LABS: INR 0.93 (0.5-1.4); PROTHROMBIN TIME (TEST) 9.7 SECONDS (9.5-11.5)
[2018-07-09] MEDS ORDERED: cefTRIAXone 1 GM in Sodium Chloride 0.9% 50 ML IV SCH (20:00)
[2018-07-09 20:31] LABS: URINE SOURCE MIDSTREAM
[2018-07-09 20:35] LABS: URINE BILIRUBIN NEGATIVE (NEGATIVE); URINE BLOOD NEGATIVE (NEGATIVE); URINE GLUCOSE (UA) NEGATIVE (NEGATIVE); URINE KETONE NEGATIVE (NEGATIVE); URINE LEUKOCYTE ESTERASE NEGATIVE (NEGATIVE); URINE MICROSCOPIC INDICATED? YES; URINE NITRATE NEGATIVE (NEGATIVE); URINE PROTEIN TRACE mg/dL (NEGATIVE); URINE UROBILINOGEN 0.2 E.U./dL (0.2 - 1.0)
[2018-07-09 20:44] VITALS: BP 179/52
[2018-07-09 21:00] LABS: URINE CLARITY CLEAR (CLEAR); URINE COLOR STRAW
[2018-07-09 21:08] LABS: URINE BACTERIA NONE SEEN /hpf (NONE SEEN); URINE EPITHELIAL CELLS NONE SEEN /lpf (FEW); URINE RBC NONE SEEN /hpf (0-5); URINE WBC NONE SEEN /hpf (0-5)
[2018-07-09] MEDS: Sodium Chloride 0.45% 1,000 ML IV SCH (21:34)
[2018-07-09] MEDS ORDERED: Pneumococcal Vaccine 0.5 mL Vial IM ONE (23:00)
--- NOTE | 2018-07-10 08:00 | Diagnostic Imaging Report ---
Portable chest x-ray HISTORY: Cough There is a poor inspiration. The heart size appears generous. Atherosclerotic calcification seen in the aorta. No focal pulmonary processes. Extensive surgical changes noted about the right shoulder and right humeral region. Extensive chronic changes with dislocation noted about the left shoulder. No change from 04/24/2018. IMPRESSION: 1. No change from April 24, 2018 as noted above. No acute abnormalities.
[2018-07-10] MEDS ORDERED: Pneumococcal Vaccine 0.5 mL Vial IM ONE (09:00)
[2018-07-10 10:43] LABS: % BASOPHILS 0.7 % (0.0-2.0); % EOSINOPHILS 9.6 % (0.0-5.0); % LYMPHOCYTES 19.5 % (20.0-50.0); % MONOCYTES 7.2 % (2.0-10.0); EOSINOPHILE ABSOLUTE 0.4 Th/cmm (0.1-0.4); HEMATOCRIT 27.6 % (41.0-60); HEMOGLOBIN 9.2 gm/dL (12-16); LYMPHOCYTE ABSOLUTE 0.9 Th/cmm (1.5-3.0); MEAN CELL VOLUME 89.7 fl (81-100); MEAN CORPUSCULAR HEMOGLOBIN 29.9 pg (27.0-31.0); MEAN CORPUSCULAR HGB CONC 33.4 pg (28.0-36.0); MEAN PLATELET VOLUME 7.5 fl; MONOCYTE ABSOLUTE 0.3 Th/cmm (0.3-1.0); NEUTROPHILE ABSOLUTE 2.8 Th/cmm (1.8-8.0); PLATELET COUNT 339 Th/cmm (150-400); RED BLOOD COUNT 3.08 Mil/cmm (3.80-5.20); RED CELL DISTRIBUTION WIDTH 14.5 % (11.5-20.0); WHITE BLOOD COUNT 4.4 Th/cmm (4.8-10.8)
[2018-07-10] MEDS ORDERED: Hydrocodone/APAP 10 mg/325 mg Tab PO PRN (10:43)
[2018-07-10] MEDS ORDERED: ACETAMINOPHEN 650 MG PO PRN (10:43)
[2018-07-10 11:00] LABS: ALBUMIN 3.1 gm/dL (3.7-5.3); ALKALINE PHOSPHATASE 64 U/L (34-104); ANION GAP 9.6 (7.0-16.0); BILIRUBIN,TOTAL 0.2 mg/dL (0.3-1.0); BUN - UREA NITROGEN 31 mg/dL (7-25); CALCIUM SERUM 9.4 mg/dL (8.6-10.3); CARBON DIOXIDE 26.4 mEq/L (21.0-31.0); CHLORIDE 105 mEq/L (98-107); CREATININE - SERUM 0.7 mg/dL (0.6-1.2); GLUCOSE 116 mg/dL (70-105); SGOT 14 U/L (13-39); SGPT/ALT 11 U/L (7-52); SODIUM SERUM 137 mEq/L (136-145); TOTAL PROTEIN,SERUM 6.1 gm/dL (6.0-8.3)
--- NOTE | 2018-07-10 11:19 | History & Physical ---
ADMIT DATE: 07/09/2018 CHIEF COMPLAINT: Altered mental status and loss of consciousness of 1 day. HISTORY OF PRESENT ILLNESS: The patient is an 87-year-old female with past medical history of hypertension, coronary artery disease, CHF, dementia, brought to the ER for altered mental status, loss of consciousness of 1 day. On initial evaluation, the patient's vitals were stable. The patient's lab work showed WBC of 4300, hemoglobin 10, hematocrit 29.9, platelets are 366,000. Sodium 138, potassium 4.2, chloride 105, BUN is elevated 34, creatinine 0.8. Urinalysis is negative. Chest x-ray was negative. As the patient's WBC count is on lower side, suspect sepsis and started on Rocephin. BUN was little elevated so, I started on IV fluid. PAST MEDICAL HISTORY: Includes hypertension, dyslipidemia, arthritis, dementia, major depression, anemia with stable H and H. She had a coloscopy performed 10/03/2017 and found to have a pedunculated polyps in the ascending colon and small polyp at hepatic flexure. Biopsy was sent and path report suggested benign adenomatous polyps consistent with tubulovillous adenoma, tubulovillous adenoma with a [id number] tubulovillous adenoma and benign adenomatous polyp consider tubular adenoma and multiple segments of adenomatous polyps consistent with a tubulovillous adenoma with area of [id number] dysplasia on different biopsy specimens. ALLERGIES: THE PATIENT IS ALLERGIC TO IODINE AND IBUPROFEN. MEDICATIONS: Per medication reconciliation sheet. Medications include Tylenol 650 mg p.o. q. 8 hourly p.r.n. for the pain, vitamin C 500 mg p.o. daily, risperidone 745 mg p.o. twice a day, Colace 250 mg p.o. daily, fluoxetine, Prozac 40 mg p.o. daily, folic acid 1 mg p.o. daily, gabapentin 300 mg 3 times a day, hydralazine 10 mg IV every 4 hourly, Hydralazine 100 mg p.o. 3 times a day, [place] 10/325 one tab p.o. 3 times a day p.r.n. for severe pain, lactulose 50 mg p.o. twice a day, levothyroxine 0.075 mg p.o. daily, Ativan 0.5 mg p.o. q. 4 hourly p.r.n. for anxiety, multivitamin plus minerals tablet 1 tab p.o. daily, Protonix 40 mg p.o. daily, KCl 10 mEq p.o. daily, risperidone 0.5 mg p.o. b.i.d., valsartan 160 mg p.o. 2 times a day, zinc sulfate 220 mg p.o. daily, zolpidem 5 mg p.o. at bedtime daily p.r.n. for insomnia. SOCIAL HISTORY: The patient lives in a nursing facility. No history of smoking, alcohol or drug use. FAMILY HISTORY: Not available. REVIEW OF SYSTEMS: GENERAL: The patient is alert and awake, not in acute distress, no fever, no chills. HEENT: No diplopia, no photophobia, no sore throat. RESPIRATORY: No cough, no shortness of breath. CARDIOVASCULAR: No chest pain or palpitation. GASTROINTESTINAL: No nausea, no vomiting, no diarrhea, no constipation. GENITOURINARY: No dysuria. NEUROLOGIC: No headache, no dizziness, no focal weakness. PHYSICAL EXAMINATION: VITAL SIGNS: Shows temperature 99.1 degrees Fahrenheit, pulse 65, respirations 17, blood pressure 137/50, oxygen saturation 93%. GENERAL: The patient is comfortable lying in the bed, not in acute distress. HEENT: Head is normocephalic, atraumatic. Oral cavity moist, pink tongue. Eyes: No pallor, no icterus. PERRLA, EOMI. NECK: Supple, no JVD, no carotid bruit. Trachea midline. CHEST: Bilateral breath sounds. No crackles or wheezing. HEART: S1, S2 within normal limits. Regular rhythm. No murmur, no gallop. ABDOMEN: Soft, nontender, nondistended. Bowel sounds present. EXTREMITIES: No cyanosis, no clubbing, no edema. NEUROLOGICAL: Alert, awake, oriented x 3. LABORATORY DATA: WBC count 4300, hemoglobin 10, hematocrit 29.9, platelets are 366,000, neutrophil is 52.9%. Sodium is 138, potassium 4.2, chloride 105, bicarbonate is 26, BUN is 34, and creatinine 0.8, glucose is 134. Urinalysis is negative nitrite negative, leukoesterase clear urine within normal limits. Chest x-ray showed no acute disease, no change from previous study. IMPRESSION: 1. Neutropenia. 2. Azotemia may have mild dehydration. 3. Hypertension. 4. Dyslipidemia. 5. Arthritis. 6. Dementia. 7. Depression. 8. Bipolar disorder. RECOMMENDATIONS: Continue home medications. We will ask the psych consult to adjust the medication if needed. ADDENDUM. We will initiate discharge plan for today to nursing facility. JOB# [id number]
[2018-07-10] MEDS: Sodium Chloride 0.45% 1,000 ML IV SCH (14:33)
--- NOTE | 2018-07-10 15:11 | Consultation ---
DATE OF CONSULTATION: 07/10/2018 IDENTIFYING INFORMATION: The patient is an 87-year-old female. HISTORY OF PRESENT ILLNESS: The patient was admitted because of neutropenia. The patient apparently with a history of dementia. The patient has history of anxiety and depression. The patient herself was a poor historian, can tell me the date, where she is, why she is here, but she is familiar to me. I have seen her before at [facility]. The patient denies any intent to harm herself or anybody. She believes she is more than 61 years of age. She does not know where she is. She is not know why she is here. She reports sleeps well, eats well. MEDICATIONS: The patient has been on Risperdal 0.5 mg twice a day, Prozac 40 mg daily and also Neurontin 300 mg 3 times a day. She is also on [place], levothyroxine, multivitamin, and Ativan 0.5 mg every 4 hours as needed, Protonix, potassium. PAST PSYCHIATRIC HISTORY: Depression, anxiety, insomnia. The patient came from a nursing facility. ALLERGIES: ALLERGIC TO IODINE AND IBUPROFEN. The patient has neutropenia, azotemia, hypertension, dyslipidemia, arthritis. FAMILY AND SOCIAL HISTORY: The patient lives in a nursing facility. The patient unable to give any information regarding that. She is , has children where she lives, very poor historian. MENTAL STATUS EXAMINATION: The patient is appropriately dressed, not well groomed. She was alert. She knows her name. Unable to tell me the date, where she is or her age, why she is here, does not know where she is, unable to participate in memory testing. She does know her age, where she is, why she is here. She denies any intent to harm herself or anybody. Denies any auditory or visual hallucination or paranoia. Her insight about her illness is poor, does not realize she has a problem. Judgment is poor. IMPRESSION: Dementia, depression, not otherwise specified; generalized anxiety disorder. Recommend to continue with BuSpar. I will recommend to discontinue the Risperdal as the patient is not acting psychotic. The patient needs follow up with the psychiatrist upon discharge. Thank you very much for allowing me to participate in the care of this most interesting lady. JOB# [id number]
[2018-07-10] MEDS ORDERED: Lactulose 10 Gm/15 mL 30mL UDC PO SCH (17:00)
[2018-07-10] MEDS ORDERED: BUSPIRONE HCL 7.5 MG PO SCH (17:00)
[2018-07-10] MEDS ORDERED: Non-Formulary Item 1 EA (Valsartan [Valsartan] 160 MG) PO SCH (17:00)
[2018-07-11] MEDS ORDERED: Levothyroxine 0.075 Mg Tab PO SCH (07:30)
[2018-07-11] MEDS ORDERED: Non-Formulary Item 1 EA (Multivitamin-Min/Iron/Fa/Vit K [Multi-Day Plus Minerals Tablet] 1 PO SCH (09:00)
[2018-07-11] MEDS ORDERED: Pantoprazole 40 mg EC Tab PO SCH (09:00)
[2018-07-11] MEDS ORDERED: Potassium Chloride 10 mEq ER Tab PO SCH (09:00)
--- NOTE | 2018-07-11 16:24 | Discharge Summary ---
DATE OF DISCHARGE: 07/10/2018 CHIEF COMPLAINT: Altered mental status and neutropenia. HISTORY OF PRESENT ILLNESS: The patient was brought in from [facility] for altered mental status and loss of consciousness of 1 day. On arrival, the patient was doing well. Labs are normal and as WBC count was lower side is 4300. The patient admitted for evaluation and suspicion of sepsis. Social work was performed and everything is negative for 24 hours. The patient did not show any sign of sepsis. The patient was doing well to her baseline. PAST MEDICAL HISTORY: Includes hypertension, dyslipidemia, arthritis, dementia, major depression, anemia with a stable H and H. She had a coloscopy performed on 10/03/[address] Mitchell and found to have pedunculated polyp in ascending colon and small polyp at the hepatic flexure. 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 So gastroenterology consultation was called and recommended to follow up with clinic. Psych consultation was called and for management of psych medication as patient had neutropenia. The patient was stable hemodynamically. The patient was discharged to nursing facility. DISCHARGE DIAGNOSES: 1. Neutropenia. 2. Mild azotemia with mild elevation of BUN. 3. Hypertension. 4. Dyslipidemia. 5. Arthritis. 6. Dementia. 7. Depression. 8. Bipolar disorder. DISCHARGE DISPOSITION: [facility]. The patient will get admitted and transferred under the care of Dr. Wells JOB# [id number]
== END 2018-07-10 17:25 | DRG 808 ==
LOC: ER 15:51 → MSI 18:30
PROVIDERS: ADMIT Internal Medicine Infectious Disease; ATTEND Internal Medicine Infectious Disease
DX: D70.9 Neutropenia, unspecified (principal); G93.41 Metabolic encephalopathy; Z68.1 Body mass index [BMI] 19.9 or less, adult; E44.1 Mild protein-calorie malnutrition; I11.0 Hypertensive heart disease with heart failure; I50.9 Heart failure, unspecified; I25.10 Atherosclerotic heart disease of native coronary artery without angina pectoris; F03.90 Unspecified dementia, unspecified severity, without behavioral disturbance, psychotic disturbance, mood disturbance, and anxiety; F31.9 Bipolar disorder, unspecified; D64.9 Anemia, unspecified; E86.0 Dehydration; E78.5 Hyperlipidemia, unspecified; F41.1 Generalized anxiety disorder; Z88.6 Allergy status to analgesic agent; Z82.49 Family history of ischemic heart disease and other diseases of the circulatory system; Z91.041 Radiographic dye allergy status
CPT/HCPCS: 36415-UA; 71045-TC; 80053-TC; 81001-TC; 82550-TC; 83605; 84484-TC; 85025-TC; 85610-TC; 85730-TC; 93005; C9113; J0696; Z7610

== ENCOUNTER 2018-07-12 17:06 | Inpatient (IN) | payer MEDICARE, MEDICAID ==
--- NOTE | 2018-07-12 17:43 | ED Physician Chart ---
ED Chief Complaint/HPI - Patient Information Date Seen:: 07/12/18 Time Seen:: 17:28 Chief Complaint:: left shoulder pain History of Present Illness:: THIS IS AN 87 YO FEMALE SENT FROM THE [facility] FOR AN EVALUATION HER LEFT SHOULDER PAIN. THE STAFF THINKS SHE HAS A LEFT SHOULDER DISLOCATION. SHE IS CHRONICALLY ILL AND HAS MENTAL DISEASE. Allergies:: Allergies Allergy/AdvReac Type Severity Reaction Status Date / Time ibuprofen Allergy Verified 09/30/17 21:50 iodine Allergy Verified 09/30/17 21:50 Vitals:: Vital Signs - 8 hr 07/12/18 17:22 Temp 97.5 F HR 60 RR 18 BP 145/58 O2 Sat % 96 Historian:: Medical Records Review:: Nurse's Note Reviewed, Transfer documents Reviewed ED Review of Systems - Review of Systems General/Constitutional: No fever, No chills, No weight loss, Weakness, No diaphoresis, No edema, No loss of appetite Skin: No skin lesions, No rash, No bruising Head: No headache, No light-headedness Eyes: No loss of vision, No pain, No diplopia ENT: No earache, No nasal drainage, No sore throat, No tinnitus Neck: No neck pain, No swelling, No thyromegaly, No stiffness, No mass noted Cardio Vascular: No chest pain, No palpitations, No PND, No orthopnea, No edema Pulmonary: No SOB, No cough, No sputum, No wheezing GI: No nausea, No vomiting, No diarrhea, No pain, No melena, No hematochezia, No constipation, No hematemesis G/U: No dysuria, No frequency, No hematuria Musculoskeletal: Bone or joint pain (LEFT SHOULDER PAIN ON ROM), No back pain, No muscle pain Endocrine: No polyuria, No polydipsia Psychiatric: No prior psych history, No depression, No anxiety, No suicidal ideation Hematopoietic: No bruising, No lymphadenopathy Allergic/Immuno: No urticaria, No angioedema Neurological: No syncope, No focal symptoms, No weakness, No paresthesia, No headache, No seizure, No dizziness, No confusion, No vertigo ED Past Medical History - Past Medical History Obtainable: Yes Past Medical History: DM, CAD, ESRD, Dementia Family History: None Social History: Non Smoker, No Alcohol, No Drug Use, , Care Facility Surgical History: other (SHOULDER INJURY SURGERY) Psychiatricy History: Schizophrenia Medication: Reviewed Family Medical History - Family Member Mother History Unknown: Yes Ethnicity: Unknown Living Status: ED Physical Exam - Physical Examination General/Constitutional: Awake, Well-developed, well-nourished, Alert, No distress, GCS 15, Non-toxic appearing, Ambulatory (UNABLE TO WALK SECONDARY TO WEAKNESS) Head: Atraumatic Eyes: Lids, conjuctiva normal, PERRL, EOMI Skin: Nl inspection, No rash, No skin lesions, No ecchymosis, Well hydrated, No lymphadenopathy ENMT: External ears, nose nl, Nasal exam nl, Lips, teeth, gums nl Neck: Nontender, Full ROM w/o pain, No JVD, No nuchal rigidity, No bruit, No mass, No stridor Respiratory: Nl effort/Exclusion, Clear to Auscultation, No Wheeze/Rhonchi/Rales Cardio Vascular: RRR, No murmur, gallop, rubs, NL S1 S2 GI: No tenderness/rebounding/guarding, No organomegaly, No hernia, Normal BS's, Nondistended, No mass/bruits, No McBurney tenderness : No CVA tenderness Extremities: No tenderness or effusion (MILD PAINFUL ROM OF BOTH SHOULDERS BUT THERE IS NO DISLOCATION.), Full ROM, normal strength in all extremities, No edema, Normal digits & nails Neuro/Psych: Alert/oriented, DTR's symmetric, Normal sensory exam, Normal motor strength, Judgement/insight normal, Mood normal, Normal gait, No focal deficits Misc: Normal back, No paraspinal tenderness ED Labs/Radiology/EKG Results - Lab Results Results: Abnormal Lab Results 07/12/18 07/12/18 07/12/18 17:50 17:50 17:50 WBC 5.1 RBC 3.33 L Hgb 9.9 L Hct 28.9 L MCV 86.8 MCH 29.7 MCHC Differential 34.2 RDW 15.1 Plt Count 342 MPV 7.5 Neutrophils % 56.5 Lymphocytes % 21.6 Monocytes % 8.8 Eosinophils % 11.9 H Basophils % 1.2 PT 9.9 INR 0.95 Sodium 138 Potassium 4.5 Chloride 105 Carbon Dioxide 28.2 Anion Gap 9.3 BUN 26 H Creatinine 0.7 Est GFR ( Amer) TNP Est GFR (Non-Af Amer) TNP BUN/Creatinine Ratio 37.1 Glucose 93 Calcium 9.7 Total Bilirubin 0.2 L AST 14 ALT 10 Alkaline Phosphatase 67 Troponin I Total Protein 6.9 Albumin 3.3 L Globulin 3.6 Albumin/Globulin Ratio 0.9 L 07/12/18 17:50 WBC RBC Hgb Hct MCV MCH MCHC Differential RDW Plt Count MPV Neutrophils % Lymphocytes % Monocytes % Eosinophils % Basophils % PT INR Sodium Potassium Chloride Carbon Dioxide Anion Gap BUN Creatinine Est GFR ( Amer) Est GFR (Non-Af Amer) BUN/Creatinine Ratio Glucose Calcium Total Bilirubin AST ALT Alkaline Phosphatase Troponin I 0.02 Total Protein Albumin Globulin Albumin/Globulin Ratio Laboratory Tests 07/12/18 07/12/18 07/12/18 17:50 17:50 17:50 WBC 5.1 RBC 3.33 L Hgb 9.9 L Hct 28.9 L MCV 86.8 MCH 29.7 MCHC Differential 34.2 RDW 15.1 Plt Count 342 MPV 7.5 Neutrophils % 56.5 Lymphocytes % 21.6 Monocytes % 8.8 Eosinophils % 11.9 H Basophils % 1.2 PT 9.9 INR 0.95 Sodium 138 Potassium 4.5 Chloride 105 Carbon Dioxide 28.2 Anion Gap 9.3 BUN 26 H Creatinine 0.7 Est GFR ( Amer) TNP Est GFR (Non-Af Amer) TNP BUN/Creatinine Ratio 37.1 Glucose 93 Calcium 9.7 Total Bilirubin 0.2 L AST 14 ALT 10 Alkaline Phosphatase 67 Troponin I Total Protein 6.9 Albumin 3.3 L Globulin 3.6 Albumin/Globulin Ratio 0.9 L Urine Source Urine Color Urine Clarity Urine pH Ur Specific S [place] Urine Protein Urine Glucose (UA) Urine Ketones Urine Blood Urine Nitrate Urine Bilirubin Urine Urobilinogen Ur Leukocyte Esterase Urine RBC Urine WBC Ur Epithelial Cells Urine Bacteria 07/12/18 07/12/18 17:50 18:13 WBC RBC Hgb Hct MCV MCH MCHC Differential RDW Plt Count MPV Neutrophils % Lymphocytes % Monocytes % Eosinophils % Basophils % PT INR Sodium Potassium Chloride Carbon Dioxide Anion Gap BUN Creatinine Est GFR ( Amer) Est GFR (Non-Af Amer) BUN/Creatinine Ratio Glucose Calcium Total Bilirubin AST ALT Alkaline Phosphatase Troponin I 0.02 Total Protein Albumin Globulin Albumin/Globulin Ratio Urine Source [place] Urine Color YELLOW Urine Clarity CLOUDY H Urine pH 6.0 Ur Specific S [place] 1.020 Urine Protein TRACE Urine Glucose (UA) NEGATIVE Urine Ketones NEGATIVE Urine Blood TRACE Urine Nitrate POSITIVE H Urine Bilirubin NEGATIVE Urine Urobilinogen 0.2 Ur Leukocyte Esterase LARGE H Urine RBC 2-5 Urine WBC 50-100 H Ur Epithelial Cells FEW Urine Bacteria MANY H - Radiology Results Results: BILATERAL SHOULDER X-RAYS = NO DISLOCATIONS NOTED - EKG Interpretations EKG Time:: 17:49 Rate & Rhythm: RATE=63 ,SINUS [place]: RIGHT AXIS ED Assessment - Assessment General Assessment: RIGHT SHOULDER PAIN ANEMIA HYPOTHYROIDISM URINARY TRACT INFECTION ED Septic Shock - . Is Septic Shock (SBP<90, OR Lactate>4 mmol\L) present?: No - <6hrs of presentation: Vital Signs: Vital Signs - 8 hr 07/12/18 17:22 Temp 97.5 F HR 60 RR 18 BP 145/58 O2 Sat % 96 ED Reassessment (Disposition) - Diagnosis Diagnosis:: RIGHT SHOULDER PAIN MODERATELY SEVERE ANEMIA HYPOTHYROID DISEASE URINARY TRACT INFECTION PSYCHOSIS - Patient Disposition Discharge/Transfer:: Acute Care w/in this hosp Admitting Medical Physician:: Arvin Davis Condition at Disposition:: Stable
[2018-07-12 18:17] LABS: % BASOPHILS 1.2 % (0.0-2.0); % EOSINOPHILS 11.9 % (0.0-5.0); % LYMPHOCYTES 21.6 % (20.0-50.0); % MONOCYTES 8.8 % (2.0-10.0); % NEUTROPHILS 56.5 % (40.0-80.0); BASOPHILE ABSOLUTE 0.1 Th/cumm (0-0.2); EOSINOPHILE ABSOLUTE 0.6 Th/cmm (0.1-0.4); HEMATOCRIT 28.9 % (41.0-60); HEMOGLOBIN 9.9 gm/dL (12-16); INR 0.95 (0.5-1.4); LYMPHOCYTE ABSOLUTE 1.1 Th/cmm (1.5-3.0); MEAN CELL VOLUME 86.8 fl (81-100); MEAN CORPUSCULAR HEMOGLOBIN 29.7 pg (27.0-31.0); MEAN CORPUSCULAR HGB CONC 34.2 pg (28.0-36.0); MEAN PLATELET VOLUME 7.5 fl; MONOCYTE ABSOLUTE 0.4 Th/cmm (0.3-1.0); NEUTROPHILE ABSOLUTE 2.9 Th/cmm (1.8-8.0); PLATELET COUNT 342 Th/cmm (150-400); PROTHROMBIN TIME (TEST) 9.9 SECONDS (9.5-11.5); RED BLOOD COUNT 3.33 Mil/cmm (3.80-5.20); RED CELL DISTRIBUTION WIDTH 15.1 % (11.5-20.0); WHITE BLOOD COUNT 5.1 Th/cmm (4.8-10.8)
[2018-07-12 18:22] LABS: ALB/GLOB RATIO 0.9 (1.0-1.8); ALBUMIN 3.3 gm/dL (3.7-5.3); ALKALINE PHOSPHATASE 67 U/L (34-104); ANION GAP 9.3 (7.0-16.0); BILIRUBIN,TOTAL 0.2 mg/dL (0.3-1.0); BUN - UREA NITROGEN 26 mg/dL (7-25); CALCIUM SERUM 9.7 mg/dL (8.6-10.3); CARBON DIOXIDE 28.2 mEq/L (21.0-31.0); CHLORIDE 105 mEq/L (98-107); CREATININE - SERUM 0.7 mg/dL (0.6-1.2); GLUCOSE 93 mg/dL (70-105); POTASSIUM SERUM 4.5 mEq/L (3.5-5.1); SGOT 14 U/L (13-39); SGPT/ALT 10 U/L (7-52); SODIUM SERUM 138 mEq/L (136-145); TOTAL PROTEIN,SERUM 6.9 gm/dL (6.0-8.3)
[2018-07-12] MEDS ORDERED: Lidocaine 2% Vial 20 mL Vial INJ ONE (18:38)
[2018-07-12 18:53] LABS: URINE SOURCE FOLEY PORT
[2018-07-12 19:02] LABS: URINE BILIRUBIN NEGATIVE (NEGATIVE); URINE BLOOD TRACE (NEGATIVE); URINE CLARITY CLOUDY (CLEAR); URINE COLOR YELLOW; URINE GLUCOSE (UA) NEGATIVE (NEGATIVE); URINE KETONE NEGATIVE (NEGATIVE); URINE LEUKOCYTE ESTERASE LARGE (NEGATIVE); URINE MICROSCOPIC INDICATED? YES; URINE NITRATE POSITIVE (NEGATIVE); URINE PROTEIN TRACE mg/dL (NEGATIVE); URINE UROBILINOGEN 0.2 E.U./dL (0.2 - 1.0)
[2018-07-12 19:06] LABS: URINE BACTERIA MANY /hpf (NONE SEEN); URINE EPITHELIAL CELLS FEW /lpf (FEW); URINE WBC 50-100 /hpf (0-5)
--- NOTE | 2018-07-13 03:19 | History & Physical ---
ADMIT DATE: 07/12/2018 CHIEF COMPLAINT: Left shoulder pain. HISTORY OF PRESENT ILLNESS: The patient is an 87-year-old female who was sent from the nursing facility for evaluation of left shoulder pain. X-ray of the left shoulder showed no evidence of dislocation or any other significant change. On further evaluation, urinalysis suggested pyuria and bacteriuria. Although, the patient was recently admitted on 07/09/2018 for generalized weakness and neutropenia, but she was doing well, so she was discharged on very next day. PAST MEDICAL HISTORY: Includes hypertension, dyslipidemia, arthritis, dementia, major depression, anemia stable with H and H. The patient's coloscopy performed 10/03/[address] Mitchell and found to have a pedunculated polyp in the ascending colon and small polyp in the hepatic flexure, possible benign adenomatous polyps consistent with tubulovillous edema and moderate. GI consult was called. I recommend to follow up the patient as an outpatient basis. There was a mild to moderate dysplasia on different biopsies. ALLERGIES: IBUPROFEN AND IODINE. MEDICATIONS: Per medication reconciliation. SOCIAL HISTORY: The patient lives in a nursing facility. No history of smoking, alcohol or drug use. FAMILY HISTORY: Not available. REVIEW OF SYSTEMS: GENERAL: The patient is alert and awake, not in acute distress. HEENT: No diplopia, no photophobia, no sore throat. RESPIRATORY: No cough, no shortness of breath. CVS: No chest pain or palpitation. GASTROINTESTINAL: The patient has no nausea, no vomiting, no diarrhea, no constipation. GENITOURINARY: No dysuria. PHYSICAL EXAMINATION: VITAL SIGNS: Shows temperature is 98 degrees Fahrenheit, pulse 68, blood pressure is ____, oxygen saturation 93%. GENERAL: The patient is comfortable lying in the bed, not in acute disease, no fever, no chills. HEENT: Head is normocephalic, atraumatic. Oral cavity moist, pink tongue. Eyes: Pallor present, no icterus. NECK: Supple. There is no carotid bruit. Trachea in midline. CHEST: Bilateral breath sounds. No crackles or wheezing. HEART: S1, S2 is within normal limits. Regular rhythm. No murmur or gallop. ABDOMEN: Soft, nontender, nondistended. Bowel sounds present. EXTREMITIES: No cyanosis, no clubbing, no edema. NEUROLOGIC: Alert and awake. LABORATORY DATA: WBC count 5100, hemoglobin 9.9, hematocrit 28.9, platelets are 242,000, neutrophil ____. Sodium 158, potassium 4.4, chloride 105, bicarbonate is 22.2, BUN is 26, creatinine 0.7, glucose is 93. Urinalysis: Cloudy urine. ____ mental retardation present. IMPRESSION: 1. Azotemia 2. Hypertension. 2. Diabetes mellitus type 2. PLAN: We will continue same treatment. Follow up as per the design sales consultant. JOB# [id number]
--- NOTE | 2018-07-13 09:59 | Diagnostic Imaging Report ---
Right shoulder 2 views Indication: pain Comparison: Chest x-ray on 07/09/2018 Findings: There is extensive deformity of the right humerus with surgical plates and screws noted. The right humeral head is not visualized. There is also a stimulator apparatus in this region. Assessment for fractures is limited on this examination. Mild degenerative changes of the AC joint is noted. Atherosclerosis noted. Impression: Extensive deformity of the right humerus with surgical plates and screws noted. No definite evidence of hardware loosening. Assessment for fracture was limited. There may be chronic subluxation of the right shoulder. Stimulator apparatus also noted in this region. Please correlate with patient's clinical and surgical history. In the setting of trauma, if clinical symptoms persist and there is continued concern for an occult fracture, follow up exams in 5-7 days is suggested.
--- NOTE | 2018-07-13 10:00 | Diagnostic Imaging Report ---
Left shoulder 2 views Indication: Limited range of motion, pain Comparison: none Findings: There is subluxation or possible dislocation of the left humeral head in relation to the glenoid. Assessment is limited as transscapular Y or axillary views were not obtained. Diffuse degenerative changes are noted. No gross fracture identified. Assessment of the glenoid was limited on this exam. IMPRESSION: Subluxation or possibly dislocation of left humeral head in relation to the glenoid. Findings may be chronic in etiology. Please correlate with clinical history. Assessment was limited as transscapular Y views or axial views were not able be obtained No gross fracture identified. Diffuse degenerative changes. In the setting of trauma, if clinical symptoms persist and there is continued concern for an occult fracture, follow up exams in 5-7 days is suggested.
[2018-07-13] MEDS: cefTRIAXone 1 GM in Sodium Chloride 0.9% 50 ML IV SCH (12:13)
--- NOTE | 2018-07-13 22:06 | Consultation ---
DATE OF CONSULTATION: 07/13/2018 GASTROENTEROLOGY CONSULTATION REQUESTING PHYSICIAN: Arvin Davis MD. REASON FOR CONSULTATION: Anemia and history of colon polyps. HISTORY OF PRESENT ILLNESS: An 87-year-old female with a history of chronic anemia, who were asked to evaluate for repeat endoscopic workup. The patient underwent an upper endoscopy and colonoscopy on 10/03/2017, which showed a mild Schatzki's ring, hiatal hernia and gastritis. It also showed multiple tubulovillous adenomatous colon polyps, diverticulosis and hemorrhoids. The bowel preparation was somewhat fair and the examination was also not complete. A subsequent barium enema to complete visualization of the cecum was not performed due to the patient refusal. We were asked to see the patient for anemia and consideration for repeat colonoscopy. The patient was admitted for left shoulder pain. PAST MEDICAL HISTORY: As above, also notable for diabetes mellitus. MEDICATIONS: Here are Rocephin and acetaminophen. SOCIAL HISTORY: No recent tobacco, alcohol or drugs. FAMILY HISTORY: Noncontributory. REVIEW OF SYSTEMS: A comprehensive 12-point review of systems conducted and is only positive for those signs and symptoms present in history of present illness. PHYSICAL EXAMINATION: VITAL SIGNS: Temperature of 100.0, blood pressure is 153/52, pulse of 65, respirations 18, O2 sats 92%. GENERAL: The patient is well-developed elderly female who appears somewhat weak, in no acute distress. HEENT: Sclerae nonicteric. Oropharynx is clear. CARDIOVASCULAR: Regular rate and rhythm. LUNGS: With occasional rhonchi at the bases. ABDOMEN: Soft, nontender, nondistended. EXTREMITIES: No clubbing, cyanosis or edema. RECTAL: Deferred. LABORATORY DATA AND IMAGING: WBC 5.1, hemoglobin 9.9, MCV 87, platelet count 342. INR normal. Creatinine normal. Liver enzymes normal. Albumin 3.3. IMPRESSION: 1. Anemia likely chronic, but also rule out slow gastrointestinal blood loss. 2. History of gastroesophageal reflux disease and gastritis. 3. History of multiple adenomatous colon polyps with mild dysplasia with a recent incomplete colonoscopy. RECOMMENDATIONS: 1. The patient was offered repeat colonoscopy, but the patient refuses. She feels too weak to take bowel preparation to undergo procedure. She is aware of the risk of missed neoplasm and precancerous polyps that may eventually turn into cancer. She is aware of a delayed or missed diagnosis of colon cancer and accepts the risks of a delayed or missed diagnosis including morbidity and mortality. 2. Supportive care in the meantime with monitoring of hemoglobin and transfusion as necessary. 3. Oral diet as tolerated. Thank you, Dr. Arvin Davis for involving us in the care of your patient. If you have any further questions, please call us. JOB# [id number] [email or web address]
[2018-07-14] MEDS ORDERED: Hydrocodone/APAP 10 mg/325 mg Tab PO PRN (04:28)
[2018-07-14] MEDS: Levothyroxine 0.075 Mg Tab PO SCH (06:43)
[2018-07-14] MEDS: Pantoprazole 40 mg EC Tab PO SCH (06:43)
--- NOTE | 2018-07-14 06:57 | GI Progress Note ---
Subjective - Review of Systems Service Date: 07/14/18 Subjective: FABY PUREED DIET. NO OVERT BLEEDING. NO ABD PAIN. Objective - Results Result Diagrams: 07/12/18 17:50 07/12/18 17:50 Recent Labs: Laboratory Last Values WBC 5.1 Th/cmm (4.8-10.8) 07/12/18 17:50 RBC 3.33 Mil/cmm (3.80-5.20) L 07/12/18 17:50 Hgb 9.9 gm/dL (12-16) L 07/12/18 17:50 Hct 28.9 % (41.0-60) L 07/12/18 17:50 MCV 86.8 fl (81-100) 07/12/18 17:50 MCH 29.7 pg (27.0-31.0) 07/12/18 17:50 MCHC Differential 34.2 pg (28.0-36.0) 07/12/18 17:50 RDW 15.1 % (11.5-20.0) 07/12/18 17:50 Plt Count 342 Th/cmm (150-400) 07/12/18 17:50 MPV 7.5 fl 07/12/18 17:50 Neutrophils % 56.5 % (40.0-80.0) 07/12/18 17:50 Lymphocytes % 21.6 % (20.0-50.0) 07/12/18 17:50 Monocytes % 8.8 % (2.0-10.0) 07/12/18 17:50 Eosinophils % 11.9 % (0.0-5.0) H 07/12/18 17:50 Basophils % 1.2 % (0.0-2.0) 07/12/18 17:50 PT 9.9 SECONDS (9.5-11.5) 07/12/18 17:50 INR 0.95 (0.5-1.4) 07/12/18 17:50 Sodium 138 mEq/L (136-145) 07/12/18 17:50 Potassium 4.5 mEq/L (3.5-5.1) 07/12/18 17:50 Chloride 105 mEq/L (98-107) 07/12/18 17:50 Carbon Dioxide 28.2 mEq/L (21.0-31.0) 07/12/18 17:50 Anion Gap 9.3 (7.0-16.0) 07/12/18 17:50 BUN 26 mg/dL (7-25) H 07/12/18 17:50 Creatinine 0.7 mg/dL (0.6-1.2) 07/12/18 17:50 Est GFR ( Amer) TNP 07/12/18 17:50 Est GFR (Non-Af Amer) TNP 07/12/18 17:50 BUN/Creatinine Ratio 37.1 07/12/18 17:50 Glucose 93 mg/dL (70-105) 07/12/18 17:50 Calcium 9.7 mg/dL (8.6-10.3) 07/12/18 17:50 Total Bilirubin 0.2 mg/dL (0.3-1.0) L 07/12/18 17:50 AST 14 U/L (13-39) 07/12/18 17:50 ALT 10 U/L (7-52) 07/12/18 17:50 Alkaline Phosphatase 67 U/L (34-104) 07/12/18 17:50 Troponin I 0.02 ng/mL (0.01-0.05) 07/12/18 17:50 Total Protein 6.9 gm/dL (6.0-8.3) 07/12/18 17:50 Albumin 3.3 gm/dL (3.7-5.3) L 07/12/18 17:50 Globulin 3.6 gm/dL 07/12/18 17:50 Albumin/Globulin Ratio 0.9 (1.0-1.8) L 07/12/18 17:50 Urine Source [place] 07/12/18 18:13 Urine Color YELLOW 07/12/18 18:13 Urine Clarity CLOUDY (CLEAR) H 07/12/18 18:13 Urine pH 6.0 (4.6 - 8.0) 07/12/18 18:13 Ur Specific [place] 1.020 (1.005-1.030) 07/12/18 18:13 Urine Protein TRACE mg/dL (NEGATIVE) 07/12/18 18:13 Urine Glucose (UA) NEGATIVE mg/dL (NEGATIVE) 07/12/18 18:13 Urine Ketones NEGATIVE mg/dL (NEGATIVE) 07/12/18 18:13 Urine Blood TRACE (NEGATIVE) 07/12/18 18:13 Urine Nitrate POSITIVE (NEGATIVE) H 07/12/18 18:13 Urine Bilirubin NEGATIVE (NEGATIVE) 07/12/18 18:13 Urine Urobilinogen 0.2 E.U./dL (0.2 - 1.0) 07/12/18 18:13 Ur Leukocyte Esterase LARGE (NEGATIVE) H 07/12/18 18:13 Urine RBC 2-5 /hpf (0-5) 07/12/18 18:13 Urine WBC 50-100 /hpf (0-5) H 07/12/18 18:13 Ur Epithelial Cells FEW /lpf (FEW) 07/12/18 18:13 Urine Bacteria MANY /hpf (NONE SEEN) H 07/12/18 18:13 - Physical Exam Vitals and I&O: Vital Signs Temp 98.4 F 07/14/18 04:00 Pulse 59 07/14/18 04:00 Resp 18 07/14/18 04:00 BP 134/65 07/14/18 04:00 Pulse Ox 93 07/14/18 04:00 Intake & Output 07/13/18 07/13/18 07/14/18 06:59 18:59 06:59 Intake Total 850 30 Balance 850 30 Weight (lbs) 60.328 kg 60.328 kg 60.827 kg Intake: Intake, IV Amount 50 cefTRIAXone 1 gm In 50 Sodium Chloride 0.9% 50 ml @ 100 mls/hr IV Q24HR [facility] Rx#:[id number] Oral 800 30 Other: # Voids 3 2 # Bowel Movements 2 2 Weight Source Bedscale Bedscale Bedscale Active Medications: Current Medications Acetaminophen (Tylenol) 650 mg PO Q4HR PRN PRN Reason: Pain (Mild) Stop: 09/11/18 04:52 Last Admin: 07/13/18 20:40 Dose: 650 mg Acetaminophen/Hydrocodone Bitart ([place] 10 Mg/325 Mg) 1 tab PO TID PRN PRN Reason: Pain (Severe) Stop: 09/12/18 04:27 Ascorbic Acid (Vitamin C) 500 mg PO BID [facility] Stop: 09/12/18 08:59 Buspirone HCl (Buspar) 7.5 mg PO BID [facility]; Protocol Stop: 09/12/18 08:59 Docusate Sodium (Colace) 250 mg PO DAILY [facility] Stop: 09/12/18 08:59 Folic Acid (Folate) 1 mg PO DAILY [facility] Stop: 09/12/18 08:59 Gabapentin (Neurontin) 300 mg PO TID [facility] Stop: 09/12/18 08:59 Hydralazine HCl (Apresoline) 25 mg PO TID [facility] Stop: 09/12/18 08:59 Ceftriaxone Sodium 1 gm/ (Sodium Chloride) 50 mls @ 100 mls/hr IV Q24HR [facility] Stop: 09/11/18 11:14 Last Infusion: 07/13/18 12:45 Dose: Infused Lactulose (Cephulac) 15 gm PO BID [facility] Stop: 09/12/18 08:59 Levothyroxine Sodium (Synthroid) 0.075 mg PO QDAC [facility] Stop: 09/12/18 07:29 Last Admin: 07/14/18 06:43 Dose: 0.075 mg Lorazepam (Ativan) 0.5 mg PO Q4HR PRN; Protocol PRN Reason: Anxiety Stop: 09/12/18 04:27 Miscellaneous (Fluoxetine Hcl [Prozac]) 40 mg PO DAILY [facility] Stop: 09/12/18 08:59 Miscellaneous (Multivitamin-Min/Iron/Fa/Vit K [Multi-Day Plus Minerals Tablet]) 1 tab PO DAILY [facility] Stop: 09/12/18 08:59 Pantoprazole Sodium (Protonix) 40 mg PO QDAC [facility] Stop: 09/12/18 07:29 Last Admin: 07/14/18 06:43 Dose: 40 mg Potassium Chloride (Klor-Con) 10 meq PO DAILY [facility] Stop: 09/12/18 08:59 Risperidone (Risperdal) 0.5 mg PO BID [facility]; Protocol Stop: 09/12/18 08:59 Valsartan (Diovan) 160 mg PO BID [facility] Stop: 09/12/18 08:59 Zinc Sulfate (Zinc Sulfate) 220 mg PO DAILY [facility] Stop: 09/12/18 08:59 Zolpidem Tartrate (Ambien) 5 mg PO HS PRN PRN Reason: Insomnia Stop: 09/12/18 04:27 General: Alert, No acute distress HEENT: Atraumatic Neck: Supple Cardiovascular: Regular rate Lungs: Clear to auscultation Abdomen: Bowel sounds, Soft, no Tender - Procedures Procedures: Procedures Procedure Code Date EXCISION OF ASCENDING COLON, ENDO [id number] 09/30/17 EXCISION OF DESCENDING COLON, ENDO [id number] 09/30/17 EXCISION OF DUODENUM, ENDO, DIAGN [id number] 09/30/17 EXCISION OF SIGMOID COLON, ENDO [id number] 09/30/17 EXCISION OF STOMACH, ENDO, DIAGN [id number] 09/30/17 [facility] GROUP PSYTX 11063 01/24/01 INTRODUCTION OF SERUM/TOX/VACCINE INTO MUSCLE, [facility] APPROACH [id number] 11/09/17 OTHER GROUP THERAPY 94.44 01/24/01 TRANSFUSE NONAUT RED BLOOD CELLS IN PERIPH VEIN, [facility] 39831T3 04/24/18 Assessment/Plan - Assessment Assessment: IMPRESSION: 1. ANEMIA, CHRONIC. 2. GERD. 3. HISTORY OF TUBULOVILLOUS ADENOMATOUS COLON POLYPS, MULTIPLE - PER COLONOSCOPY 09/2017. EXAM INCOMPLETE AT THAT TIME, BUT BARIUM ENEMA REFUSED. 4. DYSPHAGIA; EDENTULOUS. RECS: 1. OFFERED REPEAT COLONOSCOPY BUT PATIENT REFUSES. AWARE OF RISK OF MISSED POLYPS/NEOPLASM. 2. MONITOR HGB. 3. PUREED DIET.
--- NOTE | 2018-07-14 08:36 | Progress Notes ---
DATE: 07/13/2018 SUBJECTIVE: The patient lying in the bed, not in acute distress. No fever, no chills. OBJECTIVE: VITAL SIGNS: Currently shows temperature 100.4 degrees, pulse 55, respirations 18, blood pressure 156/48. GENERAL: The patient is comfortable, lying in bed, not in acute distress. HEENT: Head is normocephalic and atraumatic. Oral cavity moist, pink tongue. Eyes: No pallor, no icterus. PERRLA. EOMI. NECK: Supple. No JVD. No carotid bruit. Trachea in midline. CHEST: Bilateral breath sounds. No crackles or wheezing. HEART: S1, S2 within normal limits. Regular rhythm. No murmur, no gallop. ABDOMEN: Soft, nontender, and nondistended. Bowel sounds present. EXTREMITIES: No cyanosis, no clubbing. NEUROLOGIC: Alert and awake. Communicates well. LABORATORY DATA: Current lab shows WBC count is 5100. Urine culture growing more than 100,000 gram-negative rods. IMPRESSION: 1. Urinary tract infection. 2. Anemia. 3. Hypertension. 4. Diabetes mellitus type 2. RECOMMENDATIONS/PLAN: Continue Rocephin. Wait for the culture of the urine, culture report and go from there. We will call psychiatric consultation, Dr. Perez. Outpatient GI consultation by Dr. Mitchell. JOB# [id number]
[2018-07-14] MEDS ORDERED: BUSPIRONE HCL 7.5 MG PO SCH (09:00)
[2018-07-14] MEDS: Lactulose 10 Gm/15 mL 30mL UDC PO SCH ×2 (09:34→17:09)
[2018-07-14] MEDS: Multivitamin w/ Minerals Tab PO SCH (09:36)
[2018-07-14] MEDS: Potassium Chloride 10 mEq ER Tab PO SCH (09:36)
[2018-07-14] MEDS: cefTRIAXone 1 GM in Sodium Chloride 0.9% 50 ML IV SCH (13:05)
--- NOTE | 2018-07-14 14:04 | Infectious Disease Prog Note ---
Infectious Disease Subjective - Review of Systems Service Date: 07/14/18 Subjective: Doing well, no fever. c/o headache. Infectious Disease Objective - Results Result Diagrams: 07/12/18 17:50 07/12/18 17:50 Recent Labs: Laboratory Last Values WBC 5.1 Th/cmm (4.8-10.8) 07/12/18 17:50 RBC 3.33 Mil/cmm (3.80-5.20) L 07/12/18 17:50 Hgb 9.9 gm/dL (12-16) L 07/12/18 17:50 Hct 28.9 % (41.0-60) L 07/12/18 17:50 MCV 86.8 fl (81-100) 07/12/18 17:50 MCH 29.7 pg (27.0-31.0) 07/12/18 17:50 MCHC Differential 34.2 pg (28.0-36.0) 07/12/18 17:50 RDW 15.1 % (11.5-20.0) 07/12/18 17:50 Plt Count 342 Th/cmm (150-400) 07/12/18 17:50 MPV 7.5 fl 07/12/18 17:50 Neutrophils % 56.5 % (40.0-80.0) 07/12/18 17:50 Lymphocytes % 21.6 % (20.0-50.0) 07/12/18 17:50 Monocytes % 8.8 % (2.0-10.0) 07/12/18 17:50 Eosinophils % 11.9 % (0.0-5.0) H 07/12/18 17:50 Basophils % 1.2 % (0.0-2.0) 07/12/18 17:50 PT 9.9 SECONDS (9.5-11.5) 07/12/18 17:50 INR 0.95 (0.5-1.4) 07/12/18 17:50 Sodium 138 mEq/L (136-145) 07/12/18 17:50 Potassium 4.5 mEq/L (3.5-5.1) 07/12/18 17:50 Chloride 105 mEq/L (98-107) 07/12/18 17:50 Carbon Dioxide 28.2 mEq/L (21.0-31.0) 07/12/18 17:50 Anion Gap 9.3 (7.0-16.0) 07/12/18 17:50 BUN 26 mg/dL (7-25) H 07/12/18 17:50 Creatinine 0.7 mg/dL (0.6-1.2) 07/12/18 17:50 Est GFR ( Amer) TNP 07/12/18 17:50 Est GFR (Non-Af Amer) TNP 07/12/18 17:50 BUN/Creatinine Ratio 37.1 07/12/18 17:50 Glucose 93 mg/dL (70-105) 07/12/18 17:50 Calcium 9.7 mg/dL (8.6-10.3) 07/12/18 17:50 Total Bilirubin 0.2 mg/dL (0.3-1.0) L 07/12/18 17:50 AST 14 U/L (13-39) 07/12/18 17:50 ALT 10 U/L (7-52) 07/12/18 17:50 Alkaline Phosphatase 67 U/L (34-104) 07/12/18 17:50 Troponin I 0.02 ng/mL (0.01-0.05) 07/12/18 17:50 Total Protein 6.9 gm/dL (6.0-8.3) 07/12/18 17:50 Albumin 3.3 gm/dL (3.7-5.3) L 07/12/18 17:50 Globulin 3.6 gm/dL 07/12/18 17:50 Albumin/Globulin Ratio 0.9 (1.0-1.8) L 07/12/18 17:50 Urine Source [place] 07/12/18 18:13 Urine Color YELLOW 07/12/18 18:13 Urine Clarity CLOUDY (CLEAR) H 07/12/18 18:13 Urine pH 6.0 (4.6 - 8.0) 07/12/18 18:13 Ur Specific [place] 1.020 (1.005-1.030) 07/12/18 18:13 Urine Protein TRACE mg/dL (NEGATIVE) 07/12/18 18:13 Urine Glucose (UA) NEGATIVE mg/dL (NEGATIVE) 07/12/18 18:13 Urine Ketones NEGATIVE mg/dL (NEGATIVE) 07/12/18 18:13 Urine Blood TRACE (NEGATIVE) 07/12/18 18:13 Urine Nitrate POSITIVE (NEGATIVE) H 07/12/18 18:13 Urine Bilirubin NEGATIVE (NEGATIVE) 07/12/18 18:13 Urine Urobilinogen 0.2 E.U./dL (0.2 - 1.0) 07/12/18 18:13 Ur Leukocyte Esterase LARGE (NEGATIVE) H 07/12/18 18:13 Urine RBC 2-5 /hpf (0-5) 07/12/18 18:13 Urine WBC 50-100 /hpf (0-5) H 07/12/18 18:13 Ur Epithelial Cells FEW /lpf (FEW) 07/12/18 18:13 Urine Bacteria MANY /hpf (NONE SEEN) H 07/12/18 18:13 - Physical Exam Vitals and I&O: Vital Signs Temp 98.1 F 07/14/18 11:57 Pulse 73 07/14/18 13:07 Resp 18 07/14/18 11:57 BP 122/76 07/14/18 13:07 Pulse Ox 100 07/14/18 11:57 Intake & Output 07/13/18 07/14/18 07/14/18 18:59 06:59 18:59 Intake Total 850 30 Balance 850 30 Weight (lbs) 60.328 kg 60.827 kg Intake: Intake, IV Amount 50 cefTRIAXone 1 gm In 50 Sodium Chloride 0.9% 50 ml @ 100 mls/hr IV Q24HR [facility] Rx#:[id number] Oral 800 30 Other: # Voids 3 2 # Bowel Movements 2 2 Weight Source Bedscale Bedscale Active Medications: Current Medications Acetaminophen (Tylenol) 650 mg PO Q4HR PRN PRN Reason: Pain (Mild) Stop: 09/11/18 04:52 Last Admin: 07/13/18 20:40 Dose: 650 mg Acetaminophen/Hydrocodone Bitart ([place] 10 Mg/325 Mg) 1 tab PO TID PRN PRN Reason: Pain (Severe) Stop: 09/12/18 04:27 Last Admin: 07/14/18 13:06 Dose: 1 tab Ascorbic Acid (Vitamin C) 500 mg PO BID [facility] Stop: 09/12/18 08:59 Last Admin: 07/14/18 09:36 Dose: 500 mg Buspirone HCl (Buspar) 7.5 mg PO BID [facility]; Protocol Stop: 09/12/18 08:59 Last Admin: 07/14/18 09:35 Dose: 7.5 mg Docusate Sodium (Colace) 250 mg PO DAILY [facility] Stop: 09/12/18 08:59 Last Admin: 07/14/18 09:31 Dose: 250 mg Fluoxetine HCl (Prozac) 40 mg PO DAILY [facility] Stop: 09/12/18 08:59 Last Admin: 07/14/18 09:34 Dose: 40 mg Folic Acid (Folate) 1 mg PO DAILY [facility] Stop: 09/12/18 08:59 Last Admin: 07/14/18 09:34 Dose: 1 mg Gabapentin (Neurontin) 300 mg PO TID [facility] Stop: 09/12/18 08:59 Last Admin: 07/14/18 13:06 Dose: 300 mg Hydralazine HCl (Apresoline) 25 mg PO TID [facility] Stop: 09/12/18 08:59 Last Admin: 07/14/18 13:07 Dose: 25 mg Ceftriaxone Sodium 1 gm/ (Sodium Chloride) 50 mls @ 100 mls/hr IV Q24HR [facility] Stop: 09/11/18 11:14 Last Admin: 07/14/18 13:05 Dose: 100 mls/hr Lactulose (Cephulac) 15 gm PO BID [facility] Stop: 09/12/18 08:59 Last Admin: 07/14/18 09:34 Dose: 15 gm Levothyroxine Sodium (Synthroid) 0.075 mg PO QDAC [facility] Stop: 09/12/18 07:29 Last Admin: 07/14/18 06:43 Dose: 0.075 mg Lorazepam (Ativan) 0.5 mg PO Q4HR PRN; Protocol PRN Reason: Anxiety Stop: 09/12/18 04:27 Pantoprazole Sodium (Protonix) 40 mg PO QDAC [facility] Stop: 09/12/18 07:29 Last Admin: 07/14/18 06:43 Dose: 40 mg Potassium Chloride (Klor-Con) 10 meq PO DAILY [facility] Stop: 09/12/18 08:59 Last Admin: 07/14/18 09:36 Dose: 10 meq Risperidone (Risperdal) 0.5 mg PO BID [facility]; Protocol Stop: 09/12/18 08:59 Last Admin: 07/14/18 09:36 Dose: 0.5 mg Valsartan (Diovan) 160 mg PO BID [facility] Stop: 09/12/18 08:59 Last Admin: 07/14/18 09:36 Dose: 160 mg Zinc Sulfate (Zinc Sulfate) 220 mg PO DAILY [facility] Stop: 09/12/18 08:59 Last Admin: 07/14/18 09:38 Dose: 220 mg Zolpidem Tartrate (Ambien) 5 mg PO HS PRN PRN Reason: Insomnia Stop: 09/12/18 04:27 General: no acute distress, well developed, well nourished HEENT: atraumatic, normocephalic, PERRLA, EOMI Neck: supple, no thyromegaly Cardiovascular: S1S2, regular Lungs: clear to auscultation bilaterally, clear to percussion Abdomen: soft, no tender, no distended Extremities: no cyanosis, no clubbing, no edema Neurological: awake, alert, oriented Skin: intact - Procedures Procedures: Procedures Procedure Code Date EXCISION OF ASCENDING COLON, ENDO [id number] 09/30/17 EXCISION OF DESCENDING COLON, ENDO [id number] 09/30/17 EXCISION OF DUODENUM, ENDO, DIAGN [id number] 09/30/17 EXCISION OF SIGMOID COLON, ENDO [id number] 09/30/17 EXCISION OF STOMACH, ENDO, DIAGN [id number] 09/30/17 [facility] GROUP PSYTX 69063 01/24/01 INTRODUCTION OF SERUM/TOX/VACCINE INTO MUSCLE, [facility] APPROACH [id number] 11/09/17 OTHER GROUP THERAPY 94.44 01/24/01 TRANSFUSE NONAUT RED BLOOD CELLS IN PERIPH VEIN, [facility] [id number] 04/24/18 Infectious Disease Assmt/Plan - Assessment Assessment: 1. Urinary tract infection. 2. Anemia. 3. Hypertension. 4. Diabetes mellitus type 2. 5. Shoulder pain. Left shoulder dislocation. - Plan Plan: Change antibiotics to bactrim ds. Orthopedic consult.
[2018-07-14] MEDS: Morphine Sulfate 2 mg/mL 1mL Syr IVP PRN ×2 (15:28→21:18)
[2018-07-14] MEDS: Sulfamethoxazole/TMP 800/160mg Tab PO SCH (17:09)
--- NOTE | 2018-07-15 00:28 | Consultation ---
DATE OF CONSULTATION: 07/14/2018 IDENTIFYING INFORMATION: The patient is an 87-year-old female. CHIEF COMPLAINT: "I have a headache." HISTORY OF PRESENT ILLNESS: This patient was seen by me last week because she has neutropenia and I took a Risperdal. The patient came from a nursing facility because of shoulder pain. There was no evidence of dislocation. Urinalysis shows just pyuria, bacteremia. The patient was recently admitted here on 07/09/2018 for generalized weakness and neutropenia, but she was doing well and she was discharged on the next day. PAST PSYCHIATRIC HISTORY: Dementia. The patient is unable to give much information. MEDICAL HISTORY: Azotemia, hypertension, diabetes mellitus. ALLERGIES: THE PATIENT IS ALLERGIC TO IBUPROFEN AND IODINE. MEDICATIONS: The patient has been on BuSpar 7.5 mg twice a day that was discontinued and she is on antibiotic. She is on Prozac 40 mg daily, folic acid, Neurontin, morphine for pain. She is still on Risperdal, though I discontinued it. FAMILY AND SOCIAL HISTORY: The patient is unable to tell me any information today. She was in pain. She said could not remember where she lives. Before, when I saw last time, she felt she was 61 year of age. MENTAL STATUS EXAMINATION: She is unpredictable and impulsive. Long and short term memory is poor, does not know why she is here. She denies any intent to harm herself or anyone. Her insight and judgment is impaired. IMPRESSION: AXIS I: Depression, not otherwise specified; dementia. MEDICAL DIAGNOSES: As per medical doctor recommend to continue her medication and I will be discontinuing her Risperdal as I did last week, just keep her on the antidepressant alone and the patient needs follow up with the psychiatrist upon discharge. Thank you very much for allowing me to participate in the care of this most interesting lady. JOB# [id number]
[2018-07-15] MEDS: Pantoprazole 40 mg EC Tab PO SCH (06:39)
[2018-07-15] MEDS: Levothyroxine 0.075 Mg Tab PO SCH (06:39)
--- NOTE | 2018-07-15 09:28 | GI Progress Note ---
Subjective - Review of Systems Service Date: 07/15/18 Subjective: FABY PUREED DIET. NO OVERT BLEEDING. NO ABD PAIN. Objective - Results Result Diagrams: 07/12/18 17:50 07/12/18 17:50 Recent Labs: Laboratory Last Values WBC 5.1 Th/cmm (4.8-10.8) 07/12/18 17:50 RBC 3.33 Mil/cmm (3.80-5.20) L 07/12/18 17:50 Hgb 9.9 gm/dL (12-16) L 07/12/18 17:50 Hct 28.9 % (41.0-60) L 07/12/18 17:50 MCV 86.8 fl (81-100) 07/12/18 17:50 MCH 29.7 pg (27.0-31.0) 07/12/18 17:50 MCHC Differential 34.2 pg (28.0-36.0) 07/12/18 17:50 RDW 15.1 % (11.5-20.0) 07/12/18 17:50 Plt Count 342 Th/cmm (150-400) 07/12/18 17:50 MPV 7.5 fl 07/12/18 17:50 Neutrophils % 56.5 % (40.0-80.0) 07/12/18 17:50 Lymphocytes % 21.6 % (20.0-50.0) 07/12/18 17:50 Monocytes % 8.8 % (2.0-10.0) 07/12/18 17:50 Eosinophils % 11.9 % (0.0-5.0) H 07/12/18 17:50 Basophils % 1.2 % (0.0-2.0) 07/12/18 17:50 PT 9.9 SECONDS (9.5-11.5) 07/12/18 17:50 INR 0.95 (0.5-1.4) 07/12/18 17:50 Sodium 138 mEq/L (136-145) 07/12/18 17:50 Potassium 4.5 mEq/L (3.5-5.1) 07/12/18 17:50 Chloride 105 mEq/L (98-107) 07/12/18 17:50 Carbon Dioxide 28.2 mEq/L (21.0-31.0) 07/12/18 17:50 Anion Gap 9.3 (7.0-16.0) 07/12/18 17:50 BUN 26 mg/dL (7-25) H 07/12/18 17:50 Creatinine 0.7 mg/dL (0.6-1.2) 07/12/18 17:50 Est GFR ( Amer) TNP 07/12/18 17:50 Est GFR (Non-Af Amer) TNP 07/12/18 17:50 BUN/Creatinine Ratio 37.1 07/12/18 17:50 Glucose 93 mg/dL (70-105) 07/12/18 17:50 Calcium 9.7 mg/dL (8.6-10.3) 07/12/18 17:50 Total Bilirubin 0.2 mg/dL (0.3-1.0) L 07/12/18 17:50 AST 14 U/L (13-39) 07/12/18 17:50 ALT 10 U/L (7-52) 07/12/18 17:50 Alkaline Phosphatase 67 U/L (34-104) 07/12/18 17:50 Troponin I 0.02 ng/mL (0.01-0.05) 07/12/18 17:50 Total Protein 6.9 gm/dL (6.0-8.3) 07/12/18 17:50 Albumin 3.3 gm/dL (3.7-5.3) L 07/12/18 17:50 Globulin 3.6 gm/dL 07/12/18 17:50 Albumin/Globulin Ratio 0.9 (1.0-1.8) L 07/12/18 17:50 Urine Source [place] 07/12/18 18:13 Urine Color YELLOW 07/12/18 18:13 Urine Clarity CLOUDY (CLEAR) H 07/12/18 18:13 Urine pH 6.0 (4.6 - 8.0) 07/12/18 18:13 Ur Specific [place] 1.020 (1.005-1.030) 07/12/18 18:13 Urine Protein TRACE mg/dL (NEGATIVE) 07/12/18 18:13 Urine Glucose (UA) NEGATIVE mg/dL (NEGATIVE) 07/12/18 18:13 Urine Ketones NEGATIVE mg/dL (NEGATIVE) 07/12/18 18:13 Urine Blood TRACE (NEGATIVE) 07/12/18 18:13 Urine Nitrate POSITIVE (NEGATIVE) H 07/12/18 18:13 Urine Bilirubin NEGATIVE (NEGATIVE) 07/12/18 18:13 Urine Urobilinogen 0.2 E.U./dL (0.2 - 1.0) 07/12/18 18:13 Ur Leukocyte Esterase LARGE (NEGATIVE) H 07/12/18 18:13 Urine RBC 2-5 /hpf (0-5) 07/12/18 18:13 Urine WBC 50-100 /hpf (0-5) H 07/12/18 18:13 Ur Epithelial Cells FEW /lpf (FEW) 07/12/18 18:13 Urine Bacteria MANY /hpf (NONE SEEN) H 07/12/18 18:13 - Physical Exam Vitals and I&O: Vital Signs Temp 96.4 F 07/15/18 07:31 Pulse 57 07/15/18 07:31 Resp 17 07/15/18 07:31 BP 153/49 07/15/18 07:31 Pulse Ox 95 07/15/18 07:31 Intake & Output 07/14/18 07/15/18 07/15/18 18:59 06:59 18:59 Intake Total 500 30 Balance 500 30 Weight (lbs) 60.781 kg 60.781 kg Intake: Intake, IV Amount 50 cefTRIAXone 1 gm In 50 Sodium Chloride 0.9% 50 ml @ 100 mls/hr IV Q24HR [facility] Rx#:[id number] Oral 450 30 Other: # Voids 3 2 # Bowel Movements 2 1 Weight Source Bedscale Bedscale Active Medications: Current Medications Acetaminophen (Tylenol) 650 mg PO Q4HR PRN PRN Reason: Pain (Mild) Stop: 09/11/18 04:52 Last Admin: 07/13/18 20:40 Dose: 650 mg Acetaminophen/Hydrocodone Bitart ([place] 10 Mg/325 Mg) 1 tab PO TID PRN PRN Reason: Pain (Severe) Stop: 09/12/18 04:27 Last Admin: 07/14/18 13:06 Dose: 1 tab Ascorbic Acid (Vitamin C) 500 mg PO BID [facility] Stop: 09/12/18 08:59 Last Admin: 07/14/18 17:09 Dose: 500 mg Buspirone HCl (Buspar) 7.5 mg PO BID [facility]; Protocol Stop: 09/12/18 08:59 Last Admin: 07/14/18 17:08 Dose: 7.5 mg Docusate Sodium (Colace) 250 mg PO DAILY [facility] Stop: 09/12/18 08:59 Last Admin: 07/14/18 09:31 Dose: 250 mg Fluoxetine HCl (Prozac) 40 mg PO DAILY [facility] Stop: 09/12/18 08:59 Last Admin: 07/14/18 09:34 Dose: 40 mg Folic Acid (Folate) 1 mg PO DAILY [facility] Stop: 09/12/18 08:59 Last Admin: 07/14/18 09:34 Dose: 1 mg Gabapentin (Neurontin) 300 mg PO TID [facility] Stop: 09/12/18 08:59 Last Admin: 07/14/18 21:17 Dose: 300 mg Hydralazine HCl (Apresoline) 25 mg PO TID [facility] Stop: 09/12/18 08:59 Last Admin: 07/14/18 21:18 Dose: 25 mg Ceftriaxone Sodium 1 gm/ (Sodium Chloride) 50 mls @ 100 mls/hr IV Q24HR [facility] Stop: 09/11/18 11:14 Last Infusion: 07/14/18 14:51 Dose: Infused Lactulose (Cephulac) 15 gm PO BID [facility] Stop: 09/12/18 08:59 Last Admin: 07/14/18 17:09 Dose: 15 gm Levothyroxine Sodium (Synthroid) 0.075 mg PO QDAC [facility] Stop: 09/12/18 07:29 Last Admin: 07/15/18 06:39 Dose: 0.075 mg Lorazepam (Ativan) 0.5 mg PO Q4HR PRN; Protocol PRN Reason: Anxiety Stop: 09/12/18 04:27 Morphine Sulfate (Morphine) 1 mg IVP Q4HR PRN PRN Reason: Pain (Moderate) Stop: 09/12/18 14:05 Last Admin: 07/14/18 21:18 Dose: 1 mg Pantoprazole Sodium (Protonix) 40 mg PO QDAC [facility] Stop: 09/12/18 07:29 Last Admin: 07/15/18 06:39 Dose: 40 mg Potassium Chloride (Klor-Con) 10 meq PO DAILY [facility] Stop: 09/12/18 08:59 Last Admin: 07/14/18 09:36 Dose: 10 meq Trimethoprim/Sulfamethoxazole (Bactrim Ds) 0.5 tab PO BID [facility] Stop: 09/12/18 16:59 Last Admin: 07/14/18 17:09 Dose: 0.5 tab Valsartan (Diovan) 160 mg PO BID [facility] Stop: 09/12/18 08:59 Last Admin: 07/14/18 09:36 Dose: 160 mg Zinc Sulfate (Zinc Sulfate) 220 mg PO DAILY [facility] Stop: 09/12/18 08:59 Last Admin: 07/14/18 09:38 Dose: 220 mg Zolpidem Tartrate (Ambien) 5 mg PO HS PRN PRN Reason: Insomnia Stop: 09/12/18 04:27 General: Alert, No acute distress HEENT: Atraumatic Neck: Supple Cardiovascular: Regular rate Lungs: Clear to auscultation Abdomen: Bowel sounds, Soft, no Tender - Procedures Procedures: Procedures Procedure Code Date EXCISION OF ASCENDING COLON, ENDO [id number] 09/30/17 EXCISION OF DESCENDING COLON, ENDO [id number] 09/30/17 EXCISION OF DUODENUM, ENDO, DIAGN [id number] 09/30/17 EXCISION OF SIGMOID COLON, ENDO [id number] 09/30/17 EXCISION OF STOMACH, ENDO, DIAGN [id number] 09/30/17 [facility] GROUP PSYTX 62480 01/24/01 INTRODUCTION OF SERUM/TOX/VACCINE INTO MUSCLE, [facility] APPROACH [id number] 11/09/17 OTHER GROUP THERAPY 94.44 01/24/01 TRANSFUSE NONAUT RED BLOOD CELLS IN PERIPH VEIN, [facility] [id number] 04/24/18 Assessment/Plan - Assessment Assessment: IMPRESSION: 1. ANEMIA, CHRONIC. 2. GERD. 3. HISTORY OF TUBULOVILLOUS ADENOMATOUS COLON POLYPS, MULTIPLE - PER COLONOSCOPY 09/2017. EXAM INCOMPLETE AT THAT TIME, BUT BARIUM ENEMA REFUSED. 4. DYSPHAGIA; EDENTULOUS. RECS: 1. OFFERED REPEAT COLONOSCOPY BUT PATIENT REFUSES. AWARE OF RISK OF MISSED POLYPS/NEOPLASM. 2. MONITOR HGB. 3. PUREED DIET.
[2018-07-15] MEDS: Lactulose 10 Gm/15 mL 30mL UDC PO SCH ×2 (09:35→16:15)
[2018-07-15] MEDS: Sulfamethoxazole/TMP 800/160mg Tab PO SCH ×2 (09:39→16:14)
[2018-07-15] MEDS: Potassium Chloride 10 mEq ER Tab PO SCH (09:40)
[2018-07-15] MEDS: Multivitamin w/ Minerals Tab PO SCH (09:40)
--- NOTE | 2018-07-15 13:23 | Infectious Disease Prog Note ---
Infectious Disease Subjective - Review of Systems Service Date: 07/15/18 Subjective: Doing well, no fever. c/o headache. Infectious Disease Objective - Results Result Diagrams: 07/12/18 17:50 07/12/18 17:50 Recent Labs: Laboratory Last Values WBC 5.1 Th/cmm (4.8-10.8) 07/12/18 17:50 RBC 3.33 Mil/cmm (3.80-5.20) L 07/12/18 17:50 Hgb 9.9 gm/dL (12-16) L 07/12/18 17:50 Hct 28.9 % (41.0-60) L 07/12/18 17:50 MCV 86.8 fl (81-100) 07/12/18 17:50 MCH 29.7 pg (27.0-31.0) 07/12/18 17:50 MCHC Differential 34.2 pg (28.0-36.0) 07/12/18 17:50 RDW 15.1 % (11.5-20.0) 07/12/18 17:50 Plt Count 342 Th/cmm (150-400) 07/12/18 17:50 MPV 7.5 fl 07/12/18 17:50 Neutrophils % 56.5 % (40.0-80.0) 07/12/18 17:50 Lymphocytes % 21.6 % (20.0-50.0) 07/12/18 17:50 Monocytes % 8.8 % (2.0-10.0) 07/12/18 17:50 Eosinophils % 11.9 % (0.0-5.0) H 07/12/18 17:50 Basophils % 1.2 % (0.0-2.0) 07/12/18 17:50 PT 9.9 SECONDS (9.5-11.5) 07/12/18 17:50 INR 0.95 (0.5-1.4) 07/12/18 17:50 Sodium 138 mEq/L (136-145) 07/12/18 17:50 Potassium 4.5 mEq/L (3.5-5.1) 07/12/18 17:50 Chloride 105 mEq/L (98-107) 07/12/18 17:50 Carbon Dioxide 28.2 mEq/L (21.0-31.0) 07/12/18 17:50 Anion Gap 9.3 (7.0-16.0) 07/12/18 17:50 BUN 26 mg/dL (7-25) H 07/12/18 17:50 Creatinine 0.7 mg/dL (0.6-1.2) 07/12/18 17:50 Est GFR ( Amer) TNP 07/12/18 17:50 Est GFR (Non-Af Amer) TNP 07/12/18 17:50 BUN/Creatinine Ratio 37.1 07/12/18 17:50 Glucose 93 mg/dL (70-105) 07/12/18 17:50 Calcium 9.7 mg/dL (8.6-10.3) 07/12/18 17:50 Total Bilirubin 0.2 mg/dL (0.3-1.0) L 07/12/18 17:50 AST 14 U/L (13-39) 07/12/18 17:50 ALT 10 U/L (7-52) 07/12/18 17:50 Alkaline Phosphatase 67 U/L (34-104) 07/12/18 17:50 Troponin I 0.02 ng/mL (0.01-0.05) 07/12/18 17:50 Total Protein 6.9 gm/dL (6.0-8.3) 07/12/18 17:50 Albumin 3.3 gm/dL (3.7-5.3) L 07/12/18 17:50 Globulin 3.6 gm/dL 07/12/18 17:50 Albumin/Globulin Ratio 0.9 (1.0-1.8) L 07/12/18 17:50 Urine Source [place] 07/12/18 18:13 Urine Color YELLOW 07/12/18 18:13 Urine Clarity CLOUDY (CLEAR) H 07/12/18 18:13 Urine pH 6.0 (4.6 - 8.0) 07/12/18 18:13 Ur Specific [place] 1.020 (1.005-1.030) 07/12/18 18:13 Urine Protein TRACE mg/dL (NEGATIVE) 07/12/18 18:13 Urine Glucose (UA) NEGATIVE mg/dL (NEGATIVE) 07/12/18 18:13 Urine Ketones NEGATIVE mg/dL (NEGATIVE) 07/12/18 18:13 Urine Blood TRACE (NEGATIVE) 07/12/18 18:13 Urine Nitrate POSITIVE (NEGATIVE) H 07/12/18 18:13 Urine Bilirubin NEGATIVE (NEGATIVE) 07/12/18 18:13 Urine Urobilinogen 0.2 E.U./dL (0.2 - 1.0) 07/12/18 18:13 Ur Leukocyte Esterase LARGE (NEGATIVE) H 07/12/18 18:13 Urine RBC 2-5 /hpf (0-5) 07/12/18 18:13 Urine WBC 50-100 /hpf (0-5) H 07/12/18 18:13 Ur Epithelial Cells FEW /lpf (FEW) 07/12/18 18:13 Urine Bacteria MANY /hpf (NONE SEEN) H 07/12/18 18:13 - Physical Exam Vitals and I&O: Vital Signs Temp 96.9 F 07/15/18 11:46 Pulse 60 07/15/18 12:56 Resp 17 07/15/18 11:46 BP 151/69 07/15/18 12:56 Pulse Ox 96 07/15/18 11:46 Intake & Output 07/14/18 07/15/18 07/15/18 18:59 06:59 18:59 Intake Total 500 30 Balance 500 30 Weight (lbs) 60.781 kg 60.781 kg Intake: Intake, IV Amount 50 cefTRIAXone 1 gm In 50 Sodium Chloride 0.9% 50 ml @ 100 mls/hr IV Q24HR [facility] Rx#:[id number] Oral 450 30 Other: # Voids 3 2 # Bowel Movements 2 1 Weight Source Bedscale Bedscale Active Medications: Current Medications Acetaminophen (Tylenol) 650 mg PO Q4HR PRN PRN Reason: Pain (Mild) Stop: 09/11/18 04:52 Last Admin: 07/15/18 09:36 Dose: 650 mg Acetaminophen/Hydrocodone Bitart ([place] 10 Mg/325 Mg) 1 tab PO TID PRN PRN Reason: Pain (Severe) Stop: 09/12/18 04:27 Last Admin: 07/14/18 13:06 Dose: 1 tab Ascorbic Acid (Vitamin C) 500 mg PO BID [facility] Stop: 09/12/18 08:59 Last Admin: 07/15/18 09:41 Dose: 500 mg Buspirone HCl (Buspar) 7.5 mg PO BID [facility]; Protocol Stop: 09/12/18 08:59 Last Admin: 07/15/18 09:38 Dose: 7.5 mg Docusate Sodium (Colace) 250 mg PO DAILY [facility] Stop: 09/12/18 08:59 Last Admin: 07/15/18 09:40 Dose: 250 mg Fluoxetine HCl (Prozac) 40 mg PO DAILY [facility] Stop: 09/12/18 08:59 Last Admin: 07/15/18 09:41 Dose: 40 mg Folic Acid (Folate) 1 mg PO DAILY [facility] Stop: 09/12/18 08:59 Last Admin: 07/15/18 09:40 Dose: 1 mg Gabapentin (Neurontin) 300 mg PO TID [facility] Stop: 09/12/18 08:59 Last Admin: 07/15/18 09:37 Dose: 300 mg Hydralazine HCl (Apresoline) 25 mg PO TID [facility] Stop: 09/12/18 08:59 Last Admin: 07/15/18 09:39 Dose: 25 mg Lactulose (Cephulac) 15 gm PO BID [facility] Stop: 09/12/18 08:59 Last Admin: 07/15/18 09:35 Dose: 15 gm Levothyroxine Sodium (Synthroid) 0.075 mg PO QDAC [facility] Stop: 09/12/18 07:29 Last Admin: 07/15/18 06:39 Dose: 0.075 mg Lorazepam (Ativan) 0.5 mg PO Q4HR PRN; Protocol PRN Reason: Anxiety Stop: 09/12/18 04:27 Morphine Sulfate (Morphine) 1 mg IVP Q4HR PRN PRN Reason: Pain (Moderate) Stop: 09/12/18 14:05 Last Admin: 07/14/18 21:18 Dose: 1 mg Pantoprazole Sodium (Protonix) 40 mg PO QDAC [facility] Stop: 09/12/18 07:29 Last Admin: 07/15/18 06:39 Dose: 40 mg Potassium Chloride (Klor-Con) 10 meq PO DAILY [facility] Stop: 09/12/18 08:59 Last Admin: 07/15/18 09:40 Dose: 10 meq Trimethoprim/Sulfamethoxazole (Bactrim Ds) 0.5 tab PO BID [facility] Stop: 09/12/18 16:59 Last Admin: 07/15/18 09:39 Dose: 0.5 tab Valsartan (Diovan) 160 mg PO BID [facility] Stop: 09/12/18 08:59 Last Admin: 07/15/18 09:37 Dose: 160 mg Zinc Sulfate (Zinc Sulfate) 220 mg PO DAILY [facility] Stop: 09/12/18 08:59 Last Admin: 07/15/18 09:40 Dose: 220 mg Zolpidem Tartrate (Ambien) 5 mg PO HS PRN PRN Reason: Insomnia Stop: 09/12/18 04:27 General: no acute distress, well developed, well nourished HEENT: atraumatic, normocephalic, PERRLA, EOMI Neck: supple, no thyromegaly Cardiovascular: S1S2, regular Lungs: clear to auscultation bilaterally, clear to percussion Abdomen: soft, bowel sounds, no tender, no distended Extremities: no cyanosis, no clubbing, no edema Neurological: awake, alert, oriented Skin: intact - Procedures Procedures: Procedures Procedure Code Date EXCISION OF ASCENDING COLON, ENDO [id number] 09/30/17 EXCISION OF DESCENDING COLON, ENDO [id number] 09/30/17 EXCISION OF DUODENUM, ENDO, DIAGN [id number] 09/30/17 EXCISION OF SIGMOID COLON, ENDO [id number] 09/30/17 EXCISION OF STOMACH, ENDO, DIAGN [id number] 09/30/17 [facility] GROUP PSYTX 13770 01/24/01 INTRODUCTION OF SERUM/TOX/VACCINE INTO MUSCLE, [facility] APPROACH [id number] 11/09/17 OTHER GROUP THERAPY 94.44 01/24/01 TRANSFUSE NONAUT RED BLOOD CELLS IN PERIPH VEIN, [facility] [id number] 04/24/18 Infectious Disease Assmt/Plan - Assessment Assessment: 1. Urinary tract infection. ESBL E coli 2. Anemia. 3. Hypertension. 4. Diabetes mellitus type 2. 5. Shoulder pain. Left shoulder dislocation. - Plan Plan: Conitnue bactrim ds x 5 more days. Orthopedic consult appreciated. renal us if negative, may dc to SNF.
--- NOTE | 2018-07-15 14:26 | Diagnostic Imaging Report ---
Renal ultrasound HISTORY: Hydronephrosis or pyelonephritis. COMPARISON: CT abdomen and pelvis on 04/25/2019 Technique: Sonography of the kidneys and urinary bladder was performed in multiple planes. FINDINGS: Exam is limited due to body habitus as patient was uncooperative. The right kidney measures 10.2 x 4.5 cm demonstrating a large lower pole exophytic cyst measuring 4.8 cm. No gross hydronephrosis. The left kidney measures 8.9 x 4.6 cm demonstrating a cyst within the lower pole measuring 1.8 cm. Assessment for hydronephrosis was limited however no gross hydronephrosis identified. There is increased echogenicity of the kidneys. Post void residual bladder volumes were not able to be obtained. Internal echoes are seen within the urinary bladder exteriorly. Mild prominence of the urinary bladder wall is noted. IMPRESSION: Markedly limited exam due to body habitus and patient was uncooperative. Assessment for hydronephrosis is limited, however, no gross hydronephrosis identified. Renal cysts. There additional renal cysts seen on recent CT examination were not able to be well identified on this examination. Density along the posterior aspect of the urinary bladder which may resent debris, clot or other mass lesions. Clinical correlation is needed Mild urinary bladder wall thickening which may be due to underlying inflammatory or infiltrative process.
--- NOTE | 2018-07-15 17:22 | Consultation ---
DATE OF CONSULTATION: 07/14/2018 HISTORY OF PRESENT ILLNESS: The patient is an 87-year-old rest home resident, admitted to [facility] via the Emergency Room on 07/12/2018 for evaluation of left shoulder pain. There was no history of a fall or injury -- no additional history was available regarding her possible left shoulder problem. She is chronically ill and carries numerous diagnoses which I obtained from the medical record. Anemia, hypothyroid, urinary tract infection, psychosis/dementia, pyuria was seen, these again put her down twice. She has also got hypertension, dyslipidemia, arthritis, azotemia, diabetes type 2, neutropenia, coronary artery disease, congestive heart failure. PAST HISTORY, FAMILY HISTORY, SOCIAL HISTORY: No further information is available. The patient is unable to answer questions or give medical information. EXAMINATION: The patient was examined in her hospital room. She was noted to have her hand was tucked under her buttocks, when I pulled them out to examine them, they were very edematous. The right shoulder appears of normal contour. There is no tenderness to palpation. Active motion, she could or would not move either arm or shoulder for me. Passive motion on the right, 60% of normal. She did not seem to have much pain. When asked to move her hand, wrist or elbow she could not follow commands. Left shoulder: There was a void at the lateral shoulder over the glenoid, passive motion left shoulder 50%. NEUROLOGIC EXAMINATION: All reflexes hypoactive and symmetrical. Sensation grossly intact. IMAGING STUDIES: I reviewed x-rays in the PACS, right shoulder, two views. Orthopedic hardware is present with plates and screws on the upper shaft of the humerus and then electrical bone stimulator embedded next to the humerus. The humeral head is not visible. There is a thin outline of part of it. The rest has apparently resolved left shoulder. There is inferior subluxation of the humerus and humeral head. There are generalized degenerative changes, no evidence of fracture. ORTHOPEDIC DIAGNOSES: 1. Inferior subluxation, left shoulder. 2. 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 The head is presently absorbed. DISCUSSION: Subluxation of shoulders is fairly common in an elderly patient especially with dementia who just sit or lie in bed and do not use their muscles. The muscles become very soft and lax and the weight of the arm will cause inferior subluxation. She does not appear to be having significant pain. If she did, this could be handled by oral medication. She might benefit from a sling to try and keep the humerus somewhat supported. There is no indication for any type of aggressive intervention such as an attempted closed reduction (there was a great risk of fracture) and the shoulder would simply sublux again, and certainly no surgery indicated. Thank you for this interesting referral. JOB# [id number]
--- NOTE | 2018-07-16 00:06 | Progress Notes ---
DATE: 07/15/2018 Case was discussed with staff of the patient, reviewed records. The patient continues to be unable to participate in a meaningful conversation or make safe plan for self-care. Continues to be unpredictable, impulsive, needing redirection. I took her off the Risperdal and I do not see any increase in any unusual behavior. She is on Prozac already 40 mg daily. She is on BuSpar 7.5 mg twice a day with no side effects, no sedation, no nausea. She is demented, confused, unable to participate in a meaningful conversation or make safe plan for self-care. The patient also was on Risperdal that was discontinued with no problem. Thank you very much for allowing me to participate in the care of this most interesting lady. JOB# [id number]
== END 2018-07-15 18:19 | DRG 690 ==
LOC: ER 17:06 → MSI 20:15
PROVIDERS: ADMIT Internal Medicine Infectious Disease; ATTEND Internal Medicine Infectious Disease
DX: N39.0 Urinary tract infection, site not specified (principal); I13.0 Hypertensive heart and chronic kidney disease with heart failure and stage 1 through stage 4 chronic kidney disease, or unspecified chronic kidney disease; I25.10 Atherosclerotic heart disease of native coronary artery without angina pectoris; S43.005A Unspecified dislocation of left shoulder joint, initial encounter; E11.22 Type 2 diabetes mellitus with diabetic chronic kidney disease; N18.9 Chronic kidney disease, unspecified; D64.9 Anemia, unspecified; E03.9 Hypothyroidism, unspecified; F29 Unspecified psychosis not due to a substance or known physiological condition; E78.5 Hyperlipidemia, unspecified; F03.90 Unspecified dementia, unspecified severity, without behavioral disturbance, psychotic disturbance, mood disturbance, and anxiety; K57.30 Diverticulosis of large intestine without perforation or abscess without bleeding; K21.9 Gastro-esophageal reflux disease without esophagitis; R13.10 Dysphagia, unspecified; D70.9 Neutropenia, unspecified; F32.9 Major depressive disorder, single episode, unspecified; I50.9 Heart failure, unspecified; X58.XXXA Exposure to other specified factors, initial encounter; Y93.89 Activity, other specified; Y92.89 Other specified places as the place of occurrence of the external cause; Y99.8 Other external cause status; B96.20 Unspecified Escherichia coli [E. coli] as the cause of diseases classified elsewhere; Z16.12 Extended spectrum beta lactamase (ESBL) resistance; Z88.8 Allergy status to other drugs, medicaments and biological substances; Z91.041 Radiographic dye allergy status
CPT/HCPCS: 36415-UA; 73030-TC-LT; 73030-TC-RT; 76770-TC; 80053-TC; 81001-TC; 84484-TC; 85025-TC; 85610-TC; 87086-90; 93005; 96374; J0696; J2270; Z7610